=== PATIENT | female | born 1940 | race Caucasian/White ===

== ENCOUNTER 2020-06-28 09:50 | Outpatient (CLI) | payer MEDICARE, SELFPAY ==
--- NOTE | ~2020-06-28 | MM_ITS ---
EXAMINATION: MM screening paola RT w katie HISTORY: Screening TECHNIQUE: Craniocaudal and mediolateral oblique 3-D tomosynthesis images were obtained and synthetic 2-D images were generated. CAD analysis was submitted and interpreted. COMPARISON: Comparison to multiple prior studies sequentially, with oldest reviewed study dated 06/11. BREAST PARENCHYMAL COMPOSITION: The breasts are heterogeneously dense, which may obscure small masses . FINDINGS: There is no evidence of suspicious mass, calcification, or architectural distortion to sugg est malignancy in the right breast. There has been no suspicious interval change. IMPRESSION: 1. No mammographic evidence of malignancy. 2. Recommend routine screening mammography in one year. BI-RADS Category 2: Benign finding(s). Reviewed, dictated and finalized at location A.
[2020-06-28 11:20] LABS: Basophils Percent Auto 0.5 % (0.2-1.2); Eosinophils Absolute Auto 0.2 K/mm3 (0-0.3); Eosinophils Percent Auto 2.9 % (0-4.4); Hematocrit 37.1 % (37.0-47.0); Hemoglobin 12.3 g/dL (12.0-15.0); Immature Granulocyte Absolute 0.01 K/mm3 (0.00-0.031); Immature Granulocyte Percent A 0.2 % (0-0.5); Lymphocytes Absolute Auto 1.89 K/mm3 (0.9-3.2); Lymphocytes Percent Auto 32.8 % (18.3-44.2); Mean Corpuscular HGB Conc 33.2 g/dl (32-36); Mean Corpuscular Hemoglobin 31.8 pg (26-34); Mean Corpuscular Volume 95.9 fl (80-100); Mean Platelet Volume 9.4 fl (7.4-10.4); Monocytes Absolute Auto 0.6 K/mm3 (0.1-0.6); Monocytes Percent Auto 10.1 % (2.6-8.5); Neutrophils Absolute Auto 3.1 K/mm3 (1.3-6.7); Neutrophils Percent Auto 53.5 % (45.5-73.1); Platelet Count Result 174 k/mm3 (150-375); Red Blood Count 3.87 M/mm3 (4.2-5.4); Red Cell Distribution Width 12.4 % (11.5-14.5); White Blood Count 5.8 K/mm3 (4.5-10.0)
[2020-06-28 11:34] LABS: Alanine Aminotransferase 24 U/L (4-35); Albumin Level 4.2 g/dL (3.5-5.1); Alkaline Phosphatase 75 U/L (38-126); Anion Gap 6 mmol/L (8-16); Aspartate Amino Transferase 38 U/L (14-36); Bilirubin,Total 0.2 mg/dL (0.2-1.3); Blood Urea Nitrogen 28 mg/dL (7-17); Calcium 9.1 mg/dL (8.4-10.2); Carbon Dioxide 28 mmol/L (22-30); Chloride 105 mmol/L (98-107); Estimated Glomerular Filt Rate 43; Glucose 76 mg/dL (65-105); Potassium 4.7 mmol/L (3.4-5.0); Sodium 139 mmol/L (137-145)
== END 2020-06-28 09:51 | disposition home or self-care (01) ==
PROVIDERS: PCP Internal Medicine; Visit Provider Internal Medicine Hematology & Oncology
DX: Z12.31 Encounter for screening mammogram for malignant neoplasm of breast (principal); C50.912 Malignant neoplasm of unspecified site of left female breast; Z17.0 Estrogen receptor positive status [ER+]
CPT/HCPCS: 36415; 77063; 77067; 80053; 85025

== ENCOUNTER 2021-06-24 11:19 | Outpatient (CLI) | payer MEDICARE, SELFPAY ==
[2021-06-24 11:55] LABS: Basophils Absolute Auto 0.1 K/mm3 (0.0-0.1); Eosinophils Absolute Auto 0.1 K/mm3 (0-0.3); Eosinophils Percent Auto 2.7 % (0-4.4); Hematocrit 38.5 % (37.0-47.0); Hemoglobin 12.6 g/dL (12.0-15.0); Immature Granulocyte Absolute 0.02 K/mm3 (0.00-0.031); Immature Granulocyte Percent A 0.4 % (0-0.5); Lymphocytes Absolute Auto 1.84 K/mm3 (0.9-3.2); Mean Corpuscular HGB Conc 32.7 g/dl (32-36); Mean Corpuscular Hemoglobin 32.4 pg (26-34); Mean Platelet Volume 9.2 fl (7.4-10.4); Monocytes Absolute Auto 0.5 K/mm3 (0.1-0.6); Monocytes Percent Auto 9.9 % (2.6-8.5); Neutrophils Absolute Auto 2.7 K/mm3 (1.3-6.7); Platelet Count Result 165 k/mm3 (150-375); Red Blood Count 3.89 M/mm3 (4.2-5.4); Red Cell Distribution Width 12.4 % (11.5-14.5); White Blood Count 5.3 K/mm3 (4.5-10.0)
[2021-06-24 12:10] LABS: Alanine Aminotransferase 25 U/L (4-35); Albumin Level 4.3 g/dL (3.5-5.1); Alkaline Phosphatase 75 U/L (38-126); Anion Gap 4 mmol/L (8-16); Aspartate Amino Transferase 37 U/L (14-36); Bilirubin,Total 0.2 mg/dL (0.2-1.3); Blood Urea Nitrogen 28 mg/dL (7-17); Calcium 9.1 mg/dL (8.4-10.2); Carbon Dioxide 28 mmol/L (22-30); Chloride 106 mmol/L (98-107); Estimated Glomerular Filt Rate 39; Glucose 84 mg/dL (65-110); Sodium 138 mmol/L (137-145)
== END 2021-06-24 11:20 | disposition home or self-care (01) ==
PROVIDERS: PCP Internal Medicine; Visit Provider Internal Medicine Hematology & Oncology
DX: C50.912 Malignant neoplasm of unspecified site of left female breast (principal); Z17.0 Estrogen receptor positive status [ER+]
CPT/HCPCS: 36415; 80053; 85025

== ENCOUNTER 2021-06-30 09:26 | Outpatient (CLI) | payer MEDICARE, SELFPAY ==
--- NOTE | ~2021-06-30 | MM_ITS ---
EXAMINATION: MM screening paola RT w katie HISTORY: Screening TECHNIQUE: Craniocaudal and mediolateral oblique 3-D tomosynthesis images were obtained and synthetic 2-D images were generated. CAD analysis was submitted and interpreted. COMPARISON: Comparison to multiple prior studies sequentially, with oldest reviewed study dated 06/13. BREAST PARENCHYMAL COMPOSITION: The breasts are heterogeneously dense, which may obscure small masses . FINDINGS: There is no evidence of suspicious mass, calcification, or architectural distortion to sugg est malignancy in the right breast. There has been no suspicious interval change. IMPRESSION: 1. No mammographic evidence of malignancy. 2. Recommend routine screening mammography in one year. BI-RADS Category 1: Negative Reviewed, dictated and finalized at location A.
== END 2021-06-30 09:27 | disposition home or self-care (01) ==
LOC: ANHIMG 09:28
PROVIDERS: PCP Internal Medicine; Visit Provider Internal Medicine Hematology & Oncology
DX: Z12.31 Encounter for screening mammogram for malignant neoplasm of breast (principal)
CPT/HCPCS: 77063; 77067

== ENCOUNTER 2022-03-23 12:25 | Outpatient (CLI) | payer MEDICARE, SELFPAY ==
--- NOTE | ~2022-03-23 | DEXA_ITS ---
Bone Density Report Name: MELONIE DOAN Age: 81 Sex: Female Ethnicity: White Date of : 1940 Indication: postmenopausal; screening for osteoporosis; height loss; cancer; Referring Provider: RHEA, JEVON Finley Study: Bone densitometry was performed. Exam Date: March 23, 2022 Accession number: [id number] Bone Density: Region BMD T-score Z-score Classification AP Spine(L1, L2, L3) 1.062 0.4 3.1 Normal Femoral Neck (Left) 0.817 -0.3 2.1 Normal Total Hip (Left) 0.967 0.2 2.4 Normal Femoral Neck (Right) 0.790 -0.5 1.8 Normal Total Hip (Right) 0.949 0.1 2.2 Normal Total Hip Mean 0.958 0.2 2.3 Normal World Health Organization criteria for BMD impression classify patients as: Normal (T-score at or above -1.0), Osteopenia (T-score between -1.0 and -2.5), or Osteoporosis (T-score at or below -2.5). 10-year Fracture Risk: FRAX not reported because: All T-scores for Spine Total, Hip Total, Femoral Neck at or above -1.0 Previous Exams: Region Exam Age BMD T-score BMD Change BMD Change Date g/cm2 vs Baseline vs Previous AP Spine (L1-L3) 03/23/2022 81 1.062 0.4 0.114 (12.0%)# 0.092 (9.4%)# 06/26/2019 78 0.971 -0.4 0.022 (2.3%) 0.022 (2.3%) 06/15/2016 75 0.948 -0.6 Total Hip(Left) 03/23/2022 81 0.967 0.2 0.007 (0.8%)# -0.080 (-7.6%) 06/26/2019 78 1.047 0.9 0.087 (9.1%)* 0.087 (9.1%)* 06/15/2016 75 0.960 0.1 Total Hip(Right) 03/23/2022 81 0.949 0.1 0.003 (0.4%)# -0.015 (-1.6%) 06/26/2019 78 0.964 0.2 0.018 (1.9%) 0.018 (1.9%) 06/15/2016 75 0.945 0.0 *Denotes significance at 95% confidence level, LSC for AP Spine = 0.022 g/cm2, LSC for Total Hip = 0.027 g/cm2 # Denotes dissimilar scan types or analysis methods Clinical Information Provided by Patient: Has used the following medications: Calcium Has the following medical conditions: Cancer Patient maximum height was 66 Menopause Age: 55 Onset of menses at age 13 Number of children 2 Impression: The patient has normal bone mass. No significant bone loss was observed. Discussion: BONE DENSITY IS ABOVE THE MINIMUM DESIRABLE LEVEL AT ALL SKELETAL SITES TESTED. This patient?s bone mineral density is above the minimum desirable level (T-score -1.0 or better) at all sites measured. The patient should follow a healthful lifestyle (good nutrition with adequate calcium and vitamin D, and appropriate weight-bearing exercise).
== END 2022-03-23 12:26 | disposition home or self-care (01) ==
LOC: ANHIMG 12:27
PROVIDERS: PCP Internal Medicine; Visit Provider Internal Medicine
DX: Z78.0 Asymptomatic menopausal state (principal)
CPT/HCPCS: 77080

== ENCOUNTER 2022-07-13 10:40 | Outpatient (CLI) | payer MEDICARE, SELFPAY ==
--- NOTE | ~2022-07-13 | MM_ITS ---
EXAMINATION: MM screening paola RT w katie HISTORY: Screening mammogram; history of left mastectomy in 2007 TECHNIQUE: Craniocaudal and mediolateral oblique 3-D tomosynthesis images were obtained and synthetic 2-D images were generated. CAD analysis was submitted and interpreted. COMPARISON: 06/30/2021, 06/28/2020, 06/26/2019 right screening mammogram examinations BREAST PARENCHYMAL COMPOSITION: The breasts are heterogeneously dense, which may obscure small masses . FINDINGS: There is no evidence of suspicious mass, calcification, or architectural distortion to sugg est malignancy in either breast. There has been no suspicious interval change. IMPRESSION: 1. No mammographic evidence of malignancy. 2. Recommend routine screening mammography in one year. BI-RADS Category 1: Negative Reviewed, dictated and finalized at location A.
== END 2022-07-13 10:41 | disposition home or self-care (01) ==
PROVIDERS: PCP Internal Medicine; Visit Provider Internal Medicine Hematology & Oncology
DX: Z12.31 Encounter for screening mammogram for malignant neoplasm of breast (principal)
CPT/HCPCS: 77063; 77067

== ENCOUNTER 2023-05-23 11:32 | Emergency (ER) | payer MEDICARE, SELFPAY ==
--- NOTE | ~2023-05-23 | XR_ITS ---
EXAMINATION: XR chest 2V DATE: 05/23/2023 12:02 INDICATION: Shortness of breath, chest congestion and productive cough TECHNIQUE: PA and lateral views of the chest were obtained. COMPARISON: Chest radiograph dated 10/29/2017 FINDINGS: Mild airspace opacities and bronchial wall thickening in the bilateral lower lung zones, right greate r than left. No pleural effusion or pneumothorax. The cardiomediastinal silhouette is normal. Mild to moderate thoracic spondylosis. IMPRESSION: 1. Mild opacities in the bilateral lower lung zones, right greater than left suspicious for pneumonia with differential including less likely mild pulmonary edema. Reviewed, dictated and finalized at location A. IMPRESSION: 1. Mild opacities in the bilateral lower lung zones, right greater than left beltran spicious for pneumonia with differential including less likely mild pulmonary e nathan.
--- NOTE | 2023-05-23 11:34 | ECG_ITS ---
Measurements Intervals [place] Rate: 69 P: 52 GA: 217 QRS: 38 QRSD: 92 T: 71 QT: 420 QTc: 452 Interpretive Statements SINUS RHYTHM WITH FIRST DEGREE AV BLOCK INCOMPLETE RIGHT BUNDLE BRANCH BLOCK [90+ ms QRS DURATION, TERMINAL R IN V1/V2, 40+ ms S IN I/aVL/V4/V5/V6] Poor R-wave progression NO PREVIOUS ECG AVAILABLE FOR COMPARISON Electronically Signed On 05-23-2023 14:57:01 CDT by Carlene Castañeda M.D.
--- NOTE | 2023-05-23 11:35 | ED.SOB ---
HPI - SOB/Dyspnea General Chief Complaint: Shortness of Breath/Dyspnea Stated Complaint: chest congestion Time Seen by Provider: 05/23/23 11:33 Source: patient Mode of arrival: ambulatory Limitations: no limitations History of Present Illness HPI Narrative: patient is a 82-year-old female with dyspnea after taking a pill yesterday and started coughing. Patient has had recurrent bouts of pneumonia in the past. MD elicited complaint: shortness of breath Onset (ago): day(s) (1) Timing: intermittent Severity: mild Exacerbating factors: coughing Relieving factors: nothing Associated symptoms: denies other symptoms Related Data Home oxygen amount: none Home Medications Medication Instructions Recorded Confirmed atorvastatin 10 mg tablet 10 mg PO DAILY 01/05/23 dicyclomine 10 mg capsule 10 mg PO BID 01/05/23 gabapentin 100 mg capsule 100 mg PO DAILY 01/05/23 levothyroxine 25 mcg capsule 25 mcg PO DAILY 01/05/23 meloxicam 15 mg tablet 15 mg PO DAILY 01/05/23 multivitamin 1 tablet PO DAILY 01/05/23 nortriptyline 50 mg capsule 50 mg PO DAILY 01/05/23 omega 4-tne-jde-fish oil 60 mg-90 1 cap PO DAILY 01/05/23 mg-500 mg capsule (Fish Oil) omeprazole 20 mg capsule,delayed 20 mg PO DAILY 01/05/23 release verapamil 120 mg tablet 120 mg PO DAILY 01/05/23 Allergies Allergy/AdvReac Type Severity Reaction Status Date / Time Cephalosporins Allergy Severe DIARRHEA Verified 04/06/23 11:08 adhesive Allergy Unknown opsite Verified 04/06/23 11:08 causes rash/itching, skin irritation cefprozil Allergy Unknown Other Verified 04/06/23 11:08 erythromycin base Allergy Unknown Other Verified 04/06/23 11:08 Review of Systems Review of Systems: All systems reviewed & are unremarkable except as noted in HPI and below Constitutional: Constitutional: Reports no additional constitutional complaints Eyes: Eyes: Reports no additional eye complaints ENT: Reports system reviewed and no additional complaints, except as documented Cardiovascular: Cardiovascular: Reports no additional cardiovascular complaints Respiratory: Respiratory: Reports no additional respiratory complaints Gastrointestinal: Gastrointestinal: Reports no additional gastrointestinal complaints Genitourinary: Genitourinary: Reports no additional female genitourinary complaints Musculoskeletal: Musculoskeletal: Reports no additional musculoskeletal complaints Integumentary/Breasts: Skin/Breast: Reports system reviewed and no additional complaints, except as docu Neurologic: Reports system reviewed and no additional complaints, except as documented Psychiatric: Psychiatric: Reports no additional psychiatric complaints Endocrine: Endocrine: Reports no additional endocrine complaints Hematologic/Lymphatic: Hematologic/Lymphatic: Reports no additional hematologic/lymphatic complaints Allergic/Immunologic: Allergic/Immunologic: Reports no additional allergic/immunologic complaints PMFSH Past Medical History Medical History Acute pain of left knee Effusion of knee joint Left knee DJD Family History Family History Father Carcinoma of colon Sibling Family history of malignant neoplasm of breast in first degree relative Other Family history of malignant neoplasm Hypertension Social History Social History Smoking status: Never smoker Alcohol intake: never Exam Const: General: healthy appearing Nutritional Appearance: well nourished HENMT: Head: normal to inspection Ears: external ears normal Eyes: Conjunctivae: conjunctivae normal Pupils: Equal, round and reactive pupils present Neck: Neck: normal visual inspection Chest: Chest palpation & inspection: normal inspection of the chest Resp: Effort & Inspection: normal respiratory effort Auscultati
[2023-05-23 11:44] VITALS: BP 181/76; PULSE 80; RESP 20; TEMP 37.1; O2SAT 99
[2023-05-23 12:11] VITALS: O2SAT 98
[2023-05-23 12:30] LABS: Basophils Absolute Auto 0.04 K/mm3 (0.00-0.10); Basophils Percent Auto 0.5 % (0.0-1.0); Eosinophils Absolute Auto 0.21 K/mm3 (0.02-0.50); Eosinophils Percent Auto 2.8 % (1.0-6.0); Hematocrit 36.8 % (35.0-42.0); Hemoglobin 12.2 g/dL (11.7-13.8); Immature Granulocyte Absolute 0.02 K/mm3 (0.00-0.00); Immature Granulocyte Percent A 0.3 % (0.0-0.0); Lymphocytes Percent Auto 25.6 % (18.0-42.0); Mean Corpuscular HGB Conc 33.2 g/dL (32.0-36.0); Mean Corpuscular Hemoglobin 32.7 pg (27.0-31.0); Mean Corpuscular Volume 98.7 fL (78.0-102.0); Monocytes Absolute Auto 0.64 K/mm3 (0.10-0.90); Monocytes Percent Auto 8.6 % (2.0-11.0); Neutrophils Absolute Auto 4.6 K/mm3 (1.7-7.2); Neutrophils Percent Auto 62.2 % (50.0-70.0); Platelet Count Result 208 K/mm3 (150-420); Red Blood Count 3.73 M/mm3 (4.20-5.40); Red Cell Distribution Width 12.8 % (11.6-14.4); White Blood Count 7.4 K/mm3 (4.8-10.8)
[2023-05-23] MEDS: levoFLOXacin 750 MG/D5W 150 ML 750 MG/150 ML BAG 100 MG IVPB (12:30)
[2023-05-23 12:50] LABS: Alanine Aminotransferase 34 U/L (14-59); Albumin Level 3.7 g/dL (3.4-5.0); Alkaline Phosphatase 105 U/L (46-116); Anion Gap 10 mmol/L (8-16); Aspartate Amino Transferase 22 U/L (15-37); Bilirubin,Total 0.2 mg/dL (0.00-1.00); Blood Urea Nitrogen 30 mg/dL (7-18); Calcium 8.9 mg/dL (8.5-10.1); Carbon Dioxide 27 mmol/L (21-32); Chloride 103 mmol/L (98-108); Glucose 93 mg/dL (70-99); Osmolality Calculated 296 mOsm/kg (285-295); Potassium 3.8 mmol/L (3.5-5.1); Sodium 140 mmol/L (136-145); Total Protein 7.6 g/dL (6.4-8.2)
[2023-05-23 12:55] LABS: Lactic Acid Reflex 1.1 mmol/L (0.4-2.0)
[2023-05-23 12:58] LABS: Estimated CRCL calculation 27 ml/min; Estimated Glomerular Filt Rate 34
[2023-05-23] MEDS: SODIUM CHLORIDE 0.9% IV 1,000 ML 999 ML IV CONT (13:31)
--- NOTE | 2023-05-23 13:36 | ECG_ITS ---
Measurements Intervals [place] Rate: 66 P: 47 DC: 225 QRS: 38 QRSD: 87 T: 63 QT: 439 QTc: 461 Interpretive Statements SINUS RHYTHM WITH FIRST DEGREE AV BLOCK POSSIBLE RIGHT VENTRICULAR CONDUCTION DELAY [RSR (QR) IN V1/V2] COMPARED TO ECG 05/23/2023 11:45:16 NO SIGNIFICANT CHANGES Electronically Signed On 05-23-2023 14:57:08 CDT by Carlene Castañeda M.D.
[2023-05-23 14:14] LABS: Troponin I 9.4 ng/L (0.00-60.4)
[2023-05-23 15:00] VITALS: BP 148/72; PULSE 80; RESP 20; TEMP 36.7; O2SAT 100
--- NOTE | 2023-05-29 12:34 | PC.NURSE ---
final blood culture reviewed. no growth after 5 days. no change in plan of care.
== END 2023-05-23 14:45 | disposition home or self-care (01) ==
PROVIDERS: Emergency Provider Emergency Medicine; PCP Internal Medicine
DX: J18.9 Pneumonia, unspecified organism (principal)
CPT/HCPCS: 36415; 71046; 80053; 83605; 84484; 85025; 87040; 93005; 96365; 96366; 99284; J1956; J7030

== ENCOUNTER 2023-07-15 10:21 | Outpatient (CLI) | payer MEDICARE, SELFPAY ==
--- NOTE | ~2023-07-15 | MM_ITS ---
EXAMINATION: MM screening paola RT w katie HISTORY: Screening mammogram TECHNIQUE: Craniocaudal and mediolateral oblique 3-D tomosynthesis images were obtained and synthetic 2-D images were generated. CAD analysis was submitted and interpreted. COMPARISON: 07/13/2022, 06/30/2021, 06/28/2020 right screening mammogram examinations BREAST PARENCHYMAL COMPOSITION: The breasts are heterogeneously dense, which may obscure small masses . FINDINGS: There is no evidence of suspicious mass, calcification, or architectural distortion to sugg est malignancy in either breast. There has been no suspicious interval change. IMPRESSION: 1. No mammographic evidence of malignancy. 2. Recommend routine screening mammography in one year. BI-RADS Category 1: Negative Reviewed, dictated and finalized at location A.
== END 2023-07-15 10:22 | disposition home or self-care (01) ==
PROVIDERS: PCP Internal Medicine; Visit Provider Internal Medicine Hematology & Oncology
DX: Z12.31 Encounter for screening mammogram for malignant neoplasm of breast (principal)
CPT/HCPCS: 77063; 77067

== ENCOUNTER 2023-07-22 10:20 | Outpatient (CLI) | payer MEDICARE, SELFPAY ==
[2023-07-22 10:40] LABS: Basophils Absolute Auto 0.1 K/mm3 (0.0-0.1); Basophils Percent Auto 0.9 % (0.2-1.2); Eosinophils Absolute Auto 0.4 K/mm3 (0-0.3); Eosinophils Percent Auto 7.3 % (0-4.4); Hematocrit 35.2 % (37.0-47.0); Hemoglobin 11.4 g/dL (12.0-15.0); Immature Granulocyte Absolute 0.01 K/mm3 (0.00-0.031); Immature Granulocyte Percent A 0.2 % (0-0.5); Lymphocytes Absolute Auto 1.94 K/mm3 (0.9-3.2); Lymphocytes Percent Auto 33.6 % (18.3-44.2); Mean Corpuscular HGB Conc 32.4 g/dl (32-36); Mean Corpuscular Hemoglobin 32.6 pg (26-34); Mean Corpuscular Volume 100.6 fl (80-100); Mean Platelet Volume 8.9 fl (7.4-10.4); Monocytes Absolute Auto 0.5 K/mm3 (0.1-0.6); Monocytes Percent Auto 8.1 % (2.6-8.5); Neutrophils Absolute Auto 2.9 K/mm3 (1.3-6.7); Neutrophils Percent Auto 49.9 % (45.5-73.1); Platelet Count Result 183 k/mm3 (150-375); Red Cell Distribution Width 12.6 % (11.5-14.5); White Blood Count 5.8 K/mm3 (4.5-10.0)
[2023-07-22 10:45] LABS: Blood Urea Nitrogen 31 mg/dL (8-26); Carbon Dioxide 24 mmol/L (22-30); Chloride 106 mmol/L (98-109); Estimated Glomerular Filt Rate 29; Glucose 110 mg/dL (70-105); Ionized Calcium (POC) 1.21 mmol/L (1.11-1.31); Potassium 4.4 mmol/L (3.5-4.9); Sodium 141 mmol/L (138-146)
[2023-07-22 12:39] LABS: Alanine Aminotransferase 26 U/L (6-35); Alkaline Phosphatase 76 U/L (38-126); Anion Gap 8 mmol/L (8-16); Aspartate Amino Transferase 33 U/L (14-36); Bilirubin,Total 0.4 mg/dL (0.2-1.3); Blood Urea Nitrogen 32 mg/dL (7-17); Carbon Dioxide 26 mmol/L (22-30); Chloride 106 mmol/L (98-107); Estimated Glomerular Filt Rate 33; Glucose 110 mg/dL (65-110); Potassium 4.4 mmol/L (3.4-5.0); Sodium 140 mmol/L (137-145)
== END 2023-07-22 10:21 | disposition home or self-care (01) ==
PROVIDERS: PCP Internal Medicine; Visit Provider Internal Medicine Hematology & Oncology
DX: C50.912 Malignant neoplasm of unspecified site of left female breast (principal); Z17.0 Estrogen receptor positive status [ER+]
CPT/HCPCS: 36415; 80047; 80053; 85025

== ENCOUNTER 2023-07-25 13:57 | Emergency (ER) | payer MEDICARE, SELFPAY ==
[2023-07-25] VITALS (25 sets, daily range): BP systolic 118–158; BP diastolic 57–75; PULSE 63–78; RESP 18–20; TEMP 36.7–36.9; O2SAT 94–100
--- NOTE | ~2023-07-25 | CT_ITS ---
EXAMINATION: CT diagnostic chest wo con DATE: 07/25/2023 16:00 INDICATION: sob/abnl cxr TECHNIQUE: Computed tomography (CT) of the chest was performed with 100 mL Omnipaque-350 intravenous contrast. Automated exposure control and iterative reconstruction technique were employed. The dose-l ength product was 147.44 mGy-cm. COMPARISON: 06/21/2018; x-ray chest 07/25/2023. FINDINGS: CHEST: Thoracic aorta: No significant dilation. Mild arch calcification. Lung parenchyma and airways: Scattered tree-in-bud opacities, slightly increased since the prior stud y. The airways are clear. Increasing peripheral reticulation. Stable pulmonary nodules. Thoracic inlet, axillae and chest wall: No thyroid or soft tissue mass. No axillary lymphadenopathy. Mediastinum: No mass or lymphadenopathy. Heart and pericardium: Normal heart size. No pericardial effusion. Coronary artery calcifications: Absent. Pleura: No effusion or mass. Upper abdomen: No significant finding. Thoracic bones: No acute osseous finding in the chest. IMPRESSION: Increased scattered tree-in-bud opacities, as can be seen with atypical infection (MAC, TB, fungal), ABPA, airways disease (CF, bronchiectasis), and aspiration. Increasing interstitial changes consistent with UIP. Reviewed, dictated and finalized at location K. IMPRESSION: Increased scattered tree-in-bud opacities, as can be seen with atypical infecti on (MAC, TB, fungal), ABPA, airways disease (CF, bronchiectasis), and aspiratio n. Increasing interstitial changes consistent with UIP.
--- NOTE | ~2023-07-25 | XR_ITS ---
EXAMINATION: XR chest 2V Exam Date/Time: 07/25/2023 14:28 CDT HISTORY: sob, cough, congestion x 1 week hx asthma Comparison: 05/23/2023; CT chest 06/21/2018. RESULT: Lines, tubes, and devices: None. Lungs and pleura: Scattered areas of lower lung tree-in-bud opacities. Calcified and partially calci fied right lower lobe nodule is better seen by prior CT. Cardiomediastinal silhouette: Stable. Other: No acute osseous or upper abdominal finding. IMPRESSION: Demonstration of pulmonary opacities as can be seen with atypical infection (MAC, TB, fungal), ABPA, airways disease (CF, bronchiectasis), and aspiration. Reviewed, dictated and finalized at location K. IMPRESSION: Demonstration of pulmonary opacities as can be seen with atypical infection (MA C, TB, fungal), ABPA, airways disease (CF, bronchiectasis), and aspiration.
--- NOTE | 2023-07-25 14:07 | ECG_ITS ---
Measurements Intervals [place] Rate: 74 P: 35 NE: 225 QRS: -9 QRSD: 96 T: 51 QT: 411 QTc: 458 Interpretive Statements SINUS RHYTHM WITH FIRST DEGREE AV BLOCK MODERATE VOLTAGE CRITERIA FOR LVH, CONSIDER NORMAL VARIANT [MEETS CRITERIA IN ONE OF: R(aVL), S(V1), R(V5), R(V5/V6)+S(V1)] ABNORMAL ECG COMPARED TO ECG 05/23/2023 13:48:47 NO SIGNIFICANT CHANGES Electronically Signed On 07-26-2023 9:31:47 CDT by Shin Fisher M.D.
--- NOTE | 2023-07-25 14:14 | ED.WEAKNESS ---
HPI - Weakness General Chief complaint: Upper Respiratory Infection Stated complaint: pneumonia Time Seen by Provider: 07/25/23 14:06 Source: patient and family Mode of arrival: ambulatory Limitations: no limitations History of Present Illness HPI Narrative: patient is a 82-year-old female here with continued pneumonia process. She was given Levaquin in the past week by the cancer specialist for a pneumonia process noted in his office. She is starting to feel weak and woozy and lightheaded and short of breath over the past week progressively getting worse. patient is a breast cancer survivor. She sees her specialist yearly now. MD Complaint: generalized weakness Onset (ago): week(s) (1) Duration: constant Location: generalized Migration: none Severity: moderate Severity scale (1-10): 5 Quality: aching Relieving factors: none Exacerbating factors: none Context: new medication ( Levaquin) Associated symptoms: fever/chills, loss of appetite, myalgias and shortness of breath Related Data Home Medications Medication Instructions Recorded Confirmed atorvastatin 10 mg tablet 10 mg PO DAILY 01/05/23 07/25/23 dicyclomine 10 mg capsule 10 mg PO BID 01/05/23 07/25/23 levothyroxine 25 mcg capsule 25 mcg PO DAILY 01/05/23 07/25/23 meloxicam 15 mg tablet 15 mg PO DAILY 01/05/23 07/25/23 multivitamin 1 tablet PO DAILY 01/05/23 07/25/23 nortriptyline 50 mg capsule 50 mg PO DAILY 01/05/23 07/25/23 omega 3-amj-emn-fish oil 60 mg-90 1 cap PO DAILY 01/05/23 07/25/23 mg-500 mg capsule (Fish Oil) omeprazole 20 mg capsule,delayed 20 mg PO DAILY 01/05/23 07/25/23 release verapamil 120 mg tablet 120 mg PO DAILY 01/05/23 07/25/23 albuterol sulfate 90 mcg/actuation 2 puff inhalation PRN PRN Wheezing 07/25/23 07/25/23 aerosol inhaler glucosamine sulf dipot 1 cap PO DAILY 07/25/23 07/25/23 chlr,msm,chond 550 mg-C 30 mg-amy 1 mg capsule (Glucosamine Chondroitin) olmesartan 20 mg tablet 20 mg PO DAILY 07/25/23 07/25/23 Allergies Allergy/AdvReac Type Severity Reaction Status Date / Time Cephalosporins Allergy Severe DIARRHEA Verified 05/23/23 13:07 adhesive Allergy Unknown opsite Verified 05/23/23 13:07 causes rash/itching, skin irritation cefprozil Allergy Unknown Other Verified 05/23/23 13:07 erythromycin base Allergy Unknown Other Verified 05/23/23 13:07 Review of Systems Review of Systems: All systems reviewed & are unremarkable except as noted in HPI and below Constitutional: Constitutional: Reports no additional constitutional complaints Eyes: Eyes: Reports no additional eye complaints ENT: Reports system reviewed and no additional complaints, except as documented Cardiovascular: Cardiovascular: Reports no additional cardiovascular complaints Respiratory: Respiratory: Reports no additional respiratory complaints Gastrointestinal: Gastrointestinal: Reports no additional gastrointestinal complaints Genitourinary: Genitourinary: Reports no additional female genitourinary complaints Musculoskeletal: Musculoskeletal: Reports no additional musculoskeletal complaints Integumentary/Breasts: Skin/Breast: Reports system reviewed and no additional complaints, except as docu Neurologic: Reports system reviewed and no additional complaints, except as documented Psychiatric: Psychiatric: Reports no additional psychiatric complaints Endocrine: Endocrine: Reports no additional endocrine complaints Hematologic/Lymphatic: Hematologic/Lymphatic: Reports no additional hematologic/lymphatic complaints Allergic/Immunologic: Allergic/Immunologic: Reports no additional allergic/immunologic complaints PMFSH Past Medical History Medical History Acute pain of left knee Effusion of knee joint Left knee DJD Family History Family History Father Carcinoma of colon Sibling Family history of maligna
[2023-07-25] MEDS: SODIUM CHLORIDE 0.9% IV 1,000 ML 999 ML IV CONT (14:22)
[2023-07-25 15:10] LABS: Basophils Absolute Auto 0.03 K/mm3 (0.00-0.10); Basophils Percent Auto 0.5 % (0.0-1.0); Eosinophils Absolute Auto 0.16 K/mm3 (0.02-0.50); Eosinophils Percent Auto 2.8 % (1.0-6.0); Hematocrit 33.4 % (35.0-42.0); Hemoglobin 10.9 g/dL (11.7-13.8); Immature Granulocyte Absolute 0.02 K/mm3 (0.00-0.00); Immature Granulocyte Percent A 0.3 % (0.0-0.0); Lymphocytes Absolute Auto 1.42 K/mm3 (1.10-4.50); Lymphocytes Percent Auto 24.7 % (18.0-42.0); Mean Corpuscular HGB Conc 32.6 g/dL (32.0-36.0); Mean Corpuscular Hemoglobin 32.2 pg (27.0-31.0); Mean Corpuscular Volume 98.8 fL (78.0-102.0); Monocytes Absolute Auto 0.58 K/mm3 (0.10-0.90); Monocytes Percent Auto 10.1 % (2.0-11.0); Neutrophils Absolute Auto 3.5 K/mm3 (1.7-7.2); Neutrophils Percent Auto 61.6 % (50.0-70.0); Platelet Count Result 210 K/mm3 (150-420); Red Blood Count 3.38 M/mm3 (4.20-5.40); Red Cell Distribution Width 12.4 % (11.6-14.4); White Blood Count 5.8 K/mm3 (4.8-10.8)
[2023-07-25 15:36] LABS: Alanine Aminotransferase 24 U/L (14-59); Albumin Level 3.3 g/dL (3.4-5.0); Alkaline Phosphatase 94 U/L (46-116); Anion Gap 12 mmol/L (8-16); Aspartate Amino Transferase 18 U/L (15-37); Bilirubin,Total 0.3 mg/dL (0.00-1.00); Blood Urea Nitrogen 32 mg/dL (7-18); Calcium 8.7 mg/dL (8.5-10.1); Carbon Dioxide 24 mmol/L (21-32); Chloride 101 mmol/L (98-108); Estimated CRCL calculation 21 ml/min; Estimated Glomerular Filt Rate 25; Glucose 153 mg/dL (70-99); Magnesium 1.9 mg/dL (1.8-2.4); NT Pro B Type Natriuretic Pept 280 pg/mL (0-450); Osmolality Calculated 293 mOsm/kg (285-295); Sodium 137 mmol/L (136-145); Total Protein 6.6 g/dL (6.4-8.2); Troponin I 7.1 ng/L (0.00-60.4)
[2023-07-25 15:48] LABS: Influenza A QL RT-PCR Negative (Negative); Influenza B QL RT-PCR Negative (Negative); SARS-CoV-2 RNA PCR Negative (Negative)
[2023-07-25 15:49] LABS: RSV RNA, RT-PCR Negative (Negative)
[2023-07-25 17:48] LABS: Appearance Urine Clear (Clear); Bilirubin Urine Negative (Negative); Blood Urine Negative (Negative); Color Urine Light Yellow (Yellow); Glucose Urine UA Negative (Negative); Ketones Urine Negative (Negative); Leukocyte Esterase Ur Negative LEU/UL (Negative); Nitrate Urine Negative (Negative); Protein Urine Negative (Negative); Urobilinogen Urine 0.2 mg/dL (0.2-1.0)
[2023-07-25 17:49] LABS: Add Urine Microscopic? NO
--- NOTE | 2023-08-02 12:45 | PC.NURSE ---
FINAL BLOOD CULTURE RESULTS X2: NO GROWTH AFTER 5 DAYS. NO ACTION NEEDED.
== END 2023-07-25 18:41 | disposition short-term general hospital (02) ==
PROVIDERS: Emergency Provider Emergency Medicine; PCP Internal Medicine
DX: J18.9 Pneumonia, unspecified organism (principal); R53.1 Weakness; R06.02 Shortness of breath; Z85.3 Personal history of malignant neoplasm of breast; Z79.51 Long term (current) use of inhaled steroids; Z20.822 Contact with and (suspected) exposure to COVID-19
CPT/HCPCS: 36415; 71046; 71250; 80053; 81003; 83605; 83735; 83880; 84484; 85025; 87040; 87637; 93005; 96360; 99285; J7030

== ENCOUNTER 2023-07-25 19:27 | Observation (INO) | payer MEDICARE, SELFPAY ==
--- NOTE | ~2023-07-25 | XR_ITS ---
EXAMINATION: XR barium swallow modified DATE: 07/26/2023 11:01 INDICATION: Aspiration. TECHNIQUE: The patient was given barium-containing material of multiple consistencies to swallow by t he speech pathologist while I performed fluoroscopy. Fluoroscopy exposure time was 0.8 minutes. The n umber of fluoroscopy images saved to the PACS was 1. Dose-area product was 0.617 Gy-cm^2. FINDINGS: The oral stage, pharyngeal stage, and cervical/esophageal stage of the swallow are normal. IMPRESSION: 1. Normal modified barium swallow. 2. Please refer to the speech therapy report for recommendations. Reviewed, dictated and finalized at location A.
[2023-07-25 19:53] VITALS: BP 191/73; PULSE 74; RESP 16; TEMP 37; O2SAT 99
--- NOTE | 2023-07-25 20:45 | PM.IMHP ---
H&P: HPI History of Present Illness Date/Time: 07/25/23 20:30 Chief Complaint: Pneumonia. Narrative: This is a pleasant 82-year-old female with hypertension, hyperlipidemia, irritable bowel syndrome, gastroesophageal reflux disease, asthma, and remote history of breast cancer who is being directly admitted to the medical floor from the ED at an outside facility for evaluation and pulmonary consultation after she was found to abnormal scattered tree-in-bud opacities on chest CT. The patient provides the following history. She was diagnosed with pneumonia 2 months ago and reports that her symptoms completely resolved with antibiotics. In the last week she has developed chest congestion, wet but nonproductive cough, wheezing, shortness of breath, and poor appetite. She had a routine, yearly checkup with her oncologist (she is 15 years out from left-sided breast cancer) and he prescribed her a course of levofloxacin for presumed pneumonia; she is currently on day 4 of that drug. She has been using her albuterol nebulizer which seems to help the wheezing and shortness of breath somewhat. She has not taken any other medications. The last several days she has felt increasingly fatigued, weak, and lightheaded and this is the reason she presented to the ED at the outside facility. She was afebrile on arrival with stable blood pressures. Labs were significant for a WBC count of 5.8, hemoglobin 10.9, BUN 32, normal electrolytes, creatinine 1.89, glucose 153. Urinalysis was unremarkable. She tested negative for COVID, RSV, and influenza. Chest x-ray demonstrated pulmonary opacities which can be seen with atypical infection, ABPA, airway disease, and aspiration. Subsequent chest CT showed increased, scattered tree-in-bud opacities with the same differential as above as well as increasing interstitial changes consistent with UIP. She has a history of asthma but no other known history of lung disease. She was raised in [place] and worked for the [employer]. She is a lifelong nonsmoker. No environmental exposures or history of TB exposure. Her home is 17 years old and she denies standing water, mold, and mildew. She has an indoor dog at home. They feed birds outside but she is rarely around them. She denies dysphagia but does have some concerns for aspiration recently. She gives 2 recent instances where she was awakened from sleep with burning discomfort up into her throat and jaw followed by a coughing fit. Each time she had taken a glucosamine/chondroitin supplement prior to going to bed. She denies fever, chills, sweats, chest pain, pleuritic pain, nausea, vomiting, and diarrhea. She also denies recent travel and sick contacts. No lower extremity edema or calf pain. Review of Systems Review of Systems: Twelve systems were reviewed. No headache or neck ache. Denies sinus congestion and sore throat. No syncope or near syncope. She denies vertigo. Currently being seen by Dr. Tian for a knee effusion and in fact she has an appointment with him this week. Blood pressures have been running high and she was started on olmesartan within the last month or 2. Except as documented, all other systems were reviewed and are negative. [facility] Past Medical History Medical History (Updated 07/25/23 @ 21:01 by Ivana Boss PA-C) Cancer of left breast (2007) Chronic kidney disease, stage 3 Hyperlipidemia Hypertension Hypothyroidism Surgical History Surgical History (Updated 07/25/23 @ 20:56 by Ivana Boss PA-C) History of left mastectomy History of tonsillectomy Family History Family History Father Carcinoma of colon Sibling Family history of malignant neoplasm of breast in first degree relative Other Family history of malignant neoplasm Hypertension Social History Social History (Updated 07/25/23 @ 20:58 by Ivana Boss PA-C) Social History: Surrogate medical decisio
[2023-07-25] MEDS: LACTATED RINGERS 1,000 ML 100 ML IV CONT (21:00)
[2023-07-25 21:02] VITALS: BMI 31.3
--- NOTE | 2023-07-25 21:08 | ADMGEN ---
This patient, Jeanine Welch, was admitted to [facility] Surg Room 307-02 at 1915. Patient/family oriented to hospital policies and general routines including ID bracelet, bed and alarms, visiting hours, pain management, procedures, bathroom and other care routines, personal items, smoking policy, room service/diet, and visiting hours. Information on how to activate the Rapid Response Team has been discussed. Patient/Family are encouraged to report perceived risks to care and to ask questions if they do not understand what they are told or what they should do.
[2023-07-25] MEDS: PANTOPRAZOLE SODIUM IV 40 MG VIAL IV PUSH (21:34)
[2023-07-25] MEDS: guaiFENesin 12 HR 600 MG TABCR 1200 MG PO (21:34)
[2023-07-26] VITALS (13 sets, daily range): BP systolic 155–175; BP diastolic 55–67; PULSE 69–99; RESP 14–20; TEMP 36.3–36.5; O2SAT 96–99
--- NOTE | 2023-07-26 | ECHO_ITS ---
Patient Info Name: Jeanine Welch Age: 82 years : 1940 Gender: Female Ht: 64 in Wt: 183 lbs BSA: 1.97 m2 HR: 73 bpm BP: 175 / 60 mmHg Heart Rhythm: Sinus Rhythm Technical Quality: Fair Exam Date: 07/26/2023 12:04 PM Exam Location: [facility] Pulmonary Patient Status: Outpatient Admit Date: 07/25/2023 Staff Ordering Physician: Ivana Boss PA-C Wrong Address Clerk: Mary Greenberg RDCS Attending Provider: Alberto Peterson MD Referring Physician: Gera SANDERSON; Exam Type: CA echo dop color flow w con Study Info Indications - MURMUR.HTN Complete two-dimensional, color flow and Doppler transthoracic echocardiogram is performed with contrast to opacify the left ventricle and to improve the deliniation of the left ventricle endocardial borders. Contrast/Agitated Saline Contrast/Ag. Saline: Definity Amount: 3.00 ml Administered By: Mary Greenberg RDCS Existing IV Access: Yes IV Access Condition: patent with no signs of infiltration Summary 1. Left ventricular chamber dimension is normal. 2. There is moderate asymmetric septal increased left ventricular wall thickness. 3. The left ventricular diastolic function is grade I diastolic dysfunction. 4. Left atrial chamber dimension is mildly enlarged. 5. There is mild mitral valve regurgitation. 6. The mitral valve has thickened leaflets. 7. There is mild tricuspid valve regurgitation. 8. There is mild pulmonic regurgitation. 9. Left ventricular systolic function is normal, estimated at 65-70%. 10. Mild systolic anterior motion of the anterior mitral leaflet. Left Ventricle Left ventricular chamber dimension is normal. Left ventricular systolic function is normal, estimated at 65-70%. There is moderate asymmetric septal increased left ventricular wall thickness. The left ventricular diastolic function is grade I diastolic dysfunction. Right Ventricle Right ventricular chamber dimension is normal. Right ventricular systolic function is normal. Left Atria Left atrial chamber dimension is mildly enlarged. Right Atria Right atrial chamber dimension is normal. Atrial Septum Intact interatrial septum visualized by color flow imaging. Aortic Valve The aortic valve is trileaflet. There is mild aortic valve sclerosis. There is no aortic valve stenosis. There is trace aortic valve regurgitation. Pulmonic Valve The pulmonic valve is normal. There is no pulmonic valve stenosis. There is mild pulmonic regurgitation. Mitral Valve The mitral valve has thickened leaflets. There is no mitral valve stenosis. There is mild mitral valve regurgitation. Tricuspid Valve The tricuspid valve leaflets are normal. There is no significant tricuspid valve stenosis. There is mild tricuspid valve regurgitation. No pulmonary hypertension, estimated pulmonary arterial systolic pressure is 33 mmHg. Other Findings Mild systolic anterior motion of the anterior mitral leaflet. Pericardium/Pleural The pericardium appears normal. There is no pericardial effusion. Inferior Vena Cava Normal inferior vena cava with <50% collapse upon inspiration consistent with elevated right atrial pressure, 10 mmHg. Aorta The aortic root size at the sinus of Valsalva is normal. Left Ventricular Outflow Tract Name Value Normal LVOT 2D
[2023-07-26] MEDS: ALBUTEROL SULFATE NEB 2.5 MG/3 ML INH INHALATION ×4 (02:48→19:39)
[2023-07-26] MEDS: IPRATROPIUM BR 0.02% INH SOLN 0.5 MG/2.5 ML VIAL INHALATION ×4 (02:50→19:39)
[2023-07-26] MEDS: SODIUM CHLOR 3% 15 ML NEB (RESPIRATORY THERAPY) 6 ML INHALATION (05:08)
[2023-07-26 07:12] LABS: Hematocrit 32.4 % (37.0-47.0); Hemoglobin 10.3 g/dL (12.0-15.0); Mean Corpuscular HGB Conc 31.8 g/dl (32-36); Mean Corpuscular Hemoglobin 32.2 pg (26-34); Mean Corpuscular Volume 101.3 fl (80-100); Mean Platelet Volume 9.3 fl (7.4-10.4); Platelet Count Result 174 k/mm3 (150-375); Red Cell Distribution Width 12.3 % (11.5-14.5); White Blood Count 6.4 K/mm3 (4.5-10.0)
[2023-07-26 07:19] LABS: Anion Gap 5 mmol/L (8-16); Blood Urea Nitrogen 24 mg/dL (7-17); CRP 1.1 mg/dL (<1.0); Calcium 8.5 mg/dL (8.4-10.2); Carbon Dioxide 24 mmol/L (22-30); Chloride 108 mmol/L (98-107); Estimated CRCL calculation 29 ml/min; Estimated Glomerular Filt Rate 36; Glucose 90 mg/dL (65-110); Potassium 3.7 mmol/L (3.4-5.0); Sodium 137 mmol/L (137-145)
[2023-07-26] MEDS: guaiFENesin 12 HR 600 MG TABCR 1200 MG PO ×2 (08:11→20:03)
[2023-07-26] MEDS: PANTOPRAZOLE SODIUM IV 40 MG VIAL IV PUSH (08:11)
[2023-07-26] MEDS: ENOXAPARIN 40 MG/0.4 ML SYRINGE SUB-Q (08:11)
--- NOTE | 2023-07-26 08:54 | PM.IMPN ---
Progress Note: A&P Assessment and Plan (1) Acute renal failure superimposed on chronic kidney disease: Code(s): N17.9 - Acute kidney failure, unspecified; N18.9 - Chronic kidney disease, unspecified Status: Acute Assessment and Plan: Improving with IV fluids, monitor, baseline likely a between 1.2 in 1.5 (2) Abnormal chest CT: Code(s): R93.89 - Abnormal findings on diagnostic imaging of other specified body structures Status: Acute Assessment and Plan: Appreciate pulmonology consultation (3) Hypertension: Code(s): I10 - Essential (primary) hypertension Status: Acute Assessment and Plan: Blood pressure monitor 07/26 (4) Hyperlipidemia: Code(s): E78.5 - Hyperlipidemia, unspecified Status: Acute (5) Hypothyroidism: Code(s): E03.9 - Hypothyroidism, unspecified Status: Acute Assessment and Plan: Check TSH, continue home meds (6) Effusion of knee joint: Qualifiers: Laterality: left Qualified Code(s): M25.462 - Effusion, left knee Code(s): M25.469 - Effusion, unspecified knee Status: Acute Assessment and Plan: Appreciate orthopedic consultation, cortisone injection after aspiration performed today Plan DVT prophylaxis with SCDs GI prophylaxis not indicated Code status full code Subjective Date/time seen: 07/26/23 08:54 Interval history: 82-year-old female with hypertension, hyperlipidemia, irritable bowel syndrome, gastroesophageal reflux disease, asthma, and remote history of breast cancer presenting with weakness and being treated for atypical pna. No overnight events noted. No chest pain or shortness of breath. No nausea, vomiting or diarrhea. No fevers or chills. Review of Systems Review of Systems: 12 point review of systems was assessed and was negative except as noted in the HPI Exam Narrative: General: No acute distress, alert and oriented per baseline HEENT: Atraumatic, normocephalic, mucous membranes moist CV: Regular rate and rhythm, S1, S2 Lungs: Clear to auscultation bilaterally, no rales or crackles noted, no wheezes, good air entry Abdomen: Soft, nontender, nondistended Extremities: Normal to inspection Skin: No rashes noted, no lesions or wounds seen Psych: Euthymic, normal affect Objective Data Vital Signs Vital Signs: Vital Signs - 24 hr 07/25/23 19:53 07/25/23 20:00 07/26/23 02:51 Temperature 98.6 F Pulse Rate 74 77 Respiratory Rate 16 18 Blood Pressure 191/73 H Pulse Oximetry 99 Oxygen Delivery Room Air 07/26/23 05:08 07/26/23 05:14 07/26/23 06:00 Temperature 97.6 F Pulse Rate 80 82 73 Respiratory Rate 18 18 18 Blood Pressure 175/60 H Pulse Oximetry 98 Oxygen Delivery 07/26/23 08:27 07/26/23 08:42 Temperature Pulse Rate 84 80 Respiratory Rate 20 20 Blood Pressure Pulse Oximetry Oxygen Delivery Intake/Output Intake/Output: Intake & Output 07/23/23 07/24/23 07/25/23 07/26/23 23:59 23:59 23:59 23:59 Output Total 0 Balance 0 Meds/Results Medications: Active Medications Generic Name Dose Route Start Last Admin Trade Name Freq PRN Reason Stop Dose Admin Acetaminophen 650 mg 07/25/23 19:26 Acetaminophen 325 Mg Tablet PO Q4H PRN Mild Pain (1-3) or Fever Albuterol 2.5 mg 07/26/23 02:00 07/26/23 08:25 Albuterol Sulfate Neb 2.5 Mg/3 Ml Inh INHALATION 2.5 mg Q6HRT ESTHER Administration Enoxaparin Sodium 40 mg 07/26/23 09:00 07/26/23 08:11 Enoxaparin 40 Mg/0.4 Ml Syringe SUB-Q 40 mg DAILY ESTHER Administration Guaifenesin 1,200 mg 07/25/23 21:15 07/26/23 08:11 Guaifenesin 12 Hr 600 Mg Tabcr PO 1,200 mg Q12HR ESTHER Administration Ipratropium [place] 0.5 mg 07/26/23 02:00 07/26/23 08:25 Ipratropium Br 0.02% Inh Soln 0.5 Mg/2.5 Ml Vial INHALATION 0.5 mg Q6HRT ESTHER Administration Pantoprazole Sodium 4
[2023-07-26] MEDS: MULTIVITAMINS THERAPEUTIC TAB (*BKC) 1 TABLET PO (09:46)
[2023-07-26] MEDS: LEVOTHYROXINE SODIUM 25 MCG TABLET PO (09:46)
[2023-07-26] MEDS: MELOXICAM 7.5 MG TABLET 15 MG PO (09:47)
[2023-07-26] MEDS: ATORVASTATIN 10 MG TABLET PO (09:47)
[2023-07-26] MEDS: OLMESARTAN MEDOXOMIL 20 MG TABLET PO (09:47)
[2023-07-26] MEDS: VERAPAMIL HCL ER 120 MG TABLET PO (09:47)
--- NOTE | 2023-07-26 10:04 | PM.CNPUL ---
Assessment and Plan Assessment and plan (1) Abnormal chest CT: Code(s): R93.89 - Abnormal findings on diagnostic imaging of other specified body structures Status: Acute (2) Hypothyroidism: Code(s): E03.9 - Hypothyroidism, unspecified Status: Acute (3) History of breast cancer: Code(s): Z85.3 - Personal history of malignant neoplasm of breast Status: Acute (4) Aspiration pneumonia: Code(s): J69.0 - Pneumonitis due to inhalation of food and vomit Status: Acute Assessment and Plan: This 82-year-old female with a history of breast cancer status post chemotherapy many years ago presents with some chest congestion. Chest CT showed tree-in-bud pattern bilaterally. There was no significant bronchiectasis. The patient has no chronic symptoms such as fever chills sputum production wheezing or night sweats. The patient has history of esophageal stricture status post dilatation years ago. She continues to have cough spells with solid food. The chest CT pattern in conjunction with history of bouts of coughing with solid food could indicate frequent aspiration episodes. Tree-in-bud pattern can be seen with aspiration pneumonia. Alternatively the tree-in-bud pattern could be related to atypical mycobacterial infection. Plan: Consider adding Augmentin orally for possible aspiration pneumonia. Will check sputum for AFB. Suggest GI consultation regarding history of esophageal stricture with frequent aspiration episodes. History of Present Illness History of Present Illness Consult date: 07/26/23 Chief complaint: Pneumonia Narrative: This 82-year-old female presented to the emergency room with dizziness and chest congestion. The patient was in her usual state of health until approximately 4 days prior to this admission when she started to have dizziness and chest congestion. The patient was prescribed antibiotic by her primary care provider. She continued to have dizziness and also some wheezing on a daily basis. She was evaluated in the emergency room at [facility] because of dizziness and question shortness of breath. She had no fever chills hemoptysis night sweats. A chest CT done at [facility] showed tree-in-bud pattern bilaterally. Patient was transferred to [facility] for further workup and treatment. Past medical history is significant for breast cancer, status post chemotherapy only in 2008. She had no radiation or surgery for breast cancer. She also has history of esophageal stricture with a previous esophageal dilatation many years ago. Upon questioning the patient admitted having coughing spells at least twice a week with solid food. She has had history of frequent pneumonias in the recent past. She has no history of smoking. She has no history of exposure to organic agents. She has history of mild intermittent asthma and has been on rescue albuterol inhaler. She uses the rescue albuterol inhaler rather infrequently, maybe once every 2 months. Since admission to the hospital last p.m. her breathing has improved. She has less congestion and no wheezing. She has very mild cough but not coughing up any phlegm. Review of Systems Review of Systems: Patient reports no weight changes. She has no history of nasal allergies. She has no orthopnea. She has a deviated septum. She has no nausea vomiting diarrhea constipation. She has a history of a knee pain. She has history of eczema. She has history of depression. The remainder of the 12 point system review is negative. [facility] Past Medical History Medical History (Updated 07/26/23 @ 10:11 by Aries Crawford MD) Cancer of left breast (2007) Chronic kidney disease, stage 3 Hyperlipidemia Hypertension Hypothyroidism Surgical History Surgical History (Updated 07/25/23 @ 20:56 by Ivana Boss PA-C) History of left mastectomy History of tonsillectomy Family History Family History (Re
--- NOTE | 2023-07-26 11:46 | PCSTNOTE ---
Please refer to the Modified Barium Swallow Evaluation in the EMR.
--- NOTE | 2023-07-26 11:46 | PM.CNOR ---
Assessment and Plan Assessment and plan (1) Left knee DJD: Qualifiers: Osteoarthritis type: primary Qualified Code(s): M17.12 - Unilateral primary osteoarthritis, left knee Code(s): M17.12 - Unilateral primary osteoarthritis, left knee Status: Acute Assessment and Plan: Orthopedic consult requested by hospitalist service due to recurrent left knee pain. History and exam reviewed with the patient. Previous radiographs reveal moderate tricompartmental left knee DJD. Discussed condition, nature, etiology and course of natural history. Conservative and operative treatment options reviewed. The patient is not currently a candidate for surgical intervention due to current hospitalization and treatment for PNA. The patient responded well to cortisone injections in the past. Recommended repeat cortisone injection today. The risks of injection were reviewed including but not limited to skin color changes, atrophy of the soft tissue, tendon or soft tissue rupture, joint degeneration, hyper inflammatory response, allergic reaction, continued pain or dysfunction. Specific risks of the procedure including deep infection or soft tissue rupture or recurrence of symptoms reviewed. No guarantees were offered. The patient understands the need for possible further treatment. Injection performed, tolerated well. Post injection instructions reviewed. Reviewed recommendations for neoprene knee sleeve, topical analgesics, home exercise regimen and low impact activities once discharged home. Patient to follow up as needed in the outpatient orthopedic clinic. (2) Effusion of knee joint: Qualifiers: Laterality: left Qualified Code(s): M25.462 - Effusion, left knee Code(s): M25.469 - Effusion, unspecified knee Status: Acute Assessment and Plan: Moderate left knee joint effusion noted on exam. Discussed condition, nature, etiology and course of natural history. Conservative treatment options reviewed. Recommended aspiration prior to injection. Aspiration performed under sterile conditions. Aspirate serosanguineous in nature. No signs of infection. Joint without erythema. Cortisone injection performed. Recommended use of neoprene knee sleeve. (3) Abnormal chest CT: Code(s): R93.89 - Abnormal findings on diagnostic imaging of other specified body structures Status: Acute (4) Acute renal failure superimposed on chronic kidney disease: Code(s): N17.9 - Acute kidney failure, unspecified; N18.9 - Chronic kidney disease, unspecified Status: Acute (5) History of breast cancer: Code(s): Z85.3 - Personal history of malignant neoplasm of breast Status: Acute (6) Aspiration pneumonia: Code(s): J69.0 - Pneumonitis due to inhalation of food and vomit Status: Acute Assessment and Plan: Pulmonology suggested GI consult. Patient currently on antibiotics. History of Present Illness HPI Consult date: 07/26/23 Chief complaint: Pneumonia Narrative: 82-year-old female admitted with chest congestion. Concern for aspiration pneumonia. Patient is being followed by pulmonology with a recommendation for GI consultation given patient's history of esophageal stricture with frequent aspiration episodes. Patient was scheduled to be seen in our outpatient orthopedic office today for chronic left knee pain. Patient has a history of left knee arthritis and recurrent effusions. Orthopedic consult requested by the hospitalist service due to patient's knee pain and scheduled appointment in the outpatient clinic. Review of Systems Constitutional: Constitutional: Reports as per HPI, Denies chills, Denies fatigue, Denies headache(s), Denies night sweats, Denies weakness, Denies weight gain and Denies weight loss Eyes: Eyes: Reports no additional eye complaints and Denies eye discharge ENT: Reports system reviewed and no additional complaints, except as documented, Reports Normal hea
[2023-07-26] MEDS: PERFLUTREN LIPID MICROSPHERES 1.5 ML VIAL DILUTED TO 10 ML TOTAL VOLUME IV PUSH (12:00)
--- NOTE | 2023-07-26 13:16 | IVDEFINITY ---
Prior to administration of IV Definity the patient was educated on the risks and benefits of the imaging enhancing agent including potential adverse side effects. The patient verbalized understanding. Allergies were verified. No exclusion criteria were identified and at least one of the following inclusion criteria were met: 1) physician request, 2) patient technically difficult to image (per the [place] [employer] guidelines of two or more segments not discernable within the apical view), or 3) questionable left ventricular function. ?
[2023-07-26] MEDS: DICYCLOMINE HCL 10 MG CAPSULE PO (16:00)
[2023-07-26] MEDS: NORTRIPTYLINE HCL 25 MG CAPSULE 50 MG PO (20:03)
[2023-07-27] VITALS (14 sets, daily range): BP systolic 142–165; BP diastolic 54–60; PULSE 70–88; RESP 16–18; TEMP 35.8–36.6; O2SAT 96–98
[2023-07-27] MEDS: IPRATROPIUM BR 0.02% INH SOLN 0.5 MG/2.5 ML VIAL INHALATION ×4 (01:34→20:51)
[2023-07-27] MEDS: ALBUTEROL SULFATE NEB 2.5 MG/3 ML INH INHALATION ×4 (01:34→20:51)
[2023-07-27] MEDS: SODIUM CHLOR 3% 15 ML NEB (RESPIRATORY THERAPY) 6 ML INHALATION (05:37)
[2023-07-27] MEDS: LEVOTHYROXINE SODIUM 25 MCG TABLET PO (06:00)
[2023-07-27 06:25] LABS: Basophils Percent Auto 0.2 % (0.2-1.2); Hematocrit 31.2 % (37.0-47.0); Hemoglobin 10.1 g/dL (12.0-15.0); Immature Granulocyte Absolute 0.02 K/mm3 (0.00-0.031); Immature Granulocyte Percent A 0.3 % (0-0.5); Lymphocytes Absolute Auto 0.86 K/mm3 (0.9-3.2); Lymphocytes Percent Auto 13.7 % (18.3-44.2); Mean Corpuscular HGB Conc 32.4 g/dl (32-36); Mean Corpuscular Hemoglobin 32.6 pg (26-34); Mean Corpuscular Volume 100.6 fl (80-100); Mean Platelet Volume 9.4 fl (7.4-10.4); Monocytes Absolute Auto 0.3 K/mm3 (0.1-0.6); Monocytes Percent Auto 4.9 % (2.6-8.5); Neutrophils Absolute Auto 5.1 K/mm3 (1.3-6.7); Neutrophils Percent Auto 80.9 % (45.5-73.1); Platelet Count Result 188 k/mm3 (150-375); Red Cell Distribution Width 12.6 % (11.5-14.5); White Blood Count 6.3 K/mm3 (4.5-10.0)
[2023-07-27 06:39] LABS: Alanine Aminotransferase 22 U/L (6-35); Albumin Level 3.8 g/dL (3.5-5.1); Alkaline Phosphatase 71 U/L (38-126); Anion Gap 5 mmol/L (8-16); Aspartate Amino Transferase 29 U/L (14-36); Bilirubin,Total 0.4 mg/dL (0.2-1.3); Blood Urea Nitrogen 21 mg/dL (7-17); Calcium 8.5 mg/dL (8.4-10.2); Carbon Dioxide 23 mmol/L (22-30); Chloride 105 mmol/L (98-107); Estimated CRCL calculation 31 ml/min; Estimated Glomerular Filt Rate 39; Glucose 115 mg/dL (65-110); Potassium 4.3 mmol/L (3.4-5.0); Sodium 133 mmol/L (137-145)
--- NOTE | 2023-07-27 07:16 | PC.NURSE ---
called DO Tori about pulmonary recommendation of augmentin PO for possible aspiration PNA. awaiting call back.
[2023-07-27] MEDS: PANTOPRAZOLE 40 MG TABLET PO (08:52)
[2023-07-27] MEDS: OLMESARTAN MEDOXOMIL 20 MG TABLET PO (08:52)
[2023-07-27] MEDS: DICYCLOMINE HCL 10 MG CAPSULE PO ×2 (08:52→17:15)
[2023-07-27] MEDS: MULTIVITAMINS THERAPEUTIC TAB (*BKC) 1 TABLET PO (08:52)
[2023-07-27] MEDS: VERAPAMIL HCL ER 120 MG TABLET PO (08:52)
[2023-07-27] MEDS: MELOXICAM 7.5 MG TABLET 15 MG PO (08:53)
[2023-07-27] MEDS: ATORVASTATIN 10 MG TABLET PO (08:53)
[2023-07-27] MEDS: guaiFENesin 12 HR 600 MG TABCR 1200 MG PO ×2 (08:53→21:03)
[2023-07-27] MEDS: ENOXAPARIN 40 MG/0.4 ML SYRINGE SUB-Q (08:53)
--- NOTE | 2023-07-27 11:08 | PM.IMPN ---
Progress Note: A&P Assessment and Plan (1) Abnormal chest CT: Code(s): R93.89 - Abnormal findings on diagnostic imaging of other specified body structures Status: Acute Assessment and Plan: Appreciate pulmonology consultation Concern for aspiration pneumonia, cont augmentin + azithromycin (2) Acute renal failure superimposed on chronic kidney disease: Code(s): N17.9 - Acute kidney failure, unspecified; N18.9 - Chronic kidney disease, unspecified Status: Acute Assessment and Plan: Improving with IV fluids, monitor, baseline likely a between 1.2 in 1.5 (3) Dysphagia: Code(s): R13.10 - Dysphagia, unspecified Status: Acute Assessment and Plan: Consult GI for possible recurrent esophageal stricture, h/o dilation, difficulty swallowing multiple times a week (4) Hypertension: Code(s): I10 - Essential (primary) hypertension Status: Acute Assessment and Plan: Blood pressure monitor 07/27 (5) Hyperlipidemia: Code(s): E78.5 - Hyperlipidemia, unspecified Status: Acute (6) Hypothyroidism: Code(s): E03.9 - Hypothyroidism, unspecified Status: Acute Assessment and Plan: TSH wnl, continue home meds (7) Effusion of knee joint: Qualifiers: Laterality: left Qualified Code(s): M25.462 - Effusion, left knee Code(s): M25.469 - Effusion, unspecified knee Status: Acute Assessment and Plan: Appreciate orthopedic consultation, cortisone injection after aspiration performed 07/26 Plan DVT prophylaxis with SCDs GI prophylaxis not indicated Code status full code Subjective Date/time seen: 07/27/23 11:08 Interval history: 82-year-old female with hypertension, hyperlipidemia, irritable bowel syndrome, gastroesophageal reflux disease, asthma, and remote history of breast cancer presenting with weakness and being treated for atypical pna. No overnight events noted. No chest pain or shortness of breath. No nausea, vomiting or diarrhea. No fevers or chills. Review of Systems Review of Systems: 12 point review of systems was assessed and was negative except as noted in the HPI Exam Narrative: General: No acute distress, alert and oriented per baseline HEENT: Atraumatic, normocephalic, mucous membranes moist CV: Regular rate and rhythm, S1, S2 Lungs: Clear to auscultation bilaterally, no rales or crackles noted, no wheezes, good air entry Abdomen: Soft, nontender, nondistended Extremities: Normal to inspection Skin: No rashes noted, no lesions or wounds seen Psych: Euthymic, normal affect Objective Data Vital Signs Vital Signs: Vital Signs - 24 hr 07/26/23 14:00 07/26/23 14:47 07/26/23 14:59 Temperature 97.7 F Pulse Rate 72 86 69 Respiratory Rate 14 20 20 Blood Pressure 155/55 H Pulse Oximetry 96 Oxygen Delivery 07/26/23 19:37 07/26/23 19:39 07/26/23 19:56 Temperature Pulse Rate 72 73 Respiratory Rate 20 20 Blood Pressure Pulse Oximetry 96 Oxygen Delivery Room Air 07/26/23 22:00 07/27/23 01:34 07/27/23 01:48 Temperature 97.4 F L Pulse Rate 99 70 71 Respiratory Rate 18 18 18 Blood Pressure 166/67 H Pulse Oximetry 99 Oxygen Delivery 07/27/23 04:47 07/27/23 05:38 07/27/23 05:47 Temperature 96.5 F L Pulse Rate 83 74 73 Respiratory Rate 16 18 18 Blood Pressure 142/54 H Pulse Oximetry 96 Oxygen Delivery 07/27/23 08:01 07/27/23 08:15 07/27/23 08:56 Temperature Pulse Rate 84 85 Respiratory Rate 16 16 Blood Pressure Pulse Oximetry 98 Oxygen Delivery Room Air Intake/Output Intake/Output: Intake & Output 07/24/23 07/25/23 07/26/23 07/27/23 23:59 23:59 23:59 23:59 Intake Total 1148 490 Output Total 0 Balance 1148 490 Meds/Results Medications: Active Medications Generic Name Dose Route Start Last Admin Trade Name Freq PRN Reason Stop Do
--- NOTE | 2023-07-27 12:39 | WPDGICN ---
Assessment and Plan Assessment and plan (1) Dysphagia: Code(s): R13.10 - Dysphagia, unspecified Status: Acute Assessment and Plan: she has known history of esophageal stricture years ago, currently on ppi but also noted nsaid's- if pud then may need to discontinue meloxicam. will proceed with EGD possible dilation based on finding (2) Aspiration pneumonia: Code(s): J69.0 - Pneumonitis due to inhalation of food and vomit Status: Acute Assessment and Plan: she is feeling much better pulmonary on board (3) Acute renal failure superimposed on chronic kidney disease: Code(s): N17.9 - Acute kidney failure, unspecified; N18.9 - Chronic kidney disease, unspecified Status: Acute Assessment and Plan: improved and back to baseline (4) Abnormal chest CT: Code(s): R93.89 - Abnormal findings on diagnostic imaging of other specified body structures Status: Acute (5) Hypertension: Code(s): I10 - Essential (primary) hypertension Status: Acute GI Consult Note Consult date/time: 07/27/23 12:39 Reason for consult: dysphagia HPI: Jeanine Welch is a 82 year old female with history of breast cancer, GERD on omeprazole, arthritis using meloxicam daily, HTN who came to the hospital with cough and chest congestion.? Initially was evaluated in the emergency room at [facility], chest CT showed tree-in-bud pattern bilaterally and was transferred to [facility], treated for aspiration pneumonia and now doing much better. She had another episode of pneumonia not too long ago.?At bedtime after taking some of her medications will have sour taste and feeling that will come up, also after eating dry food/meat will have feeling that get stuck in chest then will have to drink water. Had EGD with esophageal dilation about 15 years ago. Review of Systems Constitutional: Constitutional: Denies chills Eyes: Eyes: Denies blurry vision ENT: Reports Normal hearing present Cardiovascular: Cardiovascular: Denies diaphoresis Respiratory: Respiratory: Reports chest congestion and Reports cough Gastrointestinal: Gastrointestinal: Denies abdominal pain Genitourinary: Genitourinary: Denies hematuria Musculoskeletal: Musculoskeletal: Reports arthralgias Integumentary/Breasts: Skin/Breast: Denies dry skin Neurologic: Denies Abnormal speech present Psychiatric: Psychiatric: Denies behavioral changes [facility] Past Medical History Medical History Cancer of left breast (2007) Chronic kidney disease, stage 3 Hyperlipidemia Hypertension Hypothyroidism Surgical History Surgical History History of left mastectomy History of tonsillectomy Family History Family History Father Carcinoma of colon Sibling Family history of malignant neoplasm of breast in first degree relative Other Family history of malignant neoplasm Hypertension Social History Social History Social History: Surrogate medical decision maker: Lucille Whitley, daughter. Code status: Full code. Smoking status: Never smoker Alcohol intake: never Substance use: never Lack of Transportation: No Lack of Food: Never True Current Housing: I Have Housing Concerned About Future Housing: No Difficulty Paying Gas/Electric Bills: No Difficulty Paying for Meds: No Currently Unemployed: No Education: High School Diploma/GED Difficulty w/ Childcare or Family Care: No Additional living arrangements comments: Lives in [place] with a good friend. She has 1 dog at home. Additional occupation/education comments: Retired from the [employer]. Spiritual care concerns: No Meds Home Medications and Allergies Home Medications Medication Instructions Re
[2023-07-27] MEDS: AMOXICILLIN/CLAVULANATE K 875-125 MG TAB 1 TABLET PO ×2 (12:41→21:02)
[2023-07-27] MEDS: AZITHROMYCIN 250 MG TABLET 500 MG PO (12:41)
--- NOTE | 2023-07-27 14:21 | PM.PNPUL ---
Progress Note: A&P Assessment and Plan (1) Aspiration pneumonia: Code(s): J69.0 - Pneumonitis due to inhalation of food and vomit Status: Acute Assessment and Plan: This 82-year-old female with a history of breast cancer status post chemotherapy many years ago presents with some chest congestion.? Chest CT showed tree-in-bud pattern bilaterally.? There was no significant bronchiectasis.? The patient has no chronic symptoms such as fever chills sputum production wheezing or night sweats.? The patient has? history of esophageal stricture status post dilation years ago.? She continues to have coughing spells with solid food.? The chest CT pattern in conjunction with history of bouts of coughing with solid food could indicate frequent aspiration episodes.? Tree-in-bud pattern can be seen with aspiration pneumonia.? Alternatively the tree-in-bud pattern could be related to atypical mycobacterial infection. Patient was evaluated by GI services for possible esophageal stricture. Plan:? Respiratory status significantly improved. I would suggest finish treatment with Zithromax for 5 days, Augmentin for 8 days. Okay to discharge patient post GI procedure. She will need follow-up in the outpatient pulmonary clinic with repeat chest CT in approximately 6-8 weeks to document clearing of lung infiltrates. Will sign off please call with any questions. (2) Dysphagia: Code(s): R13.10 - Dysphagia, unspecified Status: Acute (3) History of breast cancer: Code(s): Z85.3 - Personal history of malignant neoplasm of breast Status: Acute (4) Abnormal chest CT: Code(s): R93.89 - Abnormal findings on diagnostic imaging of other specified body structures Status: Acute Subjective Date/time seen: 07/27/23 14:21 Interval history: Patient doing better. No new respiratory symptoms. She awaits GI evaluation. Eager to go home. Remains on room air Review of Systems Review of Systems: All systems reviewed & are unremarkable except as noted in HPI and below (HPI and below) Exam Narrative: GENERAL APPEARANCE: Well developed, well nourished, alert and cooperative, and appears to be in no acute distress SKIN: Inspection of the skin reveals no rashes, ulcerations or petechiae. HEENT: Sclerae anicteric and conjunctivae pink and moist. Extraocular movements were intact and pupils were equal, round, and reactive to light. The oral mucosa, hard and soft palate, tongue and posterior pharynx were normal. NECK: Supple. There was no thyroid enlargement, and no tenderness, or masses were felt. CHEST: Normal AP diameter and normal contour without any kyphoscoliosis. LUNGS: Rare crackles at bases posteriorly no wheezing CARDIAC: There was a regular rate and rhythm; 3/6 systolic ejection murmur at apex LYMPH NODES: No lymphadenopathy was appreciated in the neck EXTREMITIES: No cyanosis, clubbing or edema. NEUROLOGIC: Alert and oriented x 3. Normal affect. Objective Data Vital Signs Vital Signs: Vital Signs - 24 hr 07/26/23 14:47 07/26/23 14:59 07/26/23 19:37 Temperature Pulse Rate 86 69 Respiratory Rate 20 20 Blood Pressure Pulse Oximetry 96 Oxygen Delivery Room Air 07/26/23 19:39 07/26/23 19:56 07/26/23 22:00 Temperature 36.3 C L Pulse Rate 72 73 99 Respiratory Rate 20 20 18 Blood Pressure 166/67 H Pulse Oximetry 99 Oxygen Delivery 07/27/23 01:34 07/27/23 01:48 07/27/23 04:47 Temperature 35.8 C L Pulse Rate 70 71 83 Respiratory Rate 18 18 16 Blood Pressure 142/54 H Pulse Oximetry 96 Oxygen Delivery 07/27/23 05:38 07/27/23 05:47 07/27/23 08:01 Temperature Pulse Rate 74 73 84 Respiratory Rate 18 18 16 Blood Pressure Pulse Oximetry Oxygen Delivery 07/27/23 08:15 07/27/23 08:56 07/27/23 13:37 Temperature Pulse Rate 85 76 Respiratory Rate 16 16 Blood Pressure Pulse Oximetry 98 Oxygen Delivery Room Air 07/27/23 13:
[2023-07-27] MEDS: NORTRIPTYLINE HCL 25 MG CAPSULE 50 MG PO (21:03)
[2023-07-28] VITALS (9 sets, daily range): BP systolic 137–170; BP diastolic 58–77; PULSE 72–88; RESP 13–20; TEMP 35.7–36.2; O2SAT 95–99
[2023-07-28] MEDS: SODIUM CHLOR 3% 15 ML NEB (RESPIRATORY THERAPY) 6 ML INHALATION (05:18)
[2023-07-28] MEDS: LEVOTHYROXINE SODIUM 25 MCG TABLET PO (05:34)
[2023-07-28 06:55] LABS: Basophils Percent Auto 0.7 % (0.2-1.2); Eosinophils Percent Auto 0.3 % (0-4.4); Hemoglobin 10.2 g/dL (12.0-15.0); Immature Granulocyte Absolute 0.02 K/mm3 (0.00-0.031); Immature Granulocyte Percent A 0.3 % (0-0.5); Lymphocytes Absolute Auto 1.42 K/mm3 (0.9-3.2); Lymphocytes Percent Auto 23.7 % (18.3-44.2); Mean Corpuscular HGB Conc 31.9 g/dl (32-36); Mean Corpuscular Hemoglobin 31.8 pg (26-34); Mean Corpuscular Volume 99.7 fl (80-100); Mean Platelet Volume 9.3 fl (7.4-10.4); Monocytes Absolute Auto 0.4 K/mm3 (0.1-0.6); Neutrophils Absolute Auto 4.1 K/mm3 (1.3-6.7); Platelet Count Result 184 k/mm3 (150-375); Red Blood Count 3.21 M/mm3 (4.2-5.4); Red Cell Distribution Width 12.3 % (11.5-14.5)
[2023-07-28 07:10] LABS: Alanine Aminotransferase 23 U/L (6-35); Albumin Level 3.9 g/dL (3.5-5.1); Alkaline Phosphatase 71 U/L (38-126); Anion Gap 6 mmol/L (8-16); Aspartate Amino Transferase 32 U/L (14-36); Bilirubin,Total 0.5 mg/dL (0.2-1.3); Blood Urea Nitrogen 27 mg/dL (7-17); Calcium 8.6 mg/dL (8.4-10.2); Carbon Dioxide 26 mmol/L (22-30); Chloride 104 mmol/L (98-107); Estimated CRCL calculation 29 ml/min; Estimated Glomerular Filt Rate 36; Glucose 100 mg/dL (65-110); Potassium 4.2 mmol/L (3.4-5.0); Sodium 136 mmol/L (137-145)
[2023-07-28] MEDS: IPRATROPIUM BR 0.02% INH SOLN 0.5 MG/2.5 ML VIAL INHALATION (08:20)
[2023-07-28] MEDS: ALBUTEROL SULFATE NEB 2.5 MG/3 ML INH INHALATION (08:20)
[2023-07-28] MEDS: LACTATED RINGERS 1,000 ML 150 ML IV CONT (09:31)
--- NOTE | 2023-07-28 10:01 | WPDANESEPPF ---
Anes - Initial Pre Proc Eval Procedure: Operation Date: 07/28/23 13:15 Proposed Procedures p Esophagogastroduodenoscopy - Bret Crowley MD Date/Time: 07/28/23 10:01 Surgeon: Alberto Peterson MD Pre Op Diagnosis: Pneumonia Patient Data Age: 82 Gender: F Height: 1.63 m Weight: 82.8 kg Last Vital Signs Temp 97.1 F L 07/28/23 09:00 Pulse 80 07/28/23 09:00 Resp 18 07/28/23 09:00 BP 165/58 H 07/28/23 09:00 Pulse Ox 98 07/28/23 09:00 O2 Del Method Room Air 07/28/23 09:00 Allergies Allergy/AdvReac Type Severity Reaction Status Date / Time Cephalosporins Allergy Severe DIARRHEA Verified 07/28/23 09:14 adhesive Allergy Unknown opsite Verified 07/28/23 09:14 causes rash/itching, skin irritation cefprozil Allergy Unknown Other Verified 07/28/23 09:14 erythromycin base Allergy Unknown Other Verified 07/28/23 09:14 Home Medications Medication Instructions Recorded Confirmed Type atorvastatin 10 mg tablet 10 mg PO DAILY 01/05/23 07/25/23 History dicyclomine 10 mg capsule 10 mg PO BID 01/05/23 07/25/23 History levothyroxine 25 mcg capsule 25 mcg PO DAILY 01/05/23 07/25/23 History meloxicam 15 mg tablet 15 mg PO DAILY 01/05/23 07/25/23 History multivitamin 1 tablet PO DAILY 01/05/23 07/25/23 History nortriptyline 50 mg capsule 50 mg PO DAILY 01/05/23 07/25/23 History omega 7-bnd-llr-fish oil 60 mg-90 1 cap PO DAILY 01/05/23 07/25/23 History mg-500 mg capsule (Fish Oil) omeprazole 20 mg capsule,delayed 20 mg PO DAILY 01/05/23 07/25/23 History release verapamil 120 mg tablet 120 mg PO DAILY 01/05/23 07/25/23 History albuterol sulfate 90 mcg/actuation 2 puff inhalation PRN PRN Wheezing 07/25/23 07/25/23 History aerosol inhaler glucosamine sulf dipot 1 cap PO DAILY 07/25/23 07/25/23 History chlr,msm,chond 550 mg-C 30 mg-amy 1 mg capsule (Glucosamine Chondroitin) olmesartan 20 mg tablet 20 mg PO DAILY 07/25/23 07/25/23 History levofloxacin 500 mg tablet 500 mg PO DAILY 07/26/23 07/26/23 History Laboratory Tests 07/28/23 06:04 WBC 6.0 K/mm3 (4.5-10.0) RBC 3.21 L M/mm3 (4.2-5.4) Hgb 10.2 L g/dL (12.0-15.0) Hct 32.0 L % (37.0-47.0) MCV 99.7 fl (80-100) MCH 31.8 pg (26-34) MCHC 31.9 L g/dl (32-36) RDW 12.3 % (11.5-14.5) Plt Count 184 k/mm3 (150-375) MPV 9.3 fl (7.4-10.4) Immature Gran % (Auto) 0.3 % (0-0.5) Neut % (Auto) 68.0 % (45.5-73.1) Lymph % (Auto) 23.7 % (18.3-44.2) [place] % (Auto) 7.0 % (2.6-8.5) Eos % (Auto) 0.3 % (0-4.4) Baso % (Auto) 0.7 % (0.2-1.2) Lymph # (Auto) 1.42 K/mm3 (0.9-3.2) [place] # (Auto) 0.4 K/mm3 (0.1-0.6) Eos # (Auto) 0.0 K/mm3 (0-0.3) Baso # (Auto) 0.0 K/mm3 (0.0-0.1) Abs Immat Gran (auto) 0.02 K/mm3 (0.00-0.031) Absolute Neuts (auto) 4.1 K/mm3 (1.3-6.7) Absolute Nucleated RBC 0.0 K/mm3 (0.0-0.012) Nucleated RBC % 0.0 % (0.0-0.2) Sodium 136 L mmol/L (137-145) Potassium 4.2 mmol/L (3.4-5.0) Chloride 104 mmol/L (98-107) Carbon Dioxide 26 mmol/L (22-30) Anion Gap 6 L mmol/L (8-16) BUN 27 H mg/dL (7-17) Creatinine 1.40 H mg/dL (0.7-1.0) Estim Creat Clear Calc 29 ml/min Estimated GFR 36 L (59 - ) Glucose 100 mg/dL (65-110) Calcium 8.6 mg/dL (8.4-10.2) Total Bilirubin 0.5 mg/dL (0.2-1.3) AST 32 U/L (14-36) ALT 23 U/L (6-35) Alkaline Phosphatase 71 U/L (38-126) Total Protein 7.0 g/dL (6.3-8.2) Albumin 3.9 g/dL (3.5-5.1) Patient hx anesthesia problems: none Family hx anesthesia problems: none Results Review: All pre-operative results and documents have been reviewed as part of the pre-operative evaluation. [facility] Past Medical History Medical History Cancer of left breast (2007) Chronic kidney disease, stage 3 Hy
[2023-07-28] MEDS: AZITHROMYCIN 250 MG TABLET PO (11:15)
[2023-07-28] MEDS: PANTOPRAZOLE 40 MG TABLET PO (11:15)
[2023-07-28] MEDS: MULTIVITAMINS THERAPEUTIC TAB (*BKC) 1 TABLET PO (11:15)
[2023-07-28] MEDS: VERAPAMIL HCL ER 120 MG TABLET PO (11:15)
[2023-07-28] MEDS: DICYCLOMINE HCL 10 MG CAPSULE PO (11:15)
[2023-07-28] MEDS: OLMESARTAN MEDOXOMIL 20 MG TABLET PO (11:15)
[2023-07-28] MEDS: guaiFENesin 12 HR 600 MG TABCR 1200 MG PO (11:15)
[2023-07-28] MEDS: ATORVASTATIN 10 MG TABLET PO (11:16)
[2023-07-28] MEDS: AMOXICILLIN/CLAVULANATE K 875-125 MG TAB 1 TABLET PO (11:16)
[2023-07-28] MEDS: MELOXICAM 7.5 MG TABLET 15 MG PO (11:16)
[2023-07-28 14:48] LABS: Pneumococcal Antigen Urine Not Detected (Not Detected)
--- NOTE | 2023-07-28 15:36 | PM.DS ---
DS: Admitting Diagnosis Discharge Date 07/28/23 Admitting Diagnosis Pneumonia DS: Discharge Diagnosis Discharge Diagnosis (1) Aspiration pneumonia: Code(s): J69.0 - Pneumonitis due to inhalation of food and vomit Status: Acute (2) Abnormal chest CT: Code(s): R93.89 - Abnormal findings on diagnostic imaging of other specified body structures Status: Acute (3) Acute renal failure superimposed on chronic kidney disease: Code(s): N17.9 - Acute kidney failure, unspecified; N18.9 - Chronic kidney disease, unspecified Status: Acute (4) Dysphagia: Code(s): R13.10 - Dysphagia, unspecified Status: Acute (5) Hypertension: Code(s): I10 - Essential (primary) hypertension Status: Acute (6) Hyperlipidemia: Code(s): E78.5 - Hyperlipidemia, unspecified Status: Acute (7) Hypothyroidism: Code(s): E03.9 - Hypothyroidism, unspecified Status: Acute (8) History of breast cancer: Code(s): Z85.3 - Personal history of malignant neoplasm of breast Status: Acute (9) Left knee DJD: Qualifiers: Osteoarthritis type: primary Qualified Code(s): M17.12 - Unilateral primary osteoarthritis, left knee Code(s): M17.12 - Unilateral primary osteoarthritis, left knee Status: Acute (10) Acute pain of left knee: Code(s): M25.562 - Pain in left knee Status: Acute (11) Esophageal ring: Code(s): K22.2 - Esophageal obstruction Status: Acute (12) Effusion of knee joint: Qualifiers: Laterality: left Qualified Code(s): M25.462 - Effusion, left knee Code(s): M25.469 - Effusion, unspecified knee Status: Acute DS: Summary Hospital Course Reason for hospitalization: 82yo female with HTN, GERD, asthma and breast CA here for evaluation and pulmonary consult for PNA. Please see H&P for details. Hospital Course: Patient was transferred from an outside facility for evaluation and Pulmonary consultation an abnormal chest CT scan which showed scattered tree-in-bud opacities. COVID, RSV and influenza were negative. EKG showed normal sinus rhythm with first-degree AV block and possible LVH but no significant change overall. Echocardiogram showed EF of 65-70% and grade 1 diastolic dysfunction. Blood cultures were collected and they were negative to date. CT of the chest showed increased scattered tree-in-bud opacities concerning for atypical infection or aspiration. She also had increasing interstitial changes consistent with UIP. Modified barium swallow showed that she could have a regular diet with thin liquids. There were some recommendations by speech therapy. White count was normal. She had mild anemia. Creatinine was 1.9 this trend back down to her baseline 1.4. LFTs were normal. TSH was normal. Procalcitonin was normal. CRP was 1.1. Lactic acid was 1. Urinalysis was clear. Urine pneumococcal antigen was negative. Pulmonary was consulted. Patient started on antibiotics on admission. Plan is to continue antibiotics to complete a course. Patient will follow-up with pulmonary clinic in 6-[address] of the chest. Patient was seen by Orthopedics for left knee arthritis and joint effusion. The joint was aspirated and injected. Patient was having dysphagia symptoms. GI was consulted given the patient's history of esophageal stricture. EGD performed earlier today showed esophageal ring and hiatal hernia. She did have dilation. She has eaten since returning. She feels much better. She is ready for discharge. She overall did well was able be discharged home on 07/28/2023. Status at Discharge Cognitive/behavioral status at discharge: stable Time Spent with Patient Time attestation: Total time spent providing and/or coordinating discharge services: 35 minutes Time spent: Greater than 30 minutes Exam Narrative: AF 97.2 155/64 87 18 99% ra Gen -
--- NOTE | 2023-07-29 10:09 | WPDANESPN ---
Anes - Prog Note Post-Op Date/Time: 07/29/23 10:09 Cardiovascular status: normal Respiratory status: normal Airway patency: baseline Mental status: baseline Post-Op hydration status: normal Vital Signs: Last Vital Signs Temp 97.2 F L 07/28/23 14:00 Pulse 87 07/28/23 14:00 Resp 18 07/28/23 14:00 BP 155/64 H 07/28/23 14:00 Pulse Ox 99 07/28/23 14:00 O2 Del Method Room Air 07/28/23 11:00 Pain Score (VAS): 0/10 Laboratory Tests 07/28/23 06:04 07/28/23 06:04 07/26/23 06:02 Urine Pneumococcal Ag Not detected Post-procedural complaints: none Patient Feedback: Patient satisfied with anesthetic care.
[2023-07-29 19:21] LABS: Mycoplasma IgM Antibody Titer 221 U/mL (<770)
[2023-07-30 04:26] LABS: Legionella pneumophila Ag Ur Not Detected (Not Detected)
== END 2023-07-28 16:40 | disposition home or self-care (01) ==
PROVIDERS: Internal Medicine Gastroenterology; Physician Assistant; Student in an Organized Health Care Education/Training Program; Admitting Provider Internal Medicine; PCP Internal Medicine; Visit Provider Internal Medicine
PROC: 0DJ08ZZ Inspection of Upper Intestinal Tract, Via Natural or Artificial Opening Endoscopic (ICD-10-PCS; CPT 43235; principal; 2023-07-28 13:15)
DX: K22.2 Esophageal obstruction (principal); K44.9 Diaphragmatic hernia without obstruction or gangrene; N17.9 Acute kidney failure, unspecified; I12.9 Hypertensive chronic kidney disease with stage 1 through stage 4 chronic kidney disease, or unspecified chronic kidney disease; N18.30 Chronic kidney disease, stage 3 unspecified; R93.89 Abnormal findings on diagnostic imaging of other specified body structures; J69.0 Pneumonitis due to inhalation of food and vomit; E78.5 Hyperlipidemia, unspecified; K58.9 Irritable bowel syndrome, unspecified; K21.9 Gastro-esophageal reflux disease without esophagitis; I08.3 Combined rheumatic disorders of mitral, aortic and tricuspid valves; M17.12 Unilateral primary osteoarthritis, left knee; M25.462 Effusion, left knee; J45.909 Unspecified asthma, uncomplicated; E03.9 Hypothyroidism, unspecified; Z20.822 Contact with and (suspected) exposure to COVID-19; Z90.12 Acquired absence of left breast and nipple; Z85.3 Personal history of malignant neoplasm of breast; Z79.51 Long term (current) use of inhaled steroids; Z79.1 Long term (current) use of non-steroidal anti-inflammatories (NSAID); Z80.3 Family history of malignant neoplasm of breast; Z79.899 Other long term (current) drug therapy; Z82.49 Family history of ischemic heart disease and other diseases of the circulatory system
CPT/HCPCS: 43239; 43249; 20610; 36415; 80048; 80053; 84145; 84443; 85025; 85027; 86140; 86738; 87449; 87899; 88305; 92611; 94640; 94667; 94668; A9270; C1726; C8929; C9113; G0378; G0379; J1650; J2704; J7120; Q9957

== ENCOUNTER 2023-09-27 10:52 | Outpatient (CLI) | payer MEDICARE, SELFPAY ==
--- NOTE | ~2023-09-27 | CT_ITS ---
CT Scan of the Chest without Contrast: Clinical Indication: Pneumonitis Technique: Contiguous sections were acquired throughout the chest without intravenous contrast. Dose reduction technique was used on this scan by utilizing automated exposure control and iterative recon struction technique. The dose-length product (DLP) was 181.79 mGy-cm. COMPARISON: 07/25/2023 Findings: There is evidence of prior left mastectomy. There is no evidence of any significant mediastinal, hilar or axillary lymphadenopathy. The mediastin al soft tissues appear normal. There is no evidence of pleural or pericardial effusion. There are scattered areas of tree-in-bud opacities in the lungs, most prominent right middle lobe, li ngular, and left lower lobe. There is mild bronchial atelectasis and minimal interstitial thickening in these regions. Scattered calcified granulomas are present at the lung bases. Images through the upper abdomen reveal no abnormalities. Impression: Acute on chronic small airways infection, similar to prior exam, suggestive of ERIC or other atypical infection. Reviewed, dictated and finalized at [facility]. [employer] Impression: Acute on chronic small airways infection, similar to prior exam, suggestive of ERIC or other atypical infection.
== END 2023-09-27 10:53 | disposition home or self-care (01) ==
PROVIDERS: PCP Internal Medicine; Visit Provider Physician Assistant
DX: J69.0 Pneumonitis due to inhalation of food and vomit (principal)
CPT/HCPCS: 71250

== ENCOUNTER 2023-11-15 14:26 | Outpatient (CLI) | payer MEDICARE, SELFPAY ==
--- NOTE | 2023-11-15 15:01 | ECG_ITS ---
Measurements Intervals [place] Rate: 72 P: 75 CO: 232 QRS: 20 QRSD: 93 T: 67 QT: 404 QTc: 443 Interpretive Statements SINUS RHYTHM WITH FIRST DEGREE AV BLOCK CANNOT RULE OUT SEPTAL INFARCT, AGE INDETERMINATE ABNORMAL ECG COMPARED TO ECG 07/25/2023 14:27:16 NO SIGNIFICANT CHANGES Electronically Signed On 11-15-2023 15:21:09 CELL CHANGER by Raymond Denny D.O.
[2023-11-15 15:09] LABS: Appearance Urine Clear (Clear); Bacteria Urine None Seen /hpf; Bilirubin Urine Negative (Negative); Blood Urine Negative (Negative); Color Urine Yellow (Yellow); Glucose Urine UA Negative (Negative); Ketones Urine Negative (Negative); Leukocyte Esterase Ur Trace LEU/UL (Negative); Nitrate Urine Negative (Negative); Non Pathogenic Casts 0-2; Protein Urine Negative (Negative); RBC Urine 0-2 /hpf (0-2); Specific Grav Ur 1.011 (1.001-1.035); Squamous Epithelial Cell Urine None seen /hpf (Few); Urobilinogen Urine 0.2 mg/dL (<2.0); WBC Urine 0-5 /hpf; pH Urine 5.5 (5.0-9.0)
[2023-11-15 15:13] LABS: Add Urine Microscopic? YES
[2023-11-15 15:25] LABS: Basophils Absolute Auto 0.1 K/mm3 (0.0-0.1); Basophils Percent Auto 1.1 % (0.2-1.2); Eosinophils Absolute Auto 0.4 K/mm3 (0-0.3); Eosinophils Percent Auto 5.6 % (0-4.4); Hematocrit 33.8 % (37.0-47.0); Hemoglobin 10.5 g/dL (12.0-15.0); Immature Granulocyte Absolute 0.01 K/mm3 (0.00-0.031); Immature Granulocyte Percent A 0.2 % (0-0.5); Lymphocytes Absolute Auto 2.07 K/mm3 (0.9-3.2); Lymphocytes Percent Auto 32.1 % (18.3-44.2); Mean Corpuscular HGB Conc 31.1 g/dl (32-36); Mean Corpuscular Hemoglobin 31.2 pg (26-34); Mean Corpuscular Volume 100.3 fl (80-100); Mean Platelet Volume 9.1 fl (7.4-10.4); Monocytes Absolute Auto 0.7 K/mm3 (0.1-0.6); Monocytes Percent Auto 10.5 % (2.6-8.5); Neutrophils Absolute Auto 3.3 K/mm3 (1.3-6.7); Neutrophils Percent Auto 50.5 % (45.5-73.1); Platelet Count Result 201 k/mm3 (150-375); Red Blood Count 3.37 M/mm3 (4.2-5.4); Red Cell Distribution Width 12.7 % (11.5-14.5); White Blood Count 6.5 K/mm3 (4.5-10.0)
[2023-11-15 15:49] LABS: Anion Gap 5 mmol/L (8-16); Blood Urea Nitrogen 34 mg/dL (7-17); Calcium 8.6 mg/dL (8.4-10.2); Carbon Dioxide 26 mmol/L (22-30); Chloride 104 mmol/L (98-107); Estimated Glomerular Filt Rate 36; Glucose 100 mg/dL (65-110); Potassium 4.3 mmol/L (3.4-5.0); Sodium 135 mmol/L (137-145)
== END 2023-11-15 14:27 | disposition home or self-care (01) ==
LOC: ANHLAB 14:31
PROVIDERS: PCP Internal Medicine; Visit Provider Nurse Practitioner Family
DX: R53.83 Other fatigue (principal); N17.9 Acute kidney failure, unspecified; I12.9 Hypertensive chronic kidney disease with stage 1 through stage 4 chronic kidney disease, or unspecified chronic kidney disease; N18.9 Chronic kidney disease, unspecified
CPT/HCPCS: 36415; 80048; 81001; 85025; 93005

== ENCOUNTER 2024-01-19 08:11 | Outpatient (CLI) | payer MEDICARE, SELFPAY ==
[2024-01-19 09:32] LABS: Basophils Absolute Auto 0.1 K/mm3 (0.0-0.1); Basophils Percent Auto 1.2 % (0.2-1.2); Eosinophils Absolute Auto 0.3 K/mm3 (0-0.3); Eosinophils Percent Auto 5.8 % (0-4.4); Hematocrit 35.3 % (37.0-47.0); Hemoglobin 11.2 g/dL (12.0-15.0); Immature Granulocyte Absolute 0.01 K/mm3 (0.00-0.031); Immature Granulocyte Percent A 0.2 % (0-0.5); Lymphocytes Absolute Auto 1.96 K/mm3 (0.9-3.2); Lymphocytes Percent Auto 34.6 % (18.3-44.2); Mean Corpuscular HGB Conc 31.7 g/dl (32-36); Mean Corpuscular Hemoglobin 31.3 pg (26-34); Mean Corpuscular Volume 98.6 fl (80-100); Mean Platelet Volume 8.9 fl (7.4-10.4); Monocytes Absolute Auto 0.5 K/mm3 (0.1-0.6); Monocytes Percent Auto 9.5 % (2.6-8.5); Neutrophils Absolute Auto 2.8 K/mm3 (1.3-6.7); Neutrophils Percent Auto 48.7 % (45.5-73.1); Platelet Count Result 197 k/mm3 (150-375); Red Blood Count 3.58 M/mm3 (4.2-5.4); Red Cell Distribution Width 12.8 % (11.5-14.5); White Blood Count 5.7 K/mm3 (4.5-10.0)
[2024-01-19 09:38] LABS: Anion Gap 3 mmol/L (4-12); Blood Urea Nitrogen 30 mg/dL (7-17); Calcium 9.1 mg/dL (8.4-10.2); Carbon Dioxide 29 mmol/L (22-30); Chloride 104 mmol/L (98-107); Estimated Glomerular Filt Rate 36; Glucose 82 mg/dL (65-110); INR 0.9; Prothrombin Time 12.9 Seconds (11.1-14.7); Sodium 136 mmol/L (137-145)
[2024-01-19 09:39] LABS: Partial Thromboplastin Time 34.2 Seconds (22.3-36.8)
[2024-01-19 10:13] LABS: Appearance Urine Clear (Clear); Bilirubin Urine Negative (Negative); Blood Urine Negative (Negative); Color Urine Yellow (Yellow); Glucose Urine UA Negative (Negative); Ketones Urine Negative (Negative); Leukocyte Esterase Ur Negative LEU/UL (Negative); Nitrate Urine Negative (Negative); Protein Urine Negative (Negative); Specific Grav Ur 1.011 (1.001-1.035); Urobilinogen Urine 0.2 mg/dL (<2.0)
[2024-01-19 10:21] LABS: Urine Cotinine NEGATIVE
[2024-01-19 10:23] LABS: Add Urine Microscopic? NO
[2024-01-19 10:46] LABS: MRSA (PCR) NOT DETECTED (NOT DETECTE)
[2024-01-20 00:01] LABS: Hemoglobin A1C 5.3 % (<5.7)
== END 2024-01-19 08:12 | disposition home or self-care (01) ==
PROVIDERS: PCP Internal Medicine; Visit Provider Orthopaedic Surgery
DX: Z01.818 Encounter for other preprocedural examination (principal); M17.12 Unilateral primary osteoarthritis, left knee
CPT/HCPCS: 80048; 80307; 81003; 82040; 83036; 85025; 85610; 85730; 86850; 86900; 86901; 87641

== ENCOUNTER 2024-01-23 10:07 | Emergency (ER) | payer MEDICARE, SELFPAY ==
--- NOTE | ~2024-01-23 | XR_ITS ---
XR chest 2V DATE: 01/23/2024 11:14 INDICATION: Cough, shortness of breath, wheezing for one day TECHNIQUE: 2 views COMPARISON: 10/28/2022 CT chest FINDINGS: Mild bibasilar infiltrate and/atelectasis. Normal heart size. Aortic arch calcification. No hilar or mediastinal enlargement. No pleural effusion or pulmonary venous congestion or pneumothorax. IMPRESSION: Mild bibasilar infiltrate and/atelectasis Reviewed, dictated and finalized at location A.
[2024-01-23 10:07] VITALS: BP 155/80; PULSE 87; RESP 18; TEMP 36.5; O2SAT 97
--- NOTE | 2024-01-23 10:23 | ED.URI ---
HPI - URI/Sore Throat General Chief Complaint: Upper Respiratory Infection Stated Complaint: cough and congestion Time Seen by Provider: 01/23/24 10:20 Source: patient Mode of arrival: ambulatory Limitations: no limitations History of Present Illness HPI Narrative: Patient is a 83-year-old female with a cough and congestion for 4 days. She has had pneumonia in the past. MD elicited complaint: cough and sore throat Pertinent past history: pneumonia Onset (ago): day(s) (4) Consistency: constant Severity: moderate Pain scale (0-10): 4 Description of mucous: yellow Able to tolerate fluids by mouth: Yes Exacerbating factors: nothing Relieving factors: nothing Associated symptoms: nasal congestion, sore throat and cough Treatments prior to arrival: none Related Data Home Medications Medication Instructions Recorded Confirmed atorvastatin 10 mg tablet 10 mg PO DAILY 01/05/23 01/19/24 dicyclomine 10 mg capsule 10 mg PO BID 01/05/23 01/19/24 levothyroxine 25 mcg capsule 25 mcg PO DAILY 01/05/23 01/19/24 meloxicam 15 mg tablet 15 mg PO DAILY 01/05/23 01/19/24 multivitamin 1 tablet PO DAILY 01/05/23 01/19/24 nortriptyline 50 mg capsule 50 mg PO HS 01/05/23 01/19/24 omega 1-mfh-len-fish oil 60 mg-90 1 cap PO DAILY 01/05/23 01/19/24 mg-500 mg capsule (Fish Oil) omeprazole 20 mg capsule,delayed 20 mg PO DAILY 01/05/23 01/19/24 release verapamil 120 mg tablet 120 mg PO DAILY 01/05/23 01/19/24 albuterol sulfate 90 mcg/actuation 2 puff inhalation PRN PRN Wheezing 07/25/23 01/19/24 aerosol inhaler glucosamine sulf dipot 1 cap PO DAILY 07/25/23 01/19/24 chlr,msm,chond 550 mg-C 30 mg-amy 1 mg capsule (Glucosamine Chondroitin) olmesartan 20 mg tablet 20 mg PO DAILY 07/25/23 01/19/24 gabapentin 100 mg capsule 100 mg PO TID 01/19/24 01/19/24 Allergies Allergy/AdvReac Type Severity Reaction Status Date / Time Cephalosporins Allergy Severe DIARRHEA Verified 01/21/24 09:56 adhesive Allergy Unknown opsite Verified 01/21/24 09:56 causes rash/itching, skin irritation cefprozil Allergy Unknown Other Verified 01/21/24 09:56 erythromycin base Allergy Unknown Gastrointestinal Verified 01/21/24 09:56 Upset Review of Systems Review of Systems: All systems reviewed & are unremarkable except as noted in HPI and below Constitutional: Constitutional: Reports no additional constitutional complaints Eyes: Eyes: Reports no additional eye complaints ENT: Reports system reviewed and no additional complaints, except as documented Cardiovascular: Cardiovascular: Reports no additional cardiovascular complaints Respiratory: Respiratory: Reports no additional respiratory complaints Gastrointestinal: Gastrointestinal: Reports no additional gastrointestinal complaints Genitourinary: Genitourinary: Reports no additional female genitourinary complaints Musculoskeletal: Musculoskeletal: Reports no additional musculoskeletal complaints Integumentary/Breasts: Skin/Breast: Reports system reviewed and no additional complaints, except as docu Neurologic: Reports system reviewed and no additional complaints, except as documented Psychiatric: Psychiatric: Reports no additional psychiatric complaints Endocrine: Endocrine: Reports no additional endocrine complaints Hematologic/Lymphatic: Hematologic/Lymphatic: Reports no additional hematologic/lymphatic complaints Allergic/Immunologic: Allergic/Immunologic: Reports no additional allergic/immunologic complaints PMFSH Past Medical History Medical History Abnormal chest CT Acute pain of left knee Acute renal failure superimposed on chronic kidney disease Cancer of left breast (2007) Chronic kidney disease, stage 3 Effusion of knee joint History of breast cancer Hyperlipidemia Hypertension Hypothyroidism Left knee DJD Other fatigue Surgical History Surgical History (Reviewed 01/23/24 @ 10:33 by Chandra Edward
== END 2024-01-23 14:28 | disposition home or self-care (01) ==
LOC: CHSED 13:12
PROVIDERS: Emergency Provider Emergency Medicine; PCP Internal Medicine
DX: J18.9 Pneumonia, unspecified organism (principal); N18.30 Chronic kidney disease, stage 3 unspecified; Z85.3 Personal history of malignant neoplasm of breast; I12.9 Hypertensive chronic kidney disease with stage 1 through stage 4 chronic kidney disease, or unspecified chronic kidney disease; E03.9 Hypothyroidism, unspecified; E78.5 Hyperlipidemia, unspecified
CPT/HCPCS: 71046; 99283

== ENCOUNTER 2024-01-28 15:21 | Outpatient (CLI) | payer MEDICARE, SELFPAY | END 2024-01-28 15:22 | disposition home or self-care (01) | PROVIDERS: PCP Internal Medicine; Visit Provider Physician Assistant | DX: J98.4 Other disorders of lung (principal) | CPT/HCPCS: 87015; 87070; 87102; 87106; 87116; 87118; 87186; 87205; 87206 ==

== ENCOUNTER 2024-02-01 01:20 | Day surgery (SDC) | payer MEDICARE, SELFPAY ==
--- NOTE | 2024-01-19 08:42 | PC.NURSE ---
Report to the Outpatient Waiting Room, entrance under the green pavilion located off [facility], at time __0830 on date __02/01/24 . Planned Procedure Time: __1030 . Time changes happen often and if your time is changed the preop area will call you the afternoon before. - You and your visitor will be asked to self-screen and do not enter if you have any COVID symptoms. - A mask is optional within the hospital at this time. Patients may have clear liquids (water, carbonated beverages, clear teas, apple juice) until 3 hours prior to surgery (7:30 AM)with a maximum of 20 ounces. - No food from midnight until time of surgery - Infants may have breast milk until 4 hours before surgery, infant formula 6 hours prior to surgery. - Children will be allowed to drink immediately following surgery. If applicable, please bring a bottle or sippy cup to assist with drinking. Juice, water, soda, and popsicles are readily available. For infants on formula, please bring formula the day of surgery. Pacifiers are allowed. Take the following medications with a SIP of water the morning of surgery: ____INHALER IF NEEDED,GABAPENTIN,LEVOTHYROXINE,VERAPAMIL DO NOT STOP ANY OF YOUR OTHER PRESCRIPTION MEDICATIONS PRIOR TO SURGERY ?EXCEPT THE FOLLOWING Medications to discontinue per physician __MELOXICAM PER DR MAX, HOLD ALL VITAMINS AND SUPPLEMENTS 3 DAYS PRE OP .LAST DOSE01/28/24 Please no make-up, nail hebrew, hairspray, perfume, deodorant, or body powder the day of surgery. No jewelry (including any body piercings) or valuables the day of surgery, leave them at home. Please take a shower or bath the night before, or the morning of, surgery with an antibacterial soap. Wear comfortable, loose fitting clothing. Children are encouraged to wear pajamas. - Jewelry must be removed prior to entering the operating room. Rings and piercings that are not removed may be cut off. - The hospital will not accept responsibility for valuables. - Please leave all valuables, including medications, at home the day of surgery. If you are going home after surgery, a licensed courtesy bus driver must drive you home. - NO public transportation without another adult if you receive anesthesia. - We recommend that an adult stay with you for 24 hours following discharge. - We also recommend that you do not drive, make important decision, drink alcoholic beverages, or take any drugs that were not prescribed by your health care provider for at least 24 hours after your discharge time. TOTAL JOINT CLASS AT 10 AM Follow any additional instructions given to you from your surgeon. If you or anyone in your household have experienced Covid symptoms in the past week, please notify your surgeon or the nurse liaison at the phone number below for possible testing. VERBAL AND WRITTEN instructions given to _PATIENT and asked if any additional questions and then verbalized understanding. Patient advised to call surgeon office or pre surgery nurse liaison [phone] if any additional questions.
[2024-01-19 09:04] VITALS: BP 152/74; PULSE 71; RESP 18; TEMP 36.6; O2SAT 97; BMI 31.3
--- NOTE | 2024-02-01 07:13 | WPDHPUPDATE1 ---
History and Physical Update Update Date/Time: 02/01/24 07:13 History and Physical has been reviewed, including an updated exam of the patient. There are NO changes in the patient's condition. Risks, benefits, and alternatives have been discussed and questions answered. Patient agrees to proceed with procedure.
[2024-02-01 08:26] VITALS: BP 126/50; PULSE 75; RESP 18; TEMP 36.4; O2SAT 97
== END 2024-02-01 09:40 | disposition home or self-care (01) ==
PROVIDERS: PCP Internal Medicine; Visit Provider Orthopaedic Surgery
PROC: (CPT 27447; principal; 2024-02-01 10:30)
DX: M17.12 Unilateral primary osteoarthritis, left knee (principal); Z53.9 Procedure and treatment not carried out, unspecified reason
CPT/HCPCS: 99211; A9270; G0463; J0171; J1885; J2250; J2270; J2795; J3010

== ENCOUNTER 2024-02-09 14:33 | Outpatient (CLI) | payer MEDICARE, SELFPAY ==
--- NOTE | ~2024-02-09 | XR_ITS ---
XR chest 2V 02/09/2024 15:01 Indication: Pneumonia Procedure: 2 view chest Comparison: Comparison to multiple prior studies sequentially, with oldest reviewed study dated 03/2023. Findings: Patchy consolidation with nodular configuration in the right mid and lower thorax. Heart si ze normal. Left lung clear. No significant effusion. No edema. No pneumothorax. Impression: 1: Patchy nodular consolidation of the right mid and lower thorax unchanged from prior studies. Consi adriana atypical infections. Underlying parenchymal nodule not excluded. Consider correlation with CT [facility]ie [address]. Reviewed, dictated and finalized at location B. Impression: 1: Patchy nodular consolidation of the right mid and lower thorax unchanged fro m prior studies. Consider atypical infections. Underlying parenchymal nodule no t excluded. Consider correlation with CT chest.
== END 2024-02-09 14:34 | disposition home or self-care (01) ==
PROVIDERS: PCP Internal Medicine; Visit Provider Physician Assistant
DX: J98.4 Other disorders of lung (principal); J69.0 Pneumonitis due to inhalation of food and vomit; R91.8 Other nonspecific abnormal finding of lung field
CPT/HCPCS: 71046

== ENCOUNTER 2024-03-14 01:31 | Day surgery (SDC) | payer MEDICARE, SELFPAY ==
--- NOTE | 2024-03-01 08:49 | PC.NURSE ---
Report to the Outpatient Waiting Room, entrance under the green pavilion located off [facility], at time __0900 on date __03/14/24 . Planned Procedure Time: ___1100 . Time changes happen often and if your time is changed the preop area will call you the afternoon before. - You and your visitor will be asked to self-screen and do not enter if you have any COVID symptoms. - A mask is optional within the hospital at this time. Patients may have clear liquids (water, carbonated beverages, clear teas, apple juice) until 3 hours prior to surgery( 0800) with a maximum of 20 ounces. - No food from midnight until time of surgery - Infants may have breast milk until 4 hours before surgery, infant formula 6 hours prior to surgery. - Children will be allowed to drink immediately following surgery. If applicable, please bring a bottle or sippy cup to assist with drinking. Juice, water, soda, and popsicles are readily available. For infants on formula, please bring formula the day of surgery. Pacifiers are allowed. Take the following medications with a SIP of water the morning of surgery: __INHALER IF NEEDED, GABAPENTIN,LEVOTHYROXINE,VERAPAMIL DO NOT STOP ANY OF YOUR OTHER PRESCRIPTION MEDICATIONS PRIOR TO SURGERY ?EXCEPT THE FOLLOWING Medications to discontinue per physician __PT STATES PER DR MAX HOLD MELOXICAM AND ALL VITAMINS AND SUPPLEMENTS 3 DAYS PRE OP.LAST DOSE 03/10/24 Please no make-up, nail amharic, hairspray, perfume, deodorant, or body powder the day of surgery. No jewelry (including any body piercings) or valuables the day of surgery, leave them at home. Please take a shower or bath the night before, or the morning of, surgery with an antibacterial soap. Wear comfortable, loose fitting clothing. Children are encouraged to wear pajamas. - Jewelry must be removed prior to entering the operating room. Rings and piercings that are not removed may be cut off. - The hospital will not accept responsibility for valuables. - Please leave all valuables, including medications, at home the day of surgery. If you are going home after surgery, a licensed van driver must drive you home. - NO public transportation without another adult if you receive anesthesia. - We recommend that an adult stay with you for 24 hours following discharge. - We also recommend that you do not drive, make important decision, drink alcoholic beverages, or take any drugs that were not prescribed by your health care provider for at least 24 hours after your discharge time. For Pediatric surgeries, we recommend two adults accompany the child home. Follow any additional instructions given to you from your surgeon. If you or anyone in your household have experienced Covid symptoms in the past week, please notify your surgeon or the nurse liaison at the phone number below for possible testing. Telephone instructions given to __PT and asked if any additional questions and then verbalized understanding. Patient advised to call surgeon office or pre surgery nurse liaison [phone] if any additional questions.
[2024-03-01 08:53] VITALS: BMI 31.3
[2024-03-14] VITALS (10 sets, daily range): BP systolic 126–157; BP diastolic 59–71; PULSE 67–76; RESP 12–18; TEMP 36.4–37.1; O2SAT 93–100
--- NOTE | ~2024-03-14 | XR_ITS ---
EXAMINATION: [id number] DATE: 03/14/2024 15:30 CDT INDICATION: Left knee arthroplasty TECHNIQUE: 2 views left knee FINDINGS: There is a left total knee arthroplasty in expected position. Subcutaneous gas with fluid and air in the joint and overlying skin kvng are consistent with recent surgery. No evidence of pe riprosthetic fracture. IMPRESSION: 1. Recent left total knee arthroplasty. Reviewed, dictated and finalized at location B.
--- NOTE | 2024-03-14 07:18 | WPDHPUPDATE1 ---
History and Physical Update Update Date/Time: 03/14/24 07:18 History and Physical has been reviewed, including an updated exam of the patient. There are NO changes in the patient's condition. Risks, benefits, and alternatives have been discussed and questions answered. Patient agrees to proceed with procedure.
--- NOTE | 2024-03-14 08:48 | WPDANESEPPF ---
Anes - Initial Pre Proc Eval Procedure: Operation Date: 03/14/24 11:00 Proposed Procedures p Left Total Knee Arthroplasty - Wm Cortez MD Date/Time: 03/14/24 08:48 Surgeon: Wm Cortez MD Pre Op Diagnosis: Lt Knee DJD Patient Data Age: 83 Gender: F Height: 1.63 m Weight: 82.8 kg Allergies Allergy/AdvReac Type Severity Reaction Status Date / Time adhesive Allergy Unknown opsite Verified 03/14/24 09:45 causes rash/itching, skin irritation cefprozil Allergy Unknown Other Verified 03/14/24 09:45 Cephalosporins AdvReac Intermediate DIARRHEA Verified 03/14/24 09:49 erythromycin base AdvReac Unknown Gastrointestinal Verified 03/14/24 09:45 Upset Home Medications Medication Instructions Recorded Confirmed Type atorvastatin 10 mg tablet 10 mg PO DAILY 01/05/23 03/09/24 History dicyclomine 10 mg capsule 10 mg PO BID 01/05/23 03/09/24 History levothyroxine 25 mcg capsule 25 mcg PO DAILY 01/05/23 03/09/24 History meloxicam 15 mg tablet 15 mg PO DAILY 01/05/23 03/09/24 History multivitamin 1 tablet PO DAILY 01/05/23 03/09/24 History nortriptyline 50 mg capsule 50 mg PO HS 01/05/23 03/09/24 History omega 7-nur-tsm-fish oil 60 mg-90 1 cap PO DAILY 01/05/23 03/09/24 History mg-500 mg capsule (Fish Oil) omeprazole 20 mg capsule,delayed 20 mg PO DAILY 01/05/23 03/09/24 History release verapamil 120 mg tablet 120 mg PO DAILY 01/05/23 03/09/24 History albuterol sulfate 90 mcg/actuation 2 puff inhalation PRN PRN Wheezing 07/25/23 03/09/24 History aerosol inhaler glucosamine sulf dipot 1 cap PO DAILY 07/25/23 03/09/24 History chlr,msm,chond 550 mg-C 30 mg-amy 1 mg capsule (Glucosamine Chondroitin) olmesartan 20 mg tablet 20 mg PO DAILY 07/25/23 03/09/24 History gabapentin 100 mg capsule 100 mg PO TID 01/19/24 03/09/24 History Patient hx anesthesia problems: none Family hx anesthesia problems: none Results Review: All pre-operative results and documents have been reviewed as part of the pre-operative evaluation. [facility] Past Medical History Medical History (Updated 03/14/24 @ 08:49 by Isael De Souza DO) Abnormal chest CT Acute pain of left knee Acute renal failure superimposed on chronic kidney disease Asthma Cancer of left breast (2007) Chronic kidney disease, stage 3 Effusion of knee joint GERD (gastroesophageal reflux disease) History of breast cancer Hyperlipidemia Hypertension Hypothyroidism Left knee DJD Other fatigue Surgical History Surgical History History of left mastectomy History of tonsillectomy Family History Family History Father Carcinoma of colon Sibling Family history of malignant neoplasm of breast in first degree relative Other Family history of malignant neoplasm Hypertension Social History Social History Social History: Surrogate medical decision maker: Lucille Whitley, daughter. Code status: Full code. Smoking status: Never smoker Additional smoking assessment comments: DENIES ANY FORM OF TOBACCO USE Lack of Transportation: No Lack of Food: Never True Current Housing: I Have Housing Concerned About Future Housing: No Difficulty Paying Gas/Electric Bills: No Difficulty Paying for Meds: No Currently Unemployed: No Education: High School Diploma/GED Difficulty w/ Childcare or Family Care: No Living arrangements: with family Additional living arrangements comments: Lives in [place] with a good friend. She has 1 dog at home. Additional occupation/education comments: Retired from the [employer]. Spiritual care concerns: No Anes - Eval Final PreProcedure Day of Procedure 03/14/24 08:48 Patient weight: obese Heart: regular rate and rhythm Lungs: clear to auscultation Airway: Mallampati scale
[2024-03-14] MEDS: ACETAMINOPHEN 500 MG TABLET 1000 MG PO (10:00)
[2024-03-14] MEDS: LACTATED RINGERS 1,000 ML 30 ML IV CONT (10:05)
[2024-03-14] MEDS: TRANEXAMIC ACID 1,000MG/ISO100 1,000 MG/100 ML BAG 200 MG IVPB (10:11)
--- NOTE | 2024-03-14 10:21 | WPDANESPNB ---
Anes - Peripheral Nerve Block Date/Time: 03/14/24 10:21 I have discussed with the patient/family/POA the placement of a peripheral nerve block for post-operative pain management, including associated risks, benefits, complications, and side effects. Alternative methods of post-operative analgesia were detailed. Questions were solicited and answers provided to the satisfaction of the patient/family/POA. Time-Out: A pre-procedural Time-Out was completed immediately before starting the procedure and confirmed: Patient Identification, Site, Procedure, Patient Position and the Availability of Requisite Equipment. Clinical Indications: Acute post-operative pain management requested by the operative surgeon. Nerve Block Insertion Note Anes-nerve block: adductor canal left Patient position: supine Skin prep: chlorhexidine Needle: 22 gauge, stimulating, insulated echogenic needle. Needle length: 80 mm Technique: ultrasound Injectate: bupivacaine 0.5% with epi 5 mcg/ml (30cc - no epi) Observations: tolerated well Complications: none Procedure start time:: 1213 Procedure end time:: 1216
[2024-03-14] MEDS: ceFAZolin 2 GM/D5W 50 ML 2 GM/50 ML BAG IVPB ×2 (12:39→21:06)
[2024-03-14] MEDS: SODIUM CHLORIDE 0.9% IV 37.7 ML, MORPHINE SULFATE INJ (*CRX) 2 MG, ROPivacaine HCL 1% 2... INFILTRATE (13:22)
[2024-03-14] MEDS: TRANEXAMIC ACID 1,000 MG/10 ML AMPUL 1000 MG IV PUSH (13:59)
--- NOTE | 2024-03-14 14:55 | W.PM.PROC2 ---
Procedure Note - Detailed Date of Procedure 03/14/24 Pre-op Diagnosis Lt Knee DJD Post-op Diagnosis Same Procedure Performed L TKA Surgeon Wm Cortez MD Anesthesia General Description of Procedure THE LEFT KNEE WAS PREPPED AND DRAPED IN THE STERILE FASHION. A MIDLINE SKIN INCISION WAS MADE. A MEDIAL PARAPATELLAR ARTHROTOMY WAS MADE. THE PATELLA WAS EVERTED. THERE WAS TRICOMPARTMENT DJD. THERE WAS MINIMAL PATELLA DJD. AN INTRAMEDULLARY PASTOR WAS PLACED IN THE FEMUR. A DISTAL FEMORAL CUT WAS MADE IN 5 DEGREES OF VALGUS REMOVING APPROXIMATELY 9 MM OF BONE FROM THE DISTAL FEMUR. THE FEMUR WAS SIZED TO 62.5. A 62.5 FEMORAL CUTTING BLOCK WAS PLACED IN 3 DEGREES OF EXTERNAL ROTATION AND IN ALIGNMENT WITH KELLY'S LINE AND THE TRANSEPICONDYLAR AXIS. ANTERIOR POSTERIOR AND CHAMFER CUTS WERE MADE. THE CUTS WERE EXCELLENT. NEXT AN INTRAMEDULLARY CUTTING GUIDE WAS PLACED IN THE TIBIA. A TRANS TIBIAL CUT WAS MADE ALONG THE LONG AXIS OF THE TIBIA. APPROXIMATELY 10 MM OF BONE WAS REMOVED FROM THE HIGH SIDE OF THE TIBIA. THE TIBIA WAS THEN PLANED TO A SMOOTH SURFACE. POSTERIOR FEMORAL OSTEOPHYTES WERE REMOVED FROM THE FEMORAL CONDYLES. A 71 TIBIAL TRIAL WAS PLACED IN ALIGNMENT WITH THE 1/3 MEDIAL ASPECT OF THE TIBIAL TUBERCLE. THEN A 65 FEMORAL TRIAL COMPONENT WAS PLACED. BOTH HAD EXCELLENT FITS. EVENTUALLY A 10 MM POLYETHYLENE TRIAL COMPONENT WAS PLACED. THE KNEE WAS TAKEN THROUGH A RANGE OF MOTION. THE KNEE CAME OUT TO FULL EXTENSION. THERE WAS NO ABNORMAL TILT TO THE PATELLA. THERE WAS GOOD A/P AND VARUS/VALGUS STABILITY. THERE WAS NO EXCESSIVE ROLL BACK WITH FLEXION. THE TRIAL COMPONENTS WERE REMOVED. THEN A 62.5 FEMORAL COMPONENT AND 71 TIBIAL COMPONENT WITH A 10 POLYETHYLENE COMPONENT WERE CEMENTED INTO PLACE. ONCE THE CEMENT WAS HARD THE KNEE WAS TAKEN THROUGH A ROM AGAIN AND FOUND TO BE STABLE WITH NO PATELLA TILT NO EXCESSIVE ROLL BACK WITH FLEXION AND GOOD STABILITY WITH COMPLETE AND FULL EXTENSION. THE KNEE WAS IRRIGATED WITH STERILE BETADINE AND WATER FOR ABOUT 3 MINUTES. THE BLEEDERS WERE CAUTERIZED. THE ARTHROTOMY WAS REPAIRED WITH NUMBER 1 VICRYL AND STRATAFIX. THE SUB CUTANEOUS LAYER WITH 2-0 VICRYL AND THE SKIN WITH KATHERIN. THE WOUND WAS WASHED AND A STERILE DRESSING WAS APPLIED. PATIENT WAS EXTUBATED. Estimated Blood Loss -100 Pathology None sent Complications No immediate complications Condition Stable Disposition PACU
[2024-03-14] MEDS: fentaNYL CITRATE INJ (*CRX) 100 MCG/2 ML VIAL 25 MCG IV PUSH ×4 (15:00→15:10)
--- NOTE | 2024-03-14 15:46 | SUR.PHASEI ---
Patient meets PACU discharge criteria, unit bed unavailable at this time. Patient placed in extended recovery status.
--- NOTE | 2024-03-14 16:35 | ADMGEN ---
This patient, Jeanine Welch, was admitted to 2 Medical Room 243-01. Patient/family oriented to hospital policies and general routines including ID bracelet, bed and alarms, visiting hours, pain management, procedures, bathroom and other care routines, personal items, smoking policy, room service/diet, and visiting hours. Information on how to activate the Rapid Response Team has been discussed. Patient/Family are encouraged to report perceived risks to care and to ask questions if they do not understand what they are told or what they should do.
[2024-03-14] MEDS: oxyCODONE/ACETAMINOPHEN (*CRX) 5-325 MG TABLET 1 TABLET PO ×2 (16:44→21:07)
[2024-03-14] MEDS: DICYCLOMINE HCL 10 MG CAPSULE PO (16:44)
[2024-03-14] MEDS: GABAPENTIN 100 MG CAPSULE PO ×2 (16:44→21:06)
[2024-03-14] MEDS: SENNA/DOCUSATE SODIUM TABLET 2 TAB PO (16:44)
[2024-03-14] MEDS: FAMOTIDINE 20 MG TABLET PO (21:06)
[2024-03-14] MEDS: ASPIRIN 325 MG ENTERIC TABLET PO (21:07)
[2024-03-15 01:31] VITALS: BP 146/74; PULSE 80; RESP 16; TEMP 36.4; O2SAT 100
[2024-03-15] MEDS: ACETAMINOPHEN 500 MG TABLET PO ×2 (01:38→08:46)
[2024-03-15 04:40] VITALS: BP 151/75; PULSE 77; RESP 16; TEMP 36.6; O2SAT 99
[2024-03-15] MEDS: oxyCODONE/ACETAMINOPHEN (*CRX) 5-325 MG TABLET 1 TABLET PO ×2 (04:40→11:25)
[2024-03-15] MEDS: ceFAZolin 2 GM/D5W 50 ML 2 GM/50 ML BAG IVPB ×2 (04:40→12:47)
[2024-03-15 05:15] LABS: Basophils Percent Auto 0.1 % (0.2-1.2); Hematocrit 33.2 % (37.0-47.0); Hemoglobin 10.7 g/dL (12.0-15.0); Immature Granulocyte Absolute 0.05 K/mm3 (0.00-0.031); Immature Granulocyte Percent A 0.5 % (0-0.5); Lymphocytes Absolute Auto 0.79 K/mm3 (0.9-3.2); Lymphocytes Percent Auto 7.2 % (18.3-44.2); Mean Corpuscular HGB Conc 32.2 g/dl (32-36); Mean Corpuscular Hemoglobin 31.2 pg (26-34); Mean Corpuscular Volume 96.8 fl (80-100); Mean Platelet Volume 9.5 fl (7.4-10.4); Monocytes Absolute Auto 0.7 K/mm3 (0.1-0.6); Monocytes Percent Auto 6.3 % (2.6-8.5); Neutrophils Absolute Auto 9.4 K/mm3 (1.3-6.7); Neutrophils Percent Auto 85.9 % (45.5-73.1); Platelet Count Result 173 k/mm3 (150-375); Red Blood Count 3.43 M/mm3 (4.2-5.4); Red Cell Distribution Width 12.8 % (11.5-14.5); White Blood Count 10.9 K/mm3 (4.5-10.0)
[2024-03-15 05:25] LABS: Anion Gap 9 mmol/L (4-12); Blood Urea Nitrogen 29 mg/dL (7-17); Calcium 8.6 mg/dL (8.4-10.2); Carbon Dioxide 20 mmol/L (22-30); Chloride 104 mmol/L (98-107); Estimated CRCL calculation 30 ml/min; Estimated Glomerular Filt Rate 39; Glucose 136 mg/dL (65-110); Potassium 4.8 mmol/L (3.4-5.0); Sodium 133 mmol/L (137-145)
[2024-03-15] MEDS: LEVOTHYROXINE SODIUM 25 MCG TABLET PO (05:57)
[2024-03-15] MEDS: GABAPENTIN 100 MG CAPSULE PO ×2 (05:58→13:43)
[2024-03-15] MEDS: ASPIRIN 325 MG ENTERIC TABLET PO (08:45)
[2024-03-15] MEDS: SENNA/DOCUSATE SODIUM TABLET 2 TAB PO (08:47)
[2024-03-15] MEDS: ATORVASTATIN 10 MG TABLET PO (08:47)
[2024-03-15] MEDS: VERAPAMIL HCL 120 MG TABLET IMMED RELEASE PO (08:47)
[2024-03-15] MEDS: DICYCLOMINE HCL 10 MG CAPSULE PO (08:50)
[2024-03-15 10:41] VITALS: BP 129/52; PULSE 72; RESP 16; TEMP 36.1; O2SAT 100
[2024-03-15] MEDS: TOLNAFTATE 1% POWDER 45 GM BTL 1 APPLIC TOPICAL (11:27)
--- NOTE | 2024-03-15 14:13 | PM.PNORT ---
Progress Note: A&P Assessment and Plan (1) Left knee DJD: Qualifiers: Osteoarthritis type: primary Qualified Code(s): M17.12 - Unilateral primary osteoarthritis, left knee Code(s): M17.12 - Unilateral primary osteoarthritis, left knee Status: Acute Assessment and Plan: POD 1 DOING WELL. OK TO DC HOME F/U IN 3 WEEKS. Subjective Subjective Date/Time Seen: 03/15/24 14:13 Interval history: POD 1 DOING WELL. GOOD PROGRESS WITH PT. PAIN CONTROLLED. NO CALF PAIN Exam Extrem: Other: VSS AFEBRILE DRESSING DRY NV INTACT NEG HOMANS SIGN CALF AND THIGH NON TENDER Objective Data Vital Signs Vital Signs: Vital Signs - 24 hr 03/14/24 14:53 03/14/24 15:05 03/14/24 15:20 Temperature 36.4 C L Pulse Rate 70 67 75 Respiratory Rate 14 13 12 Blood Pressure 140/59 L 126/60 152/62 H Pulse Oximetry 100 100 100 Oxygen Delivery Simple Face Mask Simple Face Mask Simple Face Mask Oxygen Flow Rate 8 8 8 03/14/24 15:35 03/14/24 16:05 03/14/24 16:16 Temperature 36.4 C Pulse Rate 72 69 70 Respiratory Rate 12 12 18 Blood Pressure 143/69 H 157/67 H 152/61 H Pulse Oximetry 96 95 93 Oxygen Delivery Room Air Room Air Room Air Oxygen Flow Rate 03/14/24 17:23 03/14/24 17:58 03/14/24 16:30 Temperature 36.6 C 36.7 C Pulse Rate 72 72 Respiratory Rate 16 16 Blood Pressure 150/65 H 153/60 H Pulse Oximetry 97 94 Oxygen Delivery Room Air Oxygen Flow Rate 03/14/24 21:22 03/15/24 01:31 03/15/24 04:40 Temperature 36.4 C 36.4 C L 36.6 C Pulse Rate 76 80 77 Respiratory Rate 14 16 16 Blood Pressure 138/71 146/74 H 151/75 H Pulse Oximetry 99 100 99 Oxygen Delivery Oxygen Flow Rate 03/15/24 08:16 03/15/24 10:41 Temperature 36.1 C L Pulse Rate 72 Respiratory Rate 16 Blood Pressure 129/52 L Pulse Oximetry 100 Oxygen Delivery Room Air Oxygen Flow Rate Intake/Output Intake/Output: Intake & Output 03/12/24 03/13/24 03/14/24 03/15/24 23:59 23:59 23:59 23:59 Intake Total 440 780 Balance 440 780 Meds/Results Medications: Active Medications Generic Name Dose Route Start Last Admin Trade Name Freq PRN Reason Stop Dose Admin Acetaminophen 500 mg 03/14/24 16:19 03/15/24 08:46 Acetaminophen 500 Mg Tablet PO 500 mg Q6H PRN Administration Pain Rated 1-3 Albuterol 2 puff 03/14/24 16:19 Albuterol Sulfate (*Sp) Aerosol 1 Puff INHALATION PRN PRN Wheezing Aspirin 325 mg 03/14/24 21:00 03/15/24 08:45 Aspirin 325 Mg Enteric Tablet PO 325 mg Q12HR ESTHER Administration Atorvastatin Calcium 10 mg 03/15/24 09:00 03/15/24 08:47 Atorvastatin 10 Mg Tablet PO 10 mg DAILY ESTHER Administration Diazepam 5 mg 03/14/24 16:19 Diazepam (*Crx) 5 Mg Tablet PO Q8H PRN Spasms Dicyclomine HCl 10 mg 03/14/24 17:00 03/15/24 08:50 Dicyclomine Hcl 10 Mg Capsule PO 10 mg BID ESTHER Administration Diphenhydramine HCl 25 mg 03/14/24 16:19 Diphenhydramine Hcl Inj 50 Mg/Ml Vial IV PUSH Q6H PRN Itching Famotidine 20 mg 03/14/24 21:00 03/15/24 08:47 Famotidine 20 Mg Tablet PO Not Given Q12HR ESTHER Gabapentin 100 mg 03/14/24 22:00 03/15/24 13:43 Gabapentin 100 Mg Capsule PO 100 mg Q8HR ESTHER Administration Hydromorphone HCl 1 mg 03/14/24 16:19 Hydromorphone Hcl Inj (*Crx) 1 Mg/Ml Syr IV PUSH Q2H PRN Breakthrough Pain Rated 7-10 or NPO Hydromorphone HCl 0.5 mg 03/14/24 16:19 Hydromorphone Hcl Inj (*Crx) 1 Mg/Ml Syr IV PUSH Q2H PRN Breakthrough Pain Rated 4-6 or NPO Ibuprofen 800 mg in 200 mls @ 400 mls/hr 03/14/24 16:19 Caldolor 800 Mg/200 Ml IVPB Q6H PRN Breakthrough Pain Rated 1-3 or NPO Levothyroxine Sodium 25 mcg 03/15/24 06:30 03/15/24 05:57 Levothyroxine Sodium 25 Mcg Tablet PO 25 mcg DAILY@0630 ESTHER Administration Naloxone HCl 0.1 mg 03/14/24 16:19 Naloxone Hcl 0.4 Mg/Ml Vial IV PUSH Q
--- NOTE | 2024-03-15 14:15 | PM.DS ---
DS: Admitting Diagnosis Discharge Date 03/15 24 Admitting Diagnosis LEFT KNEE DJD DS: Discharge Diagnosis Discharge Diagnosis (1) Left knee DJD: Qualifiers: Osteoarthritis type: primary Qualified Code(s): M17.12 - Unilateral primary osteoarthritis, left knee Code(s): M17.12 - Unilateral primary osteoarthritis, left knee Status: Acute DS: Summary Hospital Course Reason for hospitalization: LEFT TKA Hospital Course: PATIENT WAS ADMITTED S/P TOTAL KNEE ARTHROPLASTY FOR POSTOPERATIVE MEDICAL MANAGEMENT, PAIN CONTROL AND MOBILIZATION WITH PHYSICAL AND OCCUPATIONAL THERAPY. THE PATIENT PROGRESSED WELL WITH PT/OT. LABS AND VITALS REMAINED STABLE AND PAIN WELL CONTROLLED. THE PATIENT HAS BEEN CLEARED TO BE DISCHARGED HOME. FOLLOW UP APPOINTMENT SCHEDULED. DISCHARGE INSTRUCTIONS DISCUSSED AT LENGTH WITH THE PATIENT. MEDICATIONS REVIEWED. Status at Discharge Cognitive/behavioral status at discharge: STABLE Time Spent with Patient Time attestation: Total time spent providing and/or coordinating discharge services: DS: Data Data Completed and Pending Labs on day of discharge: Labs from last 24 hours 03/15/24 04:33 WBC 10.9 H RBC 3.43 L Hgb 10.7 L Hct 33.2 L MCV 96.8 MCH 31.2 MCHC 32.2 RDW 12.8 Plt Count 173 MPV 9.5 Immature Gran % (Auto) 0.5 Neut % (Auto) 85.9 H Lymph % (Auto) 7.2 L [place] % (Auto) 6.3 Eos % (Auto) 0.0 Baso % (Auto) 0.1 L Lymph # (Auto) 0.79 L [place] # (Auto) 0.7 H Eos # (Auto) 0.0 Baso # (Auto) 0.0 Abs Immat Gran (auto) 0.05 H Absolute Neuts (auto) 9.4 H Absolute Nucleated RBC 0.000 Nucleated RBC % 0.0 Sodium 133 L Potassium 4.8 Chloride 104 Carbon Dioxide 20 L Anion Gap 9 BUN 29 H Creatinine 1.30 H Estim Creat Clear Calc 30 Estimated GFR 39 L Glucose 136 H Calcium 8.6 Discharge Plan Discharge Patient Disposition: Home Health Service Discharge Instructions: Care Coordination: Patient to have [facility] for PT/OT eval and treat, and shelter. Their phone number is [phone] if you have any questions. They will contact you to schedule their first visit. Patient Instructions: Antibiotic Form Stand Alone Forms: General Discharge Information Follow-up/Referrals: Wm Cortez MD [Physician] - 3 Weeks Discharge Medications: New oxycodone-acetaminophen [Percocet] 5-325 mg tablet 1 tablet PO Q6H PRN (Reason: pain) Qty: 30 0RF Continued albuterol sulfate 90 mcg/actuation HFA aerosol inhaler 2 puff INHALATION PRN PRN (Reason: Wheezing) olmesartan 20 mg tablet 20 mg PO DAILY Glucosamine Chondroitin 550-30-1 mg Capsule 1 cap PO DAILY levothyroxine 25 mcg capsule 25 mcg PO DAILY dicyclomine 10 mg capsule 10 mg PO BID atorvastatin 10 mg tablet 10 mg PO DAILY nortriptyline 50 mg capsule 50 mg PO HS verapamil 120 mg tablet 120 mg PO DAILY omeprazole 20 mg capsule,delayed release(DR/EC) 20 mg PO DAILY meloxicam 15 mg tablet 15 mg PO DAILY omega 8-oiy-rbo-fish oil [Fish Oil] 60-90-500 mg capsule 1 cap PO DAILY multivitamin Tablet 1 tablet PO DAILY gabapentin 100 mg capsule 100 mg PO TID
--- NOTE | 2024-03-15 15:07 | WPDANESPN ---
Anes - Prog Note Post-Op Date/Time: 03/15/24 15:07 Cardiovascular status: normal Respiratory status: normal Airway patency: baseline Mental status: baseline Post-Op hydration status: normal Vital Signs: Last Vital Signs Temp 36.1 C L 03/15/24 10:41 Pulse 72 03/15/24 10:41 Resp 16 03/15/24 10:41 BP 129/52 L 03/15/24 10:41 Pulse Ox 100 03/15/24 10:41 O2 Del Method Room Air 03/15/24 08:16 O2 Flow Rate 8 03/14/24 15:20 Pain Score (VAS): 0/10 I/O: Intake & Output 03/14/24 03/15/24 03/15/24 23:59 07:59 15:59 Intake Total 390 300 480 Balance 390 300 480 Laboratory Tests 03/15/24 04:33 03/15/24 04:33 03/15/24 04:33 WBC 10.9 H RBC 3.43 L Hgb 10.7 L Hct 33.2 L MCV 96.8 MCH 31.2 MCHC 32.2 RDW 12.8 Plt Count 173 MPV 9.5 Immature Gran % (Auto) 0.5 Neut % (Auto) 85.9 H Lymph % (Auto) 7.2 L [place] % (Auto) 6.3 Eos % (Auto) 0.0 Baso % (Auto) 0.1 L Lymph # (Auto) 0.79 L [place] # (Auto) 0.7 H Eos # (Auto) 0.0 Baso # (Auto) 0.0 Abs Immat Gran (auto) 0.05 H Absolute Neuts (auto) 9.4 H Absolute Nucleated RBC 0.000 Nucleated RBC % 0.0 Sodium 133 L Potassium 4.8 Chloride 104 Carbon Dioxide 20 L Anion Gap 9 BUN 29 H Creatinine 1.30 H Estim Creat Clear Calc 30 Estimated GFR 39 L Glucose 136 H Calcium 8.6 Post-procedural complaints: none Patient Feedback: Patient satisfied with anesthetic care.
== END 2024-03-15 15:10 | disposition home health service (06) ==
LOC: ANHSURGERY 09:09 → ANH2MED 16:28
PROVIDERS: PCP Internal Medicine; Visit Provider Orthopaedic Surgery
PROC: (CPT 27447; principal; 2024-03-14 11:00)
DX: M17.12 Unilateral primary osteoarthritis, left knee (principal); G89.18 Other acute postprocedural pain; I12.9 Hypertensive chronic kidney disease with stage 1 through stage 4 chronic kidney disease, or unspecified chronic kidney disease; N18.30 Chronic kidney disease, stage 3 unspecified; J45.909 Unspecified asthma, uncomplicated; K21.9 Gastro-esophageal reflux disease without esophagitis; E78.5 Hyperlipidemia, unspecified; E03.9 Hypothyroidism, unspecified; Z85.3 Personal history of malignant neoplasm of breast; E66.9 Obesity, unspecified; Z68.30 Body mass index [BMI] 30.0-30.9, adult; Z79.51 Long term (current) use of inhaled steroids
CPT/HCPCS: 27447; 64447; 36415; 73560; 80048; 85025; 86850; 86900; 86901; 97110; 97161; 97530; A9270; C1713; C1776; J0171; J0690; J1100; J1885; J2270; J2405; J2704; J2795; J3010; J3370; J7120

== ENCOUNTER 2024-04-17 10:36 | Outpatient (RCR) | payer MEDICARE, SELFPAY ==
--- NOTE | 2024-04-17 17:16 | OPREHPOC ---
Outpatient Therapy Plan of Care This is a Multidisciplinary Plan of Care that may contain components documented by all disciplines (PT, OT, and ST.) PT Problem 1 PT Problem #1 Knowledge Deficit PT Goal 1 Goal 1. independent and compliant with HEP Target Visit 3 PT Problem 2 PT Problem #2 Pain PT Goal 1 Goal 1. no pain in the L knee in the last week. Target Visit 6 PT Problem 3 PT Problem #3 Impaired Range of Motion PT Goal 1 Goal 1. 0-120 degrees or better active L knee rom Target Visit 6 PT Problem 4 PT Problem #4 Impaired Functional Mobil PT Goal 1 Goal 1. patient to ambulate 6 minute walk test for 1200ft or more without AD and with normal gait mechanics 2. patient to ambulate up and down steps reciprocally facing forward with 1 hand rail 3. LEFS to display 20% or less functional deficits Target Visit 6
--- NOTE | 2024-04-17 17:17 | PTOPEVAL1 ---
Assessment and note entered by JT File, PT Evaluation Information Assessment Status Evaluation Diagnosis presence of left artificial knee joint Other ICD-10 Condition Codes ( z96.652 PT) Onset 03/14/24 Subjective Information patient reports she had a TKA on 03/14/24. she reports prior to surgery, the knee was arthritic and painful. she reports she was using a cane prior to the surgery. she reports she had 3 weeks of home health after her surgery. she reports she was on a walker to begin, but is now back to a cane. she reports she only uses the cane outside of the home. she reports she has no pain in the L knee today. she reports she does get pain in the back/hips when walking without any help. she reports she does have a history of lumbar issues. she reports she is still having difficulty with going up and down steps. she reports she has gone down steps side ways for so long, and would like to go up and down them straight forward. Reported Pain Level Pain Score 0,0: Self Report Assessment PT Clinical Summary mrs. hensley is an 83 yo woman who presents to skilled PT services for evaluation and treatment of weakness s/p L TKA. she presents today with bilateral hip weakness, deficits in ambulation mechanics, deficits in stair ambulation mechanics, and decreased functional activity participation. she would benefit from continued skilled PT to address her objective/functional deficits and return to prior level functional activity performance/quality of life. Plan of Care Interventions Electrical Stimulation,Gait Training,Hot Pack/Cold Pack,Intermittent Compression,Manual Therapy, Neuro Re-education,Patient/Caregiver Educati, Therapeutic Activities,Therapeutic Exercise PT Services Indicated Yes Treatment Frequency and 2x weekly for 6 visits Duration These treatments will address the objective and functional deficits as defined above. The patient will be advanced safely and appropriately in order for the patient to progress towards his/her prior level of function. Additional exercises will be introduced and as well as a comprehensive home exercise program upon discharge, if needed, ?to ensure carryover of functional gains achieved in the clinic. This treatment plan has been reviewed and agreement upon by the patient.
--- NOTE | 2024-05-09 11:17 | OPREHPOC ---
Outpatient Therapy Plan of Care This is a Multidisciplinary Plan of Care that may contain components documented by all disciplines (PT, OT, and ST.) PT Problem 1 PT Problem #1 Knowledge Deficit PT Goal 1 Goal 1. independent and compliant with HEP Target Visit 3 Progress Met PT Problem 2 PT Problem #2 Pain PT Goal 1 Goal 1. no pain in the L knee in the last week. Target Visit 6 Progress Met PT Problem 3 PT Problem #3 Impaired Range of Motion PT Goal 1 Goal 1. 0-120 degrees or better active L knee rom Target Visit 6 Progress Met PT Problem 4 PT Problem #4 Impaired Functional Mobil PT Goal 1 Goal 1. patient to ambulate 6 minute walk test for 1200ft or more without AD and with normal gait mechanics 2. patient to ambulate up and down steps reciprocally facing forward with 1 hand rail 3. LEFS to display 20% or less functional deficits Target Visit 6 Progress Met
--- NOTE | 2024-05-09 11:17 | PTOPDC ---
Assessment and note entered by JT File, PT Evaluation Information Assessment Status Discharge Diagnosis presence of left artificial knee joint Other ICD-10 Condition Codes ( z96.652 PT) Onset 03/14/24 Subjective Information patient reports she feels Great today. she reports she has no pain in the L knee. she does not follow up with MD for another month or more. she reports she is back to doing everything at home, except walking dog up hills. Reported Pain Level Pain Score 0: Self Report Assessment PT Clinical Summary mrs. hensley presents to skilled PT services for her 6th skilled therapy visit. she has met all goals for skilled PT as of this date. she will DC skilled PT today and continue with HEP independent at home. Plan of Care PT Services Indicated Yes
== END 2024-05-09 16:43 | disposition home or self-care (01) ==
LOC: CHSPT 10:36
PROVIDERS: PCP Internal Medicine; Visit Provider Orthopaedic Surgery
DX: Z47.1 Aftercare following joint replacement surgery (principal); Z96.652 Presence of left artificial knee joint
CPT/HCPCS: 97110; 97112; 97161

== ENCOUNTER 2024-06-15 09:33 | Outpatient (CLI) | payer MEDICARE, SELFPAY ==
--- NOTE | ~2024-06-15 | CT_ITS ---
EXAMINATION:CT diagnostic chest wo con DATE: 06/15/2024 09:53 INDICATION: Pulmonary mycobacterial infection. TECHNIQUE: Computed tomography (CT) of the chest was performed without intravenous contrast. Automate d exposure control and iterative reconstruction technique were employed. The dose-length product (DLP ) was 95.85 mGy-cm. COMPARISON: Chest CT 09/27/2023 FINDINGS: There is centrilobular nodules and tree-in-bud opacities in all lobes with a lower lung pre dominance. Calcified right lung nodules are consistent with old granulomatous disease. There is bronc hiectasis in the inferior lungs. No pleural effusion. The heart size is normal. No pericardial effusi on. There are changes of left mastectomy. There are surgical clips in left axilla. There is mild thor acic spondylosis and severe lumbar spinal IMPRESSION: 1. 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 Reviewed, dictated and finalized at location A. IMPRESSION: 1. Diffuse lung disease with a lower lung predominance with mild worsening, con sistent with chronic infection such as Mycobacterium avium intracellulare (ERIC) .
== END 2024-06-15 09:34 | disposition home or self-care (01) ==
LOC: ANHIMG 09:34
PROVIDERS: PCP Internal Medicine; Visit Provider Physician Assistant
DX: A31.0 Pulmonary mycobacterial infection (principal); J69.0 Pneumonitis due to inhalation of food and vomit; R91.8 Other nonspecific abnormal finding of lung field
CPT/HCPCS: 71250

== ENCOUNTER 2024-07-18 01:52 | Day surgery (SDC) | payer MEDICARE, SELFPAY ==
[2024-06-26 13:21] VITALS: BMI 29.1
[2024-07-18 10:58] VITALS: PULSE 62; RESP 18; TEMP 36.6; O2SAT 100; BMI 29.1
[2024-07-18] MEDS: LACTATED RINGERS 1,000 ML 30 ML IV CONT (11:26)
[2024-07-18 11:40] VITALS: BP 201/68
--- NOTE | 2024-07-18 11:40 | WPDANESEPPF ---
Anes - Initial Pre Proc Eval Procedure: Operation Date: 07/18/24 12:30 Proposed Procedures p Esophagogastroduodenoscopy & Colonoscopy - Bret Crowley MD Date/Time: 07/18/24 11:40 Surgeon: Bret Crowley MD Pre Op Diagnosis: history of cancer, anemia, dysphagia Patient Data Age: 83 Gender: F Height: 1.63 m Weight: 77.1 kg Last Vital Signs Temp 97.8 F 07/18/24 10:58 Pulse 62 07/18/24 10:58 Resp 18 07/18/24 10:58 Pulse Ox 100 07/18/24 10:58 O2 Del Method Room Air 07/18/24 10:58 Allergies Allergy/AdvReac Type Severity Reaction Status Date / Time adhesive Allergy Unknown opsite Verified 07/11/24 09:00 causes rash/itching, skin irritation cefprozil Allergy Unknown Other Verified 07/11/24 09:00 Cephalosporins AdvReac Intermediate DIARRHEA Verified 07/11/24 09:00 erythromycin base AdvReac Unknown Gastrointestinal Verified 07/11/24 09:00 Upset Home Medications Medication Instructions Recorded Confirmed Type atorvastatin 10 mg tablet 10 mg PO DAILY 01/05/23 07/11/24 History dicyclomine 10 mg capsule 10 mg PO BID 01/05/23 07/11/24 History levothyroxine 25 mcg capsule 25 mcg PO DAILY 01/05/23 07/11/24 History meloxicam 15 mg tablet 15 mg PO DAILY 01/05/23 07/11/24 History multivitamin 1 tablet PO DAILY 01/05/23 07/11/24 History nortriptyline 50 mg capsule 50 mg PO HS 01/05/23 07/11/24 History omega 4-iof-esv-fish oil 60 mg-90 1 cap PO DAILY 01/05/23 07/11/24 History mg-500 mg capsule (Fish Oil) omeprazole 20 mg capsule,delayed 20 mg PO DAILY 01/05/23 07/11/24 History release verapamil 120 mg tablet 120 mg PO BID 01/05/23 07/11/24 History albuterol sulfate 90 mcg/actuation 2 puff inhalation PRN PRN Wheezing 07/25/23 07/11/24 History aerosol inhaler glucosamine sulf dipot 1 cap PO DAILY 07/25/23 07/11/24 History chlr,msm,chond 550 mg-C 30 mg-amy 1 mg capsule (Glucosamine Chondroitin) olmesartan 20 mg tablet 20 mg PO DAILY 07/25/23 07/11/24 History loratadine 10 mg tablet (Claritin) 10 mg PO DAILY #30 tabs 06/05/24 07/11/24 Rx Patient hx anesthesia problems: none Family hx anesthesia problems: none Results Review: All pre-operative results and documents have been reviewed as part of the pre-operative evaluation. [facility] Past Medical History Medical History Abnormal chest CT Acute pain of left knee Acute renal failure superimposed on chronic kidney disease Asthma Cancer of left breast (2007) Chronic kidney disease, stage 3 Effusion of knee joint GERD (gastroesophageal reflux disease) History of breast cancer Hyperlipidemia Hypertension Hypothyroidism Left knee DJD Other fatigue Surgical History Surgical History History of left mastectomy History of tonsillectomy Family History Family History Father Carcinoma of colon Sibling Family history of malignant neoplasm of breast in first degree relative Other Family history of malignant neoplasm Hypertension Social History Social History Social History: Surrogate medical decision maker: Lucille Whitely, daughter. Code status: Full code. Smoking status: Never smoker Additional smoking assessment comments: DENIES ANY FORM OF TOBACCO USE Alcohol intake: never Substance use: never Substance use type: does not use Do You Feel Safe in your Home?: Yes Lack of Transportation: No Lack of Food: Never True Current Housing: I Have Housing Concerned About Future Housing: No Difficulty Paying Gas/Electric Bills: No Difficulty Paying for Meds: No Currently Unemployed: No Education: High School Diploma/GED Difficulty w/ Childcare or Family Care: No Living arrangements: with family Additional sunny
--- NOTE | 2024-07-18 12:38 | PM.HPGS ---
History of Present Illness History of Present Illness Consent: Risks, benefits, and alternatives have been discussed and questions answered. Patient agrees to proceed with procedure. Chief complaint: history of cancer, anemia, dysphagia Narrative: Jeanine Welch is a 83 year old female here for egd and colonoscopy (last egd with dilation up to 20mm because of esophageal ring, last colonoscopy 2010- father had colon cancer). She has been experiencing again some difficulty swallowing. Review of Systems Review of Systems: All systems reviewed & are unremarkable except as noted in HPI and below PMFSH Past Medical History Medical History Abnormal chest CT Acute pain of left knee Acute renal failure superimposed on chronic kidney disease Asthma Cancer of left breast (2007) Chronic kidney disease, stage 3 Effusion of knee joint GERD (gastroesophageal reflux disease) History of breast cancer Hyperlipidemia Hypertension Hypothyroidism Left knee DJD Other fatigue Surgical History Surgical History History of left mastectomy History of tonsillectomy Family History Family History Father Carcinoma of colon Sibling Family history of malignant neoplasm of breast in first degree relative Other Family history of malignant neoplasm Hypertension Social History Social History Social History: Surrogate medical decision maker: Lucille Whitley, daughter. Code status: Full code. Smoking status: Never smoker Additional smoking assessment comments: DENIES ANY FORM OF TOBACCO USE Alcohol intake: never Substance use: never Substance use type: does not use Do You Feel Safe in your Home?: Yes Lack of Transportation: No Lack of Food: Never True Current Housing: I Have Housing Concerned About Future Housing: No Difficulty Paying Gas/Electric Bills: No Difficulty Paying for Meds: No Currently Unemployed: No Education: High School Diploma/GED Difficulty w/ Childcare or Family Care: No Living arrangements: with family Additional living arrangements comments: Lives in [place] with a good friend. She has 1 dog at home. Additional occupation/education comments: Retired from the [employer]. Spiritual care concerns: No Meds Home Medications and Allergies Home Medications Medication Instructions Recorded Confirmed Type atorvastatin 10 mg tablet 10 mg PO DAILY 01/05/23 07/11/24 History dicyclomine 10 mg capsule 10 mg PO BID 01/05/23 07/11/24 History levothyroxine 25 mcg capsule 25 mcg PO DAILY 01/05/23 07/11/24 History meloxicam 15 mg tablet 15 mg PO DAILY 01/05/23 07/11/24 History multivitamin 1 tablet PO DAILY 01/05/23 07/11/24 History nortriptyline 50 mg capsule 50 mg PO HS 01/05/23 07/11/24 History omega 2-svi-zvb-fish oil 60 mg-90 1 cap PO DAILY 01/05/23 07/11/24 History mg-500 mg capsule (Fish Oil) omeprazole 20 mg capsule,delayed 20 mg PO DAILY 01/05/23 07/11/24 History release verapamil 120 mg tablet 120 mg PO BID 01/05/23 07/11/24 History albuterol sulfate 90 mcg/actuation 2 puff inhalation PRN PRN Wheezing 07/25/23 07/11/24 History aerosol inhaler glucosamine sulf dipot 1 cap PO DAILY 07/25/23 07/11/24 History chlr,msm,chond 550 mg-C 30 mg-amy 1 mg capsule (Glucosamine Chondroitin) olmesartan 20 mg tablet 20 mg PO DAILY 07/25/23 07/11/24 History loratadine 10 mg tablet (Claritin) 10 mg PO DAILY #30 tabs 06/05/24 07/11/24 Rx Allergies Allergy/AdvReac Type Severity Reaction Status Date / Time adhesive Allergy Unknown opsite Verified 07/11/24 09:00 causes rash/itching, skin irritation cefprozil Allergy Unknown Other Verified 07/11/24 09:00 Cephalosporins AdvReac Intermediate DIARRHEA Verified 0
--- NOTE | 2024-07-18 12:52 | SUR.OPER ---
EGD [id number]. Colon start time 1253.
[2024-07-18 13:09] VITALS: BP 146/58; PULSE 63; RESP 13; O2SAT 100
[2024-07-18 13:19] VITALS: BP 163/61; PULSE 67; RESP 24; O2SAT 100
[2024-07-18 13:29] VITALS: BP 176/71; PULSE 64; RESP 16; O2SAT 100
== END 2024-07-18 13:49 | disposition home or self-care (01) ==
PROVIDERS: PCP Internal Medicine; Referring Provider Nurse Practitioner Family; Visit Provider Internal Medicine Gastroenterology
PROC: 0DJ08ZZ Inspection of Upper Intestinal Tract, Via Natural or Artificial Opening Endoscopic (ICD-10-PCS; CPT 43235; principal; 2024-07-18 12:30)
DX: K22.2 Esophageal obstruction (principal); K44.9 Diaphragmatic hernia without obstruction or gangrene; K21.9 Gastro-esophageal reflux disease without esophagitis; D64.9 Anemia, unspecified; D12.2 Benign neoplasm of ascending colon; D12.8 Benign neoplasm of rectum; K64.8 Other hemorrhoids; E78.5 Hyperlipidemia, unspecified; E03.9 Hypothyroidism, unspecified; J45.909 Unspecified asthma, uncomplicated; I12.9 Hypertensive chronic kidney disease with stage 1 through stage 4 chronic kidney disease, or unspecified chronic kidney disease; N18.30 Chronic kidney disease, stage 3 unspecified; Z79.51 Long term (current) use of inhaled steroids; M17.12 Unilateral primary osteoarthritis, left knee; Z98.890 Other specified postprocedural states; Z85.3 Personal history of malignant neoplasm of breast; Z80.0 Family history of malignant neoplasm of digestive organs; Z80.3 Family history of malignant neoplasm of breast
CPT/HCPCS: 43249; 45385; 88305; C1726; J2003; J2704; J7120

== ENCOUNTER 2024-07-24 10:10 | Outpatient (CLI) | payer MEDICARE, SELFPAY ==
--- NOTE | ~2024-07-24 | MM_ITS ---
EXAMINATION: MM screening paola RT w katie HISTORY: Screening. Status post left mastectomy. TECHNIQUE: Craniocaudal and mediolateral oblique 3-D tomosynthesis images were obtained and synthetic 2-D images were generated. CAD analysis was submitted and interpreted. COMPARISON: Comparison to multiple prior studies sequentially, with oldest reviewed study dated . BREAST PARENCHYMAL COMPOSITION: FINDINGS: There is no evidence of suspicious mass, calcification, or architectural distortion to sugg est malignancy in the right breast. There has been no suspicious interval change. IMPRESSION: 1. No mammographic evidence of malignancy. 2. Recommend routine screening mammography in one year. BI-RADS Category 1: Negative Reviewed, dictated and finalized at location B.
== END 2024-07-24 10:11 | disposition home or self-care (01) ==
LOC: ANHIMG 10:11
PROVIDERS: PCP Internal Medicine; Visit Provider Internal Medicine Hematology & Oncology
DX: Z12.31 Encounter for screening mammogram for malignant neoplasm of breast (principal)
CPT/HCPCS: 77063; 77067

== ENCOUNTER 2024-07-31 10:21 | Outpatient (CLI) | payer MEDICARE, SELFPAY ==
[2024-07-31 11:20] LABS: Basophils Absolute Auto 0.1 K/mm3 (0.0-0.1); Basophils Percent Auto 1.2 % (0.2-1.2); Eosinophils Absolute Auto 0.2 K/mm3 (0-0.3); Eosinophils Percent Auto 3.8 % (0-4.4); Hematocrit 35.8 % (37.0-47.0); Hemoglobin 11.4 g/dL (12.0-15.0); Immature Granulocyte Absolute 0.01 K/mm3 (0.00-0.031); Immature Granulocyte Percent A 0.2 % (0-0.5); Lymphocytes Absolute Auto 1.73 K/mm3 (0.9-3.2); Lymphocytes Percent Auto 30.1 % (18.3-44.2); Mean Corpuscular HGB Conc 31.8 g/dl (32-36); Mean Corpuscular Hemoglobin 30.8 pg (26-34); Mean Corpuscular Volume 96.8 fl (80-100); Mean Platelet Volume 8.9 fl (7.4-10.4); Monocytes Absolute Auto 0.5 K/mm3 (0.1-0.6); Neutrophils Absolute Auto 3.2 K/mm3 (1.3-6.7); Neutrophils Percent Auto 55.7 % (45.5-73.1); Platelet Count Result 183 k/mm3 (150-375); Red Cell Distribution Width 13.6 % (11.5-14.5); White Blood Count 5.8 K/mm3 (4.5-10.0)
[2024-07-31 11:31] LABS: Alanine Aminotransferase 23 U/L (6-35); Albumin Level 4.1 g/dL (3.5-5.1); Alkaline Phosphatase 97 U/L (38-126); Anion Gap 6 mmol/L (4-12); Aspartate Amino Transferase 35 U/L (14-36); Bilirubin,Total 0.3 mg/dL (0.2-1.3); Blood Urea Nitrogen 25 mg/dL (7-17); Calcium 8.9 mg/dL (8.4-10.2); Carbon Dioxide 28 mmol/L (22-30); Chloride 103 mmol/L (98-107); Estimated Glomerular Filt Rate 33; Glucose 105 mg/dL (65-110); Potassium 4.6 mmol/L (3.4-5.0); Sodium 137 mmol/L (137-145)
[2024-08-01 06:23] LABS: CA-125 49 U/mL (<35)
== END 2024-07-31 10:22 | disposition home or self-care (01) ==
PROVIDERS: PCP Internal Medicine; Visit Provider Internal Medicine Hematology & Oncology
DX: C50.912 Malignant neoplasm of unspecified site of left female breast (principal); Z17.0 Estrogen receptor positive status [ER+]
CPT/HCPCS: 36415; 80053; 85025; 86304

== ENCOUNTER 2024-08-07 15:45 | Outpatient (CLI) | payer MEDICARE, SELFPAY ==
[2024-08-08 11:44] LABS: CA 15-3 26 U/mL (<32)
== END 2024-08-07 15:46 | disposition home or self-care (01) ==
LOC: ANHLAB 15:46
PROVIDERS: PCP Internal Medicine; Visit Provider Internal Medicine Hematology & Oncology
DX: C50.912 Malignant neoplasm of unspecified site of left female breast (principal); Z17.0 Estrogen receptor positive status [ER+]
CPT/HCPCS: 36415; 86300

== ENCOUNTER 2025-03-06 07:57 | Outpatient (CLI) | payer MEDICARE, SELFPAY ==
--- NOTE | ~2025-03-06 | XR_ITS ---
XR knee LT 3V Ordering provider: Wm Cortez MD History: . M25.562 - Pain in left knee . Comparison: None. FINDINGS: BONES: No acute fracture or dislocation. JOINT SPACES: Total knee arthroplasty. SOFT TISSUES: Normal. IMPRESSION: No acute osseous abnormality left knee. Total knee arthroplasty. Reviewed, dictated and finalized at location A.
--- OUTSIDE RECORDS SUMMARY | 2025-03-06 08:03 | XMS_ITS | Referral Summary ---
Author Organization [facility] [address] Address [address] [place] [address] Care Team Providers Care International Marketing Manager Name Role Phone Luis Lynne MD Primary Care Provider [phone] Allergies Active Allergy Reactions Criticality Noted Date Comments Adhesive Other (See comments) Low 10/08/2017 Blisters Cefprozil Rash Medium 10/08/2017 Stomach pain Erythromycin Rash Medium 10/08/2017 Stomach pain Medications multivitamin tablet Take 1 tablet by mouth daily Active omega-3 fatty acids-fish oil 300-1,000 mg capsule Take 1 capsule (1 g total) by mouth daily Active Esther-Hex 4 % external liquid PLEASE SEE ATTACHED FOR DETAILED DIRECTIONS 01/14/20 24 Active fluticasone propionate (FLONASE) 50 mcg/actuation nasal spray SPRAY 2 SPRAYS INTO EACH NOSTRIL EVERY DAY 48 mL 3 06/29/20 24 Active albuterol (PROAIR RESPICLICK) 90 mcg/actuation inhaler Inhale 2 puffs every 6 (six) hours as needed for wheezing Active nortriptyline (PAMELOR) 50 mg capsule TAKE 1 CAPSULE BY MOUTH EVERY DAY 90 capsule 3 08/10/20 24 Active atorvastatin (LIPITOR) 10 mg tabletIndications :Mixed hyperlipidemia TAKE 1 TABLET BY MOUTH EVERY DAY 90 tablet 3 08/11/20 24 Active olmesartan (BENICAR) 20 mg tablet TAKE 1 TABLET BY MOUTH EVERY DAY 90 tablet 3 08/25/20 24 Active omeprazole (PriLOSEC) 20 mg capsule TAKE 1 CAPSULE BY MOUTH EVERY DAY 90 capsule 3 11/28/19 25 Active meloxicam (MOBIC) 15 mg tablet TAKE 1 TABLET BY MOUTH EVERY DAY 90 tablet 3 11/28/19 25 Active clotrimazole-beta methasone (LOTRISONE) cream APPLY TO AFFECTED AREA TWICE A DAY 30 g 1 01/04/20 25 Active albuterol HFA (PROVENTIL HFA,VENTOLIN HFA,PROAIR HFA) 90 mcg/actuation inhaler INHALE 2 PUFFS EVERY 4 HOURS NEEDED FOR WHEEZING OR SHORTNESS OF BREATH 8.5 each 1 02/14/20 25 Active levothyroxine (SYNTHROID) 25 mcg tablet TAKE 1 TABLET BY MOUTH EVERY DAY 90 tablet 2 02/24/20 25 Active verapamil SR (CALAN SR) 120 mg CR tablet TAKE 2 TABLETS (240 MG TOTAL) BY MOUTH DAILY 180 tablet 2 02/24/20 25 Active levothyroxine (SYNTHROID) 25 mcg tablet TAKE 1 TABLET BY MOUTH EVERY DAY 90 tablet 2 05/31/20 24 2024 Discontinued verapamil SR (CALAN SR) 120 mg CR tablet TAKE 2 TABLETS (240 MG TOTAL) BY MOUTH DAILY 180 tablet 2 06/28/20 24 2024 Discontinued Active Problems Problem Noted Date Diagnosed Date Pulmonary mycobacterial infection 07/11/2024 Assessment & Plan (11/07/2024 11:19 AM SHOP FOREMAN): To have follow-up CT scan. Bronchoscopy has been mentioned as a possibility as well Assessment & Plan (09/19/2024 3:26 PM SHOP FOREMAN): -Patient presents to clinic for follow up appointment due to sputum growing Mycobacterium avium intracellular infection. -Patient currently asymptomatic -We will get a repeat CT scan -We will wait for final results on her sputum samples -If the CT scan is the same or worsening, we will reach out to her woods superintendent to see if they would be able to bronch the patient to get samples. ([facility]) -We will hold off on treatment for now as patient is asymptomatic while we wait for more testing and CT results -We discussed all that would be involved in treatment of this ERIC infection with the patient - Discussed with patient the rational for treatment, culture results, risk of recurrent infection, signs/symptoms of recurrent infection, and to contact ID clinic with any questions or concerns. Assessment & Plan (07/11/2024 4:34 PM CDT): -Patient presents to clinic for new patient appointment due to sputum growing Mycobacterium avium intracellular infection. -Patient currently asymptomatic -We will get CT scans from [facility] review images with our radiologist to see if this tree-in-bud is consistent with ERIC or aspiration. -We will have patient's admit to more sputum samples to confirm ERIC infection. We will set patient up for induced sputums as she is unable to produce sputum on her own -We will hold off on treatment for now as patient is asymptomatic while we wait for more testing and CT results -We will have patient return to clinic in 2 months with a repeat CT scan -We discussed all that would be involved in treatment of this ERIC infection with the patient - Discussed with patient the rational for treatment, culture results, risk of recurrent infection, signs/symptoms of recurrent infection, and to contact ID clinic with any questions or concerns. Mild intermittent asthma without complication Mixed hyperlipidemia 02/04/2022 Assessment & Plan (11/07/2024 11:18 AM SHOP FOREMAN): Lipid reviewed doing well Hypothyroidism 02/04/2022 Assessment & Plan (11/07/2024 11:18 AM SHOP FOREMAN): No signs or symptoms of thyroid disease. Check labs in 6 months GERD without esophagitis 02/04/2022 Assessment & Plan (11/07/2024 11:18 AM SHOP FOREMAN): Stable doing well. Essential hypertension 02/04/2022 Assessment & Plan (11/07/2024 11:18 AM SHOP FOREMAN): BP at target. Continue medication for target directed therapy Immunizations Immunization Administration Dates Next Due Influenza, Quad, Adjuvantate d, Intramuscular 08/11/2023,08/05/2022 Influenza, Quadrivalent, Hig h Dose, Preservative Free, Intrr 07/30/2021,07/23/2020 Influenza, Trivalent, Adjuva nted, Intramuscular 08/09/2024 Influenza, Trivalent, High D ose, Split, Preservative Free, Intramuscular 08/06/2019,07/24/2015,07/31/2013 Influenza, Unspecified 03/30/2017,2015,08/07/2016,02/20,08/09/2015,01/15/2015,12/19/2013 ,06/13/2013 Moderna SARS-CoV-2 Monovalen t Vaccination (12+ YRS) 12/16/2020,11/15/2020 Pneumococcal Conjugate PCV 13 03/06/2021, 015 Pneumococcal Polysaccharide PPV23 09/23/2017 RSV Vaccine, Pref, Recombina nt, Subunit, Adjuvanted, PF, IM (Arexvy) 08/18/2023 Td, adsorbed 03/02/2001 Tdap 03/06/2021 Social History Tobacco Use Types Packs/Day Years Used Date Smoking Tobacco: Never Tobacco Cessation:Counseling Given: Not Answered Personal Safety Answer Date Recorded Have you ever been in or are you currently in a harmful physical or emotional relationship or is someone making you feel afraid or unsafe? Denies 04/26/2023 Comments Unknown Sex and Gender Information Value Date Recorded Sex Assigned at Not on file Legal Sex Female 1:10 PM SHOP FOREMAN Gender Identity Not on file Sexual Orientation Not on file Last Filed Vital Signs Vital Sign Reading Time Taken Comments Blood Pressure 140/72 11/07/2024 11:17 AM SHOP FOREMAN Pulse 75 11/07/2024 10:45 AM SHOP FOREMAN Temperature 36.6 C (97.9 F) 09/18/2024 10:47 AM SHOP FOREMAN Respiratory Rate 17 01/02/2021 12:14 PM CDT Oxygen Saturation 98% 07/10/2024 9:29 AM CDT Inhaled Oxygen Concentration - - Weight 81.2 kg (179 lb) 11/07/2024 10:45 AM SHOP FOREMAN Height 162.6 cm (5' 4 ) 11/07/2024 10:45 AM SHOP FOREMAN Body Mass Index 30.73 11/07/2024 10:45 AM SHOP FOREMAN Plan of Treatment Not on file Insurance [facility] MEDICARE AETNA MEDICARE [facility] MEDICARE AETNA MEDICARE Care Teams International Marketing Manager Relationship Specialty Start Date End Date Luis Lynne MD PCP - General Internal Medicine 12/26/20
--- OUTSIDE RECORDS SUMMARY | 2025-03-06 08:03 | XMS_ITS | Encounter Summary ---
Author Organization [facility] Address [address] [place] [address] Care Team Providers Care Senior Cytogenetics Laboratory Director Name Role Phone Luis Lynne MD Primary Care Provider [phone] Encounter Details Date Type Department Care Team (Late st Contact Info) Description 07/08/2020 Orders Only [facility] [address] [place] [facility] [place] [address] Scanning, Provider Social History Tobacco Use Types Packs/Day Years Used Date Smoking Tobacco: Never Assessed Comments Unknown Sex and Gender Information Value Date Recorded Sex Assigned at Not on file Legal Sex Female 1:10 PM [employer] Gender Identity Not on file Sexual Orientation Not on file documented as of this encounter Plan of Treatment Not on file documented as of this encounter Procedures Procedure Name Priority Date/Time Associated Diagnosis Comments SCAN - LABS 07/08/2020 10:04 AM CDT documented in this encounter Results * SCAN - LABS (07/08/2020 10:04 AM CDT) us Provider Scanning Final Result documented in this encounter Visit Diagnoses Not on filedocumented in this encounter Additional Health Concerns Infection Onset Date Last Indicated Resolved Time Tuberculosis (rule out) Comment:Moderate [employer] noted on 08/17/2024 lab 09/19/2024 09/19/2024 12/28/2024 3:05 AM Sarah DUFFY documented as of this encounter Care Teams Senior Cytogenetics Laboratory Director Relationship Specialty Start Date End Date Luis Lynne MD PCP - General Internal Medicine 12/26/20 documented as of this encounter
--- OUTSIDE RECORDS SUMMARY | 2025-03-06 08:03 | XMS_ITS | Continuity of Care Document ---
Author Organization [facility] Address [address] [place] [address] Phone Care Team Providers Care Digital Retoucher Name Role Phone [facility], [facility] Unavailable Unavail able Duke Enriquez Unavailable [...] Diagnoses Date Provider Providers Copied on Encounter [facility], [address] [place] [address] [address], [place], [place], [id number], [place] tel:[phone] SEC [facility] No Information 9 [facility] . [address] [facility], [facility] [address], [place], [place], [address], [place]. tel:[phone] Referring Provider: Sam Abdul [address] [place], [place] [address], [place], [address]. tel:[phone] sulting Provider: Duke Enriquez, [address] [place] [address], [place], [address]. tel:[phone] [facility], [address], [place], [place], [id number], [place] tel:[phone] [facility] No Information Oct-2 9-200 8 [facility] . [address] [facility], [address], [place], [place], [address], [place]. tel:[phone] Referring Provider: Sam Abdul, [facility] [address], [place], [address]. tel:[phone] sulting Provider: Duke Enriquez, [address] [place], [place] [address]ate [facility], [place], [address]. tel:[phone] [facility], [address], [place], [place], [address], [place] tel:[phone] [facility] [place] No Information Oct-1 7-200 8 [facility] . [address] [facility], [address], [place], [place], [id number], [place]. tel:[phone] Referring Provider: Sam Abdul, [address] [place], [place] [address], [place], [address]. tel:[phone] sulting Provider: Duke Enriquez, [address] [place], [place] [address]ate [facility], [place], [address]. tel:[phone] [facility], [address], [place], [place], [address], [place] tel:[phone] [facility] [place] No Information Oscar-2 2-200 8 [facility] . [address] [facility], [address], [place], [place], [address], [place]. tel:[phone] Referring Provider: Sam Abdul, [facility] [address], [place], [address]. tel:[phone] sulting Provider: Duke Enriquez, [facility], [place], [address]. tel:[phone] [facility], [address], [place], [place], [id number], [place] tel:[phone] SEC [facility] No Information 6-200 7 Ferrell OD Sam. [address], [address], [place], [address], [place]. tel:[phone] Family History Family Member Type Diagnosis Age At Onset No Information Payers Payer name Insurance type Covered alliance party ID Authoriza tion(s) No Information Social [...]
--- OUTSIDE RECORDS SUMMARY | 2025-03-06 08:03 | XMS_ITS | Clinical Summary ---
Author Organization [facility] Address [address] [place] [address] Care Team Providers Care Pin Machine Tender Name Role Phone Luis Lynne MD Primary Care Provider Allergies Active Allergy Reactions Criticality Noted Date Comments Adhesive Other (See Comments) 10/08/2017 Blisters Cefprozil Other (See Comments) 10/08/2017 Stomach pain Erythromycin Other (See Comments) 10/08/2017 Stomach pain Penicillins Rash Medium 06/07/2013 Medications dicyclomine (BENTYL) 10 mg capsule Take 10 mg by mouth 3 times daily as needed . Active lisinopril (PRINIVIL) 20 mg tablet Take 10 mg by mouth daily at bedtime. Active nortriptyline (PAMELOR) 50 mg capsule Take 50 mg by mouth daily at bedtime. Active omeprazole (PriLOSEC) 20 mg Capsule, Delayed Release(E.C.) Take 20 mg by mouth daily. Active glucosamine-cho ndroitin (ARTHX DS) 500-400 mg Capsule Take 1 Capsule by mouth 2 times daily. Active omega-3 fatty acids-fish oil 300-1,000 mg Capsule Take 1 Capsule by mouth daily. Active Saccharomyces boulardii (FLORASTOR) 250 mg Capsule Take 250 mg by mouth daily. Active multivitamin (DAILY-RAY) tablet Take 1 Tablet by mouth daily. Active verapamil (VERELAN) 120 mg Sustained Release 24 hour capsule Take 120 mg by mouth daily. Active meloxicam (MOBIC) 15 mg tablet Take 15 mg by mouth daily. 06/23/2020 Active atorvastatin (LIPITOR) 10 mg tablet TAKE 1 TABLET BY MOUTH EVERY DAY 05/26/2020 Active alclometasone (ACLOVATE) 0.05 % Ointment APPLY TWICE A DAY TO INFLAMED SKIN ON THE FACE AND FOLDS NEEDED 06/25/2020 Active levoFLOXacin (LEVAQUIN) 500 mg tablet TAKE 1 TABLET BY MOUTH DAILY FOR 7 DAYS 05/23/2023 Active olmesartan (BENICAR) 20 mg tablet Take 20 mg by mouth daily. Active levothyroxine 25 mcg tablet Take 1 Tablet by mouth daily. 05/30/2023 Active Active Problems Problem Noted Date Diagnosed Date Malignant neoplasm of left b reast in female, estrogen receptor positive 01/03/2018 History of breast cancer 12/22/2017 Encounters Date Type Department Care Team Description 01/03/2025 External Device Data ST[facility] ABSTRACTION Provider, Abstract 01/03/2025 External Device Data [facility] ABSTRACTION Provider, Abstract 12/23/2024 External Device Data [facility] ABSTRACTION Provider, Abstract 12/22/2024 External Device Data [facility] ABSTRACTION Provider, Abstract from Last 3 Months Family History Medical History Relation Name Comments Other Brother 1 No Known Problems Brother 2 Colon Cancer Father Heart Disease Mother Heart Disease Sister 1 Breast Cancer Sister 2 Relation Name Status Comments Brother 1 Brother 2 Father Mother Sister 1 Alive Sister 2 Social History Tobacco Use Types Packs/Day Years Used Date Smoking Tobacco: Never Smokeless Tobacco: Never Tobacco Cessation:Counseling Given: Not Answered Alcohol Use Standard Drinks/Week Comments No 0 (1 standard drink = 0.6 oz pur e alcohol) Comments No Sex and Gender Information Value Date Recorded Sex Assigned at Not on file Legal Sex Female 9:49 AM SPLITTER MACHINE Gender Identity Not on file Sexual Orientation Not on file Last Filed Vital Signs Vital Sign Reading Time Taken Comments Blood Pressure 164/88 08/07/2024 2:58 PM CDT Pulse 79 08/07/2024 2:55 PM CDT Temperature 36.3 C (97.3 F) 08/07/2024 2:55 PM CDT Respiratory Rate 15 08/07/2024 2:55 PM CDT Oxygen Saturation 94% 08/07/2024 2:55 PM CDT Inhaled Oxygen Concentration - - Weight 78.6 kg (173 lb 3.2 oz) 08/07/2024 2:55 P M CDT Height 162.6 cm (5' 4 ) 07/20/2022 11:41 AM CDT Body Mass Index 29.73 07/20/2022 11:41 AM CDT Plan of Treatment Upcoming Encounters Date Type Department Care Team (Late st Contact Info) Description 08/06/2025 11:00 AM CDT Office Visit [facility] Oncology and Hematology - Moustapha [address] [facility] [address] [place] [address] Jack Ramirez MD [address] [facility] [address] [place] [address] Health Maintenance Due Date Last Done Comments DTAP/TDAP/TD VACCINES (1 - Tdap) 1959 ZOSTER VACCINE (1 of 2) 1990 RSV VACCINE (60+ or ) (1 - 1-dose 75+ series) 2015 INFLUENZA VACCINE (#1) 2024 , 08/06/2019, 07/24/2015, Additional history exists COVID-19 Vaccine (3 - 2023-2 5 season) 2024 12/16/2020, 11/15/2020 OSTEOPOROSIS SCREENING 06/26/2024 06/26/2019 PNEUMOCOCCAL VACCINE 50+ YEARS Completed 09/23/2017 , 08/14/2015 Procedures Procedure Name Priority Date/Time Associated Diagnosis Comments XR DEXA BONE DENSITY AXIAL 1 OR MORE SITES Routine 06/26/2019 Screening for osteoporosis Postmenopausal from Last 3 Months or Most Recently Relevant to Health Maintenance Results * XR DEXA BONE DENSITY AXIAL 1 OR MORE SITES (06/26/2019) Anatomical Region Laterality Modality Other Jack Ramirez MD DIAGNOSTIC IMAGING ORDERABLES F inal Result from Last 3 Months or Most Recently Relevant to Health Maintenance Insurance AETNA PPO [facility] Care Teams Pin Machine Tender Relationship Specialty Start Date End Date Luis Lynne MD [address] [address] PCP - General Internal Medicine 12/22/17
--- OUTSIDE RECORDS SUMMARY | 2025-03-06 08:03 | XMS_ITS | Clinical Summary ---
Author Organization [facility] [address] Address [address] [place] [address] Care Team Providers Care Machine Folder Name Role Phone Luis Lynne MD Primary Care Provider [phone] Allergies Active Allergy Reactions Criticality Noted Date [...] 07/11/2024 Assessment & Plan (11/07/2024 11:19 AM MOTOR VEHICLE COMPLIANCE ANALYST): To have follow-up CT scan. Bronchoscopy has been mentioned as a possibility as well Assessment & Plan (09/19/2024 3:26 PM MOTOR VEHICLE COMPLIANCE ANALYST): -Patient presents to clinic for follow up appointment due to sputum growing Mycobacterium avium intracellular infection. -Patient currently asymptomatic -We will get a repeat CT scan -We will wait for final results on her sputum samples -If the CT scan is the same or worsening, we will reach out to her cement rubber to see if they would be able to bronch the patient to get samples. ([facility]) -We will hold off on [...] asymptomatic -We will get CT scans from [facility] review images with our radiologist [...] 02/04/2022 Assessment & Plan (11/07/2024 11:18 AM MOTOR VEHICLE COMPLIANCE ANALYST): Lipid reviewed doing well Hypothyroidism 02/04/2022 Assessment & Plan (11/07/2024 11:18 AM MOTOR VEHICLE COMPLIANCE ANALYST): No signs or symptoms of thyroid disease. Check labs in 6 months GERD without esophagitis 02/04/2022 Assessment & Plan (11/07/2024 11:18 AM MOTOR VEHICLE COMPLIANCE ANALYST): Stable doing well. Essential hypertension 02/04/2022 Assessment & Plan (11/07/2024 11:18 AM MOTOR VEHICLE COMPLIANCE ANALYST): BP at target. Continue medication for target [...] (Arexvy) 08/18/2023 Td, adsorbed 03/02/2001 Tdap 03/06/2021 Surgical History Surgery Date Site/Laterality Comments FINGER SURGERY MASTECTOMY TONSILLECTOMY REPLACEMENT TOTAL KNEE Left Medical History Medical History Date Comments Hypertension Hyperlipidemia GERD (gastroesophageal reflux disease) Family History Medical History Relation Name Comments Colon cancer Father Heart failure Mother Relation Name Status Comments Father Mother Social History Tobacco Use Types Packs/Day Years [...] on file Legal Sex Female 1:10 PM MOTOR VEHICLE COMPLIANCE ANALYST Gender Identity Not on file Sexual Orientation Not on file Obstetrics History Last Filed Vital Signs Vital Sign Reading Time Taken Comments Blood Pressure 140/72 11/07/2024 11:17 AM MOTOR VEHICLE COMPLIANCE ANALYST Pulse 75 11/07/2024 10:45 AM MOTOR VEHICLE COMPLIANCE ANALYST Temperature 36.6 C (97.9 F) 09/18/2024 10:47 AM MOTOR VEHICLE COMPLIANCE ANALYST Respiratory Rate 17 01/02/2021 12:14 PM CDT Oxygen Saturation 98% 07/10/2024 9:29 AM CDT Inhaled Oxygen Concentration - - Weight 81.2 kg (179 lb) 11/07/2024 10:45 AM MOTOR VEHICLE COMPLIANCE ANALYST Height 162.6 cm (5' 4 ) 11/07/2024 10:45 AM MOTOR VEHICLE COMPLIANCE ANALYST Body Mass Index 30.73 11/07/2024 10:45 AM MOTOR VEHICLE COMPLIANCE ANALYST Plan of Treatment Health Maintenance Due Date Last Done Comments Depression Screening 1940 Fall Risk Assessment 1940 Hepatitis B Screening 1958 Zoster Vaccine (1 of 2) 1990 Well Visit 65+ 2005 Osteoporosis Screening-Bone Density Scan 04/06/2024 04/06/2022, 06/26/2019, 06/26/2019 Covid-19 Vaccine (8 2023- 5 season) 2025 07/28/2024, 07/07/2023, 08/04/2022, Additional history exists DTaP/Tdap/Td Vaccine (2 - Td or Tdap) 03/06/2031 03/06/2021, 03/02/2001 Pneumococcal vaccine 65+ Completed 021, 09/23/2017, 08/14/2015 Influenza Vaccine Completed 08/09/2024, , 08/05/2022, Additional history exists Insurance [employer]ET[employer] MEDICARE T MEDICARE T MEDICARE AET MEDICARE Care Teams Machine Folder Relationship Specialty Start Date End Date Luis Lynne MD PCP - General Internal Medicine 12/26/20
== END 2025-03-06 07:58 | disposition home or self-care (01) ==
LOC: CHSIMG 07:59
PROVIDERS: PCP Internal Medicine; Visit Provider Orthopaedic Surgery
DX: M25.562 Pain in left knee (principal); Z96.652 Presence of left artificial knee joint
CPT/HCPCS: 73562

== ENCOUNTER 2025-03-29 14:19 | Outpatient (CLI) | payer MEDICARE, SELFPAY ==
--- OUTSIDE RECORDS SUMMARY | 2025-03-29 14:59 | XMS_ITS | Encounter Summary ---
Author Organization [facility] Address [address] [place] [address] Care Team Providers Care Manufacturing Assembler Name Role Phone Luis Lynne MD Primary Care Provider [phone] Encounter Details Date Type Department Care Team (Late st Contact Info) Description 07/08/2020 Orders Only [facility] [address] [facility] [address] [place] [address] Scanning, Provider Social History Tobacco Use Types Packs/Day Years Used Date Smoking Tobacco: Never Assessed Comments Unknown Sex and Gender Information Value Date Recorded Sex Assigned at Not on file Legal Sex Female 1:10 PM CERTIFIED VETERINARY TECHNICIAN Gender Identity Not on file Sexual Orientation [...] documented as of this encounter Care Teams Manufacturing Assembler Relationship Specialty Start Date End Date Luis Lynne MD PCP - General Internal Medicine 12/26/20 documented as of this encounter
--- OUTSIDE RECORDS SUMMARY | 2025-03-29 14:59 | XMS_ITS | Clinical Summary ---
Author Organization [facility] Address [address] [place] [address] Care Team Providers Care Sql Server Dba Developer Name Role Phone Luis Lynne MD Primary Care Provider [phone] Allergies Active Allergy Reactions Criticality Noted Date [...] Encounters Date Type Department Care Team Description 03/20/2025 External Device Data ST[facility] ABSTRACTION Provider, Abstract 03/13/2025 External Device Data [facility] ABSTRACTION Provider, Abstract 03/08/2025 External Device Data [facility] ABSTRACTION Provider, Abstract 03/07/2025 External Device Data [facility] ABSTRACTION Provider, Abstract 03/06/2025 External Device Data [facility] ABSTRACTION Provider, Abstract [...] on file Legal Sex Female 9:49 AM FOREST TECHNOLOGY PROFESSOR Gender Identity Not on file Sexual Orientation [...] P M CDT Height 162.6 cm (5' 4) 07/20/2022 11:41 AM CDT Body Mass Index 29.73 07/20/2022 11:41 AM CDT Plan of Treatment Upcoming Encounters Date Type Department Care Team (Late st Contact Info) Description 08/06/2025 11:00 AM CDT Office Visit [facility] Oncology and Hematology - [place] [address] [facility] [address] [place] [address] Jack Ramirez MD [address] [facility] [address] [place] [address] Health Maintenance Due Date Last [...] Relevant to Health Maintenance Insurance [employer]ET[employer] PPO MCR Care Teams Sql Server Dba Developer Relationship Specialty Start Date End Date Luis Lynne MD [id number] [place] [address] PCP - General Internal Medicine 12/22/17
--- OUTSIDE RECORDS SUMMARY | 2025-03-29 14:59 | XMS_ITS | Referral Summary ---
Author Organization [facility] [address] Address [address] [place] [address] Care Team Providers Care Site Head Name Role Phone Luis Lynne MD Primary Care Provider [phone] Encounters Date Type Department Care Team Description 03/06/2025 [facility] [address] [address] Luis Lynne MD from Last 3 Months Allergies Active Allergy Reactions Criticality Noted Date [...] liquid PLEASE SEE ATTACHED FOR DETAILED DIRECTIONS 4 Active fluticasone propionate (FLONASE) 50 mcg/actuation nasal spray SPRAY 2 SPRAYS INTO EACH NOSTRIL EVERY DAY 48 mL 3 4 Active albuterol (PROAIR RESPICLICK) 90 mcg/actuation inhaler Inhale 2 puffs every 6 (six) hours as needed for wheezing Active nortriptyline (PAMELOR) 50 mg capsule TAKE 1 CAPSULE BY MOUTH EVERY DAY 90 capsule 3 4 Active atorvastatin (LIPITOR) 10 mg tabletIndications: Mixed hyperlipidemia TAKE 1 TABLET BY MOUTH EVERY DAY 90 tablet 3 4 Active olmesartan (BENICAR) 20 mg tablet TAKE 1 TABLET BY MOUTH EVERY DAY 90 tablet 3 4 Active omeprazole (PriLOSEC) 20 mg capsule TAKE 1 CAPSULE BY MOUTH EVERY DAY 90 capsule 3 5 Active meloxicam (MOBIC) 15 mg tablet TAKE 1 TABLET BY MOUTH EVERY DAY 90 tablet 3 5 Active clotrimazole-betam ethasone (LOTRISONE) cream APPLY TO AFFECTED AREA TWICE A DAY 30 g 1 5 Active albuterol HFA (PROVENTIL HFA,VENTOLIN HFA,PROAIR HFA) 90 mcg/actuation inhaler INHALE 2 PUFFS EVERY 4 HOURS NEEDED FOR WHEEZING OR SHORTNESS OF BREATH 8.5 each 1 5 Active levothyroxine (SYNTHROID) 25 mcg tablet TAKE 1 TABLET BY MOUTH EVERY DAY 90 tablet 2 5 Active verapamil SR (CALAN SR) 120 mg CR tablet TAKE 2 TABLETS (240 MG TOTAL) BY MOUTH DAILY 180 tablet 2 5 Active Active Problems Problem Noted Date Diagnosed Date 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 Bronchoscopy has been mentioned as a possibility as well Assessment & Plan (09/19/2024 3:26 PM MOBILE PAINT SPECIALIST): -Patient presents to clinic for follow up appointment due to sputum growing Mycobacterium avium intracellular infection. -Patient currently asymptomatic -We will get a repeat CT scan -We will wait for final results on her sputum samples -If the CT scan is the same or worsening, we will reach out to her reference assistant to see if they would be able to bronch the patient to get samples. ([facility]) -We will hold off on [...] asymptomatic -We will get CT scans from [facility] review images with our radiologist to see [...] 02/04/2022 Assessment & Plan (11/07/2024 11:18 AM MOBILE PAINT SPECIALIST): Lipid reviewed doing well Hypothyroidism 02/04/2022 Assessment & Plan (11/07/2024 11:18 AM MOBILE PAINT SPECIALIST): No signs or symptoms of thyroid disease. Check labs in 6 months GERD without esophagitis 02/04/2022 Assessment & Plan (11/07/2024 11:18 AM MOBILE PAINT SPECIALIST): Stable doing well. Essential hypertension 02/04/2022 Assessment & Plan (11/07/2024 11:18 AM MOBILE PAINT SPECIALIST): BP at target. Continue medication for target [...] on file Legal Sex Female 1:10 PM MOBILE PAINT SPECIALIST Gender Identity Not on file Sexual Orientation Not on file Last Filed Vital Signs Vital Sign Reading Time Taken Comments Blood Pressure 140/72 11/07/2024 11:17 AM MOBILE PAINT SPECIALIST Pulse 75 11/07/2024 10:45 AM MOBILE PAINT SPECIALIST Temperature 36.6 C (97.9 F) 09/18/2024 10:47 AM MOBILE PAINT SPECIALIST Respiratory Rate 17 01/02/2021 12:14 PM CDT Oxygen Saturation 98% 07/10/2024 9:29 AM CDT Inhaled Oxygen Concentration - - Weight 81.2 kg (179 lb) 11/07/2024 10:45 AM MOBILE PAINT SPECIALIST Height 162.6 cm (5' 4) 11/07/2024 10:45 AM MOBILE PAINT SPECIALIST Body Mass Index 30.73 11/07/2024 10:45 AM MOBILE PAINT SPECIALIST Plan of Treatment Not on file Procedures Procedure Name Priority Date/Time Associated Diagnosis Comments SCAN - RADIOLOGY/IMAGING 03/06/2025 9:42 AM CDT from Last 3 Months Results * SCAN - RADIOLOGY/IMAGING (03/06/2025 9:42 AM CDT) Anatomical Region Laterality Modality Other Luis Lynne MD Final Result from Last 3 Months Insurance AETNA MEDICARE AETNA MEDICARE T MEDICARE [facility]LY [facility] MEDIC[facility] Care Teams Site Head Relationship Specialty Start Date End Date Luis Lynne MD PCP - General Internal Medicine 12/26/20
--- OUTSIDE RECORDS SUMMARY | 2025-03-29 14:59 | XMS_ITS | Clinical Summary ---
Author [facility] [address] Address [address] [place] [address] Care Team Providers Care Sales Product Manager Name Role Phone Luis Lynne MD Primary Care Provider [phone] Allergies Active Allergy Reactions Criticality Noted Date [...] 07/11/2024 Assessment & Plan (11/07/2024 11:19 AM BOW MAKER CUSTOM): To have follow-up CT scan. Bronchoscopy has been mentioned as a possibility as well Assessment & Plan (09/19/2024 3:26 PM BOW MAKER CUSTOM): -Patient presents to clinic for follow up appointment due to sputum growing Mycobacterium avium intracellular infection. -Patient currently asymptomatic -We will get a repeat CT scan -We will wait for final results on her sputum samples -If the CT scan is the same or worsening, we will reach out to her deal architect to see if they would be able to bronch the patient to get samples. ([facility]) -We will hold off on [...] asymptomatic -We will get CT scans from [facility] review images with our radiologist to see [...] 02/04/2022 Assessment & Plan (11/07/2024 11:18 AM BOW MAKER CUSTOM): Lipid reviewed doing well Hypothyroidism 02/04/2022 Assessment & Plan (11/07/2024 11:18 AM BOW MAKER CUSTOM): No signs or symptoms of thyroid disease. Check labs in 6 months GERD without esophagitis 02/04/2022 Assessment & Plan (11/07/2024 11:18 AM BOW MAKER CUSTOM): Stable doing well. Essential hypertension 02/04/2022 Assessment & Plan (11/07/2024 11:18 AM BOW MAKER CUSTOM): BP at target. Continue medication for target directed therapy Encounters Date Type Department Care Team Description 03/06/2025 Orders Only [facility] [address] [place] [phone] Luis Lynne MD from Last 3 Months Immunizations Immunization Administration Dates Next Due Influenza, [...] on file Legal Sex Female 1:10 PM BOW MAKER CUSTOM Gender Identity Not on file Sexual Orientation Not on file Obstetrics History Last Filed Vital Signs Vital Sign Reading Time Taken Comments Blood Pressure 140/72 11/07/2024 11:17 AM BOW MAKER CUSTOM Pulse 75 11/07/2024 10:45 AM BOW MAKER CUSTOM Temperature 36.6 C (97.9 F) 09/18/2024 10:47 AM BOW MAKER CUSTOM Respiratory Rate 17 01/02/2021 12:14 PM CDT Oxygen Saturation 98% 07/10/2024 9:29 AM CDT Inhaled Oxygen Concentration - - Weight 81.2 kg (179 lb) 11/07/2024 10:45 AM BOW MAKER CUSTOM Height 162.6 cm (5' 4) 11/07/2024 10:45 AM BOW MAKER CUSTOM Body Mass Index 30.73 11/07/2024 10:45 AM BOW MAKER CUSTOM Plan of Treatment Health Maintenance Due Date Last Done Comments Depression Screening 1940 Fall Risk Assessment 1940 Hepatitis B Screening 1958 Zoster Vaccine (1 of 2) 1990 Well Visit 65+ 2005 Osteoporosis Screening-Bone Density Scan 04/06/2024 04/06/2022, 06/26/2019, 06/26/2019 Covid-19 Vaccine (8 2023-2 5 season) 2025 07/28/2024, 07/07/2023, 08/04/2022, Additional history exists DTaP/Tdap/Td Vaccine (2 - Td or Tdap) 03/06/2031 03/06/2021, 03/02/2001 Pneumococcal vaccine 65+ Completed 021, 09/23/2017, 08/14/2015 Influenza Vaccine Completed 08/09/2024, , 08/05/2022, Additional history exists Procedures Procedure Name Priority Date/Time Associated Diagnosis Comments SCAN - RADIOLOGY/IMAGING 03/06/2025 9:42 AM CDT from Last 3 Months Results * SCAN - RADIOLOGY/IMAGING (03/06/2025 9:42 AM CDT) Anatomical Region Laterality Modality Other Luis Lynne MD Final Result from Last 3 Months Insurance AET MEDICARE AETNA MEDICARE AETNA MEDICARE AETNA MEDICARE Care Teams Sales Product Manager Relationship Specialty Start Date End Date Luis Lynne MD PCP - General Internal Medicine 12/26/20
--- OUTSIDE RECORDS SUMMARY | 2025-03-29 15:00 | XMS_ITS | Continuity of Care Document ---
Author Organization [facility] Address [address] [facility] [place] [address] Phone Care Team Providers Care Industrial Twisting Machine Operator Name Role Phone [facility], [facility] Unavailable Unavail able Duke Enriquez Unavailable [...] Diagnoses Date Provider Providers Copied on Encounter formerly [facility], [address] [place] [address] [address], [place], [place], [id number], [place] tel:[phone] SEC [facility] No Information 9 Optical Shop [facility] . [address] [facility], [facility] [address], [place], [place], [address], [place]. tel:[phone] Referring Provider: Sam Abdul [address] [place], [place] [address], [place], [address]. tel:[phone] sulting Provider: Duke Enriquez, [address] [place] [address], [place], [address]. tel:[phone] [facility], [address], [place], [place], [id number], [place] tel:[phone] SEC [facility] No Information Oct-2 9-200 8 Optical Shop [facility] . [address] [facility], [address], [place], [place], [address], [place]. tel:[phone] Referring Provider: Sam Abdul, [facility] [address], [place], [address]. tel:[phone] sulting Provider: Duke Enriquez, [address] [place], [place] [address]ate [facility], [place], [address]. tel:[phone] [facility], [address], [place], [place], [address], [place] tel:[phone] SEC [facility] [address] No Information Oct-1 7-200 8 Optical Shop [facility] . [address] [facility], [address], [place], [place], [address], [place]. tel:[phone] Referring Provider: Sam Abdul, [address] [place], [place] [address], [place], [address]. tel:[phone] sulting Provider: Duke Enriquez, [address] [place], [place] [address]ate [facility], [place], [address]. tel:[phone] [facility], [address], [place], [place], [address], [place] tel:[phone] SEC [facility] [address] No Information Oscar-2 2-200 8 Optical Shop [facility] . [address] [facility], [address], [place], [place], [address], [place]. tel:[phone] Referring Provider: Sam Abdul, [facility] [address], [place], [address]. tel:[phone] sulting Provider: Duke Enriquez, [facility] [address], [place], [address]. tel:[phone] [facility], [address], [place], [place], [address], [place] tel:[phone] SEC [facility] No Information 6-200 7 Ferrell OD Sam. [address], [address], [place], [address], [place]. tel:[phone] Family History Family Member Type Diagnosis Age [...]
== END 2025-03-29 14:20 | disposition home or self-care (01) ==
PROVIDERS: PCP Internal Medicine; Visit Provider Physician Assistant
DX: J18.9 Pneumonia, unspecified organism (principal)
CPT/HCPCS: 87015; 87070; 87102; 87116; 87205; 87206

== ENCOUNTER 2025-03-30 14:11 | Outpatient (NON) | payer MEDICARE, SELFPAY ==
--- OUTSIDE RECORDS SUMMARY | 2025-03-30 14:13 | XMS_ITS | Clinical Summary ---
Author Organization [facility] Address [address] [address] Care Team Providers Care Photo Mask Pattern Generator Name Role Phone Luis Lynne MD Primary Care Provider [phone] Allergies Active Allergy Reactions Criticality Noted Date [...] on file Legal Sex Female 9:49 AM UNION REPRESENTATIVE Gender Identity Not on file Sexual Orientation [...] Description 08/06/2025 11:00 AM CDT Office Visit [facility] Oncology and Hematology - Moustapha [address] [facility] [address] [place] [address] Jack Ramirez MD [address] [facility] [address] [place] [address] Health Maintenance Due Date Last [...] Maintenance Insurance AETNA PPO MCR Care Teams Photo Mask Pattern Generator Relationship Specialty Start Date End Date Luis Lynne MD [address] [place] [address] PCP - General Internal Medicine 12/22/17
--- OUTSIDE RECORDS SUMMARY | 2025-03-30 14:13 | XMS_ITS | Referral Summary ---
Author Organization [facility] [address] Address [address] [place] [address] Care Team Providers Care Backhoe Operator Name Role Phone Luis Lynne MD Primary Care Provider [phone] Encounters Date Type Department Care Team Description 03/30/2025 Orders Only [facility] [address] [place] [address] [address] [place] [address] Luis Lynne MD 03/06/2025 Orders Only [facility] [address] [place] [address] [address] [place] [address] Luis Lynne MD from Last 3 [...] EACH NOSTRIL EVERY DAY 48 mL 3 09/12/202 4 Active albuterol (PROAIR RESPICLICK) 90 mcg/actuation [...] 07/11/2024 Assessment & Plan (11/07/2024 11:19 AM VAMP MAKER): To have follow-up CT scan. Bronchoscopy has been mentioned as a possibility as well Assessment & Plan (09/19/2024 3:26 PM VAMP MAKER): -Patient presents to clinic for follow up appointment due to sputum growing Mycobacterium avium intracellular infection. -Patient currently asymptomatic -We will get a repeat CT scan -We will wait for final results on her sputum samples -If the CT scan is the same or worsening, we will reach out to her calcine furnace tender to see if they would be able to bronch the patient to get samples. ([facility]) -We will hold off on [...] asymptomatic -We will get CT scans from [facility] review images with our radiologist [...] 02/04/2022 Assessment & Plan (11/07/2024 11:18 AM VAMP MAKER): Lipid reviewed doing well Hypothyroidism 02/04/2022 Assessment & Plan (11/07/2024 11:18 AM VAMP MAKER): No signs or symptoms of thyroid disease. Check labs in 6 months GERD without esophagitis 02/04/2022 Assessment & Plan (11/07/2024 11:18 AM VAMP MAKER): Stable doing well. Essential hypertension 02/04/2022 Assessment & Plan (11/07/2024 11:18 AM VAMP MAKER): BP at target. Continue medication for target [...] on file Legal Sex Female 1:10 PM VAMP MAKER Gender Identity Not on file Sexual Orientation Not on file Last Filed Vital Signs Vital Sign Reading Time Taken Comments Blood Pressure 140/72 11/07/2024 11:17 AM VAMP MAKER Pulse 75 11/07/2024 10:45 AM VAMP MAKER Temperature 36.6 C (97.9 F) 09/18/2024 10:47 AM VAMP MAKER Respiratory Rate 17 01/02/2021 12:14 PM CDT Oxygen Saturation 98% 07/10/2024 9:29 AM CDT Inhaled Oxygen Concentration - - Weight 81.2 kg (179 lb) 11/07/2024 10:45 AM VAMP MAKER Height 162.6 cm (5' 4) 11/07/2024 10:45 AM VAMP MAKER Body Mass Index 30.73 11/07/2024 10:45 AM VAMP MAKER Plan of Treatment Not on file Procedures Procedure Name Priority Date/Time Associated Diagnosis Comments SCAN - LABS 03/30/2025 11:16 AM CDT SCAN - RADIOLOGY/IMAGING 03/06/2025 9:42 AM CDT from Last 3 Months Results * SCAN - LABS (03/30/2025 11:16 AM CDT) us Luis Lynne MD Final Result * SCAN - RADIOLOGY/IMAGING (03/06/2025 9:42 AM CDT) Anatomical Region Laterality Modality Other us Luis Lynne MD Final Result from Last 3 Months Insurance [facility] MEDICARE [facility] MED[facility] Care Teams Backhoe Operator Relationship Specialty Start Date End Date Luis Lynne MD PCP - General Internal Medicine 12/26/20
--- OUTSIDE RECORDS SUMMARY | 2025-03-30 14:13 | XMS_ITS | Continuity of Care Document ---
Author Organization [facility] Address [address] [place] [address] Phone Care Team Providers Care Neon Sign Mechanic Name Role Phone [facility], [facility] Unavailable Unavail able Duke Enriquez Unavailable Unavailable [...] Diagnoses Date Provider Providers Copied on Encounter [facility], [address] [place], [place] [address], [place], [place], [id number], [place] tel:[phone] SEC [facility] No Information 9 Optical Shop [facility] . [address] [facility], [facility] [address], [place], [place], [address], [place]. tel:[phone] Referring Provider: Sam Abdul [address] [place], [place] [address], [place], [address]. tel:[phone] sulting Provider: Duke Enriquez, [address] [place] [address], [place], [address]. tel:[phone] [facility], [address], [place], [place], [address], [place] tel:[phone] SEC [facility] No Information Oct-2 9-200 8 Optical Shop [facility] . [address] [facility], [address], [place], [place], [address], [place]. tel:[phone] Referring Provider: Sam Abdul, [facility] [address], [place], [address]. tel:[phone] sulting Provider: Duke Enriquez, [address] [place], [place] [address] [facility], [place], [address]. tel:[phone] [facility], [address], [place], [place], [address], [place] tel:[phone] SEC [facility] [address] No Information Oct-1 7-200 8 Optical Shop [facility] . [address] [facility], [address], [place], [place], [address], [place]. tel:[phone] Referring Provider: Sam Abdul, [address] [place], [place] [address], [place], [address]. tel:[phone] sulting Provider: Duke Enriquez, [address] [place], [place] [address] [facility], [place], [address]. tel:[phone] [facility], [address], [place], [place], [address], [place] tel:[phone] SEC [facility] [address] No Information Oscar-2 2-200 8 Optical Shop [facility] . [address] [facility], [address], [place], [place], [address], [place]. tel:[phone] Referring Provider: Sam Abdul, [facility] [address], [place], [address]. tel:[phone] sulting Provider: Duke Enriquez, [facility] [address], [place], [address]. tel:[phone] [facility], [address], [place], [place], [address], [place] tel:[phone] SEC [facility] No Information 6-200 7 Ferrell OD Sam. [address], [address], [place], [address], [place]. tel:[phone] Family History Family Member Type Diagnosis Age [...]
--- OUTSIDE RECORDS SUMMARY | 2025-03-30 14:13 | XMS_ITS | Encounter Summary ---
Author Organization [facility] Address [address] [place] [address] Care Team Providers Care Manuscript Editor Name Role Phone Luis Lynne MD Primary Care Provider [phone] Encounter Details Date Type Department Care Team (Late st Contact Info) Description 07/08/2020 Orders Only [facility] [address] [facility] [address] [facility] [place] [address] Scanning, Provider Social History Tobacco Use Types Packs/Day Years Used Date Smoking Tobacco: Never Assessed Comments Unknown Sex and Gender Information Value Date Recorded Sex Assigned at Not on file Legal Sex Female 1:10 PM CARE PROGRAM DIRECTOR Gender Identity Not on file Sexual Orientation [...] documented as of this encounter Care Teams Manuscript Editor Relationship Specialty Start Date End Date Luis Lynne MD PCP - General Internal Medicine 12/26/20 documented as of this encounter
--- OUTSIDE RECORDS SUMMARY | 2025-03-30 14:13 | XMS_ITS | Clinical Summary ---
Author Organization [facility] [address] Address [address] [place] [address] Care Team Providers Care Press Reader Name Role Phone Luis Lynne MD Primary Care Provider [phone] Allergies Active Allergy Reactions Criticality Noted Date [...] 07/11/2024 Assessment & Plan (11/07/2024 11:19 AM FORESTRY TECHNICIAN): To have follow-up CT scan. Bronchoscopy has been mentioned as a possibility as well Assessment & Plan (09/19/2024 3:26 PM FORESTRY TECHNICIAN): -Patient presents to clinic for follow up appointment due to sputum growing Mycobacterium avium intracellular infection. -Patient currently asymptomatic -We will get a repeat CT scan -We will wait for final results on her sputum samples -If the CT scan is the same or worsening, we will reach out to her record maker to see if they would be able to bronch the patient to get samples. ([facility]) -We will hold off on [...] asymptomatic -We will get CT scans from [facility] review images with our radiologist to see [...] 02/04/2022 Assessment & Plan (11/07/2024 11:18 AM FORESTRY TECHNICIAN): Lipid reviewed doing well Hypothyroidism 02/04/2022 Assessment & Plan (11/07/2024 11:18 AM FORESTRY TECHNICIAN): No signs or symptoms of thyroid disease. Check labs in 6 months GERD without esophagitis 02/04/2022 Assessment & Plan (11/07/2024 11:18 AM FORESTRY TECHNICIAN): Stable doing well. Essential hypertension 02/04/2022 Assessment & Plan (11/07/2024 11:18 AM FORESTRY TECHNICIAN): BP at target. Continue medication for target directed therapy Encounters Date Type Department Care Team Description 03/30/2025 Orders Only [facility] [address] [place] [address] [address] [place] [address] Luis Lynne MD 03/06/2025 Orders Only [facility] [address] [place] [address] [address] [place] [address] Luis Lynne MD from Last [...] on file Legal Sex Female 1:10 PM FORESTRY TECHNICIAN Gender Identity Not on file Sexual Orientation Not on file Obstetrics History Last Filed Vital Signs Vital Sign Reading Time Taken Comments Blood Pressure 140/72 11/07/2024 11:17 AM FORESTRY TECHNICIAN Pulse 75 11/07/2024 10:45 AM FORESTRY TECHNICIAN Temperature 36.6 C (97.9 F) 09/18/2024 10:47 AM FORESTRY TECHNICIAN Respiratory Rate 17 01/02/2021 12:14 PM CDT Oxygen Saturation 98% 07/10/2024 9:29 AM CDT Inhaled Oxygen Concentration - - Weight 81.2 kg (179 lb) 11/07/2024 10:45 AM FORESTRY TECHNICIAN Height 162.6 cm (5' 4) 11/07/2024 10:45 AM FORESTRY TECHNICIAN Body Mass Index 30.73 11/07/2024 10:45 AM FORESTRY TECHNICIAN Plan of Treatment Health Maintenance Due Date Last Done Comments Depression Screening 1940 Fall Risk Assessment 1940 Hepatitis B Screening 1958 Zoster Vaccine (1 of 2) 1990 Well Visit 65+ 2005 Osteoporosis Screening-Bone Density Scan 04/06/2024 04/06/2022, 06/26/2019, 06/26/2019 Covid-19 Vaccine (2023- 5 season) 2025 07/28/2024, 07/07/2023, 08/04/2022, Additional [...] Final Result from Last 3 Months Insurance [facility]IC[facility] [employer] MEDICARE Care Teams Press Reader Relationship Specialty Start Date End Date Luis Lynne MD PCP - General Internal Medicine 12/26/20
--- OUTSIDE RECORDS SUMMARY | 2025-03-30 14:13 | XMS_ITS | Encounter Summary ---
Author Organization [facility] Address [address] [place] [address] Care Team Providers Care Amr Physician Name Role Phone Luis Lynne MD Primary Care Provider [phone] Encounter Details Date Type Department Care Team (Late st Contact Info) Description 03/30/2025 Orders Only [facility] [address] [address] Luis Lynne MD [address] [place] [address] [address] [place] [address] Social History Tobacco Use Types Packs/Day Years Used Date Smoking Tobacco: Never Personal Safety Answer Date Recorded Have you ever been in or are you currently in a harmful physical or emotional relationship or is someone making you feel afraid or unsafe? Denies 04/26/2023 Comments Unknown Sex and Gender Information Value Date Recorded Sex Assigned at Not on file Legal Sex Female 1:10 PM WATER PLANT OPERATOR Gender Identity Not on file Sexual Orientation Not on file documented as of this encounter Plan of Treatment Not on file documented as of this encounter Procedures Procedure Name Priority Date/Time Associated Diagnosis Comments SCAN - LABS 03/30/2025 11:16 AM CDT documented in this encounter Results * SCAN - LABS (03/30/2025 11:16 AM CDT) us Luis Lynne MD Final Result documented in this encounter Visit Diagnoses Not on filedocumented in this encounter Care Teams Amr Physician Relationship Specialty Start Date End Date Luis Lynne MD PCP - General Internal Medicine 12/26/20 documented as of this encounter
== END 2025-03-30 14:12 | disposition home or self-care (01) ==
PROVIDERS: PCP Internal Medicine; Visit Provider Physician Assistant
DX: J18.9 Pneumonia, unspecified organism (principal)
CPT/HCPCS: 87015; 87070; 87102; 87116; 87205; 87206

== ENCOUNTER 2025-03-31 12:16 | Outpatient (CLI) | payer MEDICARE, SELFPAY ==
--- OUTSIDE RECORDS SUMMARY | 2025-03-31 12:19 | XMS_ITS | Encounter Summary ---
Author Organization [facility] Address [address] [place] [address] Care Team Providers Care Termite Renewal Inspector Name Role Phone Luis Lynne MD Primary Care Provider [phone] Encounter Details Date Type Department Care Team (Late st Contact Info) Description 07/08/2020 Orders Only [facility] [address] [facility] [address] [facility] [place] [address] Scanning, Provider Social History Tobacco Use Types Packs/Day Years Used Date Smoking Tobacco: Never Assessed Comments Unknown Sex and Gender Information Value Date Recorded Sex Assigned at Not on file Legal Sex Female 1:10 PM INTERMEDIATE CARD TENDER Gender Identity Not on file Sexual Orientation [...] documented as of this encounter Care Teams Termite Renewal Inspector Relationship Specialty Start Date End Date Luis Lynne MD PCP - General Internal Medicine 12/26/20 documented as of this encounter
--- OUTSIDE RECORDS SUMMARY | 2025-03-31 12:19 | XMS_ITS | Encounter Summary ---
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
--- OUTSIDE RECORDS SUMMARY | 2025-03-31 12:19 | XMS_ITS | Clinical Summary ---
Author Organization [facility] [address] Address [address] [place] [address] Care Team Providers Care Special Education Resource Teacher Name Role Phone Luis Lynne MD Primary Care Provider [phone] Allergies Active Allergy Reactions Criticality Noted Date [...] 07/11/2024 Assessment & Plan (11/07/2024 11:19 AM PEDIATRIC SPORTS MEDICINE SPECIALIST): To have follow-up CT scan. Bronchoscopy has been mentioned as a possibility as well Assessment & Plan (09/19/2024 3:26 PM PEDIATRIC SPORTS MEDICINE SPECIALIST): -Patient presents to clinic for follow up appointment due to sputum growing Mycobacterium avium intracellular infection. -Patient currently asymptomatic -We will get a repeat CT scan -We will wait for final results on her sputum samples -If the CT scan is the same or worsening, we will reach out to her accounting recruiter to see if they would be able to bronch the patient to get samples. ([facility]) -We will hold off on [...] asymptomatic -We will get CT scans from [facility] review images with our radiologist to [...] 02/04/2022 Assessment & Plan (11/07/2024 11:18 AM PEDIATRIC SPORTS MEDICINE SPECIALIST): Lipid reviewed doing well Hypothyroidism 02/04/2022 Assessment & Plan (11/07/2024 11:18 AM PEDIATRIC SPORTS MEDICINE SPECIALIST): No signs or symptoms of thyroid disease. Check labs in 6 months GERD without esophagitis 02/04/2022 Assessment & Plan (11/07/2024 11:18 AM PEDIATRIC SPORTS MEDICINE SPECIALIST): Stable doing well. Essential hypertension 02/04/2022 Assessment & Plan (11/07/2024 11:18 AM PEDIATRIC SPORTS MEDICINE SPECIALIST): BP at target. Continue medication for target directed therapy Encounters Date Type Department Care Team Description 03/30/2025 Orders Only [facility] [address] [place] [address] [address] [place] [address] Luis Lynne MD 03/06/2025 Orders Only [facility] [address] [place] [address] [address] [place] [address] Luis Lynne MD from Last [...] on file Legal Sex Female 1:10 PM PEDIATRIC SPORTS MEDICINE SPECIALIST Gender Identity Not on file Sexual Orientation Not on file Obstetrics History Last Filed Vital Signs Vital Sign Reading Time Taken Comments Blood Pressure 140/72 11/07/2024 11:17 AM PEDIATRIC SPORTS MEDICINE SPECIALIST Pulse 75 11/07/2024 10:45 AM PEDIATRIC SPORTS MEDICINE SPECIALIST Temperature 36.6 C (97.9 F) 09/18/2024 10:47 AM PEDIATRIC SPORTS MEDICINE SPECIALIST Respiratory Rate 17 01/02/2021 12:14 PM CDT Oxygen Saturation 98% 07/10/2024 9:29 AM CDT Inhaled Oxygen Concentration - - Weight 81.2 kg (179 lb) 11/07/2024 10:45 AM PEDIATRIC SPORTS MEDICINE SPECIALIST Height 162.6 cm (5' 4) 11/07/2024 10:45 AM PEDIATRIC SPORTS MEDICINE SPECIALIST Body Mass Index 30.73 11/07/2024 10:45 AM PEDIATRIC SPORTS MEDICINE SPECIALIST Plan of Treatment Health Maintenance Due Date [...] Result from Last 3 Months Insurance MEDICARE [facility]ICARE [facility] MEDICARE AET[employer] MEDICARE Care Teams Special Education Resource Teacher Relationship Specialty Start Date End Date Luis Lynne MD PCP - General Internal Medicine 12/26/20
--- OUTSIDE RECORDS SUMMARY | 2025-03-31 12:19 | XMS_ITS | Referral Summary ---
Author Organization [facility] [address] Address [address] [place] [address] Care Team Providers Care Seed Specialist Name Role Phone Luis Lynne MD Primary Care Provider [phone] Encounters Date Type Department Care Team Description 03/30/2025 Orders Only [facility] [address] [place] [address] [address] [place] [address] Luis Lynne MD 03/06/2025 Orders Only [facility] [address] [place] [address] [address] [place] [address] Luis Lynne MD from Last [...] 07/11/2024 Assessment & Plan (11/07/2024 11:19 AM WAISTLINE JOINER LOCKSTITCH): To have follow-up CT scan. Bronchoscopy has been mentioned as a possibility as well Assessment & Plan (09/19/2024 3:26 PM WAISTLINE JOINER LOCKSTITCH): -Patient presents to clinic for follow up appointment due to sputum growing Mycobacterium avium intracellular infection. -Patient currently asymptomatic -We will get a repeat CT scan -We will wait for final results on her sputum samples -If the CT scan is the same or worsening, we will reach out to her sales promotion director to see if they would be able to bronch the patient to get samples. ([facility]) -We will hold off on [...] asymptomatic -We will get CT scans from [facility] review images with our radiologist to see [...] 02/04/2022 Assessment & Plan (11/07/2024 11:18 AM WAISTLINE JOINER LOCKSTITCH): Lipid reviewed doing well Hypothyroidism 02/04/2022 Assessment & Plan (11/07/2024 11:18 AM WAISTLINE JOINER LOCKSTITCH): No signs or symptoms of thyroid disease. Check labs in 6 months GERD without esophagitis 02/04/2022 Assessment & Plan (11/07/2024 11:18 AM WAISTLINE JOINER LOCKSTITCH): Stable doing well. Essential hypertension 02/04/2022 Assessment & Plan (11/07/2024 11:18 AM WAISTLINE JOINER LOCKSTITCH): BP at target. Continue medication for target [...] on file Legal Sex Female 1:10 PM WAISTLINE JOINER LOCKSTITCH Gender Identity Not on file Sexual Orientation Not on file Last Filed Vital Signs Vital Sign Reading Time Taken Comments Blood Pressure 140/72 11/07/2024 11:17 AM WAISTLINE JOINER LOCKSTITCH Pulse 75 11/07/2024 10:45 AM WAISTLINE JOINER LOCKSTITCH Temperature 36.6 C (97.9 F) 09/18/2024 10:47 AM WAISTLINE JOINER LOCKSTITCH Respiratory Rate 17 01/02/2021 12:14 PM CDT Oxygen Saturation 98% 07/10/2024 9:29 AM CDT Inhaled Oxygen Concentration - - Weight 81.2 kg (179 lb) 11/07/2024 10:45 AM WAISTLINE JOINER LOCKSTITCH Height 162.6 cm (5' 4) 11/07/2024 10:45 AM WAISTLINE JOINER LOCKSTITCH Body Mass Index 30.73 11/07/2024 10:45 AM WAISTLINE JOINER LOCKSTITCH Plan of Treatment Not on file Procedures [...] Final Result from Last 3 Months Insurance [facility] Address: [address] [address] [facility] MEDICARE [facility] MEDICARE [facility] MEDICARE Care Teams Seed Specialist Relationship Specialty Start Date End Date Luis Lynne MD PCP - General Internal Medicine 12/26/20
--- OUTSIDE RECORDS SUMMARY | 2025-03-31 12:19 | XMS_ITS | Continuity of Care Document ---
Author Organization [facility] Address [address] [place] [address] Phone Care Team Providers Care Blender Name Role Phone [facility] Unavailable Unavail able Duke Enriquez Unavailable [...] Diagnoses Date Provider Providers Copied on Encounter [facility], [address] [place], [place] [address], [place], [place], [id number], [place] tel:[phone] [address] [facility] No Information 9 [facility] . [address] [facility], [facility] [address], [place], [place], [id number], [place]. tel:[phone] Referring Provider: Sam Abdul [address] [place], [place] [address], [place], [address]. tel:[phone] sulting Provider: Duke Enriquez, [address] [place] [address], [place], [address]. tel:[phone] [facility], [address], [place], [place], [id number], [place] tel:[phone] [address] [facility] No Information Oct-2 9-200 8 [facility] . [address] [facility], [address], [place], [place], [id number], [place]. tel:[phone] Referring Provider: Sam Abdul, [facility] [address], [place], [address]. tel:[phone] sulting Provider: Duke Enriquez, [address] [place], [place] [address]ate [facility], [place], [address]. tel:[phone] [facility], [address], [place], [place], [address], [place] tel:[phone] [facility] [place] No Information Oct-1 7-200 8 [facility] . [address] [facility], [address], [place], [place], [address], [place]. tel:[phone] Referring Provider: Sam Abdul, [address] [place], [place] [address], [place], [address]. tel:[phone] sulting Provider: Duke Enriquez, [address] [place], [place] [address]ate [facility], [place], [address]. tel:[phone] [facility], [address], [place], [place], [id number], [place] tel:[phone] [facility] [place] No Information Oscar-2 2-200 8 [facility] . [address] [facility], [address], [place], [place], [id number], [place]. tel:[phone] Referring Provider: Sam Abdul, [facility] [address], [place], [address]. tel:[phone] sulting Provider: Duke Enriquez, [facility] [address], [place], [address]. tel:[phone] [facility], [address], [place], [place], [id number], [place] tel:[phone] SEC [facility] No Information 6-200 7 Ferrell OD Sam. [address], [address], [place], [address], [place]. tel:[phone] Family History Family Member Type Diagnosis Age At Onset No Information Payers Payer name Insurance type Covered democrat ID Authoriza tion(s) No Information Social History [...]
== END 2025-03-31 12:17 | disposition home or self-care (01) ==
LOC: ANHLAB 12:17
PROVIDERS: PCP Internal Medicine; Visit Provider Physician Assistant
DX: J18.9 Pneumonia, unspecified organism (principal)
CPT/HCPCS: 87015; 87070; 87102; 87116; 87205; 87206

== ENCOUNTER 2025-04-02 16:35 | Emergency (ER) | payer MEDICARE, SELFPAY ==
[2025-04-02 16:36] VITALS: BP 147/72; PULSE 79; RESP 18; TEMP 37; O2SAT 96
--- NOTE | 2025-04-02 17:00 | PC.NURSE ---
Patient ready for discharge pending registration.
--- NOTE | 2025-04-02 17:02 | ED.GENADULT ---
HPI - General Adult General Chief complaint: Extremity Problem,Nontraumatic Stated complaint: left side numbness, on and off x3 today Time Seen by Provider: 04/02/25 17:01 Source: patient and family Mode of arrival: ambulatory Limitations: no limitations History of Present Illness HPI narrative: 84 years old white female drove herself to the emergency room because of numbness left index and left side of the lips. Patient woke up this morning and few minutes later he felt numbness at the tip of the left index and left side of the upper and lower lips lasted for less than 5 seconds. Later patient stood up and start walking and symptoms came back again with standing and disappear when she sat down. On arrival to the ED patient denying any symptoms. Patient is telling me that she spent all day long yesterday with her best friend who is her yesterday patient was very stressed about it, she is telling me that her mom had stroke and does not want to have stroke in the future and she is very much worried and thinking about it all the time. History of hypertension hyperlipidemia asthma currently resolving from pneumonia and currently on steroid. She does not smoke or drink or use drugs, no anti-platelet or anticoagulant medication. Related Data Home Medications ?Medication ?Instructions ?Recorded ?Confirmed ?Last Taken ?Type atorvastatin 10 mg tablet 10 mg PO DAILY 01/05/23 03/27/25 01/31/24 History levothyroxine 25 mcg capsule 25 mcg PO DAILY 01/05/23 03/27/25 02/01/24 History meloxicam 15 mg tablet 15 mg PO DAILY 01/05/23 03/27/25 1 Day Ago History ~07/24/23 multivitamin 1 tablet PO DAILY 01/05/23 03/27/25 01/26/24 History nortriptyline 50 mg capsule 50 mg PO HS 01/05/23 03/27/25 01/31/24 History omega 6-rlu-kna-fish oil 60 mg-90 1 cap PO DAILY 01/05/23 03/27/25 01/26/24 History mg-500 mg capsule (Fish Oil) omeprazole 20 mg capsule,delayed 20 mg PO DAILY 01/05/23 03/27/25 01/31/24 History release verapamil 120 mg tablet 120 mg PO BID 01/05/23 03/27/25 02/01/24 History albuterol sulfate 90 mcg/actuation 2 puff inhalation PRN PRN Wheezing 07/25/23 03/27/25 1 Day Ago History aerosol inhaler ~07/24/23 glucosamine sulf dipot 1 cap PO DAILY 07/25/23 03/27/25 01/26/24 History chlr,msm,chond 550 mg-C 30 mg-amy 1 mg capsule (Glucosamine Chondroitin) olmesartan 20 mg tablet 20 mg PO DAILY 07/25/23 03/27/25 01/31/24 History Allergies Allergy/AdvReac Type Severity Reaction Status Date / Time adhesive Allergy Unknown opsite Verified 04/02/25 16:36 causes rash/itching, skin irritation cefprozil Allergy Unknown Other Verified 04/02/25 16:36 Cephalosporins AdvReac Intermediate DIARRHEA Verified 04/02/25 16:36 erythromycin base AdvReac Unknown Gastrointestinal Verified 04/02/25 16:36 Upset Review of Systems Review of Systems: All systems reviewed & are unremarkable except as noted in HPI and below PMFSH Past Medical History Medical History GERD (gastroesophageal reflux disease) Asthma Other fatigue History of breast cancer Acute renal failure superimposed on chronic kidney disease Abnormal chest CT Chronic kidney disease, stage 3 Hypertension Hyperlipidemia Hypothyroidism Cancer of left breast (2007) Effusion of knee joint Acute pain of left knee Left knee DJD Surgical History Surgical History History of tonsillectomy History of left mastectomy Family History Family History Father Carcinoma of colon Sibling Family history of malignant neoplasm of breast in first degree relative Other Family history of malignant neoplasm Hypertension Social History Social History Social History: Surrogate medical decision maker: Lucille Whitley, daughter. Code status: Full code. Smoking status: Never smoker Additional smoking assessment comments: DENIES ANY FORM OF TOBACCO USE Alcohol intake: never Substance use: never Substance use type: does not use Do You Feel Safe in your Home?: Yes Lack of Transportation: No Lack of Food: Never True Current Housing: I Have Housing Concerned About Future Housing: No Difficulty Paying Gas/Electric Bills: No Difficulty Paying for Meds: No Currently Unemployed: No Education: High School Diploma/GED Difficulty w/ Childcare or Family Care: No Living arrangements: with family Additional living arrangements comments: Lives in [place] with a good friend. She has 1 dog at home. Additional occupation/education comments: Retired from the [employer]. Spiritual care concerns: No Exam Narrative: General appearance: Well-developed, well-nourished Skin: Normal color Head: Normocephalic, nontraumatic Eyes: Clear conjunctiva ENT: Oropharynx normal, ears normal, nose normal Neck: Supple, nontender Chest and respiratory: Airway patent, no respiratory distress, no accessory muscle use Heart: Regular rate/rhythm Abdomen: Soft, nontender, no organomegaly, quiet bowel sounds Vascular: Normal peripheral pulses, normal capillary refill. Musculoskeletal: Normal range of motion, nontender back Neurologic: Alert and oriented ?3, SET OFF PRESS OPERATOR is normal as tested, no gross motor deficit Course Vital Signs Vital signs: Vital Signs Temperature 37.0 C 04/02/25 16:36 Pulse Rate 79 04/02/25 16:36 Respiratory Rate 18 04/02/25 16:36 Blood Pressure 147/72 H 04/02/25 16:36 Pulse Oximetry 96 04/02/25 16:36 Oxygen Delivery Room Air 04/02/25 16:36 Temperature 37.0 C 04/02/25 16:36 Pulse Rate 79 04/02/25 16:36 Respiratory Rate 18 04/02/25 16:36 Blood Pressure 147/72 H 04/02/25 16:36 Pulse Oximetry 96 04/02/25 16:36 Oxygen Delivery Room Air 04/02/25 16:36 Medical Decision Making [facility] Narrative Medical decision making narrative: Differential diagnosis anxiety like symptoms. Patient was advised to take baby aspirin once a day. Differential Diagnosis Differential Diagnosis: Anxiety like symptoms Vital Signs Vital Signs: Vital Signs Temperature 37.0 C 04/02/25 16:36 Pulse Rate 79 04/02/25 16:36 Respiratory Rate 18 04/02/25 16:36 Blood Pressure 147/72 H 04/02/25 16:36 Pulse Oximetry 96 04/02/25 16:36 Oxygen Delivery Room Air 04/02/25 16:36 Temperature 37.0 C 04/02/25 16:36 Pulse Rate 79 04/02/25 16:36 Respiratory Rate 18 04/02/25 16:36 Blood Pressure 147/72 H 04/02/25 16:36 Pulse Oximetry 96 04/02/25 16:36 Oxygen Delivery Room Air 04/02/25 16:36 Critical Care Time Critical Care Time Critical Care Time: No Discharge Plan Discharge Clinical Impression: Anxiety Patient Disposition: Home Condition: Stable Instructions: Anxiety (ED) Additional Instructions: Return if symptoms are worsening , call your family physician for appointment, take Tylenol as as needed for aches and pain, continue home medications., Start baby aspirin once a day Patient Language: Congolese Prescriptions: No Action albuterol sulfate 90 mcg/actuation HFA aerosol inhaler 2 puff INHALATION PRN PRN (Reason: Wheezing) olmesartan 20 mg tablet 20 mg PO DAILY Glucosamine Chondroitin 550-30-1 mg Capsule 1 cap PO DAILY levofloxacin 750 mg tablet 750 mg PO DAILY Qty: 7 0RF prednisone 10 mg tablet See Rx Instructions PO DAILY Qty: 34 0RF Rx Instructions: 4 tabs daily x 4 days; then 3 tabs daily x 3 days, then 2 tabs daily x 3 days, then 1 tab daily x 3 days. ipratropium-albuterol 0.5 mg-3 mg(2.5 mg base)/3 mL solution for nebulization 3 ml inhalation Q6H PRN (Reason: shortness of breath or wheezing) Qty: 90 3RF levothyroxine 25 mcg capsule 25 mcg PO DAILY atorvastatin 10 mg tablet 10 mg PO DAILY nortriptyline 50 mg capsule 50 mg PO HS verapamil 120 mg tablet 120 mg PO BID omeprazole 20 mg capsule,delayed release(DR/EC) 20 mg PO DAILY meloxicam 15 mg tablet 15 mg PO DAILY omega 0-lvz-wit-fish oil [Fish Oil] 60-90-500 mg capsule 1 cap PO DAILY multivitamin Tablet 1 tablet PO DAILY Follow-up/Referrals: UNKNOWN,DOCTOR [Primary Care Provider] -
--- OUTSIDE RECORDS SUMMARY | 2025-04-02 17:11 | XMS_ITS | Clinical Summary ---
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
--- OUTSIDE RECORDS SUMMARY | 2025-04-02 17:11 | XMS_ITS | Continuity of Care Document ---
Author Organization [facility] Address [address] [place] [address] Phone Care Team Providers Care Work And Family Life Consultant Name Role Phone [facility], [facility] Unavailable Unavail able Duke Enriquez Unavailable [...] Diagnoses Date Provider Providers Copied on Encounter [facility], [address] [place], [place] [address], [place], [place], [id number], [place] tel:[phone] SEC [facility] No Information 9 [facility] . [address] [facility], [facility] [address], [place], [place], [id number], [place]. tel:[phone] Referring Provider: Sam Abdul [address] [place], [place] [address], [place], [address]. tel:[phone] sulting Provider: Duke Enriquez, [address] [place] [address], [place], [address]. tel:[phone] [facility], [address], [place], [place], [id number], [place] tel:[phone] SEC [facility] No Information Oct-2 9-200 8 Optical Shop [facility] . [address] [facility], [address], [place], [place], [address], [place]. tel:[phone] Referring Provider: Sam Abdul, [facility] [address], [place], [address]. tel:[phone] sulting Provider: Duke Enriquez, [address] [place], [place] [address]ate [facility], [place], [address]. tel:[phone] [facility], [address], [place], [place], [address], [place] tel:[phone] [facility] [address] No Information Oct-1 7-200 8 Optical Shop [facility] . [address] [facility], [address], [place], [place], [address], [place]. tel:[phone] Referring Provider: Sam Abdul, [address] [place], [place] [address], [place], [address]. tel:[phone] sulting Provider: Duke Enriquez, [address] [place], [place] [address]ate [facility], [place], [address]. tel:[phone] [facility], [address], [place], [place], [address], [place] tel:[phone] [facility] [address] No Information Oscar-2 2-200 8 Optical Shop [facility] . [address] [facility], [address], [place], [place], [address], [place]. tel:[phone] Referring Provider: Sam Abdul, [facility] [address], [place], [address]. tel:[phone] sulting Provider: Duke Enriquez, [facility] [address] [facility], [place], [address]. tel:[phone] [facility], [address], [place], [place], [address], [place] tel:[phone] SEC [facility] No Information 6-200 7 Ferrell OD Sam. [address], [place], [address], [place]. tel:[phone] Family History Family Member Type Diagnosis Age At Onset No Information Payers Payer name Insurance type Covered green party ID Authoriza tion(s) No Information Social [...]
--- OUTSIDE RECORDS SUMMARY | 2025-04-02 17:11 | XMS_ITS | Encounter Summary ---
Author Organization [facility] Address [address] [place] [address] Care Team Providers Care Gear Hobber Operator Name Role Phone Luis Lynne MD Primary Care Provider [phone] Encounter Details Date Type Department Care Team (Late st Contact Info) Description 07/08/2020 Orders Only [facility] [address] [facility] [address] [facility] [place] [address] Scanning, Provider Social History Tobacco Use Types Packs/Day Years Used Date Smoking Tobacco: Never Assessed Comments Unknown Sex and Gender Information Value Date Recorded Sex Assigned at Not on file Legal Sex Female 1:10 PM 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
--- OUTSIDE RECORDS SUMMARY | 2025-04-02 17:11 | XMS_ITS | Referral Summary ---
Author Organization [facility] [address] Address [address] [place] [address] Care Team Providers Care Tone Artist Apprentice Name Role Phone Luis Lynne MD Primary Care Provider [phone] Encounters Date Type Department Care Team Description 04/01/2025 Orders Only [facility] [address] [place] [address] [address] [place] [id number] Luis Lynne MD 03/31/2025 Orders Only [facility] [address] [place] [address] [address] [place] [phone] Lius Lynne MD 03/30/2025 Orders Only [facility] [address] [place] [address] [address] [place] [phone] Luis Lynne MD 03/06/2025 Orders Only [facility] [address] [place] [address] [address] [place] [phone] Luis Lynne MD from Last 3 Months [...] 07/11/2024 Assessment & Plan (11/07/2024 11:19 AM MARBLE CUTTER OPERATOR): To have follow-up CT scan. Bronchoscopy has been mentioned as a possibility as well Assessment & Plan (09/19/2024 3:26 PM MARBLE CUTTER OPERATOR): -Patient presents to clinic for follow up appointment due to sputum growing Mycobacterium avium intracellular infection. -Patient currently asymptomatic -We will get a repeat CT scan -We will wait for final results on her sputum samples -If the CT scan is the same or worsening, we will reach out to her rn supplemental to see if they would be able to bronch the patient to get samples. ([facility]) -We will hold off on [...] asymptomatic -We will get CT scans from [facility] review images with our radiologist [...] 02/04/2022 Assessment & Plan (11/07/2024 11:18 AM MARBLE CUTTER OPERATOR): Lipid reviewed doing well Hypothyroidism 02/04/2022 Assessment & Plan (11/07/2024 11:18 AM MARBLE CUTTER OPERATOR): No signs or symptoms of thyroid disease. Check labs in 6 months GERD without esophagitis 02/04/2022 Assessment & Plan (11/07/2024 11:18 AM MARBLE CUTTER OPERATOR): Stable doing well. Essential hypertension 02/04/2022 Assessment & Plan (11/07/2024 11:18 AM MARBLE CUTTER OPERATOR): BP at target. Continue medication for target [...] on file Legal Sex Female 1:10 PM MARBLE CUTTER OPERATOR Gender Identity Not on file Sexual Orientation Not on file Last Filed Vital Signs Vital Sign Reading Time Taken Comments Blood Pressure 140/72 11/07/2024 11:17 AM MARBLE CUTTER OPERATOR Pulse 75 11/07/2024 10:45 AM MARBLE CUTTER OPERATOR Temperature 36.6 C (97.9 F) 09/18/2024 10:47 AM MARBLE CUTTER OPERATOR Respiratory Rate 17 01/02/2021 12:14 PM CDT Oxygen Saturation 98% 07/10/2024 9:29 AM CDT Inhaled Oxygen Concentration - - Weight 81.2 kg (179 lb) 11/07/2024 10:45 AM MARBLE CUTTER OPERATOR Height 162.6 cm (5' 4) 11/07/2024 10:45 AM MARBLE CUTTER OPERATOR Body Mass Index 30.73 11/07/2024 10:45 AM MARBLE CUTTER OPERATOR Plan of Treatment Not on file Procedures Procedure Name Priority Date/Time Associated Diagnosis Comments SCAN - LABS 04/01/2025 4:57 PM CDT SCAN - LABS 04/01/2025 4:57 PM CDT SCAN - LABS 04/01/2025 4:57 PM CDT SCAN - LABS 04/01/2025 8:43 AM CDT SCAN - LABS 03/31/2025 3:44 PM CDT SCAN - LABS 03/31/2025 11:56 AM CDT SCAN - LABS 03/30/2025 11:16 AM CDT SCAN - RADIOLOGY/IMAGING 03/06/2025 9:42 AM CDT from Last 3 Months Results * SCAN - LABS (04/01/2025 4:57 PM CDT) us Luis Lynne MD Final Result * SCAN - LABS (04/01/2025 4:57 PM CDT) us Luis Lynne MD Final Result * SCAN - LABS (04/01/2025 4:57 PM CDT) us Luis Lynne MD Final Result * SCAN - LABS (04/01/2025 8:43 AM CDT) us Luis Lynne MD Final Result * SCAN - LABS (03/31/2025 3:44 PM CDT) us Luis Lynne MD Final Result * SCAN - LABS (03/31/2025 11:56 AM CDT) us Luis Lynne MD Final Result * SCAN - LABS (03/30/2025 11:16 AM CDT) us Luis Lynne MD Final Result * SCAN - RADIOLOGY/IMAGING (03/06/2025 9:42 AM CDT) Anatomical Region Laterality Modality Other us Luis Lynne MD Final Result from Last 3 Months Insurance [facility] MEDICARE T MEDICARE AETNA MEDICARE AETNA MEDICARE Care Teams Tone Artist Apprentice Relationship Specialty Start Date End Date Luis Lynne MD PCP - General Internal Medicine 12/26/20
--- OUTSIDE RECORDS SUMMARY | 2025-04-02 17:11 | XMS_ITS | Clinical Summary ---
Author Organization [facility] [address] Address [address] [place] [address] Care Team Providers Care Oxygen Equipment Preparer Name Role Phone Luis Lynne MD Primary Care Provider [phone] Allergies Active Allergy Reactions Criticality Noted Date [...] 07/11/2024 Assessment & Plan (11/07/2024 11:19 AM ASSESSMENT COUNSELOR): To have follow-up CT scan. Bronchoscopy has been mentioned as a possibility as well Assessment & Plan (09/19/2024 3:26 PM ASSESSMENT COUNSELOR): -Patient presents to clinic for follow up appointment due to sputum growing Mycobacterium avium intracellular infection. -Patient currently asymptomatic -We will get a repeat CT scan -We will wait for final results on her sputum samples -If the CT scan is the same or worsening, we will reach out to her sorting livestock worker to see if they would be able to bronch the patient to get samples. ([facility]) -We will hold off on [...] asymptomatic -We will get CT scans from [facility] review images with our radiologist to see if this tree-in-bud is consistent with ERCI or aspiration. -We will have patient's admit [...] 02/04/2022 Assessment & Plan (11/07/2024 11:18 AM ASSESSMENT COUNSELOR): Lipid reviewed doing well Hypothyroidism 02/04/2022 Assessment & Plan (11/07/2024 11:18 AM ASSESSMENT COUNSELOR): No signs or symptoms of thyroid disease. Check labs in 6 months GERD without esophagitis 02/04/2022 Assessment & Plan (11/07/2024 11:18 AM ASSESSMENT COUNSELOR): Stable doing well. Essential hypertension 02/04/2022 Assessment & Plan (11/07/2024 11:18 AM ASSESSMENT COUNSELOR): BP at target. Continue medication for target directed therapy Encounters Date Type Department Care Team Description 04/01/2025 Orders Only [facility] [address] [place] [address] [address] [place] [phone] Luis Lynne MD 03/31/2025 Orders Only [facility] [address] [place] [address] [address] [place] [phone] Luis Lynne MD 03/30/2025 [facility] [address] [place] [address] [address] [place] [address] Luis Lynne MD 03/06/2025 Orders Only [facility] [address] [place] [phone] Luis Lynne MD from Last 3 Months [...] on file Legal Sex Female 1:10 PM ASSESSMENT COUNSELOR Gender Identity Not on file Sexual Orientation Not on file Obstetrics History Last Filed Vital Signs Vital Sign Reading Time Taken Comments Blood Pressure 140/72 11/07/2024 11:17 AM ASSESSMENT COUNSELOR Pulse 75 11/07/2024 10:45 AM ASSESSMENT COUNSELOR Temperature 36.6 C (97.9 F) 09/18/2024 10:47 AM ASSESSMENT COUNSELOR Respiratory Rate 17 01/02/2021 12:14 PM CDT Oxygen Saturation 98% 07/10/2024 9:29 AM CDT Inhaled Oxygen Concentration - - Weight 81.2 kg (179 lb) 11/07/2024 10:45 AM ASSESSMENT COUNSELOR Height 162.6 cm (5' 4) 11/07/2024 10:45 AM ASSESSMENT COUNSELOR Body Mass Index 30.73 11/07/2024 10:45 AM ASSESSMENT COUNSELOR Plan of Treatment Health Maintenance Due Date Last Done Comments Depression Screening 1940 Fall Risk Assessment 1940 Hepatitis B Screening 1958 Zoster Vaccine (1 of 2) 1990 Well Visit 65+ 2005 Osteoporosis Screening-Bone Density Scan 04/06/2024 04/06/2022, 06/26/2019, 06/26/2019 Covid-19 Vaccine (2023-2 5 season) 2025 07/28/2024, 07/07/2023, 08/04/2022, Additional [...] SCAN - LABS (04/01/2025 4:57 PM CDT) Result Efrem Lynne MD Final Result * SCAN - LABS (04/01/2025 4:57 PM CDT) Result Efrem Lynne MD Final Result * SCAN - LABS (04/01/2025 4:57 PM CDT) Result Efrem Lynne MD Final Result * SCAN - LABS (04/01/2025 8:43 AM CDT) Result Efrem Lynne MD Final Result * SCAN - LABS (03/31/2025 3:44 PM CDT) Result Efrem Lynne MD Final Result * SCAN - LABS (03/31/2025 11:56 AM CDT) Result Efrem Lynne MD Final Result * SCAN - LABS (03/30/2025 11:16 AM CDT) Result Efrem Lynne MD Final Result * SCAN - RADIOLOGY/IMAGING (03/06/2025 9:42 AM CDT) Anatomical Region Laterality Modality Other Result Efrem Lynne MD Final Result from Last 3 Months Insurance AETNA MEDICARE [facility] MEDICARE [facility] MEDICARE AET MEDICARE Care Teams Oxygen Equipment Preparer Relationship Specialty Start Date End Date Luis Lynne MD PCP - General Internal Medicine 12/26/20
--- OUTSIDE RECORDS SUMMARY | 2025-04-02 17:11 | XMS_ITS | Encounter Summary ---
Author Organization [facility] Address [address] [place] [address] Care Team Providers Care Research And Development Director Name Role Phone Luis Lynne MD Primary Care Provider [phone] Encounter Details Date Type Department Care Team (Late st Contact Info) Description 03/30/2025 Orders Only [facility] [address] [phone] Luis Lynne MD [address] [place] [address] [address] [place] [address] Social History Tobacco Use Types [...] on file Legal Sex Female 1:10 PM INTENSIVE CARE UNIT REGISTERED NURSE Gender Identity Not on file Sexual Orientation [...] on filedocumented in this encounter Care Teams Research And Development Director Relationship Specialty Start Date End Date Luis Lynne MD PCP - General Internal Medicine 12/26/20 documented as of this encounter
--- OUTSIDE RECORDS SUMMARY | 2025-04-02 17:11 | XMS_ITS | Encounter Summary ---
Author Organization [facility] Address [address] [place] [address] Care Team Providers Care Animal Surgeon Name Role Phone Luis Lynne MD Primary Care Provider [phone] Encounter Details Date Type Department Care Team (Late st Contact Info) Description 04/01/2025 Orders Only [facility] [address] [address] Luis Lynne MD [address] [place] [address] [address] [place] [address] Social History Tobacco Use Types [...] on file Legal Sex Female 1:10 PM GRAVEL HAULER Gender Identity Not on file Sexual Orientation Not on file documented as of this encounter Plan of Treatment Not on file documented as of this encounter Procedures Procedure Name Priority Date/Time Associated Diagnosis Comments SCAN - LABS 04/01/2025 4:57 PM CDT SCAN - LABS 04/01/2025 4:57 PM CDT SCAN - LABS 04/01/2025 4:57 PM CDT SCAN - LABS 04/01/2025 8:43 AM CDT documented in this encounter Results * SCAN - LABS (04/01/2025 4:57 PM CDT) us Luis Lynne MD Final Result * SCAN - LABS (04/01/2025 4:57 PM CDT) us Luis Lynne MD Final Result * SCAN - LABS (04/01/2025 4:57 PM CDT) us Luis Lynne MD Final Result * SCAN - LABS (04/01/2025 8:43 AM CDT) Result Efrem Lynne MD Final Result documented in this encounter Visit Diagnoses Not on filedocumented in this encounter Care Teams Animal Surgeon Relationship Specialty Start Date End Date Luis Lynne MD PCP - General Internal Medicine 12/26/20 documented as of this encounter
--- OUTSIDE RECORDS SUMMARY | 2025-04-02 17:11 | XMS_ITS | Encounter Summary ---
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 PM AUTOMOTIVE HARDWARE ENGINEER Gender Identity Not on file Sexual Orientation Not on file documented as of this encounter Plan of Treatment Not on file documented as of this encounter Procedures Procedure Name Priority Date/Time Associated Diagnosis Comments SCAN - LABS 03/31/2025 3:44 PM CDT SCAN - LABS 03/31/2025 11:56 AM CDT documented in this encounter Results * SCAN - LABS (03/31/2025 3:44 PM CDT) us Luis Lynne MD Final Result * SCAN - LABS (03/31/2025 11:56 AM CDT) us Luis Lynne MD Final Result documented in this encounter Visit Diagnoses Not on filedocumented in this encounter Care Teams Certified Phlebotomy Technician Relationship Specialty Start Date End Date Luis Lynne MD PCP - General Internal Medicine 12/26/20 documented as of this encounter
--- OUTSIDE RECORDS SUMMARY | 2025-04-02 17:17 | XMS_ITS | Continuity of Care Document ---
Author Organization [facility] Address [address] [place] [address] Phone Care Team Providers Care Fun House Attendant Name Role Phone [facility] Unavailable Unavail able Duke Enriquez Unavailable [...] Diagnoses Date Provider Providers Copied on Encounter [facility], [address] [place], [place] [address], [place], [place], [address], [place] tel:[phone] SEC [facility] No Information 9 [facility] . [address] [facility], [facility] [address], [place], [place], [address], [place]. tel:[phone] Referring Provider: Sam Abdul [address] [place], [place] [address], [place], [address]. tel:[phone] sulting Provider: Duke Enriquez, [address] [place] [address], [place], [address]. tel:[phone] [facility], [address], [place], [place], [address], [place] tel:[phone] SEC [facility] No Information Oct-2 9-200 8 Optical Shop [facility] . [address] [facility], [address], [place], [place], [address], [place]. tel:[phone] Referring Provider: Sam Abdul, [facility] [address], [place], [address]. tel:[phone] sulting Provider: Duke Enriquez, [address] [place], [place] [address]ate [facility], [place], [address]. tel:[phone] [facility], [address], [place], [place], [address], [place] tel:[phone] [facility] [place] No Information Oct-1 7-200 8 Optical Shop [facility] . [address] [facility], [address], [place], [place], [address], [place]. tel:[phone] Referring Provider: Sam Abdul, [address] [place], [place] [address], [place], [address]. tel:[phone] sulting Provider: Duke Enriquez, [address] [place], [place] [address]ate [facility], [place], [address]. tel:[phone] [facility], [address], [place], [place], [address], [place] tel:[phone] [facility] [place] No Information Oscar-2 2-200 8 Optical Shop [facility] . [address] [facility], [address], [place], [place], [address], [place]. tel:[phone] Referring Provider: Sam Abdul, [facility] [address], [place], [address]. tel:[phone] sulting Provider: Duke Enriquez, [facility] [address], [place], [address]. tel:[phone] [facility], [address], [place], [place], [address], [place] tel:[phone] SEC [facility] No Information 6-200 7 Ferrell OD Sam. [address] [address], [address], [place], [address], [place]. tel:[phone] Family History Family Member Type Diagnosis Age [...]
[2025-04-02 17:19] VITALS: BP 147/72; PULSE 79; RESP 18; TEMP 37; O2SAT 96
== END 2025-04-02 17:19 | disposition home or self-care (01) ==
LOC: CHSED 17:04
PROVIDERS: Emergency Provider Emergency Medicine; PCP Internal Medicine
DX: F41.9 Anxiety disorder, unspecified (principal); E78.5 Hyperlipidemia, unspecified; I10 Essential (primary) hypertension; J45.909 Unspecified asthma, uncomplicated; I12.9 Hypertensive chronic kidney disease with stage 1 through stage 4 chronic kidney disease, or unspecified chronic kidney disease; N18.30 Chronic kidney disease, stage 3 unspecified; Z85.3 Personal history of malignant neoplasm of breast
CPT/HCPCS: 99283

== ENCOUNTER 2025-04-19 13:42 | Outpatient (CLI) | payer MEDICARE, SELFPAY ==
--- NOTE | ~2025-04-19 | CT_ITS ---
CT Scan of the Chest without Contrast: Clinical Indication: Pneumonia Technique: Contiguous sections were acquired throughout the chest without intravenous contrast. Dose reduction technique was used on this scan by utilizing automated exposure control and iterative recon struction technique. The dose-length product (DLP) was 186.16 mGy-cm. COMPARISON: 06/15/2024 Findings: There is no evidence of any significant mediastinal, hilar or axillary lymphadenopathy. The mediastin al soft tissues appear normal. Left mastectomy present. There is no evidence of pleural or pericardial effusion. There are extensive scattered areas of tree-in-bud opacities and irregular nodules, predominantly in the lower lobes, lingula, right middle lobe, and to lesser extent in the posterior right upper lobe. A few scattered calcified granuloma is are present. There is minimal bronchiolectasis in the left low er lobe and right middle lobe. Images through the upper abdomen reveal no abnormalities. Impression: Findings compatible with acute on chronic small airways infectious process, as detailed above. Reviewed, dictated and finalized at [facility]. Impression: Findings compatible with acute on chronic small airways infectious process, as detailed above.
--- OUTSIDE RECORDS SUMMARY | 2025-04-19 13:45 | XMS_ITS | Encounter Summary ---
Author Organization [facility] Address [address] [place] [address] Care Team Providers Care Real Estate Agency Licensee Name Role Phone Luis Lynne MD Primary Care Provider [phone] Encounter Details Date Type Department Care Team (Late st Contact Info) Description 07/08/2020 Orders Only [facility] [address] [facility] [address] [facility] [place] [address] Scanning, Provider Social History Tobacco Use Types Packs/Day Years Used Date Smoking Tobacco: Never Assessed Comments Unknown Sex and Gender Information Value Date Recorded Sex Assigned at Not on file Legal Sex Female 1:10 PM REGULATORY LAW SPECIALIST Gender Identity Not on file Sexual [...] documented as of this encounter Care Teams Real Estate Agency Licensee Relationship Specialty Start Date End Date Luis Lynne MD PCP - General Internal Medicine 12/26/20 documented as of this encounter
--- OUTSIDE RECORDS SUMMARY | 2025-04-19 13:45 | XMS_ITS | Continuity of Care Document ---
Author Organization [facility] Address [address] [place] [address] Phone Care Team Providers Care Mortgage Assistant Name Role Phone [facility] Unavailable Unavail able Duke Enriquez Unavailable [...] Date Provider Providers Copied on Encounter [facility], [address] [place], [place] [address], [place], [place], [address], [place] tel:[phone] SEC [facility] No Information 9 Optical Shop [facility] . [address] [facility], [facility] [address], [place], [place], [address], [place]. tel:[phone] Referring Provider: Sam Abdul [address] [place], [place] [address], [place], [address]. tel:[phone] sulting Provider: Duke Enriquez, [address] [place] [address], [place], [address]. tel:[phone] [facility], [address], [place], [place], [address], [place] tel:[phone] SEC [facility] No Information Oct-2 9-200 8 Optical Shop [facility] . [address] [facility], [address], [place], [place], [address], [place]. tel:[phone] Referring Provider: Sam Abdul, [facility] [address], [place], [address]. tel:[phone] sulting Provider: Duke Enriquez, [address] [place], [place] [address]ate [facility], [place], [address]. tel:[phone] [facility], [address], [place], [place], [address], [place] tel:[phone] SEC [facility] [place] No Information Oct-1 7-200 8 Optical [facility] . [address] [facility], [address], [place], [place], [address], [place]. tel:[phone] Referring Provider: Sam Abdul, [address] [place], [place] [address], [place], [address]. tel:[phone] sulting Provider: Duke Enriquez, [address] [place], [place] [address]ate [facility], [place], [address]. tel:[phone] [facility], [address], [place], [place], [address], [place] tel:[phone] [facility] [place] No Information Oscar-2 2-200 8 Optical Shop [facility] . [address] [facility], [address], [place], [place], [address], [place]. tel:[phone] Referring Provider: Sam Abdul, [facility] [address], [place], [address]. tel:[phone] sulting Provider: Duke Enriquez, [facility], [place], [address]. tel:[phone] [facility], [address], [place], [place], [address], [place] tel:[phone] SEC [facility] No Information 6-200 7 Ferrell OD Asm. [address] [facility] [address] [facility] [address], [address], [place], [address], [place]. tel:[phone] Family History Family Member Type Diagnosis Age [...]
--- OUTSIDE RECORDS SUMMARY | 2025-04-19 13:45 | XMS_ITS | Referral Summary ---
Author Organization [facility] [address] [facility] Address [address] [place] [address] Care Team Providers Care Painter Structural Steel Name Role Phone Luis Lynne MD Primary Care Provider [phone] Encounters Date Type Department Care Team Description 04/18/2025 Orders Only [facility] [address] [place] [address] [address] [place] [id number] Luis Lynne MD 04/11/2025 Orders Only [facility] [address] [place] [address] [address] [place] [id number] Luis Lynne MD 04/09/2025 Orders Only [facility] [address] [place] [address] [address] [place] [address] Luis Lynne MD 04/07/2025 Orders Only [facility] [address] [place] [address] [address] [place] [phone] Luis Lynne MD 04/06/2025 Orders Only [facility] [address] [place] [address] [address] [place] [address] Luis Lynne MD 04/02/2025 Orders Only [facility] [address] [place] [address] [address] [place] [address] Luis Lynne MD 04/01/2025 Orders Only [facility] [address] [place] [address] [address] [place] [address] Luis Lynne MD 03/31/2025 Orders Only [facility] [address] [place] [address] [address] [place] [address] Luis Lynne MD 03/30/2025 Orders Only [facility] [address] [place] [address] [place] [address] Luis Lynne MD 03/06/2025 Orders Only [facility] [address] [place] [address] [place] [address] Luis Lynne MD from Last 3 Months [...] 07/11/2024 Assessment & Plan (11/07/2024 11:19 AM STATISTICIAN MATHEMATICAL): To have follow-up CT scan. Bronchoscopy has been mentioned as a possibility as well Assessment & Plan (09/19/2024 3:26 PM STATISTICIAN MATHEMATICAL): -Patient presents to clinic for follow up appointment due to sputum growing Mycobacterium avium intracellular infection. -Patient currently asymptomatic -We will get a repeat CT scan -We will wait for final results on her sputum samples -If the CT scan is the same or worsening, we will reach out to her hadoop java developer to see if they would be able to bronch the patient to get samples. ([facility]) -We will hold off on [...] asymptomatic -We will get CT scans from [facility] review images with our radiologist to [...] 02/04/2022 Assessment & Plan (11/07/2024 11:18 AM STATISTICIAN MATHEMATICAL): Lipid reviewed doing well Hypothyroidism 02/04/2022 Assessment & Plan (11/07/2024 11:18 AM STATISTICIAN MATHEMATICAL): No signs or symptoms of thyroid disease. Check labs in 6 months GERD without esophagitis 02/04/2022 Assessment & Plan (11/07/2024 11:18 AM STATISTICIAN MATHEMATICAL): Stable doing well. Essential hypertension 02/04/2022 Assessment & Plan (11/07/2024 11:18 AM STATISTICIAN MATHEMATICAL): BP at target. Continue medication for target [...] on file Legal Sex Female 1:10 PM STATISTICIAN MATHEMATICAL Gender Identity Not on file Sexual Orientation Not on file Last Filed Vital Signs Vital Sign Reading Time Taken Comments Blood Pressure 140/72 11/07/2024 11:17 AM STATISTICIAN MATHEMATICAL Pulse 75 11/07/2024 10:45 AM STATISTICIAN MATHEMATICAL Temperature 36.6 C (97.9 F) 09/18/2024 10:47 AM STATISTICIAN MATHEMATICAL Respiratory Rate 17 01/02/2021 12:14 PM CDT Oxygen Saturation 98% 07/10/2024 9:29 AM CDT Inhaled Oxygen Concentration - - Weight 81.2 kg (179 lb) 11/07/2024 10:45 AM STATISTICIAN MATHEMATICAL Height 162.6 cm (5' 4) 11/07/2024 10:45 AM STATISTICIAN MATHEMATICAL Body Mass Index 30.73 11/07/2024 10:45 AM STATISTICIAN MATHEMATICAL Plan of Treatment Not on file Procedures Procedure Name Priority Date/Time Associated Diagnosis Comments SCAN - LABS 04/18/2025 11:09 AM CDT SCAN - LABS 04/11/2025 2:48 PM CDT SCAN - LABS 04/09/2025 6:04 PM CDT SCAN - LABS 04/09/2025 2:43 PM CDT SCAN - LABS 04/07/2025 3:43 PM CDT SCAN - LABS 04/06/2025 2:40 PM CDT SCAN - LABS 04/02/2025 5:00 PM CDT SCAN - LABS 04/02/2025 4:55 PM CDT SCAN - LABS 04/01/2025 4:57 [...] 3 Months Results * SCAN - LABS (04/18/2025 11:09 AM CDT) us Luis Lynne MD Final Result * SCAN - LABS (04/11/2025 2:48 PM CDT) us Luis Lynne MD Final Result * SCAN - LABS (04/09/2025 6:04 PM CDT) us Luis Lynne MD Final Result * SCAN - LABS (04/09/2025 2:43 PM CDT) us Luis Lynne MD Final Result * SCAN - LABS (04/07/2025 3:43 PM CDT) us Luis Lynne MD Final Result * SCAN - LABS (04/06/2025 2:40 PM CDT) us Luis Lynne MD Final Result * SCAN - LABS (04/02/2025 5:00 PM CDT) us Luis Lynne MD Final Result * SCAN - LABS (04/02/2025 4:55 PM CDT) us Luis Lynne MD Final [...] from Last 3 Months Insurance [employer] MEDICARE [facility] MEDICARE [facility] MEDICARE [employer] MED[employer]ARE Care Teams Painter Structural Steel Relationship Specialty Start Date End Date Luis Lynne MD PCP - General Internal Medicine 12/26/20
--- OUTSIDE RECORDS SUMMARY | 2025-04-19 13:45 | XMS_ITS | Encounter Summary ---
Author Organization [facility] Address [address] [place] [address] Care Team Providers Care Hunter Trapper Name Role Phone Luis Lynne MD Primary Care Provider [phone] Encounter Details Date Type Department Care Team (Late st Contact Info) Description 04/18/2025 Orders Only [facility] [address] [address] Luis Lynne MD [address] [place] [address] [address] [place] [address] Social History Tobacco Use Types [...] on file Legal Sex Female 1:10 PM LIVING NURSE Gender Identity Not on file Sexual Orientation Not on file documented as of this encounter Plan of Treatment Not on file documented as of this encounter Procedures Procedure Name Priority Date/Time Associated Diagnosis Comments SCAN - LABS 04/18/2025 11:09 AM CDT documented in this encounter Results * SCAN - LABS (04/18/2025 11:09 AM CDT) us Luis Lynne MD Final Result documented in this encounter Visit Diagnoses Not on filedocumented in this encounter Care Teams Hunter Trapper Relationship Specialty Start Date End Date Luis Lynne MD PCP - General Internal Medicine 12/26/20 documented as of this encounter
--- OUTSIDE RECORDS SUMMARY | 2025-04-19 13:45 | XMS_ITS | Clinical Summary ---
Author Organization [facility] [address] Address [address] [place] [address] Care Team Providers Care Cook Mess Name Role Phone Luis Lynne MD Primary Care Provider [phone] Allergies Active Allergy Reactions Criticality Noted Date [...] 07/11/2024 Assessment & Plan (11/07/2024 11:19 AM HEAD CLEANING PORTER): To have follow-up CT scan. Bronchoscopy has been mentioned as a possibility as well Assessment & Plan (09/19/2024 3:26 PM HEAD CLEANING PORTER): -Patient presents to clinic for follow up appointment due to sputum growing Mycobacterium avium intracellular infection. -Patient currently asymptomatic -We will get a repeat CT scan -We will wait for final results on her sputum samples -If the CT scan is the same or worsening, we will reach out to her vp treasurer to see if they would be able to bronch the patient to get samples. ([facility]) -We will hold off on [...] asymptomatic -We will get CT scans from [facility] review images with our radiologist [...] 02/04/2022 Assessment & Plan (11/07/2024 11:18 AM HEAD CLEANING PORTER): Lipid reviewed doing well Hypothyroidism 02/04/2022 Assessment & Plan (11/07/2024 11:18 AM HEAD CLEANING PORTER): No signs or symptoms of thyroid disease. Check labs in 6 months GERD without esophagitis 02/04/2022 Assessment & Plan (11/07/2024 11:18 AM HEAD CLEANING PORTER): Stable doing well. Essential hypertension 02/04/2022 Assessment & Plan (11/07/2024 11:18 AM HEAD CLEANING PORTER): BP at target. Continue medication for target directed therapy Encounters Date Type Department Care Team Description 04/18/2025 Orders Only [facility] [address] [place] [address] [address] [place] [address] Luis Lynne MD 04/11/2025 Orders Only [facility] [address] [place] [address] [address] [place] [address] Luis Lynne MD 04/09/2025 Orders Only [facility] [address] [place] [address] [address] [place] [address] Luis Lynne MD 04/07/2025 Orders Only [facility] [address] [place] [address] [address] [place] [address] Luis Lynne MD 04/06/2025 Orders Only [facility] [address] [place] [address] [address] [place] [address] Luis Lynne MD 04/02/2025 Orders Only [facility] [address] [place] [address] [address] [place] [address] Luis Lynne MD 04/01/2025 Orders Only [facility] [address] [place] [address] [address] [place] [address] Luis Lynne MD 03/31/2025 Orders Only [facility] [address] [place] [address] [address] [place] [address] Luis Lynne MD 03/30/2025 Orders Only [facility] [address] [place] [address] [address] [place] [address] Luis Lynne MD 03/06/2025 Orders Only [facility] [address] [place] [address] [address] [place] [address] Luis Lynne MD from Last 3 Months [...] on file Legal Sex Female 1:10 PM HEAD CLEANING PORTER Gender Identity Not on file Sexual Orientation Not on file Obstetrics History Last Filed Vital Signs Vital Sign Reading Time Taken Comments Blood Pressure 140/72 11/07/2024 11:17 AM HEAD CLEANING PORTER Pulse 75 11/07/2024 10:45 AM HEAD CLEANING PORTER Temperature 36.6 C (97.9 F) 09/18/2024 10:47 AM HEAD CLEANING PORTER Respiratory Rate 17 01/02/2021 12:14 PM CDT Oxygen Saturation 98% 07/10/2024 9:29 AM CDT Inhaled Oxygen Concentration - - Weight 81.2 kg (179 lb) 11/07/2024 10:45 AM HEAD CLEANING PORTER Height 162.6 cm (5' 4) 11/07/2024 10:45 AM HEAD CLEANING PORTER Body Mass Index 30.73 11/07/2024 10:45 AM HEAD CLEANING PORTER Plan of Treatment Health Maintenance Due Date Last Done Comments Depression Screening 1940 Fall Risk Assessment 1940 Hepatitis B Screening 1958 Zoster Vaccine (1 of 2) 1990 Well Visit 65+ 2005 Osteoporosis Screening-Bone Density Scan 04/06/2024 04/06/2022, 06/26/2019, 06/26/2019 Covid-19 Vaccine (2023-2 5 season) 2025 07/28/2024, 07/07/2023, 08/04/2022, Additional history exists Influenza Vaccine (#1) 2025 , 08/11/2023, 08/05/2022, Additional history exists DTaP/Tdap/Td Vaccine (2 - Td or Tdap) 03/06/2031 03/06/2021, 03/02/2001 Pneumococcal vaccine 65+ Completed 021, 09/23/2017, 08/14/2015 Procedures Procedure Name Priority Date/Time Associated [...] SCAN - LABS (04/11/2025 2:48 PM CDT) Result Efrem Lynne MD Final Result * SCAN - LABS (04/09/2025 6:04 PM CDT) Result Efrem Lynne MD Final Result * SCAN - LABS (04/09/2025 2:43 PM CDT) Result Efrem Lynne MD Final Result * SCAN - LABS (04/07/2025 3:43 PM CDT) Result Efrem Lynne MD Final Result * SCAN - LABS (04/06/2025 2:40 PM CDT) Result Efrem Lynne MD Final Result * SCAN - LABS (04/02/2025 5:00 PM CDT) Result Efrem Lynne MD Final Result * SCAN - LABS (04/02/2025 4:55 PM CDT) Result Efrem Lynne MD Final [...] Final Result from Last 3 Months Insurance [facility] MEDICARE [facility] MEDICARE [facility] MEDICARE [facility] MEDICARE Care Teams Cook Mess Relationship Specialty Start Date End Date Luis Lynne MD PCP - General Internal Medicine 12/26/20
--- OUTSIDE RECORDS SUMMARY | 2025-04-19 13:45 | XMS_ITS | Clinical Summary ---
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 Gender Identity Not on file Sexual Orientation [...] Description 08/06/2025 11:00 AM CDT Office Visit [facility] Oncology and Hematology - Moustapha [address] [facility] [address] [place] [address] Jack Ramirez MD [address] [facility] [address] [place] [address] Health Maintenance Due Date Last Done Comments DTAP/TDAP/TD VACCINES (1 - Tdap) 1959 ZOSTER VACCINE (1 of 2) 1990 RSV VACCINE (60+ or ) (1 - 1-dose 75+ series) 2015 COVID-19 Vaccine (3 - 2023-2 5 season) 2024 12/16/2020, 11/15/2020 OSTEOPOROSIS SCREENING 06/26/2024 06/26/2019 INFLUENZA VACCINE (#1) 2025 , 08/06/2019, 07/24/2015, Additional history exists PNEUMOCOCCAL VACCINE 50+ YEARS Completed 09/23/2017 , [...] Maintenance Insurance [employer] PPO MCR Care Teams Truck Technician Relationship Specialty Start Date End Date Luis Lynne MD [id number] [place] [address] PCP - General Internal Medicine 12/22/17
== END 2025-04-19 13:43 | disposition home or self-care (01) ==
PROVIDERS: PCP Internal Medicine; Visit Provider Physician Assistant
DX: J18.9 Pneumonia, unspecified organism (principal); A31.0 Pulmonary mycobacterial infection
CPT/HCPCS: 71250

== ENCOUNTER 2025-06-22 12:22 | Emergency (ER) | payer MEDICARE, SELFPAY ==
--- OUTSIDE RECORDS SUMMARY | 2009-01-07 19:00 | XMS_ITS | Continuity of Care Document ---
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 Name Role Phone [facility], [facility] Unavailable Unavail able Duke Enriquez Unavailable Unavailable Procedures Procedure Date Progressive Lens, Hi Index Tint Photochromatic, Hi Index 9 Progressive Lens, Polycarb Tint Photochromatic, Polycarb 8 Progressive Lens, Polycarb Tint Photochromatic, Polycarb 8 Progressive Lens, Plastic Frames Deluxe Lens-Index 1.54-1.79 Glass Tint Photochromatic, Hi Index 8 Scratch Resistant Coating UV Coat Eye Exam & Treatment Refraction Advance Directives Directive Yes / No Effective Date File Name No Information Encounters Encounter Description Practice Location Reason(s) For Visit Diagnoses Date Provider Providers Copied on Encounter [facility], [address] [place] [address] [address], [place], [place], [id number], [place] tel:[phone] SEC [facility] No Information 9 [facility] . [address] [facility], [facility] [address], [place], [place], [id number], [place]. tel:[phone] Referring Provider: Sam Abdul [address] [place], [place] [address], [place], [address]. tel:[phone] sulting Provider: Duke Enriquez, [address] [place] [address], [place], [address]. tel:[phone] [facility], [address], [place], [place], [id number], [place] tel:[phone] SEC [facility] No Information Oct-2 9-200 8 Optical Shop [facility] . [address] [facility], [address], [place], [place], [address], [place]. tel:[phone] Referring Provider: Sam Abdul, [facility] [address], [place], [address]. tel:[phone] sulting Provider: Duke Enriquez, [address] [place], [place] [address]ate [facility], [place], [address]. tel:[phone] [facility], [address], [place], [place], [address], [place] tel:[phone] [facility] [place] No Information Oct-1 7-200 8 [facility] Shop [facility] . [address] [facility], [address], [place], [place], [address], [place]. tel:[phone] Referring Provider: Sam Abdul, [address] [place], [place] [address], [place], [address]. tel:[phone] sulting Provider: Duke Enriquez, [address] [place], [place] [address]ate [facility], [place], [address]. tel:[phone] [facility], [address], [place], [place], [address], [place] tel:[phone] [facility] [place] No Information Oscar-2 2-200 8 Optical Shop [facility] . [address] [facility], [address], [place], [place], [address], [place]. tel:[phone] Referring Provider: Sam Abdul, [facility] [address], [place], [address]. tel:[phone] sulting Provider: Duke Enriquez, [facility], [place], [address]. tel:[phone] [facility], [address], [place], [place], [id number], [place] tel:[phone] [facility] No Information 6-200 7 Ferrell OD Sam. [address], [address], [place], [address], [place]. tel:[phone] Family History Family Member Type Diagnosis Age At Onset No Information Payers Payer name Insurance type Covered constitution party ID Authoriza tion(s) No Information Social History Type Description Quantity Date Captured Comments Sex Female Smoking Status No Information Chief Complaint And Reason For Visit No Information Reason For Referral Reason For Referral No Information History Of Present Illness Encounter Date Complaint History Of Prese nt Illness No Information Functional Status Date Functional Assessmen t No Information Instructions Date Instruction Additional Infor mation No Information Assessments Type Assessment Date No Information Patient Care Teams Name Effective Dates (start - stop) Status Members No Information
[2025-06-22] VITALS (23 sets, daily range): BP systolic 119–155; BP diastolic 60–87; PULSE 63–71; RESP 14–20; TEMP 36.3; O2SAT 94–100
--- NOTE | ~2025-06-22 | CT_ITS ---
EXAMINATION: CT BRAIN W/O DATE: 06/22/2025 13:55 INDICATION: Dizziness TECHNIQUE: Computed tomography (CT) of the head was performed without intravenous contrast. The dose-length product was 605.33 mGy-cm. Automated exposure control and iterative reconstruction technique were employed. COMPARISON: No prior studies for comparison. FINDINGS: Normal brain parenchymal volume for age. Normal son-white differentiation. No acute intracranial hemorrhage, infarction, mass or mass effect. There is intracranial atherosclerosis. No ventriculomegaly or midline shift. Midline sagittal images demonstrate a normal corpus callosum, craniovertebral junction and sella turcica. Basilar cisterns are patent. Paranasal sinuses and mastoids are pneumatized. No depressed skull fractures. IMPRESSION: 1. No acute intracranial abnormality. Reviewed, dictated and finalized at location O.
--- NOTE | 2025-06-22 12:32 | ED.DIZZY ---
HPI - Dizziness General Chief Complaint: Dizziness Stated Complaint: dizzy x 1 week Time Seen by Provider: 06/22/25 12:32 Source: patient Mode of arrival: ambulatory Limitations: no limitations History of Present Illness HPI Narrative: Patient is an 84-year-old female with dizziness when she turns her head different sides to the left and the right. This started today. No generalized weakness or changes in focal deficits. No head injuries. MD elicited complaint: dizziness Pertinent past history: other ( Negative history for similar symptoms) Onset (ago): hour(s) (4) Timing: gradual onset Severity: moderate Description: sense of movement, room spinning and off-balance Context: change in body position History of similar symptoms: No Exacerbating factors: change in body position Relieving factors: remaining still Associated symptoms: denies other symptoms Associated neuro symptoms: other ( none) Related Data Home Medications ?Medication ?Instructions ?Recorded ?Confirmed ?Last Taken ?Type atorvastatin 10 mg tablet 10 mg PO DAILY 01/05/23 03/27/25 01/31/24 History levothyroxine 25 mcg capsule 25 mcg PO DAILY 01/05/23 03/27/25 02/01/24 History meloxicam 15 mg tablet 15 mg PO DAILY 01/05/23 03/27/25 1 Day Ago History ~07/24/23 multivitamin 1 tablet PO DAILY 01/05/23 03/27/25 01/26/24 History nortriptyline 50 mg capsule 50 mg PO HS 01/05/23 03/27/25 01/31/24 History omega 8-hnq-naj-fish oil 60 mg-90 1 cap PO DAILY 01/05/23 03/27/25 01/26/24 History mg-500 mg capsule (Fish Oil) omeprazole 20 mg capsule,delayed 20 mg PO DAILY 01/05/23 03/27/25 01/31/24 History release verapamil 120 mg tablet 120 mg PO BID 01/05/23 03/27/25 02/01/24 History albuterol sulfate 90 mcg/actuation 2 puff inhalation PRN PRN Wheezing 07/25/23 03/27/25 1 Day Ago History aerosol inhaler ~07/24/23 glucosamine sulf dipot 1 cap PO DAILY 07/25/23 03/27/25 01/26/24 History chlr,msm,chond 550 mg-C 30 mg-amy 1 mg capsule (Glucosamine Chondroitin) olmesartan 20 mg tablet 20 mg PO DAILY 07/25/23 03/27/25 01/31/24 History Allergies Allergy/AdvReac Type Severity Reaction Status Date / Time adhesive Allergy Unknown opsite Verified 04/02/25 16:36 causes rash/itching, skin irritation cefprozil Allergy Unknown Other Verified 04/02/25 16:36 Cephalosporins AdvReac Intermediate DIARRHEA Verified 04/02/25 16:36 erythromycin base AdvReac Unknown Gastrointestinal Verified 04/02/25 16:36 Upset Review of Systems Review of Systems: All systems reviewed & are unremarkable except as noted in HPI and below Constitutional: Constitutional: Reports no additional constitutional complaints Eyes: Eyes: Reports no additional eye complaints ENT: Reports system reviewed and no additional complaints, except as documented Cardiovascular: Cardiovascular: Reports no additional cardiovascular complaints Respiratory: Respiratory: Reports no additional respiratory complaints Gastrointestinal: Gastrointestinal: Reports no additional gastrointestinal complaints Genitourinary: Genitourinary: Reports no additional female genitourinary complaints Musculoskeletal: Musculoskeletal: Reports no additional musculoskeletal complaints Integumentary/Breasts: Skin/Breast: Reports system reviewed and no additional complaints, except as docu Neurologic: Reports system reviewed and no additional complaints, except as documented Psychiatric: Psychiatric: Reports no additional psychiatric complaints Endocrine: Endocrine: Reports no additional endocrine complaints Hematologic/Lymphatic: Hematologic/Lymphatic: Reports no additional hematologic/lymphatic complaints Allergic/Immunologic: Allergic/Immunologic: Reports no additional allergic/immunologic complaints PMFSH Past Medical History Medical History GERD (gastroesophageal reflux disease) Asthma Other fatigue History of breast cancer Acute renal failure superimposed on chronic kidney disease Abnormal chest CT Chronic kidney disease, stage 3 Hypertension Hyperlipidemia Hypothyroidism Cancer of left breast (2007) Effusion of knee joint Acute pain of left knee Left knee DJD Surgical History Surgical History History of tonsillectomy History of left mastectomy Family History Family History Father Carcinoma of colon Sibling Family history of malignant neoplasm of breast in first degree relative Other Family history of malignant neoplasm Hypertension Social History Social History Social History: Surrogate medical decision maker: Lucille Whitley, daughter. Code status: Full code. Smoking status: Never smoker Additional smoking assessment comments: DENIES ANY FORM OF TOBACCO USE Alcohol intake: never Substance use: never Substance use type: does not use Do You Feel Safe in your Home?: Yes Lack of Transportation: No Lack of Food: Never True Current Housing: I Have Housing Concerned About Future Housing: No Difficulty Paying Gas/Electric Bills: No Difficulty Paying for Meds: No Currently Unemployed: No Education: High School Diploma/GED Difficulty w/ Childcare or Family Care: No Living arrangements: with family Additional living arrangements comments: Lives in [place] with a good friend. She has 1 dog at home. Additional occupation/education comments: Retired from the [employer]. Spiritual care concerns: No Exam Const: General: healthy appearing Nutritional Appearance: well nourished Orientation/consciousness: patient oriented x3 HENMT: Head: normal to inspection Ears: TM's normal bilaterally Face/Nose/Sinus: Normal external nose present Eyes: Conjunctivae: conjunctivae normal Pupils: Equal, round and reactive pupils present EOM: EOMs intact bilaterally Neck: Neck: normal visual inspection Chest: Chest palpation & inspection: normal inspection of the chest Resp: Effort & Inspection: normal respiratory effort and not labored Auscultation: clear to auscultation bilaterally and no crackles Cardio: Rate: regular rate Rhythm: regular rhythm Heart sounds: no murmurs GI: Inspection: non-distended GI Palp: Yes Soft to palpation and No Tenderness to palpation present (GI) Auscultation: normal bowel sounds : General: Yes bladder normal to palpation Back/Spine/Pelvis: Back: no CVA tenderness Skin: General skin exam: normal color Rashes: no rashes Wounds: no wounds Neuro: General: patient oriented x3, moves all extremities, no meningeal signs, no focal motor deficits and CN's II-XI intact bilaterally Cranial nerves: Yes Nystagmus not present Speech: normal speech Gait exam (Neuro): Normal gait present Other: fast exam negative, NIH score 0, GCS is 15 Extrem: General: normal to inspection Psych: Mental Status: mental status grossly normal Affect: normal affect Attitude: cooperative Course Vital Signs Vital signs: Vital Signs Temperature 36.3 C L 06/22/25 12:22 Pulse Rate 71 06/22/25 12:22 Respiratory Rate 16 09/05/25 12:22 Blood Pressure 140/66 06/22/25 12:22 Pulse Oximetry 94 06/22/25 12:22 Oxygen Delivery Room Air 06/22/25 12:22 Temperature 36.3 C L 06/22/25 12:22 Pulse Rate 65 06/22/25 15:01 Respiratory Rate 16 06/22/25 13:46 Blood Pressure 144/62 H 06/22/25 15:01 Pulse Oximetry 99 06/22/25 15:01 Oxygen Delivery Room Air 06/22/25 13:15 MDM - Dizziness MDM Narrative Medical decision making narrative: patient is a 84-year-old female with dizziness and vertigo upon moving of her head left and right. Meclizine. Neuro workup. Patient has knowledge about her kidney function being decreased. She was told by her Infectious Disease physician to see a kidney specialist soon. She is seeing the specialist for Infectious Disease due to MAC. Lab Data Attestation: I reviewed the patient's lab results. 06/22/25 13:42 06/22/25 13:42 Labs: Lab Results 06/22/25 06/22/25 Range/Units 13:42 15:14 WBC 5.1 (4.8-10.8) K/mm3 RBC 3.65 L (4.20-5.40) M/mm3 Hgb 11.5 L (11.7-13.8) g/dL Hct 35.4 (35.0-42.0) % MCV 97.0 (78.0-102.0) fL MCH 31.5 H (27.0-31.0) pg MCHC 32.5 (32-36) g/dL RDW 12.4 (11.6-14.4) % Plt Count 141 L (150-420) K/mm3 MPV 9.1 L (9.2-11.8) fl Immature Gran % (Auto) Not Reportable Neut % (Auto) Not Reportable Lymph % (Auto) Not Reportable Taylor % (Auto) Not Reportable Eos % (Auto) Not Reportable Baso % (Auto) Not Reportable Lymph # (Auto) Not Reportable Taylor # (Auto) Not Reportable Eos # (Auto) Not Reportable Baso # (Auto) Not Reportable Abs Immat Gran (auto) Not Reportable Absolute Neuts (auto) Not Reportable Absolute Nucleated RBC Not Reportable Total Counted 100 Neutrophils % (Manual) 66 (46-73) % Band Neutrophils % 0 (0-6) % Lymphocytes % (Manual) 15 L (18-44) % Monocytes % (Manual) 18 H (3-9) % Eosinophils % (Manual) 1 (1-6) % Basophils % (Manual) 0 (0-1) % Nucleated RBC % Not Reportable Abs Neuts (Manual) 3.36 (1.3-6.7) K/mm3 Abs Lymphs (Manual) 0.76 L (1.1-4.5) K/mm3 Abs Monocytes (Manual) 0.91 H (0.1-0.90) K/mm3 Absolute Eos (Manual) 0.05 (0.02-0.50) K/mm3 Abs Basophils (Manual) 0.00 (0-0.1) K/mm3 Platelet Estimate Adequate (Adequate) Schistocytes Not Reportable Sodium 134 L (137-145) mmol/L Potassium 4.6 (3.4-5.0) mmol/L Chloride 98 (98-107) mmol/L Carbon Dioxide 24 (22-30) mmol/L Anion Gap 12 (4-12) mmol/L BUN 28 H (7-17) mg/dL Creatinine 1.86 H (0.7-1.0) mg/dL Estim Creat Clear Calc 20 ml/min Estimated GFR 26 L (59 - ) Glucose 104 (65-110) mg/dL Calculated Osmolality 283 L (285-295) mOsm/kg Calcium 8.9 (8.4-10.2) mg/dL Total Bilirubin 0.5 (0.2-1.3) mg/dL AST 35 (14-36) U/L ALT 20 (6-35) U/L Alkaline Phosphatase 91 (38-126) U/L Troponin I < 0.012 (0.000-0.034) ng/mL Total Protein 6.9 (6.3-8.2) g/dL Albumin 4.1 (3.5-5.1) g/dL Urine Color Light yellow (Yellow) Urine Appearance Clear (Clear) Urine pH 6.5 (5.0-8.0) Ur Specific [place] 1.010 (1.010-1.020) Urine Protein Negative (Negative) Urine Glucose (UA) Negative (Negative) Urine Ketones Negative (Negative) Ur Blood (Man) Negative (Negative) Urine Nitrate Negative (Negative) Urine Bilirubin Negative (Negative) Urine Urobilinogen 0.2 (0.2-1.0) mg/dL Leukocyte Esterase Rfl Negative (Negative) BETY/UL Imaging Data Attestation: I personally reviewed and interpreted this imaging study as follows: Radiologist's impression: CT scan of the head is negative for acute process ECG Data EKG #1: Attestation: I personally reviewed and interpreted this ECG as follows: ECG completion date: 06/22/25 ECG completion time: 14:51 EKG Interpretation: normal rate, sinus rhythm, no ectopy, no ST changes, normal QRS, normal QT, NL axis and no acute changes Discharge Plan Discharge Clinical Impression: Benign paroxysmal positional vertigo Qualifiers: Laterality: unspecified laterality Qualified Code(s): H81.10 - Benign paroxysmal vertigo, unspecified ear CKD (chronic kidney disease) Qualifiers: Chronic kidney disease stage: unspecified stage Qualified Code(s): N18.9 - Chronic kidney disease, unspecified Patient Disposition: Home Condition: Stable Instructions: Benign Paroxysmal Positional Vertigo (ED) Additional Instructions: please follow-up with primary doctor in the next week. You will need to have your kidneys monitored as the creatinine is elevated. It is been noted elevated in the past. Patient Language: Korean Prescriptions: New meclizine 25 mg tablet 25 mg PO TID PRN (Reason: dizziness) Qty: 20 0RF No Action albuterol sulfate 90 mcg/actuation HFA aerosol inhaler 2 puff INHALATION PRN PRN (Reason: Wheezing) olmesartan 20 mg tablet 20 mg PO DAILY Glucosamine Chondroitin 550-30-1 mg Capsule 1 cap PO DAILY levofloxacin 750 mg tablet 750 mg PO DAILY Qty: 7 0RF prednisone 10 mg tablet See Rx Instructions PO DAILY Qty: 34 0RF Rx Instructions: 4 tabs daily x 4 days; then 3 tabs daily x 3 days, then 2 tabs daily x 3 days, then 1 tab daily x 3 days. ipratropium-albuterol 0.5 mg-3 mg(2.5 mg base)/3 mL solution for nebulization 3 ml inhalation Q6H PRN (Reason: shortness of breath or wheezing) Qty: 90 3RF levothyroxine 25 mcg capsule 25 mcg PO DAILY atorvastatin 10 mg tablet 10 mg PO DAILY nortriptyline 50 mg capsule 50 mg PO HS verapamil 120 mg tablet 120 mg PO BID omeprazole 20 mg capsule,delayed release(DR/EC) 20 mg PO DAILY meloxicam 15 mg tablet 15 mg PO DAILY omega 5-kqk-cjk-fish oil [Fish Oil] 60-90-500 mg capsule 1 cap PO DAILY multivitamin Tablet 1 tablet PO DAILY Follow-up/Referrals: Maged,Luis Finley MD [Primary Care Provider] Time of Disposition: 15:23
--- OUTSIDE RECORDS SUMMARY | 2025-06-22 13:08 | XMS_ITS | Encounter Summary ---
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 Gender Identity Not on file Sexual Orientation Not on file documented as of this encounter Plan of Treatment Not on file documented as of this encounter Procedures Procedure Name Priority Date/Time Associated Diagnosis Comments SCAN - RADIOLOGY/IMAGING 04/19/2025 documented in this encounter Results * SCAN - RADIOLOGY/IMAGING (04/19/2025) Anatomical Region Laterality Modality Other us Provider Scanning Final Result documented in this encounter Visit Diagnoses Not on filedocumented in this encounter Care Teams Piece Maker Relationship Specialty Start Date End Date Luis Lynne MD PCP - General Internal Medicine 12/26/20 documented as of this encounter
--- OUTSIDE RECORDS SUMMARY | 2025-06-22 13:08 | XMS_ITS | Encounter Summary ---
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 Gender Identity Not on file Sexual Orientation Not on file documented as of this encounter Plan of Treatment Not on file documented as of this encounter Procedures Procedure Name Priority Date/Time Associated Diagnosis Comments SCAN - LABS 03/31/2025 documented in this encounter Results * SCAN - LABS (03/31/2025) us Provider Scanning Final Result documented in this encounter Visit Diagnoses Not on filedocumented in this encounter Care Teams Leadership Program Internship Relationship Specialty Start Date End Date Luis Lynne MD PCP - General Internal Medicine 12/26/20 documented as of this encounter
--- OUTSIDE RECORDS SUMMARY | 2025-06-22 13:08 | XMS_ITS | Encounter Summary ---
Author Organization 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 * Telephone Encounter - Ema Spears RMA - 05/29/2025 1:19 PM CDT Jeanine has questions re azithromycin dosage. Please call [phone] documented in this encounter Plan of Treatment Not on file documented as of this encounter Visit Diagnoses Not on filedocumented in this encounter Care Teams Linen Grader Relationship Specialty Start Date End Date Luis Lynne MD PCP - General Internal Medicine 12/26/20 documented as of this encounter
--- OUTSIDE RECORDS SUMMARY | 2025-06-22 13:08 | XMS_ITS | Encounter Summary ---
Author Organization [facility] Address [address] 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 Chief Investigator is needing information faxed over to their office. [phone] (fax #) documented in this encounter Plan of Treatment Not on file documented as of this encounter Visit Diagnoses Not on filedocumented in this encounter Care Teams Infection Control Nurse Relationship Specialty Start Date End Date Luis Lynne MD PCP - General Internal Medicine 12/26/20 documented as of this encounter
--- OUTSIDE RECORDS SUMMARY | 2025-06-22 13:08 | XMS_ITS | Clinical Summary ---
Author Organization [facility] Address [address] [place] [address] Care Team Providers Care Nuisance Wildlife Control Operator Name Role Phone Luis Lynne MD Primary Care Provider [phone] Allergies Active Allergy Reactions Criticality Noted Date [...] Encounters Date Type Department Care Team Description 06/05/2025 External Device Data STL ABSTRACTION Provider, Abstract 05/22/2025 External Device Data [facility] ABSTRACTION Provider, Abstract 05/02/2025 External Device Data [facility] ABSTRACTION Provider, Abstract 05/01/2025 External Device Data STL ABSTRACTION Provider, Abstract 04/10/2025 External Device Data STL ABSTRACTION Provider, [...] on file 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 Gender Identity Not on file Sexual Orientation [...] Description 08/06/2025 11:00 AM CDT Office Visit [facility] Oncology and Hematology - Moustapha [address] [facility] [address] [place] [address] Jack Ramirez MD [address] [facility] [address] [place] [address] Health Maintenance Due Date Last Done Comments DTAP/TDAP/TD VACCINES (1 - Tdap) 1959 ZOSTER VACCINE (1 of 2) 1990 RSV VACCINE (60+ or ) (1 - 1-dose 75+ series) 2015 OSTEOPOROSIS SCREENING 06/26/2024 06/26/2019 INFLUENZA VACCINE (#1) 2025 , 08/06/2019, 07/24/2015, Additional history exists COVID-19 Vaccine (3 - 2024-2 6 season) 2025 12/16/2020, 11/15/2020 PNEUMOCOCCAL VACCINE 50+ YEARS Completed 09/23/2017 , 08/14/2015 Procedures Procedure Name Priority Date/Time Associated Diagnosis Comments XR DEXA BONE DENSITY AXIAL 1 OR MORE SITES Routine 06/26/2019 Screening for osteoporosis Postmenopausal from Last 3 Months or Most Recently Relevant to Health Maintenance Results * XR DEXA BONE DENSITY AXIAL 1 OR MORE SITES (06/26/2019) Anatomical Region Laterality Modality Other us Jack Ramirez MD DIAGNOSTIC IMAGING ORDERABLES F inal Result from Last 3 Months or Most Recently Relevant to Health Maintenance Insurance AET[employer] PPO [facility] Care Teams Nuisance Wildlife Control Operator Relationship Specialty Start Date End Date Luis Lynne MD [id number] [place] [address] PCP - General Internal Medicine 12/22/17
--- OUTSIDE RECORDS SUMMARY | 2025-06-22 13:08 | XMS_ITS | Clinical Summary ---
Author Organization [facility] [address] Address [address] [place] [address] Care Team Providers Care Exchange Clerk Name Role Phone Luis Lynne MD Primary Care Provider [phone] Allergies Active Allergy Reactions Criticality Noted Date [...] liquid PLEASE SEE ATTACHED FOR DETAILED DIRECTIONS 024 Active fluticasone propionate (FLONASE) 50 mcg/actuation nasal spray SPRAY 2 SPRAYS INTO EACH NOSTRIL EVERY DAY 48 mL 3 024 Active albuterol (PROAIR RESPICLICK) 90 mcg/actuation inhaler Inhale 2 puffs every 6 (six) hours as needed for wheezing Active olmesartan (BENICAR) 20 mg tablet TAKE 1 TABLET BY MOUTH EVERY DAY 90 tablet 3 024 Active omeprazole (PriLOSEC) 20 mg capsule TAKE 1 CAPSULE BY MOUTH EVERY DAY 90 capsule 3 025 Active meloxicam (MOBIC) 15 mg tablet TAKE 1 TABLET BY MOUTH EVERY DAY 90 tablet 3 025 Active clotrimazole-beta methasone (LOTRISONE) cream APPLY TO AFFECTED AREA TWICE A DAY 30 g 1 025 Active albuterol HFA (PROVENTIL HFA,VENTOLIN HFA,PROAIR HFA) 90 mcg/actuation inhaler INHALE 2 PUFFS EVERY 4 HOURS NEEDED FOR WHEEZING OR SHORTNESS OF BREATH 8.5 each 1 Active levothyroxine (SYNTHROID) 25 mcg tablet TAKE 1 TABLET BY MOUTH EVERY DAY 90 tablet 2 Active verapamil SR (CALAN SR) 120 mg CR tablet TAKE 2 TABLETS (240 MG TOTAL) BY MOUTH DAILY 180 tablet 2 Active magnesium oxide 400 mg magnesium capsule Take by mouth Active nortriptyline (PAMELOR) 50 mg capsule TAKE 1 CAPSULE BY MOUTH EVERY DAY 90 capsule 3 Active atorvastatin (LIPITOR) 10 mg tabletIndications :Mixed hyperlipidemia TAKE 1 TABLET BY MOUTH EVERY DAY 90 tablet 3 Active sodium chloride 3 % nebulizer solution Take 4 mL by nebulization daily Use hypertonic saline in nebulizer prior to acapella device 360 mL 3 025 2025 Active azithromycin (ZITHROMAX) 500 mg tabletIndications :Traveler's Diarrhea Take 1 tablet (500 mg total) by mouth 3 (three) times a week Take on Wednesday, Wednesday and Wednesday 12 tablet 2 025 2024 Active rifabutin (MYCOBUTIN) 150 mg capsule Take 2 capsules (300 mg total) by mouth 3 (three) times a week Take on Wednesday, Wednesday and Wednesday 24 capsule 2 025 2024 Active ethambutoL (MYAMBUTOL) 400 mg tabletIndications :Mycobacteriosis Take 2.5 tablets (1,000 mg total) by mouth 3 (three) times a week Take on Wednesday, Wednesday and Wednesday 30 tablet 2 025 2024 Active nortriptyline (PAMELOR) 50 mg capsule TAKE 1 CAPSULE BY MOUTH EVERY DAY 90 capsule 3 024 2024 Discontinued atorvastatin (LIPITOR) 10 mg tabletIndications :Mixed hyperlipidemia TAKE 1 TABLET BY MOUTH EVERY DAY 90 tablet 3 024 2024 Discontinued sodium chloride 3 % nebulizer solution Take 4 mL by nebulization daily Use hypertonic saline in nebulizer prior to acapella device 360 mL 3 025 2024 Discontinued(R eorder) azithromycin (ZITHROMAX) 500 mg tabletIndications :Mycobacteriosis Take 1 tablet (500 mg total) by mouth 3 (three) times a week 36 tablet 3 025 2024 Discontinued(P atient Reported) Active Problems Problem Noted Date Diagnosed Date Stage 4 chronic kidney disease 05/28/2025 Assessment & Plan (05/28/2025 9:22 PM CDT): Known to have CKD. Creatinine trending upward. Ethambutol dosing adjusted since Estimated Ccl < 30. Check cystatin C. Let PCP know about increasing Scr. Encounter for screening exam ination for sexually transmitted disease 05/28/2025 Assessment & Plan (05/28/2025 9:13 PM CDT): Questionnaire reviewed. No concerns. Pulmonary mycobacterial infection 07/11/2024 Assessment & Plan (11/07/2024 11:19 AM CONTACT PRINTER DRY FILM): To have follow-up CT scan. Bronchoscopy has been mentioned as a possibility as well Assessment & Plan (09/19/2024 3:26 PM CONTACT PRINTER DRY FILM): -Patient presents to clinic for follow up appointment due to sputum growing Mycobacterium avium intracellular infection. -Patient currently asymptomatic -We will get a repeat CT scan -We will wait for final results on her sputum samples -If the CT scan is the same or worsening, we will reach out to her reset merchandiser to see if they would be able to bronch the patient to get samples. ([facility]) -We will hold off on [...] asymptomatic -We will get CT scans from [facility] review images with our radiologist to see [...] complication Mixed hyperlipidemia 02/04/2022 Assessment & Plan (05/07/2025 11:23 AM CDT): Stable, continue rx. Assessment & Plan (11/07/2024 11:18 AM CONTACT PRINTER DRY FILM): Lipid reviewed doing well Hypothyroidism 02/04/2022 Assessment & Plan (05/07/2025 11:23 AM CDT): Stable, continue meds. Assessment & Plan (11/07/2024 11:18 AM CONTACT PRINTER DRY FILM): No signs or symptoms of thyroid disease. Check labs in 6 months GERD without esophagitis 02/04/2022 Assessment & Plan (11/07/2024 11:18 AM CONTACT PRINTER DRY FILM): Stable doing well. Essential hypertension 02/04/2022 Assessment & Plan (05/07/2025 11:23 AM CDT): Bp at target, continue medication for target directed therapy. Assessment & Plan (11/07/2024 11:18 AM CONTACT PRINTER DRY FILM): BP at target. Continue medication for target directed therapy Encounters Date Type Department Care Team Description [facility] [address] [place] [phone] Rebecca Taylor LCSW 06/[facility] [address] [place] [phone] Coty Jacobson 06/19/2025 Telephone [facility] [address] [place] [phone] Ema Spears RMA 06/07/2025 7:52 AM CDT - 06/07/2025 11:59 PM CDT Hospital Encounter [address] [address] Bobo Chauhan Pulmonary mycobacterial infection (HCC) Discharge Disposition: Discharge to home or self care 05/29/2025 Telephone [facility] [address] [place] [phone] Shira Rasmussen, LUIS MANUEL Appointment 05/29/2025 Telephone [facility] Infectious Diseases [address] [place] [phone] Ema Spears RMA 05/29/2025 Orders Only [facility] Infect[facility] Diseases [address] [place] [phone] Savita Clemente NP 05/28/2025 2:18 PM CDT - 05/28/2025 11:59 PM CDT Hospital Encounter [facility] [address] [place] [address] Discharge Disposition: Discharge to home or self care 05/28/2025 10:20 AM CDT Office Visit [facility] [address] [place] [phone] Errol Villeda MD Pulmonary mycobacterial infection (HCC) (Primary Dx); Encounter for screening examination for sexually transmitted disease; Stage 4 chronic kidney disease (HCC) 05/13/2025 Orders Only [facility] [address] [place] [phone] Luis Lynne MD 05/12/2025 Orders Only [facility] [address] [place] [phone] Luis Lynne MD 05/07/2025 10:45 AM CDT Office Visit [facility] [address] [place] [phone] Luis yLnne MD Mixed hyperlipidemia (Primary Dx); Hypothyroidism, unspecified type; Essential hypertension 04/30/2025 Orders Only [facility] [address] [place] [phone] Luis Lynne MD 04/24/2025 Telephone [facility] Infectious Diseases [address] [place] [phone] Licha Borja appointment 04/19/2025 Orders Only [facility] IN[facility] Scanning, Provider 04/19/2025 Orders Only [facility] [address] [place] [phone] Luis Lynne MD 04/18/2025 Orders Only [facility] [address] [place] [phone] Luis Lynne MD 04/11/2025 Orders Only [facility] [address] [place] [phone] Luis Lynne MD 04/09/2025 Orders Only [facility] [address] [place] [phone] Luis Lynne MD 04/07/2025 Orders Only [facility] [address] [place] [phone] Luis Lynne MD 04/06/2025 Orders Only [facility] [address] [place] [phone] Luis Lynne MD 04/02/2025 Orders Only [facility] [address] [phone] Luis Lynne MD 04/01/2025 Orders Only [facility] [address] [phone] Luis Lynne MD 03/31/2025 Orders Only [facility] Scanning, Provider 03/31/2025 Orders Only [facility] [address] [phone] Luis Lynne MD 03/30/2025 Orders Only [facility] Scanning, Provider 03/30/2025 Orders Only [facility] [address] [phone] Luis Lynne MD 03/29/2025 Orders Only [facility] Scanning, Provider from Last 3 Months Immunizations Immunization Administration [...] on file 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 Gender Identity Not on file Sexual Orientation Not on file Obstetrics History Last Filed Vital Signs Vital Sign Reading Time Taken Comments Blood Pressure 140/74 05/07/2025 10:35 AM CDT Pulse 78 05/07/2025 10:35 AM CDT Temperature 36.1 C (97 F) 05/28/2025 10:01 AM CDT Respiratory Rate 17 01/02/2021 12:1 4 PM CDT Oxygen Saturation 97% 05/28/2025 10: 01 AM CDT Inhaled Oxygen Concentration - - Weight 79.3 kg (174 lb 14.4 oz) 025 10:01 AM CDT Height 162.6 cm (5' 4.02) 05/28/2025 1 0:01 AM CDT Body Mass Index 30.01 05/28/2025 10:01 AM CDT Plan of Treatment Health Maintenance Due Date Last Done Comments Depression Screening 1940 Fall Risk Assessment 1940 Hepatitis B Screening 1958 Zoster Vaccine (1 of 2) 1990 Well Visit 65+ 2005 Osteoporosis Screening-Bone Density Scan 04/06/2024 04/06/2022, 06/26/2019, 06/26/2019 Influenza Vaccine (#1) 2025 , 08/11/2023, 08/05/2022, Additional history exists DTaP/Tdap/Td Vaccine (2 - Td or Tdap) 03/06/2031 03/06/2021, 03/02/2001 Pneumococcal vaccine 65+ Completed 021, 09/23/2017, 08/14/2015 Covid-19 Vaccine Completed 02/14/2025, 08/2024, 07/07/2023, Additional history exists Procedures Procedure Name Priority Date/Time Associated Diagnosis Comments FL ESOPHAGRAM, DOUBLE CONTRAST Schedule Routine, Read Routine (OP Routine) 06/07/2025 8:21 AM CDT Pulmonary mycobacterial infection (HCC) CYSTATIN C Routine 05/28/2025 2:18 PM CDT EGFR Routine 05/28/2025 11:53 AM CDT Pulmonary mycobacterial infection (HCC) DIFFERENTIAL AUTO Routine 05/28/2025 11:53 AM CDT Pulmonary mycobacterial infection (HCC) CBC WITH AUTO DIFFERENTIAL Routine 05/28/2025 11:53 AM CDT Pulmonary mycobacterial infection (HCC) COMPREHENSIVE METABOLIC PANEL Routine 05/28/2025 11:53 AM CDT Pulmonary mycobacterial infection (HCC) SCAN - LABS 05/13/2025 5:00 PM CDT SCAN - LABS 05/12/2025 7:29 AM CDT SCAN - LABS 04/30/2025 8:41 AM CDT SCAN - LABS 04/30/2025 8:41 AM CDT SCAN - RADIOLOGY/IMAGING 04/19/2025 2:27 PM CDT SCAN - RADIOLOGY/IMAGING 04/19/2025 SCAN - LABS 04/18/2025 11:09 AM CDT [...] 03/31/2025 11:56 AM CDT SCAN - LABS 03/31/2025 SCAN - LABS 03/30/2025 11:16 AM CDT SCAN - LABS 03/30/2025 SCAN - LABS 03/29/2025 from Last 3 Months Results * FL Esophagram, Double Contrast (06/07/2025 8:21 AM CDT) Anatomical Region Laterality Modality Body N/A Radio Fluoroscop y 06/07/2025 9:08 AM CDT Narrative 06/07/2025 9:13 AM CDT EXAM DESCRIPTION: FL ESOPHAGRAM BARIUM SWALLOW TO STOMACH, DOUBLE CONTRAST REASON FOR STUDY: symptomatic gastroesophageal reflux disease Time: 1.3 min Dose: 20.3 mGy COMPARISON: None RADIATION DOSE: Dose: 713.32 uGym2 Dose Area Product (DAP) TECHNIQUE: Patient ingested effervescent granules followed by thick and thin barium. FINDINGS: ESOPHAGEAL MOTILITY: Normal peristalsis. No esophageal spasm. ESOPHAGEAL MUCOSA: Normal mucosa without masses or ulceration. GASTRO-ESOPHAGEAL JUNCTION: Small hiatal hernia. There is evidence of reflux with Valsalva. STOMACH: Normal without masses or ulcerations. GASTRIC OUTLET: No delay in emptying. Normal pylorus. DUODENAL BULB: Normal distention. No spasm or ulceration. DUODENUM: Mucosa normal. No extrinsic masses or malrotation. PROXIMAL SMALL BOWEL: Mucosa normal. No extrinsic masses or malrotation. NON-GI TRACT STRUCTURES: No significant finding. OTHER: No other significant finding. IMPRESSION: Small hiatal hernia and reflux. No esophageal dysmotility, mucosal abnormality or mass. THIS IS AN ELECTRONICALLY VERIFIED FINAL REPORT 06/07/2025 9:13 AM - Electronically signed by Ewa Robert M.D. FT: FT Report ID: [id number] Reading Location: [id number] Procedure Note Ewa Fleming MD - 06/07/2025 EXAM DESCRIPTION: FL ESOPHAGRAM BARIUM SWALLOW TO STOMACH, DOUBLECONTRAST REASON FOR STUDY: symptomatic gastroesophageal reflux disease Time: 1.3 min Dose: 20.3 mGy COMPARISON: None RADIATION DOSE: Dose: 713.32 uGym2 Dose Area Product (DAP) TECHNIQUE: Patient ingested effervescent granules followed by thick andthin barium. FINDINGS: ESOPHAGEAL MOTILITY: Normal peristalsis. No esophageal spasm. ESOPHAGEAL MUCOSA: Normal mucosa without masses or ulceration. GASTRO-ESOPHAGEAL JUNCTION: Small hiatal hernia. There is evidence of reflux with Valsalva. STOMACH: Normal without masses or ulcerations. GASTRIC OUTLET: No delay in emptying. Normal pylorus. DUODENAL BULB: Normal distention. No spasm or ulceration. DUODENUM: Mucosa normal. No extrinsic masses or malrotation. PROXIMAL SMALL BOWEL: Mucosa normal. No extrinsic masses ormalrotation. NON-GI TRACT STRUCTURES: No significant finding. OTHER: No other significant finding. IMPRESSION: Small hiatal hernia and reflux. No esophageal dysmotility, mucosal abnormality or mass. THIS IS AN ELECTRONICALLY VERIFIED FINAL REPORT 06/07/2025 9:13 AM - Electronically signed by Ewa Robert M.D. FT: FT Report ID: [id number] Reading Location: [place] [address] Jose Segal MD IM FLUOROSCOPY PROCEDURES Fin al Result * (ABNORMAL) Cystatin C (05/28/2025 2:18 PM CDT) Cystatin C 2.13(H) 0.60 - 1.20 mg/L Comment: Collection date/time has been modified to: 14:18:00. Previous collection date/time: 11:53:00. Interpretive Data Cystatin C concentrations vary widely in the first month of life, particularly in pre-term infants. Concentrations gradually diminish to adult levels by 1 year of life. Concentrations tend to rise with diminishing renal function in individuals greater than 60 years of age. Current Interpretive Data was last revised on 2020. Testing performed by: [facility], [facility], [place]., [address] Blood 05/28/2025 2:18 PM CDT 05/29/2025 1:09 PM CDT Jose Segal MD LAB BLOOD ORDERABLES Edited Re sult - Final Performing Organization Address [facility]/ZIP Co de Phone Number [facility] Department [place] [address] * (ABNORMAL) eGFR (05/28/2025 11:53 AM CDT) eGFR 30(L) >=60 mL/min/1. 73 m2 Comment: Interpretive Data Reference Interval Normal >/= 90 mL/min/1.73m2 Mildly decreased* 60 - 89 mL/min/1.73m2 Mildly to moderately decreased 45 - 59 mL/min/1.73m2 Moderately to severely decreased 30 - 44 mL/min/1.73m2 Severely decreased 15 - 29 mL/min/1.73m2 Kidney Failure < 15 mL/min/1.73m2 *Relative to young adult level Estimated glomerular filtration rate is determined by the 2020 CKD-EPI equation recommended by the National Kidney Foundation (A Unifying Approach to GFR Estimation: Recommendations of the NKF-ASK Task Force on Reassessing the Inclusion of Race in Diagnosing Kidney Disease, JASN 202). The CKD-EPI equation should not be used for patients with unstable renal function and has not been validated in children and those over 70. Current interpretive data was last reviewed 2021. Blood 05/28/2025 11:5 3 AM CDT 05/28/2025 3:59 PM CDT Jose Segal MD LAB BLOOD ORDERABLES Final Res ult Performing Organization Address City/[facility]/ZIP Co de Phone Number [facility] Department [place] [address] * Differential, auto (05/28/2025 11:53 AM CDT) Neutrophil abs 3.01 1.50 - 6.50 K/cumm Imm gran abs 0.02 0.00 - 0.10 K/cumm [facility] Lymphocyte abs 1.77 0.80 - 3.30 K/cumm [facility] Monocyte abs 0.63 0.20 - 0.80 K/cumm [facility] Eosinophil abs 0.35 0.00 - 0.50 K/cumm [facility] Basophil abs 0.08 0.00 - 0.10 K/cumm [facility] Neutrophil pct 51.3 % [facility] Comment: Interpretive Data Percent cell count reference ranges are not reported, since discordance with absolute values may lead to misinterpretation of CBC data. Current Interpretive Data was last revised on 2018. Imm gran pct 0.3 % [facility] Comment: Interpretive Data Percent cell count reference ranges are not reported, since discordance with absolute values may lead to misinterpretation of CBC data. Current Interpretive Data was last revised on 2018. Lymphocyte pct 30.2 % [facility] Comment: Interpretive Data Percent cell count reference ranges are not reported, since discordance with absolute values may lead to misinterpretation of CBC data. Current Interpretive Data was last revised on 2018. Monocyte pct 10.8 % [facility] Comment: Interpretive Data Percent cell count reference ranges are not reported, since discordance with absolute values may lead to misinterpretation of CBC data. Current Interpretive Data was last revised on 2018. Eosinophil pct 6.0 % [facility] Comment: Interpretive Data Percent cell count reference ranges are not reported, since discordance with absolute values may lead to misinterpretation of CBC data. Current Interpretive Data was last revised on 2018. Basophil pct 1.4 % [facility] Comment: Interpretive Data Percent cell count reference ranges are not reported, since discordance with absolute values may lead to misinterpretation of CBC data. Current Interpretive Data was last revised on 2018. Blood 05/28/2025 11:5 3 AM CDT 05/28/2025 3:36 PM CDT Jose Segal MD LAB BLOOD ORDERABLES Final Res ult Performing Organization Address [facility]/ZIP Co de Phone Number [facility] Department [place] [address] * (ABNORMAL) CBC with auto differential (05/28/2025 11:53 AM CDT) Pathologist [facility] WBC 5.86 3.80 - 9.90 K/cumm Hgb 11.8(L) 11.9 - 15.5 g/dL [facility] Hct 35.4(L) 35.6 - 45.5 % [facility] Plt 219 150 - 400 K/cumm [facility] MPV 9.7 9.1 - 12.3 fL [facility] RBC 3.66(L) 3.90 - 5.20 M/cumm [facility] MCV 96.7(H) 81.3 - 96.4 fL [facility] MCH 32.2 27.1 - 33.3 pg [facility] MCHC 33.3 32.3 - 35.7 g/dL [facility] RDW CV 12.7 11.1 - 14.9 % [facility] RDW SD 45.3 35.7 - 48.1 fL [facility] NRBC abs 0.02(H) 0.00 - 0.01 K/cumm [facility] Blood 05/28/2025 11:5 3 AM CDT 05/28/2025 3:36 PM CDT Jose Segal MD LAB BLOOD ORDERABLES Final Res ult [facility] Department [place] [address] * (ABNORMAL) Comprehensive metabolic panel (05/28/2025 11:53 AM CDT) Pathologist [facility] Sodium 141 135 - 145 mmol/L Potassium, pl 4.9 3.3 - 4.9 mmol/L [facility] Chloride 103 97 - 110 mmol/L [facility] CO2 29 22 - 32 mmol/L [facility] Anion gap 9 2 - 15 mmol/L [facility] BUN 32(H) 6 - 25 mg/dL [facility] Creatinine 1.65(H) 0.60 - 1.10 mg/dL [facility] Glucose 66(L) 70 - 199 mg/dL [facility] Comment: Interpretive Data Fasting glucose >/= 126 mg/dl is diagnostic for diabetes. Fasting is defined as no caloric intake for at least 8 hours. Fasting glucose between 100 mg/dl to 125 mg/dl is diagnostic of prediabetes. In a patient with classic symptoms of hyperglycemia or hyperglycemic crisis, a random glucose >/= 200 mg/dl is diagnostic for diabetes. In the absence of unequivocal hyperglycemia, results should be confirmed by repeat testing. The classification and Diagnosis of Diabetes Diabetes Care 202; 46: S19-S40. Current interpretive data was last revised 2022. Calcium 9.6 8.5 - 10.3 mg/dL [facility] Bilirubin, total 0.3 0.1 - 1.2 mg/dL [facility] Protein, pl 7.4 6.5 - 8.5 g/dL [facility] Albumin 4.2 3.5 - 5.0 g/dL [facility] Alk phos 101 40 - 130 Units/L [facility] ALT 21 7 - 45 Units/L [facility] AST 29 10 - 45 Units/L [facility] Blood 05/28/2025 11:5 3 AM CDT 05/28/2025 3:36 PM CDT us Jose Segal MD LAB BLOOD ORDERABLES Final Res ult [facility] Department [place] [address] * SCAN - LABS (05/13/2025 5:00 PM CDT) us Luis Lynne MD Final Result * SCAN - LABS (05/12/2025 7:29 AM CDT) Result Efrem Lynne MD Final Result * SCAN - LABS (04/30/2025 8:41 AM CDT) Result Efrem Lynne MD Final Result * SCAN - LABS (04/30/2025 8:41 AM CDT) Result Efrem Lynne MD Final Result * SCAN - RADIOLOGY/IMAGING (04/19/2025 2:27 PM CDT) Anatomical Region Laterality Modality Other Result Efrem Lynne MD Final Result * SCAN - RADIOLOGY/IMAGING (04/19/2025) Anatomical Region Laterality Modality Other Provider Scanning Final Result * SCAN - LABS (04/18/2025 11:09 AM CDT) Result Efrem Lynne MD Final [...] SCAN - LABS (04/02/2025 4:55 PM CDT) Luis Lynne MD Final Result * SCAN - LABS (04/01/2025 4:57 PM CDT) us Luis Lynne MD Final Result * SCAN - LABS (04/01/2025 4:57 PM CDT) Result Efrem us Luis Lynne MD Final Result * SCAN - LABS (04/01/2025 4:57 PM CDT) Result Efrem us Luis Lynne MD Final Result * SCAN - LABS (04/01/2025 8:43 AM CDT) us Luis Lynne MD Final Result * SCAN - LABS (03/31/2025 3:44 PM CDT) us Luis Lynne MD Final Result * SCAN - LABS (03/31/2025 11:56 AM CDT) Result Efrem Lynne MD Final Result * SCAN - LABS (03/31/2025) Provider Scanning Final Result * SCAN - LABS (03/30/2025 11:16 AM CDT) us Luis yLnne MD Final Result * SCAN - LABS (03/30/2025) us Provider Scanning Final Result * SCAN - LABS (03/29/2025) us Provider Scanning Final Result from Last 3 Months Insurance [facility] MEDICARE T MEDICARE [facility] Address: [address] [place] [address] [employer] [facility] Address: [address] [place] [address] Care Teams Exchange Clerk Relationship Specialty Start Date End Date Luis Lynne MD PCP - General Internal Medicine 12/26/20
--- OUTSIDE RECORDS SUMMARY | 2025-06-22 13:08 | XMS_ITS | Encounter Summary ---
Author Organization [facility] Address [address] [place] [address] Care Team Providers Care Sandwich Maker Name Role Phone Luis Lynne MD Primary Care Provider [phone] Encounter Details Date Type Department Care Team (Late st Contact Info) Description 07/08/2020 Orders Only [facility] [address] [facility] [address] [place] [address] Scanning, Provider Social History Tobacco Use Types Packs/Day Years Used Date Smoking Tobacco: Never Assessed Comments Unknown Sex and Gender Information Value Date Recorded Sex Assigned at Not on file 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
--- OUTSIDE RECORDS SUMMARY | 2025-06-22 13:08 | XMS_ITS | Encounter Summary ---
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
--- OUTSIDE RECORDS SUMMARY | 2025-06-22 13:08 | XMS_ITS | Encounter Summary ---
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
--- OUTSIDE RECORDS SUMMARY | 2025-06-22 13:08 | XMS_ITS | Encounter Summary ---
Author Organization 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 SW asked what information was neededby the reception interviewer. Patient stated she will be seeing [facility], [place], [place]; and he is needing her recent ID visit Note. Patient verbal ok to fax to their office. JAUN called [facility] at [phone]. On hold, then had to leave a . JAUN faxed ([phone]) May appointment Note documented in this encounter Plan of Treatment Not on file documented as of this encounter Visit Diagnoses Not on filedocumented in this encounter Care Teams Enhanced Environmental Operator Relationship Specialty Start Date End Date Luis Lynne MD PCP - General Internal Medicine 12/26/20 documented as of this encounter
--- OUTSIDE RECORDS SUMMARY | 2025-06-22 13:08 | XMS_ITS | Encounter Summary ---
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 Villeda saw while you were out. Please advise * Telephone Encounter - Ema Spears RMA - 06/19/2025 3:14 PM CDT Jeanine had flashes of colors in her periferal vision in her Rt eye. Please call [phone] documented in this encounter Plan of Treatment Not on file documented as of this encounter Visit Diagnoses Not on filedocumented in this encounter Care Teams Eradicator Relationship Specialty Start Date End Date Luis Lynne MD PCP - General Internal Medicine 12/26/20 documented as of this encounter
--- NOTE | 2025-06-22 13:33 | ECG_ITS ---
Test Date: 2025-06-22 13:57:56 Measurements Intervals [place] Rate: 63 P: 65 MI: 229 QRS: 68 QRSD: 93 T: 74 QT: 431 QTc: 441 Interpretive Statements SINUS RHYTHM WITH FIRST DEGREE AV BLOCK No previous ECG available for comparison Electronically Signed On 06-23-2025 10:38:50 CDT by Demario Maciel M.D.
[2025-06-22 13:46] LABS: Hematocrit 35.4 % (35.0-42.0); Hemoglobin 11.5 g/dL (11.7-13.8); Mean Corpuscular HGB Conc 32.5 g/dL (32-36); Mean Corpuscular Hemoglobin 31.5 pg (27.0-31.0); Mean Corpuscular Volume 97.0 fL (78.0-102.0); Platelet Count Result 141 K/mm3 (150-420); Red Blood Count 3.65 M/mm3 (4.20-5.40); White Blood Count 5.1 K/mm3 (4.8-10.8)
[2025-06-22] MEDS: MECLIZINE HCL 25 MG TABLET PO (13:57)
[2025-06-22 14:00] LABS: Alanine Aminotransferase 20 U/L (6-35); Albumin Level 4.1 g/dL (3.5-5.1); Alkaline Phosphatase 91 U/L (38-126); Anion Gap 12 mmol/L (4-12); Aspartate Amino Transferase 35 U/L (14-36); Bilirubin,Total 0.5 mg/dL (0.2-1.3); Blood Urea Nitrogen 28 mg/dL (7-17); Calcium 8.9 mg/dL (8.4-10.2); Carbon Dioxide 24 mmol/L (22-30); Chloride 98 mmol/L (98-107); Estimated CRCL calculation 20 ml/min; Estimated Glomerular Filt Rate 26; Glucose 104 mg/dL (65-110); Osmolality Calculated 283 mOsm/kg (285-295); Potassium 4.6 mmol/L (3.4-5.0); Sodium 134 mmol/L (137-145); Total Protein 6.9 g/dL (6.3-8.2)
[2025-06-22 14:02] LABS: Band Neutrophils Percent 0 % (0-6); Basophils Absolute Manual 0.00 K/mm3 (0-0.1); Basophils Percent Manual 0 % (0-1); Eosinophils Absolute Manual 0.05 K/mm3 (0.02-0.50); Eosinophils Percent Manual 1 % (1-6); Lymphocytes Absolute Manual 0.76 K/mm3 (1.1-4.5); Lymphocytes Percent Manual 15 % (18-44); Monocytes Absolute Manual 0.91 K/mm3 (0.1-0.90); Monocytes Percent Manual 18 % (3-9); Neutrophils Absolute Manual 3.36 K/mm3 (1.3-6.7); Neutrophils Percent Manual 66 % (46-73); Total Cells Counted 100
[2025-06-22 14:12] LABS: Troponin I < 0.012 ng/mL (0.000-0.034)
[2025-06-22 15:19] LABS: Add Urine Microscopic? NO; Appearance Urine Clear (Clear); Glucose Urine UA Negative (Negative); Leukocyte Esterase Ur Negative LEU/UL (Negative); Nitrate Urine Negative (Negative); Specific Grav Ur 1.010 (1.010-1.020)
== END 2025-06-22 15:27 | disposition home or self-care (01) ==
PROVIDERS: Emergency Provider Emergency Medicine; PCP Internal Medicine
DX: H81.10 Benign paroxysmal vertigo, unspecified ear (principal); I12.9 Hypertensive chronic kidney disease with stage 1 through stage 4 chronic kidney disease, or unspecified chronic kidney disease; N18.30 Chronic kidney disease, stage 3 unspecified; E03.9 Hypothyroidism, unspecified; E78.5 Hyperlipidemia, unspecified; Z85.3 Personal history of malignant neoplasm of breast
CPT/HCPCS: 36415; 70450; 80053; 81003; 84484; 85025; 93005; 99284; A9270

== ENCOUNTER 2025-07-04 14:25 | Outpatient (CLI) | payer MEDICARE, SELFPAY ==
--- OUTSIDE RECORDS SUMMARY | 2009-01-07 19:00 | XMS_ITS | Continuity of Care Document ---
Author Organization [facility] [place] Address [address] 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, [address] [place] [address] [address], [place], [place], [id number], [place] tel:[phone] SEC [facility] No Information 9 [facility] . [address] [facility], [facility] [address], [place], [place], [address], [place]. tel:[phone] Referring Provider: Sam Abdul [address] [place], [place] [address], [place], [address]. tel:[phone] sulting Provider: Duke Enriquez, [address] [place] [address], [place], [address]. tel:[phone] [facility], [address], [place], [place], [address], [place] tel:[phone] [facility] No Information Oct-2 9-200 8 Optical Shop [facility] . [address] [facility], [address], [place], [place], [address], [place]. tel:[phone] Referring Provider: Sam Abdul, [facility] [address], [place], [address]. tel:[phone] sulting Provider: Duke Enriquez, [address] [place], [place] [address]ate [facility], [place], [address]. tel:[phone] [facility], [address], [place], [place], [address], [place] tel:[phone] [facility] [place] No Information Oct-1 7-200 8 [facility] Shop [facility] . [address] [facility], [address], [place], [place], [address], [place]. tel:[phone] Referring Provider: Sam Abdul, [address] [place], [place] [address], [place], [address]. tel:[phone] sulting Provider: Duke Enriquez, [address] [place], [place] [address]ate [facility], [place], [address]. tel:[phone] [facility], [address], [place], [place], [address], [place] tel:[phone] [facility] [place] No Information Oscar-2 2-200 8 Optical Shop [facility] . [address] [facility], [address], [place], [place], [address], [place]. tel:[phone] Referring Provider: Sam Abdul, [facility] [address], [place], [address]. tel:[phone] sulting Provider: Duke Enriquez, [facility], [place], [address]. tel:[phone] [facility], [address], [place], [place], [address], [place] tel:[phone] SEC [facility] No Information 6-200 7 Ferrell OD Sam. [address], [address], [place], [address], [place]. tel:[phone] Family History Family Member Type Diagnosis Age [...]
--- NOTE | ~2025-07-04 | DEXA_ITS ---
Bone Density Report Name: MELONIE DOAN Age: 84 Sex: Female Ethnicity: White Date of : 1940 Indication: postmenopausal; screening for osteoporosis; inflammatory bowel disease; cancer; asthma or emphysema; Referring Provider: RHEA, JEVON Finley Study: Bone densitometry was performed. Exam Date: July 04, 2025 Accession number: [id number] Bone Density: Region BMD T-score Z-score Classification AP Spine(L1-L4) 1.004 -0.4 2.5 Normal Femoral Neck (Left) 0.815 -0.3 2.2 Normal Total Hip (Left) 0.989 0.4 2.7 Normal Femoral Neck (Right) 0.720 -1.2 1.3 Osteopenia Total Hip (Right) 0.927 -0.1 2.2 Normal Total Hip Mean 0.958 0.2 2.5 Normal World Health Organization criteria for BMD impression classify patients as: Normal (T-score at or above -1.0), Osteopenia (T-score between -1.0 and -2.5), or Osteoporosis (T-score at or below -2.5). 10-year Fracture Risk(1): Major Osteoporotic Fracture 12% Hip Fracture 2.9% Reported Risk Factors: [place] (), Neck BMD=0.720, BMI=29.2 (1) FRAX(R) Version 3.08. Fracture probability calculated for an untreated patient. Fracture probability may be lower if the patient has received treatment. Previous Exams: Region Exam Age BMD T-score BMD Change BMD Change Date g/cm2 vs Baseline vs Previous AP Spine (L1-L4) 07/04/2025 84 1.004 -0.4 0.006 (0.6%)# -0.009 (-0.9%) 06/26/2019 78 1.013 -0.3 0.015 (1.5%) 0.015 (1.5%) 06/15/2016 75 0.998 -0.4 Total Hip(Left) 07/04/2025 84 0.989 0.4 0.029 (3.0%)# 0.022 (2.2%) 03/23/2022 81 0.967 0.2 0.007 (0.8%)# -0.080 (-7.6%) 06/26/2019 78 1.047 0.9 0.087 (9.1%)* 0.087 (9.1%)* 06/15/2016 75 0.960 0.1 Total Hip(Right) 07/04/2025 84 0.927 -0.1 -0.018 (-1.9%) -0.022 (-2.3%) 03/23/2022 81 0.949 0.1 0.003 (0.4%)# -0.015 (-1.6%) 06/26/2019 78 0.964 0.2 0.018 (1.9%) 0.018 (1.9%) 06/15/2016 75 0.945 0.0 *Denotes significance at 95% confidence level, LSC for AP Spine = 0.022 g/cm2, LSC for Total Hip = 0.027 g/cm2 # Denotes dissimilar scan types or analysis methods Clinical Information Provided by Patient: Has the following medical conditions: Asthma or Emphysema, Cancer, Inflammatory bowel diseases Patient maximum height was 64 Menopause Age: 55 No regular weight bearing exercise Drinks caffeinated beverages Onset of menses at age 12 Number of children 2 Impression: The patient has low bone mass, based on the Right Femoral Neck T-score. The patient has an estimated ten-year risk of hip fracture of 2.9% and an estimated ten-year risk of major fracture of 12%, based on the WHO FRAX algorithm. No significant bone loss was observed. Discussion: BONE DENSITY IS LOW AT ONE OR MORE SKELETAL SITES. This patient's lowest T-score is low at one or more skeletal sites. It meets the World Health Organization's (WHO) criteria for ?low bone mass? (T-score between -1.0 and -2.5). The patient's 10-year risk of fracture as calculated by FRAX is less than the threshold where pharmacological therapy is recommended by the National Osteoporosis Foundation (NOF). However, all treatment decisions require clinical judgment and consideration of individual patient factors, including patient preferences, comorbidities, previous drug use, risk factors not captured in the FRAX model (e.g., frailty, falls, vitamin D deficiency, increased bone turnover, interval significant decline in bone density) and possible under or overestimation of fracture risk by FRAX. The patient should follow a healthful lifestyle (good nutrition with adequate calcium and vitamin D, and appropriate weight-bearing exercise). Follow-Up: Consider repeating this study in 2 to 3 years to reassess this patient's status, or sooner if there is some new clinical indication. Reported by: QUINCY on 07/04/2025 3:13:00 PM. Reviewed, dictated and finalized at location A.
--- OUTSIDE RECORDS SUMMARY | 2025-07-04 15:06 | XMS_ITS | Encounter Summary ---
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 Please call [phone] documented in this encounter Plan of Treatment Not on file documented as of this encounter Visit Diagnoses Not on filedocumented in this encounter Care Teams Flamer Sealer Relationship Specialty Start Date End Date Luis Lynne MD PCP - General Internal Medicine 12/26/20 documented as of this encounter
--- OUTSIDE RECORDS SUMMARY | 2025-07-04 15:06 | XMS_ITS | Encounter Summary ---
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
--- OUTSIDE RECORDS SUMMARY | 2025-07-04 15:06 | XMS_ITS | Encounter Summary ---
Author Organization [facility] Address 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 Female 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 Gender Identity Not on file Sexual Orientation Not on file documented as of this encounter Plan of Treatment Upcoming Encounters Date Type Department Care Team (Late st Contact Info) Description 08/06/2025 11:00 AM CDT Office Visit [facility] Oncology and Hematology - [place] [address] [facility] [address] [phone] Jack Ramirez MD [address] [facility] [address] [place] [address] documented as of this encounter Visit Diagnoses Not on filedocumented in this encounter Care Teams Brancher Relationship Specialty Start Date End Date Luis Lynne MD [address] [facility] [address] [place] [address] PCP - General Internal Medicine 12/22/17 documented as of this encounter
--- OUTSIDE RECORDS SUMMARY | 2025-07-04 15:06 | XMS_ITS | Encounter Summary ---
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
--- OUTSIDE RECORDS SUMMARY | 2025-07-04 15:06 | XMS_ITS | Clinical Summary ---
Author Organization [facility] [address] Address [address] [place] [address] Care Team Providers Care Housekeeping Supervisor Hotel Name Role Phone Luis Lynne MD Primary Care Provider [phone] Allergies Active Allergy Reactions Criticality Noted Date [...] DAY 90 tablet 3 11/28/19 25 Active clotrimazole-betam ethasone (LOTRISONE) cream APPLY TO [...] DAILY 180 tablet 2 02/24/20 25 Active magnesium oxide 400 mg magnesium capsule Take by mouth Active nortriptyline (PAMELOR) 50 mg capsule TAKE 1 CAPSULE BY MOUTH EVERY DAY 90 capsule 3 05/25/20 25 Active atorvastatin (LIPITOR) 10 mg tabletIndications: Mixed hyperlipidemia TAKE 1 TABLET BY MOUTH EVERY DAY 90 tablet 3 05/25/20 25 Active sodium chloride 3 % nebulizer solution Take 4 mL by nebulization daily Use hypertonic saline in nebulizer prior to acapella device 360 mL 3 05/28/20 25 026 Active azithromycin (ZITHROMAX) 500 mg tabletIndications: Traveler's Diarrhea Take 1 tablet (500 mg total) by mouth 3 (three) times a week Take on Wednesday, Wednesday and Wednesday 12 tablet 2 05/30/20 25 025 Active rifabutin (MYCOBUTIN) 150 mg capsule Take 2 capsules (300 mg total) by mouth 3 (three) times a week Take on Wednesday, Wednesday and Wednesday 24 capsule 2 05/30/20 25 025 Active ethambutoL (MYAMBUTOL) 400 mg tabletIndications: Mycobacteriosis Take 2.5 tablets (1,000 mg total) by mouth 3 (three) times a week Take on Wednesday, Wednesday and Wednesday 30 tablet 2 05/30/20 25 025 Active Active Problems Problem Noted Date Diagnosed [...] worsening, we will reach out to her metallurgical engineering technician to see if they would be able to bronch the patient to get samples. ([facility]) -We will hold off on [...] asymptomatic -We will get CT scans from [facility] review images with our radiologist to see [...] rx. Assessment & Plan (11/07/2024 11:18 AM MARBLE CUTTER OPERATOR): Lipid reviewed doing well Hypothyroidism 02/04/2022 Assessment & Plan (05/07/2025 11:23 AM CDT): Stable, continue meds. Assessment & Plan (11/07/2024 11:18 AM MARBLE CUTTER OPERATOR): No signs or symptoms of thyroid disease. Check labs in 6 months GERD without esophagitis 02/04/2022 Assessment & Plan (11/07/2024 11:18 AM MARBLE CUTTER OPERATOR): Stable doing well. Essential hypertension 02/04/2022 Assessment & Plan (05/07/2025 11:23 AM CDT): Bp at target, continue medication for target directed therapy. Assessment & Plan (11/07/2024 11:18 AM MARBLE CUTTER OPERATOR): BP at target. Continue medication for target directed therapy Encounters Date Type Department Care Team Description 06/28/2025 Results Follow-Up [facility] [address] [facility] [address] [place] [phone] Luis Lynne MD Basic metabolic panel 06/27/2025 1:33 PM CDT - 06/27/2025 11:59 PM CDT Hospital Encounter [facility] [address] [place] [address] Stage 4 chronic kidney disease (HCC) Discharge Disposition: Discharge to home or self care 06/27/2025 9:45 AM CDT Office Visit [facility] [address] [phone] Luis Lynne MD Stage 4 chronic kidney disease (HCC) (Primary Dx); Essential hypertension; GERD without esophagitis; Hypothyroidism, unspecified type; Mixed hyperlipidemia; Pulmonary mycobacterial infection (HCC) 06/22/2025 Orders Only [facility] [address] [place] [phone] Luis Lynne MD 06/21/2025 Telephone [facility] [address] [place] [phone] Rebecca Taylor LCSW 06/21/2025 Telephone [facility] Infect[facility] Diseases [address] [place] [phone] Coty Jacobson 06/19/2025 Telephone [facility] Infectious Diseases [address] [place] [phone] Ema Spears RMA 06/07/2025 7:52 AM CDT - 06/07/2025 11:59 PM CDT Hospital Encounter [address] [address] Rad, Amh Fluoro Pulmonary mycobacterial infection (HCC) Discharge Disposition: Discharge to home or self care 05/29/2025 Telephone [facility] [address] [place] [phone] Shira Rasmussen, LUIS MANUEL Appointment 05/29/2025 Telephone [facility] Medicine Infectious Diseases [address] [place] [phone] Ema Spears RMA 05/29/2025 Orders Only [facility] Infectious Diseases [address] [place] [phone] Savita Clemente NP 05/28/2025 2:18 PM CDT - 05/28/2025 11:59 PM CDT Hospital Encounter [address] [address] Discharge Disposition: Discharge to home or self care 05/28/2025 10:20 AM CDT Office Visit [facility] Infect[facility] Diseases [address] [place] [phone] Errol Villeda MD Pulmonary mycobacterial infection (HCC) (Primary Dx); Encounter for screening examination for sexually transmitted disease; Stage 4 chronic kidney disease (HCC) 05/13/2025 Orders Only [facility] [address] [place] [phone] Luis Lynne MD 05/12/2025 Orders Only [facility] [address] [place] [phone] Luis Lynne MD 05/07/2025 10:45 AM CDT Office Visit [facility] [address] [place] [phone] Luis Lynne MD Mixed hyperlipidemia (Primary Dx); Hypothyroidism, unspecified type; Essential hypertension 04/30/2025 Orders Only [facility] [address] [place] [phone] Luis Lynne MD 04/24/2025 Telephone [facility] Infectious Diseases [address] [place] [phone] Licha Borja appointment 04/19/2025 Orders Only [facility] INFECTIOUS DISEASE Scanning, Provider 04/19/2025 Orders Only [facility] [address] [place] [phone] Luis Lynne MD 04/18/2025 Orders Only [facility] [address] [place] [phone] Luis Lynne MD 04/11/2025 Orders Only [facility] [address] [place] [phone] Luis Lynne MD 04/09/2025 Orders Only [facility] [address] [place] [phone] Luis Lynne MD 04/07/2025 Orders Only [facility] [address] [facility] [address] [place] [phone] Luis Lynne MD 04/06/2025 Orders Only [facility] [address] [facility] [address] [place] [phone] Luis Lynne MD from Last 3 Months Immunizations Immunization Administration Dates Next Due Influenza, Quad, Adjuvantate d, Intramuscular 08/11/2023,08/05/2022 Influenza, Quadrivalent, Hig h Dose, Preservative Free, Intrr 07/30/2021,07/23/2020 Influenza, Trivalent, Adjuva nted, Intramuscular 08/09/2024 Influenza, Trivalent, High D ose, Split, Preservative Free, Intramuscular 08/06/2019,07/24/2015,07/31/2013 Influenza, Trivalent, IM (MDV) 08/07/2016 Influenza, Unspecified 03/30/2017,2015,08/07/2016,02/20,08/09/2015,01/15/2015,12/19/2013 ,06/13/2013 Moderna SARS-CoV-2 Monovalen t Vaccination (12+ YRS) 12/16/2020,11/15/2020 Pneumococcal Conjugate PCV 13 03/06/2021, 015 Pneumococcal Polysaccharide PPV23 09/23/2017 RSV Vaccine, Pref, Recombina nt, Subunit, Adjuvanted, PF, IM (Arexvy) 08/18/2023 Td, Not Adsorbed 03/02/2001 Td, adsorbed 03/02/2001 Tdap 03/06/2021 Surgical History [...] Sign Reading Time Taken Comments Blood Pressure 130/76 06/27/2025 9:56 AM CDT Pulse 73 06/27/2025 9:56 AM CDT Temperature 36.1 C (97 F) 05/28/2025 10:01 AM CDT Respiratory Rate 17 01/02/2021 12:14 PM CDT Oxygen Saturation 97% 05/28/2025 10:01 AM CDT Inhaled Oxygen Concentration - - Weight 78.5 kg (173 lb) 06/27/2025 9:56 AM CDT Height 162.6 cm (5' 4) 06/27/2025 9:56 AM CDT Body Mass Index 29.7 06/27/2025 9:56 AM CDT Plan of Treatment Health Maintenance Due Date Last Done Comments Depression Screening 1940 Fall Risk Assessment 1940 Hepatitis B Screening 1958 Zoster Vaccine (1 of 2) 1990 Well Visit 65+ 2005 Osteoporosis Screening-Bone Density Scan 04/06/2024 04/06/2022, 06/26/2019, 06/26/2019 Influenza Vaccine (#1) 2025 , 08/11/2023, 08/05/2022, Additional history exists DTaP/Tdap/Td Vaccine (2 - Td or Tdap) 03/06/2031 03/06/2021, 03/02/2001, 03/02/2001 Pneumococcal vaccine 65+ Completed 021, 09/23/2017, 08/14/2015 Covid-19 Vaccine Completed 02/14/2025, 08/2024, 07/07/2023, Additional history exists Procedures Procedure Name Priority Date/Time Associated Diagnosis Comments ALBUMIN CREATININE RATIO, URINE Routine 06/27/2025 2:28 PM CDT Stage 4 chronic kidney disease (HCC) BASIC METABOLIC PANEL Routine 06/27/2025 10:23 AM CDT Stage 4 chronic kidney disease (HCC) SCAN - LABS 06/22/2025 3:42 PM CDT SCAN - LABS 06/22/2025 2:54 PM CDT SCAN - RADIOLOGY/IMAGING 06/22/2025 2:07 PM CDT FL ESOPHAGRAM, DOUBLE CONTRAST Schedule Routine, Read [...] SCAN - LABS 04/06/2025 2:40 PM CDT from Last 3 Months Results * Albumin Creatinine Ratio, Urine (06/27/2025 2:28 PM CDT) Albumin Ur <12.0 mg/L Comment: Interpretive Data No reference range established. Current interpretive data was last revised 2019. Creatinine Ur 123.9 mg/dL [facility] Comment: Interpretive Data No reference range established. Current interpretive data was last revised 2019. Albumin Creatinine Ratio, Ur <10 1 - 29 mg/g [facility] Urine 06/27/2025 2:28 PM CDT 06/27/2025 2:57 PM CDT Luis Lynne MD LAB URINE ORDERABLES Final Re sult [facility] Department [place] [address] * (ABNORMAL) Basic metabolic panel (06/27/2025 10:23 AM CDT) Pathologist [facility] Glucose 80 74 - 200 mg/dL [facility] BUN 33(H) 18 - 23 mg/dL [facility] Creatinine 1.7(H) 0.7 - 1.3 mg/dL [facility] BUN/Creat Ratio 19 Ratio [facility] Calcium 8.9 8.8 - 10.2 mg/dL [facility] Sodium 135 135 - 145 mEq/L [facility] Potassium 5.0 3.5 - 5.1 mEq/L [facility] Chloride 103 98 - 107 mEq/L [facility] CO2 23.2 22.0 - 32.0 mEq/L [facility] Anion Gap 9 3 - 12 mEq/L [facility] eGFR 28.53 [facility] Blood 06/27/2025 10:2 3 AM CDT 06/27/2025 10:36 AM CDT Luis Lynne MD LAB BLOOD ORDERABLES Final Re sult [facility] [address] [phone], [facility] * SCAN - LABS (06/22/2025 3:42 PM CDT) us Luis Lynne MD Final Result * SCAN - LABS (06/22/2025 2:54 PM CDT) us Luis Lynne MD Final Result * SCAN - RADIOLOGY/IMAGING (06/22/2025 2:07 PM CDT) Anatomical Region Laterality Modality Other us Luis Lynne MD Final Result * FL Esophagram, Double Contrast (06/07/2025 8:21 [...] Ewa Robert M.D. FT: FT Report ID: [id number] Reading Location: [id number] Procedure Note Ewa Fleming MD - 06/07/2025 [...] Ewa Robert M.D. FT: FT Report ID: [id number] Reading Location: [place] [address] Jose Segal MD IMG FLUOROSCOPY PROCEDURES Fin al Result * (ABNORMAL) [...] last revised on 2020. Testing performed by: [facility], [facility], [place]., [address] Blood 05/28/2025 2:18 PM CDT 05/29/2025 1:09 PM CDT Jose Segal MD LAB BLOOD ORDERABLES Edited Re sult - Final Performing Organization Address [facility]/ZIP Co de Phone Number [facility] Department [place] [address] * (ABNORMAL) eGFR (05/28/2025 11:53 AM CDT) [...] ORDERABLES Final Res ult Performing Organization Address City/[facility]/ZIP Co de Phone Number [facility] [place] [address] * Differential, auto (05/28/2025 11:53 AM CDT) Neutrophil abs 3.01 1.50 - 6.50 K/cumm Imm gran abs 0.02 0.00 - 0.10 K/cumm [facility] Lymphocyte abs 1.77 0.80 - 3.30 K/cumm [facility] Monocyte abs 0.63 0.20 - 0.80 K/cumm [facility] Eosinophil abs 0.35 0.00 - 0.50 K/cumm [facility] Basophil abs 0.08 0.00 - 0.10 K/cumm [facility] Neutrophil pct 51.3 % [facility] Comment: Interpretive Data Percent cell count reference ranges are not reported, since discordance with absolute values may lead to misinterpretation of CBC data. Current Interpretive Data was last revised on 2018. Imm gran pct 0.3 % [facility] Comment: Interpretive Data Percent cell count reference ranges are not reported, since discordance with absolute values may lead to misinterpretation of CBC data. Current Interpretive Data was last revised on 2018. Lymphocyte pct 30.2 % [facility] Comment: Interpretive Data Percent cell count reference ranges are not reported, since discordance with absolute values may lead to misinterpretation of CBC data. Current Interpretive Data was last revised on 2018. Monocyte pct 10.8 % [facility] Comment: Interpretive Data Percent cell count reference ranges are not reported, since discordance with absolute values may lead to misinterpretation of CBC data. Current Interpretive Data was last revised on 2018. Eosinophil pct 6.0 % [facility] Comment: Interpretive Data Percent cell count reference ranges are not reported, since discordance with absolute values may lead to misinterpretation of CBC data. Current Interpretive Data was last revised on 2018. Basophil pct 1.4 % [facility] Comment: Interpretive Data Percent cell count reference ranges are not reported, since discordance with absolute values may lead to misinterpretation of CBC data. Current Interpretive Data was last revised on 2018. Blood 05/28/2025 11:5 3 AM CDT 05/28/2025 3:36 PM CDT us Jose Segal MD LAB BLOOD ORDERABLES Final Res ult Performing Organization Address [facility]/ZIP Co de Phone Number [facility] [employer] [place] [address] * (ABNORMAL) CBC with auto differential (05/28/2025 11:53 AM CDT) WBC 5.86 3.80 - 9.90 K/cumm Hgb 11.8(L) 11.9 - 15.5 g/dL [facility] Hct 35.4(L) 35.6 - 45.5 % [facility] Plt 219 150 - 400 K/cumm [facility] MPV 9.7 9.1 - 12.3 fL [facility] RBC 3.66(L) 3.90 - 5.20 M/cumm [facility] MCV 96.7(H) 81.3 - 96.4 fL [facility] MCH 32.2 27.1 - 33.3 pg [facility] MCHC 33.3 32.3 - 35.7 g/dL [facility] RDW CV 12.7 11.1 - 14.9 % [facility] RDW SD 45.3 35.7 - 48.1 fL [facility] NRBC abs 0.02(H) 0.00 - 0.01 K/cumm [facility] Blood 05/28/2025 11:5 3 AM CDT 05/28/2025 3:36 PM CDT Jose Segal MD LAB BLOOD ORDERABLES Final Res ult [facility] Department [place] [address] * (ABNORMAL) Comprehensive metabolic panel (05/28/2025 11:53 AM CDT) Pathologist [facility] Sodium 141 135 - 145 mmol/L Potassium, pl 4.9 3.3 - 4.9 mmol/L [facility] Chloride 103 97 - 110 mmol/L [facility] CO2 29 22 - 32 mmol/L [facility] Anion gap 9 2 - 15 mmol/L [facility] BUN 32(H) 6 - 25 mg/dL [facility] Creatinine 1.65(H) 0.60 - 1.10 mg/dL [facility] Glucose 66(L) 70 - 199 mg/dL [facility] Comment: Interpretive Data Fasting glucose >/= 126 [...] 2022. Calcium 9.6 8.5 - 10.3 mg/dL [facility] Bilirubin, total 0.3 0.1 - 1.2 mg/dL [facility] Protein, pl 7.4 6.5 - 8.5 g/dL [facility] Albumin 4.2 3.5 - 5.0 g/dL [facility] Alk phos 101 40 - 130 Units/L [facility] ALT 21 7 - 45 Units/L [facility] AST 29 10 - 45 Units/L [facility] Blood 05/28/2025 11:5 3 AM CDT 05/28/2025 3:36 PM CDT Jose Segal MD LAB BLOOD ORDERABLES Final Res ult [facility] Department [place] [address] * SCAN - LABS (05/13/2025 5:00 PM CDT) Luis Lynne MD Final Result * SCAN - LABS (05/12/2025 7:29 AM CDT) Luis L. Konzen MD Final Result * SCAN - LABS [...] CDT) Result Efrem Lynne MD Final Result from Last 3 Months Insurance [facility] MEDICARE AET[employer] MEDICARE AETNA MEDICARE AET[employer] MEDICARE Care Teams Housekeeping Supervisor Hotel Relationship Specialty Start Date End Date Luis Lynne MD PCP - General Internal Medicine 12/26/20
--- OUTSIDE RECORDS SUMMARY | 2025-07-04 15:06 | XMS_ITS | Clinical Summary ---
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 [address] [place] [address] Health Maintenance Due Date Last [...] Maintenance Insurance [employer] PPO MCR Care Teams Gold Stamper Relationship Specialty Start Date End Date Luis Lynne MD [id number] [place] [address] PCP - General Internal Medicine 12/22/17
--- OUTSIDE RECORDS SUMMARY | 2025-07-04 15:06 | XMS_ITS | Encounter Summary ---
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
--- OUTSIDE RECORDS SUMMARY | 2025-07-04 15:06 | XMS_ITS | Encounter Summary ---
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
--- OUTSIDE RECORDS SUMMARY | 2025-07-04 15:06 | XMS_ITS | Encounter Summary ---
Author Organization [facility] Address [address] [place] [address] Care Team Providers Care Soldering Inspector Name Role Phone Luis Lynne MD Primary Care Provider [phone] Encounter Details Date Type Department Care Team (Late st Contact Info) Description 07/08/2020 Orders Only [facility] [address] [facility] [address] [facility] [place] [address] Scanning, Provider Social History Tobacco Use Types Packs/Day Years Used Date Smoking Tobacco: Never Assessed Comments Unknown Sex and Gender Information Value Date Recorded Sex Assigned at Not on file Legal Sex Female 1:10 PM CRAB PICKER Gender Identity Not on file Sexual [...] documented as of this encounter Care Teams Soldering Inspector Relationship Specialty Start Date End Date Luis Lynne MD PCP - General Internal Medicine 12/26/20 documented as of this encounter
--- OUTSIDE RECORDS SUMMARY | 2025-07-04 15:06 | XMS_ITS | Encounter Summary ---
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
== END 2025-07-04 14:26 | disposition home or self-care (01) ==
LOC: ANHFOHIMG 14:28
PROVIDERS: PCP Internal Medicine; Visit Provider Internal Medicine
DX: M85.851 Other specified disorders of bone density and structure, right thigh (principal); Z78.0 Asymptomatic menopausal state
CPT/HCPCS: 77080

== ENCOUNTER 2025-07-30 09:51 | Outpatient (CLI) | payer MEDICARE, SELFPAY ==
--- NOTE | ~2025-07-30 | MM_ITS ---
EXAMINATION: MM screening paola BI w katie HISTORY: Screening TECHNIQUE: Craniocaudal and mediolateral oblique 3-D tomosynthesis images were obtained and synthetic 2-D images were generated. CAD analysis was submitted and interpreted. COMPARISON: 07/15/2023 BREAST PARENCHYMAL COMPOSITION: The breasts are heterogeneously dense, which may obscure small masses. FINDINGS: There is no evidence of suspicious mass, calcification, or architectural distortion to suggest malignancy. There has been no suspicious interval change. IMPRESSION: 1. No mammographic evidence of malignancy. Recommend routine screening mammography in one year. BI-RADS Category 2: Benign finding(s) Reviewed, dictated and finalized at location Q. IMPRESSION: 1. No mammographic evidence of malignancy. Recommend routine screening mammogra phy in one year. BI-RADS Category 2: Benign finding(s)
--- OUTSIDE RECORDS SUMMARY | 2025-07-30 10:41 | XMS_ITS | Encounter Summary ---
Author Organization 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
--- OUTSIDE RECORDS SUMMARY | 2025-07-30 10:41 | XMS_ITS | Clinical Summary ---
Author Organization [facility] [address] Address [address] [place] [address] Care Team Providers Care Materials Associate Name Role Phone Luis Lynne MD Primary Care Provider [phone] Allergies Active Allergy Reactions Criticality Noted Date [...] 07/11/2024 Assessment & Plan (11/07/2024 11:19 AM REFINERY PROCESS ENGINEER): To have follow-up CT scan. Bronchoscopy has been mentioned as a possibility as well Assessment & Plan (09/19/2024 3:26 PM REFINERY PROCESS ENGINEER): -Patient presents to clinic for follow up appointment due to sputum growing Mycobacterium avium intracellular infection. -Patient currently asymptomatic -We will get a repeat CT scan -We will wait for final results on her sputum samples -If the CT scan is the same or worsening, we will reach out to her gunstock repairer to see if they would be able to bronch the patient to get samples. ([facility]) -We will hold off on [...] asymptomatic -We will get CT scans from [facility] review images with our radiologist to see [...] rx. Assessment & Plan (11/07/2024 11:18 AM REFINERY PROCESS ENGINEER): Lipid reviewed doing well Hypothyroidism 02/04/2022 Assessment & Plan (05/07/2025 11:23 AM CDT): Stable, continue meds. Assessment & Plan (11/07/2024 11:18 AM REFINERY PROCESS ENGINEER): No signs or symptoms of thyroid disease. Check labs in 6 months GERD without esophagitis 02/04/2022 Assessment & Plan (11/07/2024 11:18 AM REFINERY PROCESS ENGINEER): Stable doing well. Essential hypertension 02/04/2022 Assessment & Plan (05/07/2025 11:23 AM CDT): Bp at target, continue medication for target directed therapy. Assessment & Plan (11/07/2024 11:18 AM REFINERY PROCESS ENGINEER): BP at target. Continue medication for target directed therapy Encounters Date Type Department Care Team Description 07/26/2025 11:05 AM CDT Lab [place] [id number] [place] [address] Anemia, unspecified type; Stage 3a chronic kidney disease (HCC); Essential hypertension 07/18/2025 Orders Only [facility] Medicine Nephrology [address] [place] [address] Advanced Medicine 5th [place] [address] [place] [address] Francesco Atkins MD Anemia, unspecified type (Primary Dx); Stage 3a chronic kidney disease (HCC); Essential hypertension 07/12/2025 Results Follow-Up [facility] [address] [address] Luis Lynne MD SCAN - RADIOLOGY/IMAGING 07/12/2025 Orders Only [facility] Diabetes [address] [phone] Luis Lynne MD 06/28/2025 Results Follow-Up [facility] Diabetes [address] [phone] Luis Lynne MD Basic metabolic panel 06/27/2025 1:33 PM CDT - 06/27/2025 11:59 PM CDT Hospital Encounter [address] [address] Stage 4 chronic kidney disease (HCC) Discharge Disposition: Discharge to home or self care 06/27/2025 9:45 AM CDT Office Visit [facility] Diabetes [address] [address] Luis Lynne MD Stage 4 chronic kidney disease (HCC) (Primary Dx); Essential hypertension; GERD without esophagitis; Hypothyroidism, unspecified type; Mixed hyperlipidemia; Pulmonary mycobacterial infection (HCC) 06/22/2025 Orders Only [facility] Diabetes [address] [address] Luis Lynne MD 06/21/2025 Telephone [facility] Medicine Infectious Diseases [address] [place] [phone] Rebecca Taylor LCSW 06/21/2025 Telephone [facility] Medicine Infectious Diseases [address] [place] [phone] Coty Jacobson 06/19/2025 Telephone [facility] Medicine Infectious Diseases [address] [place] [phone] Ema Spears RMA 06/07/2025 7:52 AM CDT - 06/07/2025 11:59 PM CDT Hospital Encounter [facility] [address] [place] [address] Rad, Amh Fluoro Pulmonary mycobacterial infection (HCC) Discharge Disposition: Discharge to home or self care 05/29/2025 Telephone [facility] [address] [place] [phone] Shira Rasmussen, A Appointment 05/29/2025 Telephone [facility] Infectious Diseases [address] [phone] Ema Spears A 05/29/2025 Orders Only [facility] Infectious Diseases [address] [phone] Savita Clemente NP 05/28/2025 2:18 PM CDT - 05/28/2025 11:59 PM CDT Hospital Encounter [facility] [address] [place] [address] Discharge Disposition: Discharge to home or self care 05/28/2025 10:20 AM CDT Office Visit [facility] Medicine Infectious Diseases [address] [place] [phone] Errol Villeda MD Pulmonary mycobacterial infection (HCC) (Primary Dx); Encounter for screening examination for sexually transmitted disease; Stage 4 chronic kidney disease (HCC) 05/13/2025 Orders Only [facility] [address] [place] [phone] Luis Lynne MD 05/12/2025 Orders Only [facility] [address] [place] [phone] Luis Lynne MD 05/07/2025 10:45 AM CDT Office Visit [facility] [address] [place] [phone] Luis Lynne MD Mixed hyperlipidemia (Primary Dx); Hypothyroidism, unspecified type; Essential hypertension 04/30/2025 Orders Only [facility] [address] [place] [phone] Luis Lynne MD from Last 3 Months [...] on file Legal Sex Female 1:10 PM REFINERY PROCESS ENGINEER Gender Identity Not on file Sexual [...] Procedure Name Priority Date/Time Associated Diagnosis Comments EGFR Routine 07/26/2025 11:15 AM CDT Anemia, unspecified type Stage 3a chronic kidney disease (HCC) Essential hypertension DIFFERENTIAL AUTO Routine 07/26/2025 11:15 AM CDT Anemia, unspecified type Stage 3a chronic kidney disease (HCC) Essential hypertension RENAL FUNCTION PANEL Routine 07/26/2025 11:15 AM CDT Anemia, unspecified type Stage 3a chronic kidney disease (HCC) Essential hypertension CBC WITH AUTO DIFFERENTIAL Routine 07/26/2025 11:15 AM CDT Anemia, unspecified type Stage 3a chronic kidney disease (HCC) Essential hypertension PROTEIN / CREATININE RATIO, URINE, RANDOM Routine 07/26/2025 11:15 AM CDT Anemia, unspecified type Stage 3a chronic kidney disease (HCC) Essential hypertension ALBUMIN CREATININE RATIO, URINE Routine 07/26/2025 11:15 AM CDT Anemia, unspecified type Stage 3a chronic kidney disease (HCC) Essential hypertension URINALYSIS AND REFLEX TO MICROSCOPIC Routine 07/26/2025 11:15 AM CDT Anemia, unspecified type Stage 3a chronic kidney disease (HCC) Essential hypertension SCAN - RADIOLOGY/IMAGING 07/12/2025 2:10 PM CDT ALBUMIN CREATININE RATIO, URINE Routine 06/27/2025 2:28 [...] SCAN - LABS 04/30/2025 8:41 AM CDT from Last 3 Months Results * (ABNORMAL) eGFR (07/26/2025 11:15 AM CDT) Pathologist [facility] eGFR 35(L) >=60 mL/min/1. 73 m2 Comment: Interpretive Data [...] of Race in Diagnosing Kidney Disease, JASN 2020). The CKD-EPI equation should not be used for patients with unstable renal function and has not been validated in children and those over 70. Current interpretive data was last reviewed 2021. Blood 07/26/2025 11:1 5 AM CDT 07/26/2025 2:17 PM CDT us rFancesco Miller MD LAB BLOOD ORDERABLE S Final Result [facility] [address] [facility] [place] [address] * Differential, auto (07/26/2025 11:15 AM CDT) Pathologist [facility] Neutrophil abs 2.20 1.50 - 6.50 K/cumm Imm gran abs 0.02 0.00 - 0.10 K/cumm [facility] Lymphocyte abs 1.34 0.80 - 3.30 K/cumm [facility] Monocyte abs 0.57 0.20 - 0.80 K/cumm [facility] Eosinophil abs 0.39 0.00 - 0.50 K/cumm [facility] Basophil abs 0.06 0.00 - 0.10 K/cumm [facility] Neutrophil pct 48.1 % [facility] Comment: Interpretive Data Percent cell count reference ranges are not reported, since discordance with absolute values may lead to misinterpretation of CBC data. Current Interpretive Data was last revised on 2018. Imm gran pct 0.4 % [facility] Comment: Interpretive Data Percent cell count reference ranges are not reported, since discordance with absolute values may lead to misinterpretation of CBC data. Current Interpretive Data was last revised on 2018. Lymphocyte pct 29.3 % [facility] Comment: Interpretive Data Percent cell count reference ranges are not reported, since discordance with absolute values may lead to misinterpretation of CBC data. Current Interpretive Data was last revised on 2018. Monocyte pct 12.4 % [facility] Comment: Interpretive Data Percent cell count reference ranges are not reported, since discordance with absolute values may lead to misinterpretation of CBC data. Current Interpretive Data was last revised on 2018. Eosinophil pct 8.5 % [facility] Comment: Interpretive Data Percent cell count reference ranges are not reported, since discordance with absolute values may lead to misinterpretation of CBC data. Current Interpretive Data was last revised on 2018. Basophil pct 1.3 % [facility] Comment: Interpretive Data Percent cell count reference ranges are not reported, since discordance with absolute values may lead to misinterpretation of CBC data. Current Interpretive Data was last revised on 2018. Blood 07/26/2025 11:1 5 AM CDT 07/26/2025 2:17 PM CDT us Francesco Miller MD LAB BLOOD ORDERABLE S Final Result [facility] [address] [facility] [place] [address] * Urinalysis reflex to microscopic (07/26/2025 11:15 AM CDT) Color, ur Yellow Yellow Clarity, ur Clear Clear [facility] Specific gravity, ur 1.012 1.003 - 1.030 [facility] pH, urine 6.5 [facility] Comment: Interpretive Data U rine pH is affected by diet, medications, systemic acid-base disturbances, and renal tubular function. pH may affect urinary stone formation. For example, urine pH below 6.0 may help reduce the tendency for calcium phosphate stones and pH greater than 6.0 may reduce the tendency for uric acid stone formation. Source: [facility] Current Interpretive Data was last revised on 2017 Protein, ur ql Negative Negative [facility] Glucose, ur ql Negative Negative [facility] Ketones, ur Negative Negative [facility] Bilirubin, ur Negative Negative [facility] Blood, ur Negative Negative [facility] Urobilinogen, ur <2.0 <2.0 mg/dL [facility] Nitrite, ur Negative Negative [facility] Leukocyte esterase, ur Negative Negative [facility] UA reflex comment Reflex conditions for microscopic UA not met. [facility] Urine 07/26/2025 11:1 5 AM CDT 07/26/2025 2:13 PM CDT us Francesco Miller MD LAB URINE ORDERABLE S Final Result [facility] [address] [facility] Department [place] [address] * (ABNORMAL) CBC with auto differential (07/26/2025 11:15 AM CDT) [facility] WBC 4.58 3.80 - 9.90 K/cumm Hgb 11.1(L) 11.9 - 15.5 g/dL [facility] Hct 34.3(L) 35.6 - 45.5 % [facility] Plt 213 150 - 400 K/cumm [facility] MPV 9.5 9.1 - 12.3 fL [facility] RBC 3.51(L) 3.90 - 5.20 M/cumm [facility] MCV 97.7(H) 81.3 - 96.4 fL [facility] MCH 31.6 27.1 - 33.3 pg [facility] MCHC 32.4 32.3 - 35.7 g/dL [facility] RDW CV 12.8 11.1 - 14.9 % [facility] RDW SD 45.7 35.7 - 48.1 fL [facility] NRBC abs 0.00 0.00 - 0.01 K/cumm [facility] Blood 07/26/2025 11:1 5 AM CDT 07/26/2025 2:17 PM CDT Francesco Miller MD LAB BLOOD ORDERABLE S Final Result Performing Organization Address [facility] de Phone Number [address] [place] [address] * Protein / creatinine ratio, urine, random (07/26/2025 11:15 AM CDT) Protein, ur, quant 8.0 mg/dL Comment: Interpretive Data No reference range established. Current interpretive data was last revised 2019. Creatinine Ur 75.3 mg/dL [facility] Comment: Interpretive Data No reference range established. Current interpretive data was last revised 2019. Protein/creatinin e ratio 106.2 0.0 - 180.0 mg/g CR [facility] Urine 07/26/2025 11:1 5 AM CDT 07/26/2025 2:13 PM CDT Result [facility] Francesco Miller MD LAB URINE ORDERABLE S Final Result Performing Organization Address [facility] de Phone Number [address] [place] [address] * Albumin Creatinine Ratio, Urine (07/26/2025 11:15 AM CDT) Albumin Ur <12.0 mg/L Comment: Interpretive Data No reference range established. Current interpretive data was last revised 2019. Creatinine Ur 75.3 mg/dL [facility] Comment: Interpretive Data No reference range established. Current interpretive data was last revised 2019. Albumin Creatinine Ratio, Ur <16 1 - 29 mg/g [facility] Urine 07/26/2025 11:1 5 AM CDT 07/26/2025 2:13 PM CDT Francesco Miller MD LAB URINE ORDERABLE S Final Result [facility] [address] [facility] Department [place] [address] * (ABNORMAL) Renal function panel (07/26/2025 11:15 AM CDT) Sodium 140 135 - 145 mmol/L Potassium, pl 4.6 3.3 - 4.9 mmol/L [facility] Chloride 107 97 - 110 mmol/L [facility] CO2 23 22 - 32 mmol/L [facility] Anion gap 10 2 - 15 mmol/L [facility] BUN 24 6 - 25 mg/dL [facility] Creatinine 1.48(H) 0.60 - 1.10 mg/dL [facility] Glucose 94 70 - 199 mg/dL [facility] Comment: Interpretive Data Fasting glucose >/= 126 [...] classification and Diagnosis of Diabetes Diabetes Care 2021; 46: S19-S40. Current interpretive data was last revised 2022. Calcium 9.3 8.5 - 10.3 mg/dL [facility] Phosphorus, pl 3.4 2.3 - 4.5 mg/dL [facility] Albumin 3.9 3.5 - 5.0 g/dL [facility] Blood 07/26/2025 11:1 5 AM CDT 07/26/2025 2:17 PM CDT Francesco Miller MD LAB BLOOD ORDERABLE S Final Result [facility] [address] [facility] Department [place] [address] * SCAN - RADIOLOGY/IMAGING (07/12/2025 2:10 PM CDT) Anatomical Region Laterality Modality Other Luis Lynne MD Final Result * Albumin Creatinine Ratio, Urine (06/27/2025 2:28 PM CDT) Albumin Ur <12.0 mg/L Comment: Interpretive Data No reference range established. Current interpretive data was last revised 2019. Creatinine Ur 123.9 mg/dL [facility] Comment: Interpretive Data No reference range established. Current interpretive data was last revised 2019. Albumin Creatinine Ratio, Ur <10 1 - 29 mg/g [facility] Urine 06/27/2025 2:28 PM CDT 06/27/2025 2:57 PM CDT Luis Lynne MD LAB URINE ORDERABLES Final Re sult Performing Organization Address City/[facility]/ZIP Co de Phone Number [facility] Department [place] [address] * (ABNORMAL) Basic metabolic panel (06/27/2025 10:23 AM CDT) Glucose 80 74 - 200 mg/dL [facility] [...] 3 AM CDT 06/27/2025 10:36 AM CDT us Luis Lynne MD LAB BLOOD ORDERABLES Final Re sult [facility] [address] [phone] * SCAN - LABS (06/22/2025 3:42 PM [...] Ewa Robert M.D. FT: FT Report ID: [id number] Reading Location: [place] [address] Procedure Note Ewa Fleming MD - 06/07/2025 [...] Ewa Robert M.D. FT: FT Report ID: [id number] Reading Location: [place] [address] Jose Segal MD IMG FLUOROSCOPY PROCEDURES Fin [...] revised on 2020. Testing performed by: [facility], [facility], [place]., [address] Blood 05/28/2025 2:18 PM CDT 05/29/2025 1:09 PM CDT us Jose Segal MD LAB BLOOD ORDERABLES Edited Re sult - Final [facility] Department [place] [address] * (ABNORMAL) eGFR (05/28/2025 11:53 AM CDT) [...] of Race in Diagnosing Kidney Disease, JASN 2020). The CKD-EPI equation should not be used for patients with unstable renal function and has not been validated in children and those over 70. Current interpretive data was last reviewed 2021. Blood 05/28/2025 11:5 3 AM CDT 05/28/2025 3:59 PM CDT us Jose Segal MD LAB BLOOD ORDERABLES Final Res ult [facility] Department [place] [address] * Differential, auto (05/28/2025 11:53 AM CDT) Neutrophil abs 3.01 1.50 - 6.50 K/cumm Imm gran abs 0.02 0.00 - 0.10 K/cumm [facility] Lymphocyte abs 1.77 0.80 - 3.30 K/cumm [facility] Monocyte abs 0.63 0.20 - 0.80 K/cumm [facility] Eosinophil abs 0.35 0.00 - 0.50 K/cumm [facility] Basophil abs 0.08 0.00 - 0.10 K/cumm [facility] Neutrophil pct 51.3 % [facility] Comment: Interpretive Data Percent cell count reference ranges are not reported, since discordance with absolute values may lead to misinterpretation of CBC data. Current Interpretive Data was last revised on 2018. Imm gran pct 0.3 % [facility] Comment: Interpretive Data Percent cell count reference ranges are not reported, since discordance with absolute values may lead to misinterpretation of CBC data. Current Interpretive Data was last revised on 2018. Lymphocyte pct 30.2 % [facility] Comment: Interpretive Data Percent cell count reference ranges are not reported, since discordance with absolute values may lead to misinterpretation of CBC data. Current Interpretive Data was last revised on 2018. Monocyte pct 10.8 % [facility] Comment: Interpretive Data Percent cell count reference ranges are not reported, since discordance with absolute values may lead to misinterpretation of CBC data. Current Interpretive Data was last revised on 2018. Eosinophil pct 6.0 % [facility] Comment: Interpretive Data Percent cell count reference ranges are not reported, since discordance with absolute values may lead to misinterpretation of CBC data. Current Interpretive Data was last revised on 2018. Basophil pct 1.4 % [facility] Comment: Interpretive Data Percent cell count reference ranges are not reported, since discordance with absolute values may lead to misinterpretation of CBC data. Current Interpretive Data was last revised on 2018. Blood 05/28/2025 11:5 3 AM CDT 05/28/2025 3:36 PM CDT us Jose Segal MD LAB BLOOD ORDERABLES Final Res ult [facility] Department [place] [address] * (ABNORMAL) CBC with auto differential (05/28/2025 11:53 AM CDT) WBC 5.86 3.80 - 9.90 K/cumm Hgb 11.8(L) 11.9 - 15.5 g/dL [facility] Hct 35.4(L) 35.6 - 45.5 % [facility] Plt 219 150 - 400 K/cumm [facility] MPV 9.7 9.1 - 12.3 fL [facility] RBC 3.66(L) 3.90 - 5.20 M/cumm [facility] MCV 96.7(H) 81.3 - 96.4 fL [facility] MCH 32.2 27.1 - 33.3 pg [facility] MCHC 33.3 32.3 - 35.7 g/dL [facility] RDW CV 12.7 11.1 - 14.9 % [facility] RDW SD 45.3 35.7 - 48.1 fL [facility] NRBC abs 0.02(H) 0.00 - 0.01 K/cumm [facility] Blood 05/28/2025 11:5 3 AM CDT 05/28/2025 3:36 PM CDT us Jose Segal MD LAB BLOOD ORDERABLES Final Res ult [facility] Department [place] [address] * (ABNORMAL) Comprehensive metabolic panel (05/28/2025 11:53 AM CDT) Sodium 141 135 - 145 mmol/L Potassium, pl 4.9 3.3 - 4.9 mmol/L [facility] Chloride 103 97 - 110 mmol/L [facility] CO2 29 22 - 32 mmol/L [facility] Anion gap 9 2 - 15 mmol/L [facility] BUN 32(H) 6 - 25 mg/dL [facility] Creatinine 1.65(H) 0.60 - 1.10 mg/dL [facility] Glucose 66(L) 70 - 199 mg/dL [facility] Comment: Interpretive Data Fasting glucose >/= [...] 2022. Calcium 9.6 8.5 - 10.3 mg/dL [facility] Bilirubin, total 0.3 0.1 - 1.2 mg/dL [facility] Protein, pl 7.4 6.5 - 8.5 g/dL [facility] Albumin 4.2 3.5 - 5.0 g/dL [facility] Alk phos 101 40 - 130 Units/L [facility] ALT 21 7 - 45 Units/L [facility] AST 29 10 - 45 Units/L [facility] Blood 05/28/2025 11:5 3 AM CDT 05/28/2025 3:36 PM CDT Jose Segal MD LAB BLOOD ORDERABLES Final Res ult [facility] [place] [address] * SCAN - LABS (05/13/2025 5:00 PM CDT) us Luis Lynne MD Final Result * SCAN - LABS (05/12/2025 7:29 AM CDT) Luis Lynne MD Final Result * SCAN - LABS (04/30/2025 8:41 AM CDT) us Luis Lynne MD Final Result * SCAN - LABS (04/30/2025 8:41 AM CDT) us Luis Lynne MD Final Result from Last 3 Months Insurance [facility] MEDICARE T MEDICARE T MEDICARE AET MEDICARE Care Teams Materials Associate Relationship Specialty Start Date End Date Luis Lynne MD PCP - General Internal Medicine 12/26/20
--- OUTSIDE RECORDS SUMMARY | 2025-07-30 10:41 | XMS_ITS | Encounter Summary ---
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
--- OUTSIDE RECORDS SUMMARY | 2025-07-30 10:41 | XMS_ITS | Encounter Summary ---
Author Organization 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
--- OUTSIDE RECORDS SUMMARY | 2025-07-30 10:41 | XMS_ITS | Encounter Summary ---
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
--- OUTSIDE RECORDS SUMMARY | 2025-07-30 10:41 | XMS_ITS | Clinical Summary ---
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
--- OUTSIDE RECORDS SUMMARY | 2025-07-30 10:41 | XMS_ITS | Encounter Summary ---
Author Organization [facility] Address [address] [place] [address] Care Team Providers Care Dispatcher Service Or Work Name Role Phone Luis Lynne MD Primary Care Provider [phone] Encounter Details Date Type Department Care Team (Late st Contact Info) Description 07/08/2020 Orders Only [facility] [address] [facility] [address] [facility] [place] [address] Scanning, Provider Social History Tobacco Use Types Packs/Day Years Used Date Smoking Tobacco: Never Assessed Comments Unknown Sex and Gender Information Value Date Recorded Sex Assigned at Not on file 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
== END 2025-07-30 09:52 | disposition home or self-care (01) ==
LOC: ANHFOHIMG 09:53
PROVIDERS: PCP Internal Medicine; Visit Provider Internal Medicine Hematology & Oncology
DX: Z12.31 Encounter for screening mammogram for malignant neoplasm of breast (principal)
CPT/HCPCS: 77063; 77067

== ENCOUNTER 2025-08-07 14:22 | Outpatient (CLI) | payer MEDICARE, SELFPAY ==
[2025-08-07 15:04] LABS: Hematocrit 33.9 % (37.0-47.0); Hemoglobin 10.8 g/dL (12.0-15.0); Immature Granulocyte Percent A 0.0 % (0-0.5); Lymphocytes Absolute Auto 1.07 K/mm3 (0.9-3.2); Mean Corpuscular HGB Conc 31.9 g/dl (32-36); Mean Corpuscular Hemoglobin 30.9 pg (26-34); Mean Corpuscular Volume 96.9 fl (80-100); Nucleated Red Blood Cells Absolute Auto 0.000 K/mm3 (0.0-0.012); Nucleated Red Blood Cells Perc 0.0 % (0.0-0.2); Platelet Count Result 151 k/mm3 (150-375); Red Blood Count 3.50 M/mm3 (4.2-5.4); White Blood Count 3.4 K/mm3 (4.5-10.0)
[2025-08-07 15:22] LABS: Alanine Aminotransferase 25 U/L (6-35); Albumin Level 4.0 g/dL (3.5-5.1); Alkaline Phosphatase 95 U/L (38-126); Anion Gap 6 mmol/L (4-12); Aspartate Amino Transferase 46 U/L (14-36); Bilirubin,Total 0.3 mg/dL (0.2-1.3); Blood Urea Nitrogen 21 mg/dL (7-17); Calcium 8.5 mg/dL (8.4-10.2); Carbon Dioxide 27 mmol/L (22-30); Chloride 102 mmol/L (98-107); Estimated Glomerular Filt Rate 38; Glucose 144 mg/dL (65-110); Potassium 4.3 mmol/L (3.4-5.0); Sodium 135 mmol/L (137-145); Total Protein 6.8 g/dL (6.3-8.2)
--- OUTSIDE RECORDS SUMMARY | 2025-08-07 18:12 | XMS_ITS | Encounter Summary ---
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 Gender Identity Not on file Sexual Orientation Not on file documented as of this encounter Plan of Treatment Not on file documented as of this encounter Procedures Procedure Name Priority Date/Time Associated Diagnosis Comments SCAN - LABS 08/07/2025 3:44 PM CDT documented in this encounter Results * SCAN - LABS (08/07/2025 3:44 PM CDT) us Luis Lynne MD Final Result documented in this encounter Visit Diagnoses Not on filedocumented in this encounter Care Teams Director Of Institutional Research Relationship Specialty Start Date End Date Luis Lynne MD PCP - General Internal Medicine 12/26/20 documented as of this encounter
--- OUTSIDE RECORDS SUMMARY | 2025-08-07 18:12 | XMS_ITS | Encounter Summary ---
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
--- OUTSIDE RECORDS SUMMARY | 2025-08-07 18:12 | XMS_ITS | Encounter Summary ---
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
--- OUTSIDE RECORDS SUMMARY | 2025-08-07 18:12 | XMS_ITS | Clinical Summary ---
Author Organization [facility] [address] Address [address] [place] [address] Care Team Providers Care Allergist/Immunologist Name Role Phone Luis Lynne MD Primary Care Provider [phone] Allergies Active Allergy Reactions Criticality Noted Date [...] (six) hours as needed for wheezing Active omeprazole (PriLOSEC) 20 mg capsule TAKE 1 CAPSULE BY MOUTH EVERY DAY 90 capsule 3 025 Active clotrimazole-beta methasone (LOTRISONE) cream [...] Wednesday, Wednesday and Wednesday 12 tablet 2 2024 Active rifabutin (MYCOBUTIN) 150 mg capsule Take 2 capsules (300 mg total) by mouth 3 (three) times a week Take on Wednesday, Wednesday and Wednesday 24 capsule 2 025 2024 Active ethambutoL (MYAMBUTOL) 400 mg tabletIndications :Mycobacteriosis Take 2.5 tablets (1,000 mg total) by mouth 3 (three) times a week Take on Wednesday, Wednesday and Wednesday 30 tablet 2 025 2024 Active olmesartan (BENICAR) 20 mg tablet TAKE 1 TABLET BY MOUTH EVERY DAY 90 tablet 3 Active olmesartan (BENICAR) 20 mg tablet TAKE 1 TABLET BY MOUTH EVERY DAY 90 tablet 3 024 2024 Discontinued meloxicam (MOBIC) 15 mg tablet TAKE 1 TABLET BY MOUTH EVERY DAY 90 tablet 3 025 2024 Discontinued Active Problems Problem Noted Date [...] 07/11/2024 Assessment & Plan (11/07/2024 11:19 AM ARMATURE WINDER): To have follow-up CT scan. Bronchoscopy has been mentioned as a possibility as well Assessment & Plan (09/19/2024 3:26 PM ARMATURE WINDER): -Patient presents to clinic for follow up appointment due to sputum growing Mycobacterium avium intracellular infection. -Patient currently asymptomatic -We will get a repeat CT scan -We will wait for final results on her sputum samples -If the CT scan is the same or worsening, we will reach out to her historic interpreter to see if they would be able to bronch the patient to get samples. ([facility]) -We will hold off on [...] asymptomatic -We will get CT scans from [facility] review images with our radiologist to [...] rx. Assessment & Plan (11/07/2024 11:18 AM ARMATURE WINDER): Lipid reviewed doing well Hypothyroidism 02/04/2022 Assessment & Plan (05/07/2025 11:23 AM CDT): Stable, continue meds. Assessment & Plan (11/07/2024 11:18 AM ARMATURE WINDER): No signs or symptoms of thyroid disease. Check labs in 6 months GERD without esophagitis 02/04/2022 Assessment & Plan (11/07/2024 11:18 AM ARMATURE WINDER): Stable doing well. Essential hypertension 02/04/2022 Assessment & Plan (05/07/2025 11:23 AM CDT): Bp at target, continue medication for target directed therapy. Assessment & Plan (11/07/2024 11:18 AM ARMATURE WINDER): BP at target. Continue medication for target directed therapy Encounters Date Type Department Care Team Description 08/07/2025 Orders Only [facility] [address] [place] [address] Luis Lynne MD 08/02/2025 11:00 AM CDT Office Visit [facility] Medicine Nephrology [facility] 5th [place] [address] [place] [address] Francesco Atkins MD 07/31/2025 Orders Only [facility] [address] [place] [address] [place] [phone] Luis Lynne MD 07/26/2025 11:05 AM CDT Lab [place] [address] [place] [address] Anemia, unspecified type; Stage 3a chronic kidney disease (HCC); Essential hypertension 07/18/2025 Orders Only [facility] Nephrology [address] [place] [address] 5th [place] [address] [place] [address] Francesco Atkins MD Anemia, unspecified type (Primary Dx); Stage 3a chronic kidney disease (HCC); Essential hypertension 07/12/2025 Results Follow-Up [facility] [address] [phone] Luis Lynne MD SCAN - RADIOLOGY/IMAGING 07/12/2025 Orders Only [facility] [address] [place] [phone] Luis Lynne MD 06/28/2025 Results Follow-Up [facility] [address] [place] [phone] Luis Lynne MD Basic metabolic panel 06/27/2025 1:33 PM CDT - 06/27/2025 11:59 PM CDT Hospital Encounter [address] [address] Stage 4 chronic kidney disease (HCC) Discharge Disposition: Discharge to home or self care 06/27/2025 9:45 AM CDT Office Visit [facility] [address] [place] [phone] Luis Lynne MD Stage 4 chronic kidney disease (HCC) (Primary Dx); Essential hypertension; GERD without esophagitis; Hypothyroidism, unspecified type; Mixed hyperlipidemia; Pulmonary mycobacterial infection (HCC) 06/22/2025 Orders Only [facility] [address] [place] [phone] Luis Lynne MD 06/21/2025 Telephone [facility] Medicine Infectious Diseases [address] [place] [phone] Rebecca Taylor LCSW 06/21/2025 Telephone [facility] Medicine Infectious Diseases [address] [place] [phone] Coty Jacobson 06/19/2025 Telephone [facility] Medicine Infectious Diseases [address] [place] [phone] Ema Spears RMA 06/07/2025 7:52 AM CDT - 06/07/2025 11:59 PM CDT Hospital Encounter [address] [address] Bobo Chauhan Pulmonary mycobacterial infection (HCC) Discharge Disposition: Discharge to home or self care 05/29/2025 Telephone [facility] [address] [place] [phone] Shira Rasmussen, RMChantell Appointment 05/29/2025 Telephone [facility] Medicine Infectious Diseases [address] [place] [phone] Ema Spears RMChantell 05/29/2025 Orders Only [facility] Infectious Diseases [address] [place] [phone] Savita Clemente NP 05/28/2025 2:18 PM CDT - 05/28/2025 11:59 PM CDT Hospital Encounter [facility] [address] [place] [address] Discharge Disposition: Discharge to home or self care 05/28/2025 10:20 AM CDT Office Visit [facility] Medicine Infectious Diseases [address] [place] [phone] Errol Villeda MD Pulmonary mycobacterial infection (HCC) (Primary Dx); Encounter for screening examination for sexually transmitted disease; Stage 4 chronic kidney disease (HCC) 05/13/2025 Orders Only [facility] [address] [place] [phone] Luis Lynne MD 05/12/2025 Orders Only [facility] [address] [place] [phone] Luis Lynne MD 05/07/2025 10:45 AM CDT Office Visit [facility] [address] [phone] Luis Lynne MD Mixed hyperlipidemia (Primary Dx); Hypothyroidism, unspecified type; Essential hypertension from Last 3 Months Immunizations Immunization Administration [...] on file Legal Sex Female 1:10 PM ARMATURE WINDER Gender Identity Not on file Sexual Orientation Not on file Obstetrics History Last Filed Vital Signs Vital Sign Reading Time Taken Comments Blood Pressure 158/81 08/02/2025 11:13 AM CDT Pulse 78 08/02/2025 11:13 AM CDT Temperature 36.8 C (98.2 F) 08/02/2025 11:13 AM CDT Respiratory Rate 17 01/02/2021 12:14 PM CDT Oxygen Saturation 96% 08/02/2025 11:13 AM CDT Inhaled Oxygen Concentration - - Weight 75.8 kg (167 lb) 08/02/2025 11:13 AM CDT Height 162.6 cm (5' 4) 08/02/2025 11:13 AM CDT Body Mass Index 28.67 08/02/2025 11:13 AM CDT Plan of Treatment Health Maintenance [...] SCAN - LABS 08/07/2025 3:44 PM CDT SCAN - RADIOLOGY/IMAGING 07/31/2025 6:02 PM CDT EGFR Routine 07/26/2025 11:15 AM CDT Anemia, [...] SCAN - LABS 05/12/2025 7:29 AM CDT from Last 3 Months Results * SCAN - LABS (08/07/2025 3:44 PM CDT) us Luis Lynne MD Final Result * SCAN - RADIOLOGY/IMAGING (07/31/2025 6:02 PM CDT) Anatomical Region Laterality Modality Other us Luis Lynne MD Final Result * (ABNORMAL) eGFR (07/26/2025 11:15 AM CDT) eGFR 35(L) >=60 mL/min/1. 73 m2 Comment: [...] MD LAB BLOOD ORDERABLE S Final Result [facility] [address] [facility] Department [place] [address] * Differential, auto (07/26/2025 11:15 AM CDT) Pathologist [facility] Neutrophil abs 2.20 1.50 - 6.50 K/cumm Imm gran abs 0.02 0.00 - 0.10 K/cumm [facility] Lymphocyte abs 1.34 0.80 - 3.30 K/cumm [facility] Monocyte abs 0.57 0.20 - 0.80 K/cumm [facility] Eosinophil abs 0.39 0.00 - 0.50 K/cumm [facility] Basophil abs 0.06 0.00 - 0.10 K/cumm [facility] Neutrophil pct 48.1 % [facility] Comment: Interpretive Data Percent cell count reference ranges are not reported, since discordance with absolute values may lead to misinterpretation of CBC data. Current Interpretive Data was last revised on 2018. Imm gran pct 0.4 % [facility] Comment: Interpretive Data Percent cell count reference ranges are not reported, since discordance with absolute values may lead to misinterpretation of CBC data. Current Interpretive Data was last revised on 2018. Lymphocyte pct 29.3 % [facility] Comment: Interpretive Data Percent cell count reference ranges are not reported, since discordance with absolute values may lead to misinterpretation of CBC data. Current Interpretive Data was last revised on 2018. Monocyte pct 12.4 % [facility] Comment: Interpretive Data Percent cell count reference ranges are not reported, since discordance with absolute values may lead to misinterpretation of CBC data. Current Interpretive Data was last revised on 2018. Eosinophil pct 8.5 % [facility] Comment: Interpretive Data Percent cell count reference ranges are not reported, since discordance with absolute values may lead to misinterpretation of CBC data. Current Interpretive Data was last revised on 2018. Basophil pct 1.3 % [facility] Comment: Interpretive Data Percent cell count reference ranges are not reported, since discordance with absolute values may lead to misinterpretation of CBC data. Current Interpretive Data was last revised on 2018. Blood 07/26/2025 11:1 5 AM CDT 07/26/2025 2:17 PM CDT us Francesco Miller MD LAB BLOOD ORDERABLE S Final Result [facility] [address] [facility] Department [place] [address] * Urinalysis reflex to microscopic (07/26/2025 11:15 AM CDT) Color, ur Yellow Yellow Clarity, ur Clear Clear [facility] Specific gravity, ur 1.012 1.003 - 1.030 [facility] pH, urine 6.5 [facility] Comment: Interpretive Data U rine pH is affected by diet, medications, systemic acid-base disturbances, and renal tubular function. pH may affect urinary stone formation. For example, urine pH below 6.0 may help reduce the tendency for calcium phosphate stones and pH greater than 6.0 may reduce the tendency for uric acid stone formation. Source: [facility] Current Interpretive Data was last revised on 2017 Protein, ur ql Negative Negative [facility] Glucose, ur ql Negative Negative [facility] Ketones, ur Negative Negative [facility] Bilirubin, ur Negative Negative [facility] Blood, ur Negative Negative [facility] Urobilinogen, ur <2.0 <2.0 mg/dL [facility] Nitrite, ur Negative Negative [facility] Leukocyte esterase, ur Negative Negative [facility] UA reflex comment Reflex conditions for microscopic UA not met. MINE Urine 07/26/2025 11:1 5 AM CDT 07/26/2025 2:13 PM CDT Francesco Mliler MD LAB URINE ORDERABLE S Final Result Performing Organization Address [facility] Co de Phone Number MINE [address] [address] * (ABNORMAL) CBC with auto differential (07/26/2025 11:15 AM CDT) [facility] WBC 4.58 3.80 - 9.90 K/cumm Hgb 11.1(L) 11.9 - 15.5 g/dL [facility] Hct 34.3(L) 35.6 - 45.5 % [facility] Plt 213 150 - 400 K/cumm [facility] MPV 9.5 9.1 - 12.3 fL [facility] RBC 3.51(L) 3.90 - 5.20 M/cumm [facility] MCV 97.7(H) 81.3 - 96.4 fL [facility] MCH 31.6 27.1 - 33.3 pg [facility] MCHC 32.4 32.3 - 35.7 g/dL [facility] RDW CV 12.8 11.1 - 14.9 % [facility] RDW SD 45.7 35.7 - 48.1 fL [facility] NRBC abs 0.00 0.00 - 0.01 K/cumm [facility] Blood 07/26/2025 11:1 5 AM CDT 07/26/2025 2:17 PM CDT Francesco Miller MD LAB BLOOD ORDERABLE S Final Result Performing Organization Address [facility] Co de Phone Number [facility]INE [address] [employer] [place] [address] * Protein / creatinine ratio, urine, random (07/26/2025 11:15 AM CDT) Pathologist [facility] Protein, ur, quant 8.0 mg/dL Comment: Interpretive Data No reference range established. Current interpretive data was last revised 2019. Creatinine Ur 75.3 mg/dL [facility] Comment: Interpretive Data No reference range established. Current interpretive data was last revised 2019. Protein/creatinin e ratio 106.2 0.0 - 180.0 mg/g CR [facility] Urine 07/26/2025 11:1 5 AM CDT 07/26/2025 2:13 PM CDT Francesco Miller MD LAB URINE ORDERABLE S Final Result Performing Organization Address [facility] de Phone Number [address] [employer] [place] [address] * Albumin Creatinine Ratio, Urine (07/26/2025 11:15 AM CDT) Albumin Ur <12.0 mg/L Comment: Interpretive Data No reference range established. Current interpretive data was last revised 2019. Creatinine Ur 75.3 mg/dL [facility] Comment: Interpretive Data No reference range established. Current interpretive data was last revised 2019. Albumin Creatinine Ratio, Ur <16 1 - 29 mg/g [facility] Urine 07/26/2025 11:1 5 AM CDT 07/26/2025 2:13 PM CDT Francesco Miller MD LAB URINE ORDERABLE S Final Result Performing Organization Address [facility] de Phone Number [address] [address] * (ABNORMAL) Renal function panel (07/26/2025 11:15 AM CDT) Sodium 140 135 - 145 mmol/L Potassium, pl 4.6 3.3 - 4.9 mmol/L [facility] Chloride 107 97 - 110 mmol/L [facility] CO2 23 22 - 32 mmol/L [facility] Anion gap 10 2 - 15 mmol/L [facility] BUN 24 6 - 25 mg/dL [facility] Creatinine 1.48(H) 0.60 - 1.10 mg/dL [facility] Glucose 94 70 - 199 mg/dL [facility] Comment: Interpretive Data Fasting glucose >/= [...] 2022. Calcium 9.3 8.5 - 10.3 mg/dL [facility] Phosphorus, pl 3.4 2.3 - 4.5 mg/dL [facility] Albumin 3.9 3.5 - 5.0 g/dL [facility] Blood 07/26/2025 11:1 5 AM CDT 07/26/2025 2:17 PM CDT Francesco Miller MD LAB BLOOD ORDERABLE S Final Result [facility] [address] Department [place] [address] * SCAN - RADIOLOGY/IMAGING (07/12/2025 2:10 PM CDT) Anatomical Region Laterality Modality Other us Luis Lynne MD Final Result * Albumin Creatinine Ratio, Urine (06/27/2025 2:28 PM CDT) Albumin Ur <12.0 mg/L Comment: Interpretive Data No reference range established. Current interpretive data was last revised 2019. Creatinine Ur 123.9 mg/dL [facility] Comment: Interpretive Data No reference range established. Current interpretive data was last revised 2019. Albumin Creatinine Ratio, Ur <10 1 - 29 mg/g [facility] Urine 06/27/2025 2:28 PM CDT 06/27/2025 2:57 PM CDT Luis Lynne MD LAB URINE ORDERABLES Final Re sult Performing Organization Address [facility]/ZIP Co de Phone Number MINE [facility] Department [place] [address] * (ABNORMAL) Basic metabolic panel (06/27/2025 10:23 [...] MD LAB BLOOD ORDERABLES Final Re sult Performing Organization Address [facility] Co de Phone Number [facility] [address] [address] * SCAN - LABS (06/22/2025 3:42 [...] Ewa Robert M.D. FT: FT Report ID: [id number] Reading Location: [id number] Procedure Note Ewa Fleming MD - 06/07/2025 [...] Ewa Robert M.D. FT: FT Report ID: [id number] Reading Location: [place] [address] Jose Segal MD IMG FLUOROSCOPY PROCEDURES Fin [...] revised on 2020. Testing performed by: [facility], [facility], [place]., [address] Blood 05/28/2025 2:18 PM CDT 05/29/2025 1:09 PM CDT Jose Segal MD LAB BLOOD ORDERABLES Edited Re sult - [facility] [place] [address] * (ABNORMAL) eGFR (05/28/2025 11:53 AM CDT) Pathologist [facility] eGFR 30(L) >=60 mL/min/1. 73 m2 Comment: [...] MD LAB BLOOD ORDERABLES Final Res ult [facility] [place] [address] * Differential, auto (05/28/2025 11:53 AM CDT) Pathologist [facility] Neutrophil abs 3.01 1.50 - 6.50 K/cumm Imm gran abs 0.02 0.00 - 0.10 K/cumm [facility] Lymphocyte abs 1.77 0.80 - 3.30 K/cumm [facility] Monocyte abs 0.63 0.20 - 0.80 K/cumm [facility] Eosinophil abs 0.35 0.00 - 0.50 K/cumm [facility] Basophil abs 0.08 0.00 - 0.10 K/cumm [facility] Neutrophil pct 51.3 % [facility] Comment: Interpretive Data Percent cell count reference ranges are not reported, since discordance with absolute values may lead to misinterpretation of CBC data. Current Interpretive Data was last revised on 2018. Imm gran pct 0.3 % [facility] Comment: Interpretive Data Percent cell count reference ranges are not reported, since discordance with absolute values may lead to misinterpretation of CBC data. Current Interpretive Data was last revised on 2018. Lymphocyte pct 30.2 % [facility] Comment: Interpretive Data Percent cell count reference ranges are not reported, since discordance with absolute values may lead to misinterpretation of CBC data. Current Interpretive Data was last revised on 2018. Monocyte pct 10.8 % [facility] Comment: Interpretive Data Percent cell count reference ranges are not reported, since discordance with absolute values may lead to misinterpretation of CBC data. Current Interpretive Data was last revised on 2018. Eosinophil pct 6.0 % [facility] Comment: Interpretive Data Percent cell count reference ranges are not reported, since discordance with absolute values may lead to misinterpretation of CBC data. Current Interpretive Data was last revised on 2018. Basophil pct 1.4 % [facility] Comment: Interpretive Data Percent cell count reference ranges are not reported, since discordance with absolute values may lead to misinterpretation of CBC data. Current Interpretive Data was last revised on 2018. Blood 05/28/2025 11:5 3 AM CDT 05/28/2025 3:36 PM CDT us Jose Segal MD LAB BLOOD ORDERABLES Final Res ult [facility] Department [place] [address] * (ABNORMAL) CBC with auto differential (05/28/2025 11:53 AM CDT) WBC 5.86 3.80 - 9.90 K/cumm Hgb 11.8(L) 11.9 - 15.5 g/dL [facility] Hct 35.4(L) 35.6 - 45.5 % [facility] Plt 219 150 - 400 K/cumm [facility] MPV 9.7 9.1 - 12.3 fL [facility] RBC 3.66(L) 3.90 - 5.20 M/cumm [facility] MCV 96.7(H) 81.3 - 96.4 fL [facility] MCH 32.2 27.1 - 33.3 pg [facility] MCHC 33.3 32.3 - 35.7 g/dL [facility] RDW CV 12.7 11.1 - 14.9 % [facility] RDW SD 45.3 35.7 - 48.1 fL [facility] NRBC abs 0.02(H) 0.00 - 0.01 K/cumm [facility] Blood 05/28/2025 11:5 3 AM CDT 05/28/2025 3:36 PM CDT us Jose Segal MD LAB BLOOD ORDERABLES Final Res ult [facility] [place] [address] * (ABNORMAL) Comprehensive metabolic panel (05/28/2025 11:53 AM CDT) Sodium 141 135 - 145 mmol/L Potassium, pl 4.9 3.3 - 4.9 mmol/L [facility] Chloride 103 97 - 110 mmol/L [facility] CO2 29 22 - 32 mmol/L [facility] Anion gap 9 2 - 15 mmol/L [facility] BUN 32(H) 6 - 25 mg/dL [facility] Creatinine 1.65(H) 0.60 - 1.10 mg/dL [facility] Glucose 66(L) 70 - 199 mg/dL [facility] Comment: Interpretive Data Fasting glucose >/= 126 [...] 2022. Calcium 9.6 8.5 - 10.3 mg/dL [facility] Bilirubin, total 0.3 0.1 - 1.2 mg/dL [facility] Protein, pl 7.4 6.5 - 8.5 g/dL [facility] Albumin 4.2 3.5 - 5.0 g/dL [facility] Alk phos 101 40 - 130 Units/L [facility] ALT 21 7 - 45 Units/L [facility] AST 29 10 - 45 Units/L [facility] Blood 05/28/2025 11:5 3 AM CDT 05/28/2025 3:36 PM CDT Jose Segal MD LAB BLOOD ORDERABLES Final Res ult [facility] [place] [address] * SCAN - LABS (05/13/2025 5:00 PM CDT) Luis Lynne MD Final Result * SCAN - LABS (05/12/2025 7:29 AM CDT) Luis Lynne MD Final Result from Last 3 Months Insurance [employer] MEDICARE [facility] MEDICARE T MEDICARE [employer] MEDICARE Care Teams Allergist/Immunologist Relationship Specialty Start Date End Date Luis Lynne MD PCP - General Internal Medicine 12/26/20
--- OUTSIDE RECORDS SUMMARY | 2025-08-07 18:12 | XMS_ITS | Encounter Summary ---
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
--- OUTSIDE RECORDS SUMMARY | 2025-08-07 18:12 | XMS_ITS | Encounter Summary ---
Author Organization [facility] Address [address] [place] [address] Care Team Providers Care Ocean Export Coordinator Name Role Phone Luis Lynne MD Primary Care Provider [phone] Encounter Details Date Type Department Care Team (Late st Contact Info) Description 07/08/2020 Orders Only [facility] [address] [facility] [address] [place] [facility] [place] [address] Scanning, Provider Social History Tobacco Use Types Packs/Day Years Used Date Smoking Tobacco: Never Assessed Comments Unknown Sex and Gender Information Value Date Recorded Sex Assigned at Not on file Legal Sex Female 1:10 PM INTERN ARCHITECT Gender Identity Not on file Sexual [...] documented as of this encounter Care Teams Ocean Export Coordinator Relationship Specialty Start Date End Date Luis Lynne MD PCP - General Internal Medicine 12/26/20 documented as of this encounter
--- OUTSIDE RECORDS SUMMARY | 2025-08-07 18:12 | XMS_ITS | Encounter Summary ---
Author Organization [facility] Address [address] [place] [address] Care Team Providers Care Blacktop Spreader Name Role Phone Luis Lynne MD Primary Care Provider [phone] Encounter Details Date Type Department Care Team (Late Contact Info) Description 08/01/2025 Orders Only [facility] Oncology and Hematology [place] [address] [place] [address] Jack Ramirez MD [facility] [employer] [address] [place] [id number] Social History Tobacco Use Types Packs/Day Years Used Date Smoking Tobacco: Never Smokeless Tobacco: Never Alcohol Use Standard Drinks/Week Comments No 0 (1 standard drink = 0.6 oz pur e alcohol) Comments No Sex and Gender Information Value Date Recorded Sex Assigned at Not on file Legal Sex 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 Gender Identity Not on file Sexual Orientation Not on file documented as of this encounter Plan of Treatment Upcoming Encounters Date Type Department Care Team (Late Contact Info) Description 08/22/2025 1:15 PM SHOE SALESPERSON Office Visit [facility] Oncology and Hematology - [place] [place] [address] Jack Ramirez MD [address] [employer] [employer] [address] [place] [phone] documented as of this encounter Procedures Procedure Name Priority Date/Time Associated Diagnosis Comments MAMMO SCREENING BILAT Routine 07/30/2025 11:26 AM CDT documented in this encounter Results * MAMMO SCREENING BILAT (07/30/2025 11:26 AM CDT) Anatomical Region Laterality Modality Breast Bilateral Mammography Jack Ramirez MD MAMMO ORDERABLES Final Result documented in this encounter Visit Diagnoses Not on filedocumented in this encounter Care Teams Blacktop Spreader Relationship Specialty Start Date End Date Luis Lynne MD [address] [place] [address] PCP - General Internal Medicine 12/22/17 documented as of this encounter
--- OUTSIDE RECORDS SUMMARY | 2025-08-07 18:12 | XMS_ITS | Encounter Summary ---
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
--- OUTSIDE RECORDS SUMMARY | 2025-08-07 18:12 | XMS_ITS | Clinical Summary ---
Author Organization [facility] Address [address] [place] [address] Care Team Providers Care Developing Machine Tender Name Role Phone Luis Lynne MD Primary Care Provider [phone] Allergies Active Allergy Reactions Criticality Noted Date [...] Encounters Date Type Department Care Team Description 08/03/2025 Telephone [facility] Oncology and Hematology [facility] [address] [place] [address] Jack Ramirez MD labs for appt 08/01/2025 Orders Only [facility] Oncology and [facility] [address] [place] [address] Jack Ramirez MD 07/31/2025 External Device Data [facility] ABSTRACTION Provider, Abstract 07/24/2025 External Device Data [facility] ABSTRACTION Provider, [...] on file 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 Gender Identity Not on file Sexual Orientation [...] Care Team (Late st Contact Info) Description 08/22/2025 1:15 PM CONVEYOR FEEDER Office Visit [facility] Oncology and Hematology - [place] [address] [facility] [address] [place] [address] Jack Ramirez MD [address] [facility] [address] [place] [address] Health Maintenance Due Date Last Done Comments DTAP/TDAP/TD VACCINES (1 - Tdap) 1959 ZOSTER VACCINE (1 of 2) 1990 RSV VACCINE (60+ or ) (1 - 1-dose 75+ series) 2015 OSTEOPOROSIS SCREENING 06/26/2024 06/26/2019 [place] Preventative Visit/Annual Wellness Visit 10/18/2024 INFLUENZA VACCINE (#1) 2025 , 08/06/2019, 07/24/2015, Additional history exists COVID-19 Vaccine (3 - 2024-2 6 season) 2025 12/16/2020, 11/15/2020 PNEUMOCOCCAL VACCINE 50+ YEARS Completed 09/23/2017 , 08/14/2015 Procedures Procedure Name Priority Date/Time Associated Diagnosis Comments MAMMO SCREENING BILAT Routine 07/30/2025 11:26 AM CDT XR DEXA BONE DENSITY AXIAL 1 OR MORE SITES Routine 06/26/2019 Screening for osteoporosis Postmenopausal from Last 3 Months or Most Recently Relevant to Health Maintenance Results * MAMMO SCREENING BILAT (07/30/2025 11:26 AM CDT) Anatomical Region Laterality Modality Breast Bilateral Mammography Jack Ramirez MD MAMMO ORDERABLES Final Result * XR DEXA BONE DENSITY AXIAL 1 OR MORE SITES (06/26/2019) Anatomical Region Laterality Modality Other Jack Ramirez MD DIAGNOSTIC IMAGING ORDERABLES F inal Result from Last 3 Months or Most Recently Relevant to Health Maintenance Insurance [employer] O [facility] Care Teams Developing Machine Tender Relationship Specialty Start Date End Date Luis Lynne MD [address] [facility] [address] [place] [address] PCP - General Internal Medicine 12/22/17
== END 2025-08-07 14:23 | disposition home or self-care (01) ==
LOC: ANHLAB 14:26
PROVIDERS: PCP Internal Medicine; Visit Provider Internal Medicine Hematology & Oncology
DX: C50.912 Malignant neoplasm of unspecified site of left female breast (principal); Z17.0 Estrogen receptor positive status [ER+]
CPT/HCPCS: 36415; 80053; 85025; 86300